=== PATIENT | female | born 1955 | race Caucasian/White ===

== ENCOUNTER → 2018-05-09 08:48 | Outpatient (BNVA) | payer MEDICARE, OTHER, SELFPAY | PROVIDERS: Visit Provider Orthopaedic Surgery | DX: Z47.1 Aftercare following joint replacement surgery (principal); Z96.653 Presence of artificial knee joint, bilateral | CPT/HCPCS: 99213 ==

== ENCOUNTER 2019-09-15 01:50 | Outpatient (CLI) | payer MEDICARE, SELFPAY ==
--- NOTE | 2019-09-15 09:13 | DI.RAD_ITS ---
EXAM: XR RIBS LT W PA LAT CHEST INDICATION: LT UPPER QUADRANT RIB PAIN, R10.12. COMPARISON: RIGHT RIBS TO INCLUDE CXR from 10/11/2015 RIGHT SHOULDER COMPLETE from 10/11/2015 TECHNIQUE: 2D digital imaging was performed. FINDINGS: Heart size is normal. There are old right rib fractures. Lungs are clear. No pneumothorax is seen. A marker was placed over the lower left ribs in the area of the patient's pain. No acute rib fract ure is identified. There is an old left 7th rib fracture. There has been a previous anterior abdomi nal wall repair. The left shoulder is unremarkable. IMPRESSION: No acute abnormality.
== END 2019-09-15 02:10 ==
PROVIDERS: PCP Nurse Practitioner; Visit Provider Internal Medicine Gastroenterology
DX: R07.81 Pleurodynia (principal); R10.12 Left upper quadrant pain; Z87.81 Personal history of (healed) traumatic fracture
CPT/HCPCS: 71046; 71100

== ENCOUNTER 2020-06-11 07:28 | Day surgery (SDC) | payer MEDICARE, SELFPAY ==
[2020-06-11 07:30] VITALS: BP 156/96; PULSE 80; RESP 16; TEMP 36.4; O2SAT 95
[2020-06-11] MEDS: Tropicam./Phenyleph. (1/2.5%) 5 ML BTL OS ×3 (07:50→08:00)
--- NOTE | 2020-06-11 08:58 | W.PM.DSUDISC ---
Discharge Plan Disposition Patient Disposition: HOME Condition: Good Discharge Details Attending Provider: Noble Aviles Primary Care Provider: Karley Thornton Home Meds and New Rx's Prescriptions: No Action amlodipine 2.5 mg Tablet 2.5 mg PO HS RF: 0 aspirin [Aspir-81] 81 mg Tablet,Delayed Release (Dr/Ec) 81 mg PO DAILY RF: 0 bupropion HCl 200 mg Tablet Sustained-Release 12 Hr 200 mg PO BID RF: 0 latanoprost 0.005 % Drops 1 drp ophthalmic (eye) HS RF: 0 olanzapine 5 mg Tablet 5 mg PO HS RF: 0 triamcinolone acetonide 0.1 % Cream 1 applic TOPICAL BID PRNRF: 0 famotidine 20 mg Tablet 20 mg PO BID RF: 0 omeprazole 20 mg Capsule,Delayed Release(Dr/Ec) 40 mg PO AC RF: 0 diclofenac sodium 75 mg Tablet,Delayed Release (Dr/Ec) 75 mg PO BID RF: 0 lisinopril 5 mg Tablet 5 mg PO DAILY RF: 0 ketoconazole 2 % Cream 1 applic TOPICAL DAILY RF: 0 fluoxetine [Prozac] 20 mg Capsule 20 mg PO DAILY RF: 0 rosuvastatin 10 mg Tablet 10 mg PO HS RF: 0 Women's Daily Multivitamin 18-0.4 mg Tablet 1 tab PO DAILY RF: 0 calcium carbonate-vitamin D3 [Calcium 500 With D] 500 mg(1,250mg) -400 unit Tablet 1 tab PO DAILY RF: 0 oxycodone 10 mg Tablet 5 mg PO BID RF: 0 Prolia 60 mg/mL Syringe 60 mg SUBCUT DIRECTED RF: 0 Discharge Instructions Stand Alone Forms: Post-op Topical Cataract, Liza Washington ([facility]) Discharge Orders Discharge Orders: Discharge Order (Routine); Ordered 06/11/20 Ordered By: Noble Aviles DS: Diagnosis Discharge Diagnosis (1) Nuclear sclerotic cataract of left eye: Status: Resolved (2) Cortical cataract of left eye: Status: Resolved
[2020-06-11] MEDS: Tetracaine 0.5% 4 ML BTL OS (09:12)
[2020-06-11] MEDS: Balanced Salt Soln.-PLUS 500 ML BAG (09:13)
[2020-06-11] MEDS: Lidocaine 2% Jelly 6 ML SYR (09:14)
[2020-06-11] MEDS: Lidocaine 1% Pres-Free 5 ML VIAL (09:14)
[2020-06-11] MEDS: Moxifloxacin-PF 1 MG/ML VIAL (09:15)
[2020-06-11] MEDS: Povidone-Iodine Ophth 30 ML BTL (09:16)
--- NOTE | 2020-06-11 09:33 | W.PM.OP ---
Date of service: 06/11/20 Time of Service: 09:33 Operative Note Operative Note DATE OF PROCEDURE: 06/11/20 PRE-OP DIAGNOSIS: Nuclear/cortical cataract, left eye POST-OP DIAGNOSIS: same PROCEDURE: Cataract extraction using phacoemulsification with intraocular lens implant, left eye SURGEON: Noble Aviles ANESTHESIA: MAC and local (sub-tenon's anesthetic infiltration) PATHOLOGY: none sent COMPLICATIONS: None Patient was transported to: same day Patient's condition: stable Implants: Alvaro and Alvaro Vision / [employer] Tecnis ZCB00 Indications: Progressive decreased vision due to cataract, left eye Procedure Description: CATARACT SURGERY OPERATIVE REPORT PREOPERATIVE DIAGNOSIS: Nuclear/cortical cataract, left eye POSTOPERATIVE DIAGNOSIS: Same OPERATION: Cataract extraction using phacoemulsification with posterior chamber intraocular lens implant, left eye. IOL: IOL Internet Sales Representative/Model: [employer] Vision / ROBERT Tecnis ZCB00 IOL Power: + 18.0 diopters IOL Serial Number: [id number] Optic Diameter: 6.0mm Haptic/Overall Diameter: 13.0mm PHACO INFO: Jere Rupeetalkurion Vision System with OZil and Active Fluidics Cumulative Dispersed Energy (CDE): 3.75 seconds SURGEON: Noble Aviles MD, CHUCK ANESTHESIA: Monitored Anesthesia Care (MAC), with local sub-tenon's anesthetic infiltration COMPLICATIONS: None SPECIMENS: None INDICATIONS FOR PROCEDURE: The patient is a 64-year-old lady with history of diminished visual acuity in her left eye secondary to the development of nuclear and cortical cataract. The option of cataract surgery was offered to the patient and she wished to proceed. PROCEDURE: The correct surgical eye was identified and marked as the left eye and the pupil was dilated in the preoperative area using mydriatics and cycloplegics. The dilated pupil size was 7.0 mm. Oral sedation was administered in the form of an Imprimis MKO Melt (midazolam 3mg/ketamine 25mg/ondansetron 2mg). The patient was brought to the operating room where cardiopulmonary monitoring was instituted and surgical time-out was performed, confirming the correct operative eye and IOL power. Topical anesthesia was administered and ophthalmic povidone-iodine 5% was instilled into the conjunctival fornices. Lidocaine gel was applied to the cornea and the isauro-ocular area was prepped with Betadine 10% solution and draped in the usual sterile fashion for intraocular surgery, including an aperture drape. A Tegaderm transparent film dressing was cut in half and used to cover the lashes and lid margins. Care was taken to sequester the lashes and lid margins under the Tegaderm dressing. A lid speculum was placed between the lids of the operative eye and the Rohith-Maria Ines operating microscope was maneuvered into position. Trisha scissors were then used to make a conjunctival buttonhole approximately 6mm posterior to the limbus in the inferonasal quadrant. Blunt dissection was carried out to expose bare sclera, and a blunt-tipped sub-tenon?s anesthesia cannula was introduced and passed posteriorly along the globe where non-preserved plain lidocaine was injected into posterior sub-Tenon?s space. A sideport knife was used to make a paracentesis port superior/superiortemporally. Intraocular phenylephrine/lidocaine was injected into the anterior chamber. The anterior chamber was then filled with Healon Pro. A 2.4mm keratome knife was used to create a half-thickness groove at the limbus and then to construct a three-plane near-clear corneal tunnel extending 2.0mm into clear cornea in the temporal position. . A flap was raised on the anterior capsule and capsulorhexis forceps were used to complete a continuous curvilinear capsulorhexis of 5.0 mm. Balanced salt solution was then used to perform cortical cleaving hydrodissection and nuclear hydrodelineation until the lens could be freely rotated within the capsular bag. The lens nucleus was then disassembled and removed within the capsular bag and iris plane using phacoemulsification. Residual cortical material was removed using the 45-degree angled silicone I/A tip with 0.3mm port. The posterior capsule was carefully polished to remove as much residual lens epithelial cells as safely possible. The capsular bag was then inflated and the anterior chamber deepened with viscoelastic. The lens implant described above was inserted into the capsular bag using the ROBERT [employer] Injector. A Kuglen hook was used to dial the IOL into position. Residual viscoelastic was then removed first from posterior to the IOL, then from the anterior chamber using the I/A handpiece. The lens implant was noted to center nicely within the capsular bag. The incisions were stromally hydrated, and the anterior chamber was reformed using BSS. Then 0.5cc of moxifloxacin 1.0mg/ml were injected into the capsular bag and anterior chamber. The incisions were checked with a Weck spear and found to be secure. Several drops of ophthalmic povidone-iodine 5% were then applied to the eye followed by two drops of Imprimis combination prednisolone/moxifloxacin/nepafenac solution. The drapes were removed and a clear plastic protective eye shield was placed over the eye. The patient was then returned to [facility] Day Surgery in stable condition.
[2020-06-11 09:50] VITALS: BP 147/92; PULSE 76; RESP 18; TEMP 36.1; O2SAT 97
== END 2020-06-11 10:10 | disposition home or self-care (01) ==
PROVIDERS: PCP Nurse Practitioner Family; Visit Provider Ophthalmology
PROC: (CPT 66984; principal; 2020-06-11 09:30)
DX: H25.12 Age-related nuclear cataract, left eye (principal); E11.9 Type 2 diabetes mellitus without complications
CPT/HCPCS: 66984; V2632

== ENCOUNTER 2020-06-25 08:21 | Day surgery (SDC) | payer MEDICARE, SELFPAY ==
[2020-06-25 08:30] VITALS: BP 128/90; PULSE 69; RESP 16; TEMP 36.6; O2SAT 98
[2020-06-25] MEDS: Tropicam./Phenyleph. (1/2.5%) 5 ML BTL OD ×3 (08:43→08:55)
[2020-06-25] MEDS: Moxifloxacin-PF 1 MG/ML VIAL (09:51)
[2020-06-25] MEDS: Lidocaine 1% Pres-Free 5 ML VIAL (09:51)
[2020-06-25] MEDS: Balanced Salt Soln.-PLUS 500 ML BAG (09:52)
[2020-06-25] MEDS: Lidocaine 2% Jelly 6 ML SYR (09:53)
[2020-06-25] MEDS: Tetracaine 0.5% 4 ML BTL OD (09:54)
[2020-06-25] MEDS: Povidone-Iodine Ophth 30 ML BTL (09:54)
--- NOTE | 2020-06-25 10:11 | W.PM.DSUDISC ---
Discharge Plan Disposition Patient Disposition: HOME Condition: Good Discharge Details Attending Provider: Noble Aviles Primary Care Provider: Karley Thornton Home Meds and New Rx's Prescriptions: No Action amlodipine 2.5 mg Tablet 2.5 mg PO HS RF: 0 aspirin [Aspir-81] 81 mg Tablet,Delayed Release (Dr/Ec) 81 mg PO DAILY RF: 0 bupropion HCl 200 mg Tablet Sustained-Release 12 Hr 200 mg PO BID RF: 0 latanoprost 0.005 % Drops 1 drp ophthalmic (eye) HS RF: 0 olanzapine 5 mg Tablet 5 mg PO HS RF: 0 triamcinolone acetonide 0.1 % Cream 1 applic TOPICAL BID PRNRF: 0 famotidine 20 mg Tablet 20 mg PO BID RF: 0 omeprazole 20 mg Capsule,Delayed Release(Dr/Ec) 40 mg PO AC RF: 0 diclofenac sodium 75 mg Tablet,Delayed Release (Dr/Ec) 75 mg PO BID RF: 0 lisinopril 5 mg Tablet 5 mg PO DAILY RF: 0 ketoconazole 2 % Cream 1 applic TOPICAL DAILY RF: 0 fluoxetine [Prozac] 20 mg Capsule 20 mg PO DAILY RF: 0 rosuvastatin 10 mg Tablet 10 mg PO HS RF: 0 Women's Daily Multivitamin 18-0.4 mg Tablet 1 tab PO DAILY RF: 0 calcium carbonate-vitamin D3 [Calcium 500 With D] 500 mg(1,250mg) -400 unit Tablet 1 tab PO DAILY RF: 0 oxycodone 10 mg Tablet 5 mg PO BID RF: 0 Prolia 60 mg/mL Syringe 60 mg SUBCUT DIRECTED RF: 0 cholecalciferol (vitamin D3) 1,250 mcg (50,000 unit) Capsule 1,250 mcg PO DIRECTED RF: 0 Discharge Instructions Stand Alone Forms: Post-op Topical Cataract, Liza Washington ([facility]) Discharge Orders Discharge Orders: Discharge Order (Routine); Ordered 06/25/20 Ordered By: Noble Aviles DS: Diagnosis Discharge Diagnosis (1) Nuclear sclerotic cataract of right eye: Status: Resolved (2) Cortical cataract of right eye: Status: Resolved
--- NOTE | 2020-06-25 10:13 | ROE_ITS ---
Date of service: 06/25/20 Time of Service: 10:13 Operative Note Operative Note DATE OF PROCEDURE: 06/25/20 PRE-OP DIAGNOSIS: Nuclear/cortical/posterior subcapsular cataract, right eye POST-OP DIAGNOSIS: same PROCEDURE: Cataract extraction using phacoemulsification with intraocular lens implant, right eye SURGEON: Noble Aviles ANESTHESIA: MAC and local (sub-tenon's anesthetic infiltration) ESTIMATED BLOOD LOSS: 0 PATHOLOGY: none sent COMPLICATIONS: None Patient was transported to: same day Patient's condition: stable Implants: Alvaro and Alvaro Vision / [employer] Tecnis ZCB00 intraocular lens Indications: Progressive decreased vision due to cataract, right eye Procedure Description: CATARACT SURGERY OPERATIVE REPORT PREOPERATIVE DIAGNOSIS: Nuclear/cortical/posterior subcapsular cataract, right eye POSTOPERATIVE DIAGNOSIS: Same OPERATION: Cataract extraction using phacoemulsification with posterior chamber intraocular lens implant, right eye. IOL: IOL Emergency Management Coordinator/Model: J[employer]J Vision / ROBERT Tecnis ZCB00 IOL Power: + 17.50 diopters IOL Serial Number: [id number] Optic Diameter: 6.0mm Haptic/Overall Diameter: 13.0mm PHACO INFO: Jere Raumfeldurion Vision System with OZil and Active Fluidics Cumulative Dispersed Energy (CDE): 10.67 seconds SURGEON: Noble Aviles MD, CHUCK ANESTHESIA: Monitored Anesthesia Care (MAC), with local sub-tenon's anesthetic infiltration COMPLICATIONS: None SPECIMENS: None INDICATIONS FOR PROCEDURE: The patient is a 64-year-old lady with history of diminished visual acuity in both eyes secondary to the development of bilateral nuclear and cortical cataracts. She is already undergone cataract surgery in her left eye and is doing well postoperatively. She now presents for cataract surgery in the right eye PROCEDURE: The correct surgical eye was identified and marked as the right eye and the pupil was dilated in the preoperative area using mydriatics and cycloplegics. The dilated pupil size was 6.0 mm. Oral sedation was administered in the form of an Imprimis MKO Melt (midazolam 3mg/ketamine 25mg/ondansetron 2mg). The patient was brought to the operating room where cardiopulmonary monitoring was instituted and surgical time-out was performed, confirming the correct operative eye and IOL power. Topical anesthesia was administered and ophthalmic povidone-iodine 5% was instilled into the conjunctival fornices. Lidocaine gel was applied to the corn ea and the isauro-ocular area was prepped with Betadine 10% solution and draped in the usual sterile fashion for intraocular surgery, including an aperture drape. A Tegaderm transparent film dressing was cut in half and used to cover the lashes and lid margins. Care was taken to sequester the lashes and lid margins under the Tegaderm dressing. A lid speculum was placed between the lids of the operative eye and the Rohith-Maria Ines operating microscope was maneuvered into position. Trisha scissors were then used to make a conjunctival buttonhole approximately 6mm posterior to the limbus in the inferonasal quadrant. Blunt dissection was carried out to expose bare sclera, and a blunt-tipped sub-tenon?s anesthesia cannula was introduced and passed posteriorly along the globe where non-preserve d plain lidocaine was injected into posterior sub-Tenon?s space. A sideport knife was used to make a paracentesis port inferiortemporally. Intraocular phenylephrine/lidocaine was injected into the anterior chamber. The anterior chamber was then filled with Healon Pro. A 2.4mm keratome knife was used to create a half-thickness groove at the limbus and then to construct a three-plane near-clear corneal tunnel extending 2.0mm into clear cornea in the superiortemporal position. . A flap was raised on the anterior capsule and capsulorhexis forceps were used to complete a continuous curvilinear c apsulorhexis of 5.0 mm noted to be quite loose with thin capsule.. Balanced salt solution was then used to perform cortical cleaving hydrodissection and nuclear hydrodelineation until the lens could be freely rotated within the capsular bag. The lens nucleus was then disassembled and removed within the capsular bag and iris plane using phacoemulsification. Residual cortical material was removed using the I/A handpiece. The posterior capsule was carefully polished to remove as much residual lens epithelial cells as safely possible. The capsular bag was then inflated and the anterior chamber deepened with viscoelastic. The lens implant described above was inserted into the capsular bag using the ROBERT [place] [employer] Injector. A Kuglen hook was used to dial the IOL into position. Residual viscoelastic was then removed first from posterior to the IOL, then from the anterior chamber using the I/A handpiece. The lens implant was noted to center nicely within the capsular bag. The incisions were stromally hydrated, and the anterior chamber was reformed using BSS. Then 0.5cc of moxifloxacin 1.0mg/ml were injected into the capsular bag and anterior chamber. The incisions were checked with a Weck spear and found to be secure. Several drops of ophthalmic povidone-iodine 5% were then applied to the eye followed by two drops of Imprimis combination prednisolone/moxifloxacin/nepafenac solution. The drapes were removed and a clear plastic protective eye shield was placed over the eye. The patient was then returned to Same Day Surgery in stable condition.
[2020-06-25 10:38] VITALS: BP 108/70; PULSE 78; RESP 18; TEMP 36.5; O2SAT 96
== END 2020-06-25 10:50 | disposition home or self-care (01) ==
PROVIDERS: PCP Nurse Practitioner Family; Visit Provider Ophthalmology
PROC: (CPT 66984; principal; 2020-06-25 11:30)
DX: H25.11 Age-related nuclear cataract, right eye (principal); E11.9 Type 2 diabetes mellitus without complications
CPT/HCPCS: 66984; V2632

== ENCOUNTER 2022-01-04 22:50 | Inpatient (IN) | payer MEDICARE, SELFPAY ==
[2022-01-04] VITALS (11 sets, daily range): BP systolic 88–105; BP diastolic 59–90; PULSE 87–112; RESP 18; TEMP 36.9; O2SAT 98–100
--- NOTE | 2022-01-04 23:00 | DI.RAD_ITS ---
Exam(s) XR PORTABLE CHEST AP EXAM: XR PORTABLE CHEST AP CLINICAL HISTORY: fatigue, weakness, left crackles, r/o pneumonia TECHNIQUE: 2D digital imaging was performed of the chest. One image was obtained. An AP view was ob tained. COMPARISON: CR XR RIBS LT W PA LAT CHEST from 09/15/2019 FINDINGS: MEDIASTINUM: Normal. HEART: Normal. PULMONARY VASCULATURE: Normal. LUNGS: Clear. PLEURAL SPACE: No pleural effusion or pneumothorax. BONE:Within normal limits for the patient's age. Old healed right rib fractures. OTHER FINDINGS:Normal. IMPRESSION: No acute pulmonary findings. DATA REPOSITORY: RADIATION DOSE DELIVERED:
--- NOTE | 2022-01-04 23:00 | DI.CT_ITS ---
Exam(s) CT HEAD WO EXAM: CT HEAD WO CLINICAL HISTORY: multiple recent falls, dizzy. TECHNIQUE: Imaging Protocol: Axial computed tomography images with coronal and sagittal reformatted images were created and reviewed COMPARISON: CT NECK WITH CONTRAST from 06/12/2014 FINDINGS: Ventricles and Extra axial spaces: Normal in size and morphology for the patient's age. Hemorrhage: None. Cerebral parenchyma: There are areas of decreased attenuation in the white matter likely reflecting s mall vessel ischemic disease. No evidence of an acute territorial infarct. Midline shift: None. Brainstem/Cerebellum: Normal. Calvarium: Normal. There is again seen incomplete fusion of the anterior and posterior arches of C1. This is unchanged compared to the CT scan of 06/12/2014. Visualized Paranasal sinuses/Mastoids: Clear. Soft Tissues: Unremarkable. IMPRESSION: No acute intracranial process. RADIATION DOSE DELIVERED: 651.48mGy.cm Total DLP DATA REPOSITORY: All CT scans at this facility are submitted to the National Radiology Data Registry (NRDR) Dose Index Registry (DIR) with the [employer] ([employer]). RADIATION OPTIMIZATION: All CT scans at this facility use at least one of these dose optimization te chniques: automated exposure control; mA and/or kV adjustment per patient size (includes targeted exa ms where dose is matched to clinical indication); or iterative reconstruction.
--- NOTE | 2022-01-04 23:00 | RT.EKG_ITS ---
APPROVED REPORT Exam: Resting ECG Reason for Exam: weakness Patient Location: E HR:87 bpm ECG Measurements Heart Rate 87 AXIS NC 186 P 74 QRSd 86 QRS 42 QT 389 T [id number] QTc 468 Conclusion Sinus rhythm...normal P axis, V-rate 60- 99 Low voltage, extremity and precordial leads...extremity<0.5mV, precordial<1.0mV Physician: Sinus rhythm, rate 87, intervals normal, inverted T waves present in V1 through V5. No ST depression. No evidence of STEMI. Review of prior EKG from 2010 demonstrates flattened T waves in V3, and inverted T waves in V1 and V2. While there are some acute changes on this EKG, it certainly appears to be otherwise similar to previous EKG.
--- NOTE | 2022-01-04 23:42 | ED.GENADUL_ITS ---
Discharge Plan Disposition Patient Disposition: [facility] INPATIENT Condition: Stable Discharge Details Chief Complaint: GenMedical Clinical Impression: Acute hypokalemia, Weakness, Adult failure to thrive, Multiple falls Primary Care Provider: Savannah Denise ED Provider: Eron Steele Home Meds and New Rx's Prescriptions: No Action bupropion HCl [Wellbutrin] 100 MG tablet 200 mg PO BID rosuvastatin [Crestor] 10 MG tablet 10 mg PO DAILY oxycodone 10 MG tablet 10 mg PO QID PRN PRN olanzapine [Zyprexa] 2.5 MG tablet 2.5 mg PO HS PRN multivitamin [Daily Multi-Vitamin] 1 EACH tablet 1 cap PO DAILY diclofenac sodium 100 MG tablet extended release 24 hr 1 tab PO HS lisinopril 10 MG tablet 5 mg PO DAILY albuterol sulfate 8.5 GM HFA aerosol inhaler 1 puff Inhalation Q4H PRN PRN Label Comments: pt unsure when she used this last 10/11/15 fluticasone propionate 16 GM spray,suspension 1 spray NS BID PRN cholecalciferol (vitamin D3) [Vitamin D3] 1,000 UNIT capsule 2 cap PO DAILY calcium carbonate-vitamin D3 [Calcium 500 + D] 1 EACH tablet,chewable 2 tab PO DAILY latanoprost 2.5 ML drops 1 drp OU HS amlodipine 2.5 mg Tablet 2.5 mg PO HS aspirin [Aspir-81] 81 mg Tablet,Delayed Release (Dr/Ec) 81 mg PO DAILY bupropion HCl 200 mg Tablet Sustained-Release 12 Hr 200 mg PO BID latanoprost 0.005 % Drops 1 drp ophthalmic (eye) HS olanzapine 5 mg Tablet 5 mg PO HS triamcinolone acetonide 0.1 % Cream 1 applic TOPICAL BID PRN famotidine 20 mg Tablet 20 mg PO BID omeprazole 20 mg Capsule,Delayed Release(Dr/Ec) 40 mg PO AC diclofenac sodium 75 mg Tablet,Delayed Release (Dr/Ec) 75 mg PO BID lisinopril 5 mg Tablet 5 mg PO DAILY ketoconazole 2 % Cream 1 applic TOPICAL DAILY fluoxetine [Prozac] 20 mg Capsule 20 mg PO DAILY rosuvastatin 10 mg Tablet 10 mg PO HS Women's Daily Multivitamin 18-0.4 mg Tablet 1 tab PO DAILY calcium carbonate-vitamin D3 [Calcium 500 With D] 500 mg(1,250mg) -400 unit Tablet 1 tab PO DAILY oxycodone 10 mg Tablet 5 mg PO BID Prolia 60 mg/mL Syringe 60 mg SUBCUT DIRECTED cholecalciferol (vitamin D3) 1,250 mcg (50,000 unit) Capsule 1,250 mcg PO DIRECTED Rx Instructions: every 2 weeks Medical Decision Making This is a 66-year-old female who lives alone, with a past medical history of reactive airway disease, high cholesterol, reflux, hypertension, previous neoplasm of the pancreas, obstructive sleep apnea, type 2 diabetes, bipolar disorder, who presents today for evaluation of weakness. The patient lives alone. Per EMS the patient's neighbors have noticed that she has been falling both times over the last few weeks, and has had repeat requirements for help with assistance at home. Tonight when they went to visit they noticed that she was significantly weak and could not get up. He was complaining of dizziness. She was brought into the ER for further evaluation. Currently aside for weakness the patient denies any chest pain, shortness of breath, fever, chills, abdominal pain, vomiting or diarrhea. She states that she just does not have enough strength to get up. She states that she normally drinks a fair bit of fluids throughout the day but did not drink much today. She does admit to some swelling in her lower extremities. She normally uses a walker to ambulate. No other complaints at this time. She denies any other modifying factors. She denies hitting her head recently with her falls Physical exam demonstrates dry mucous membranes, pitting edema of the lower extremities. Notable weakness of the lower extremities, barely able to lift legs off the stretcher. Upper extremities otherwise seem normal in strength, with no significant focal neurologic deficits aside for slight dysmetria with movements of the left upper extremity when doing [id number]. No other clear signs of focal deficit. No signs of significant trauma. Differential is broad but includes dehydration, CHF exacerbation, cardiac etiology, stroke, or electrolyte abnormality. We will evaluate for these concerning etiologies, monitor closely and reassess. 2:10 AM Laboratory work-up is returned, no significant white count bandemia or left shift. Hemoglobin is slightly low at 9.3, however this two-point drop is in comparison to her last lab value which was 7 years ago. She denies any melena. No complaints of bleeding. VBG is stable. Potassium is low at 2.5, this may be the cause of the inverted T waves, but on exam they do not appear to be U waves clinically. Troponin is normal. proBNP is stable. Ammonia level normal. Thyroid function normal. CT scan of the head and chest is negative for significant acute process. COVID/flu/RSV are all of the negative. On reassessment the patient continues to be profoundly weak in the lower extremities. There are hypokalemia may be because of this, or it may be secondary to gross deconditioning. Regardless patient does not appear to be capable of performing her ADLs, or functioning safely at home. We will admit for discussion on home health options, potential placement, and management of her hypokalemia. Discussed the case with the hospitalist Dr. Zambrano. He agrees with the assessment and plan. I have extensively reviewed the treatment plan with the patient. I have addressed all patient concerns at this time. I have also discussed the plan with the admitting physician and they agree with the current assessment and plan and have agreed to assume responsibility for the patient. All parties demonstrate verbal understanding and agreement with our assessment and plan at this time. The documentation in this chart was dictated using [employer] dictation software. Please excuse any dictation errors. EKG 23: 20 Sinus rhythm, rate 87, intervals normal, inverted T waves present in V1 through V5. No ST depression. No evidence of STEMI. Review of prior EKG from 2010 demonstrates flattened T waves in V3, and inverted T waves in V1 and V2. While there are some acute changes on this EKG, it certainly appears to be otherwise similar to previous EKG. FINDINGS: Lungs: Mild hyperinflation without airspace consolidation. Pleural spaces: No pleural effusion. No pneumothorax. Heart/Mediastinum: No cardiomegaly. Bones/joints: Chronic healed right rib deformities. IMPRESSION: Mild hyperinflation without airspace consolidation. Thank you for allowing us to participate in the care of your patient. Dictated and Authenticated by: Pattie Mcneal MD 01/04/2022 11:50 PM Eastern Time ([place] & [place] FINDINGS: Brain: No acute intracranial hemorrhage, mass-effect, midline shift, or extra- axial collection is seen. There is patchy white matter hypoattenuation, nonspecific but commonly seen as a chronic sequela of small vessel ischemic disease. The gordillo white matter differentiation appears preserved. There is symmetric parenchymal volume loss. Cerebral ventricles: The ventricular system and basilar cisterns appear appropriate in size and configuration given the degree of parenchymal volume loss. Paranasal sinuses: The paranasal sinuses appear well aerated. No air-fluid levels are seen. Mastoid air cells: The mastoid air cells appear well-aerated. Ears: The middle ear cavities appear clear. Orbital cavities: The globes and intraorbital structures appear grossly intact. Bones/joints: The bony calvarium appears intact. No depressed skull fracture is seen. Well corticated defects through the anterior and posterior arches of C1 have a developmental appearance. Soft tissues: No gross focal scalp hematoma is seen. IMPRESSION: No acute intracranial hemorrhage or depressed skull fracture. Thank you for allowing us to participate in the care of your patient. Dictated and Authenticated by: Travon Aguilar MD 01/05/2022 2:03 AM Eastern Time ([place] & [place]) HPI General Date/Time Provider Initiated Documentation: 01/04/22 22:53 . HPI Narrative: This is a 66-year-old female who lives alone, with a past medical history of reactive airway disease, high cholesterol, reflux, hypertension, previous neoplasm of the pancreas, obstructive sleep apnea, type 2 diabetes, bipolar disorder, who presents today for evaluation of weakness. The patient lives alone. Per EMS the patient's neighbors have noticed that she has been falling both times over the last few weeks, and has had repeat requirements for help with assistance at home. Tonight when they went to visit they noticed that she was significantly weak and could not get up. He was complaining of dizziness. She was brought into the ER for further evaluation. Currently aside for weakness the patient denies any chest pain, shortness of breath, fever, chi lls, abdominal pain, vomiting or diarrhea. She states that she just does not have enough strength to get up. She states that she normally drinks a fair bit of fluids throughout the day but did not drink much today. She does admit to some swelling in her lower extremities. She normally uses a walker to ambulate. No other complaints at this time. She denies any other modifying factors. She denies hitting her head recently with her falls Related Data Home Medications Medication Instructions Recorded Confirmed bupropion HCl 100 mg tablet 200 mg PO BID 02/25/13 05/09/18 (Wellbutrin) rosuvastatin 10 mg tablet (Crestor) 10 mg PO DAILY 02/25/13 05/09/18 olanzapine 2.5 mg tablet (Zyprexa) 2.5 mg PO HS PRN 12/10/14 05/09/18 oxycodone 10 mg tablet 10 mg PO QID PRN PRN 12/10/14 05/09/18 albuterol sulfate 90 mcg/actuation 1 puff inhalation Q4H PRN PRN 02/17/15 05/09/18 aerosol inhaler calcium carbonate 500 mg-vitamin 2 tab PO DAILY 02/17/15 05/09/18 D3 10 mcg (400 unit) chewable tablet (Calcium 500 + D) cholecalciferol (vitamin D3) 25 2 cap PO DAILY 02/17/15 05/09/18 mcg (1,000 unit) capsule (Vitamin D3) diclofenac sodium 100 mg 1 tab PO HS 02/17/15 05/09/18 tablet,extended release 24 hr fluticasone propionate 50 1 spray NS BID PRN 02/17/15 05/09/18 mcg/actuation nasal spray,suspension lisinopril 10 mg tablet 5 mg PO DAILY 02/17/15 05/09/18 multivitamin (Daily Multi-Vitamin 1 cap PO DAILY 02/17/15 05/09/18 tablet) latanoprost 0.005 % eye drops 1 drp OU HS 03/01/15 05/09/18 amlodipine 2.5 mg tablet 2.5 mg PO HS 06/08/20 06/25/20 aspirin 81 mg tablet,delayed 81 mg PO DAILY 06/08/20 06/25/20 release bupropion HCl 200 mg tablet,12 hr 200 mg PO BID 06/08/20 06/25/20 sustained-release calcium carbonate 500 mg-vitamin 1 tab PO DAILY 06/08/20 06/25/20 D3 10 mcg (400 unit) tablet (Calcium 500 With D) denosumab 60 mg/mL subcutaneous 60 mg subcut DIRECTED 06/08/20 06/25/20 syringe (Prolia) diclofenac sodium 75 mg 75 mg PO BID 06/08/20 06/25/20 tablet,delayed release famotidine 20 mg tablet 20 mg PO BID 06/08/20 06/25/20 fluoxetine 20 mg capsule (Prozac) 20 mg PO DAILY 06/08/20 06/25/20 ketoconazole 2 % topical cream 1 applic topical DAILY 06/08/20 06/23/20 latanoprost 0.005 % eye drops 1 drp ophthalmic (eye) HS 06/08/20 06/25/20 lisinopril 5 mg tablet 5 mg PO DAILY 06/08/20 06/25/20 cxsckeldcofe-Cx-evge-minerals 18 1 tab PO DAILY 06/08/20 06/25/20 mg-0.4 mg tablet olanzapine 5 mg tablet 5 mg PO HS 06/08/20 06/25/20 omeprazole 20 mg capsule,delayed 40 mg PO AC 06/08/20 06/25/20 release oxycodone 10 mg tablet 5 mg PO BID 06/08/20 06/25/20 rosuvastatin 10 mg tablet 10 mg PO HS 06/08/20 06/25/20 triamcinolone acetonide 0.1 % 1 applic topical BID PRN 06/08/20 06/23/20 topical cream cholecalciferol (vitamin D3) 1,250 1,250 mcg PO DIRECTED 06/24/20 06/25/20 mcg (50,000 unit) capsule Allergies Allergy/AdvReac Type Severity Reaction Status Date / Time propoxyphene napsylate Allergy Intermediate Verified 01/27/21 15:15 [From Darvocet-N 100] celecoxib [From Celebrex] Allergy Swelling/Ed Verified 01/27/21 15:15 ej acetaminophen AdvReac Intermediate Verified 01/27/21 15:15 [From Darvocet-N 100] citalopram hydrobromide AdvReac Intermediate Psychosis Verified 01/27/21 15:15 [From Celexa] lamotrigine AdvReac Intermediate Nausea Verified 01/27/21 15:15 lithium AdvReac Intermediate Nausea, Verified 01/27/21 15:15 vomiting misoprostol AdvReac Mild Nausea Unverified 01/27/21 15:15 [From Arthrotec 50] alprazolam [From Xanax] AdvReac Itching Unverified 01/27/21 15:15 naproxen AdvReac Nausea Unverified 01/27/21 15:15 General Stated Complaint: GenMedical SARAH BETH: 3 Review of Systems All systems reviewed & are unremarkable except as noted in HPI and below PFSH All Active Problems (Updated 01/05/22 @ 02:12 by Eron Steele DO) Acute hypokalemia (Acute) Weakness (Acute) Adult failure to thrive (Acute) Multiple falls (Acute) Medical History (Updated 01/05/22 @ 02:12 by Eron Steele DO) Allergic rhinitis Allergic rhinitis Arthritis Arthritis Back pain Backache bipolar disorder Bipolar disorder PTSO/abuse/syphilis 1969 tx, hospitalizations , 10/18, head MRI , EEG Chronic back pain Chronic pain (~07/13/15) Chronic sinusitis Diabetes mellitus Dyslipidemia Dyslipidemia Dyspnea Fatty liver disease, nonalcoholic Fracture of ankle GERD (gastroesophageal reflux disease) GERD (gastroesophageal reflux disease) Glaucoma Glaucoma History of malignant neoplasm of pancreas Hypertension Hypertensive disorder Knee pain Left sided abdominal pain 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 states she had a whipple procedure, and has been in remission since 2004 Obstruction of common bile duct On local [employer] drug therapy ineidaion chronic LBP associated with OA hx of compression fx. medications oxycodine 10 mg tablet SOAP sore 14. Yearly narcotic contract last signed 10/18/2018, 10/01/2019 [place] PDMP queried twice yearly for 5 states including [place] and [place] last dibe ib 03/01/18, 03/13/19, 01/09/20, [place] random urine drug screen being done at least 3-4 months GABBY (obstructive sleep apnea) GABBY (obstructive sleep apnea) Osteoporosis Steatosis, liver Type II diabetes mellitus Pt. states she was and is no longer taking medication Vertigo Surgical History (Updated 01/27/21 @ 15:15 by Jyoti Smith) Abdominal hysterectomy Fracture, Open Treatment ORIF Fibia H/O hernia repair Hernia Repair, Incisional x3 History of cataract surgery History of hysterectomy Hx of total knee replacement Pancreatic Duodenectomy(whipple procedure) Recurrent major depression in partial remission Replacement of total knee joint left S/P tonsillectomy and adenoidectomy Tonsillectomy and adenoidectomy Family History (System 01/27/21 @ 15:15 by Jyoti Smith) Brother Hearing loss ear problems, hearing loss and dizzy Social History (System 01/27/21 @ 15:15 by Jyoti Smith) Smoking/Tobacco Use Status: Former Tobacco Use Quit Date: 08/20/04 Smoking risk assessment performed?: Yes Alcohol Intake: former Drug use: Never Substance use type: does not use Do you feel safe at home: Yes Do you feel safe in your relationship?: Yes Exam Narrative Exam Narrative: 1.Const: Well-nourished, Well-developed, appearing stated age 2.Eyes: PERRL, no conjunctival injection, and symmetrical lids. 3.ENT: Atraumatic external nose and ears. Dry MM. Neck: Symmetric, trachea midline, No thyromegaly. There is no evidence of raccoon eyes, ty sign, CSF rhinorrhea, mastoid tenderness, cranial crepitus, hemotympanum, exophthalmos, or hyphema. Patient demonstrates intact dentition with no signs of tooth avulsion or fracture, no signs of jaw deformity, no evidence of a LeFort's fracture, with an intact palate, nose and orbital region. There is no evidence of a nasal septal hematoma. No proptosis. Jaw closes symmetrically. Airway is clear. 4.CVS: +S1/S2, No murmurs or gallops. Peripheral pulses 2+ and equal in all extremities. Brisk capillary refill in all extremities. 5.RESP: Unlabored respiratory effort. Clear to auscultation bilaterally. No wheezes rales or rhonchi 6.GI: Soft, Nontender/Nondistended, No hepatosplenomegaly. No guarding or rebound. 7.MSK: Normocephalic/Atraumatic, Extremities w/o deformity or ttp No cyanosis or clubbing, Normal movement of all extremities. No tenderness on palpation of the hip, cervical thoracic or lumbar spine. Patient has +1 pitting edema of the lower shins, and +2 pitting edema of the left foot +1 pitting edema on the right. Notable weakness for the lower extremities. She is barely able to lift the legs off the bed. Upper extremities demonstrate 5/5 strength. 8.Skin: Warm, Dry. No rashes or lesions. 9.Neuro: intelligence applications II-XII grossly intact. Sensation grossly intact, no focal neurologic deficits. No facial asymmetry. She is able to speak clearly but speaks very softly. No significant d patient does seem to have mild dysmetria with slight difficulty utilizing the left upper extremity for doing [id number]. 10.Psych: (AAO) x3. Appropriate mood and affect Course Vital Signs Vital signs: Vital Signs Temperature 36.9 C 01/04/22 22:52 Pulse 112 H 01/04/22 22:52 Respiratory Rate 18 01/04/22 22:52 Blood Pressure 105/90 01/04/22 22:52 Pulse Oximetry 100 01/04/22 22:52 Temperature 36.9 C 01/04/22 22:52 Temperature Source Skin 01/04/22 22:52 Pulse 112 H 01/04/22 22:52 Respiratory Rate 18 01/04/22 22:52 Respiratory Effort Non-Labored 01/04/22 23:02 Blood Pressure 105/90 01/04/22 22:52 Pulse Oximetry 100 01/04/22 22:52 Oxygen Delivery Method Room Air 01/04/22 22:52 Oxygen Flow Rate 0 01/04/22 22:52 Pain Level 0 01/04/22 22:52 Lab/Test Results Lab/Test Results: 01/04/22 23:13 Urine - Cath Straight Urine Culture - Pending
[2022-01-04 23:46] LABS: Bilirubin Small (Negative); Blood Negative (Negative); Clarity Sl Cloudy (Clear); Glucose Negative (Negative); Ketones 80 mg/dL (Negative); Leukocyte Esterase Negative (Negative); Nitrite Negative (Negative); Specific Gravity 1.025 (1.005-1.025)
--- NOTE | 2022-01-04 23:52 | DI.VRAD_ITS ---
PROCEDURE INFORMATION: Exam: XR Chest Exam date and time: 01/04/2022 22:59 Age: 66 years old Clinical indication: Other: Fatigue weakness, left crackles, R/O pnemonia TECHNIQUE: Imaging protocol: XR of the chest. Views: 1 view. COMPARISON: CR XR RIBS LT W PA LAT CHEST 09/15/2019 09:13 FINDINGS: Lungs: Mild hyperinflation without airspace consolidation. Pleural spaces: No pleural effusion. No pneumothorax. Heart/Mediastinum: No cardiomegaly. Bones/joints: Chronic healed right rib deformities. IMPRESSION: Mild hyperinflation without airspace consolidation. Dictated and Authenticated by: Pattie Mcneal MD. Ordering:CHRYSTAL Littlejohn MD
[2022-01-05] VITALS (28 sets, daily range): BP systolic 85–114; BP diastolic 55–79; PULSE 79–121; RESP 16–18; TEMP 36–36.7; O2SAT 96–100
--- NOTE | 2022-01-05 | DI.MRI_ITS ---
Exam(s) MR CERVICAL SPINE WO/W EXAM: MR CERVICAL SPINE WO/W CLINICAL HISTORY: progressive weakness TECHNIQUE: Multiplanar multisequence MRI of the cervical spine was performed. CONTRAST MATERIAL: IV Contrast: 9 ML of Dotarem contrast administered. COMPARISON: No exams were available for comparison FINDINGS: The examination is limited due to patient motion artifact. BONES: Vertebral body heights are maintained. Intervertebral disc spaces are normal. Alignment is nor mal. Bone marrow signal intensity is within normal limits. CERVICAL CORD: Craniovertebral junction is unremarkable. The cervical cord is normal size and signal intensity. No lesion is present. SOFT TISSUES: Unremarkable. ENHANCEMENT: No suspicious enhancement identified. C2-3: No disc herniation or bulge is identified. No significant central spinal canal or neural forami nal stenosis. C3-4: No disc herniation or bulge is identified. No significant central spinal canal or neural forami nal stenosis C4-5: There is prominence of the osteophyte disc complex. This causes mild narrowing of the central spinal canal. Degenerative changes of the uncovertebral joints is seen bilaterally causing moderatel y severe bilateral neural foraminal stenosis. C5-6: There is prominence of the osteophyte disc complex effacing the anterior subarachnoid space.. Hypertrophic changes of the left uncovertebral joint causes moderately severe left neural foraminal s tenosis. No significant right neural foraminal stenosis is seen. C6-7: There is prominence of the osteophyte disc complex effacing the anterior subarachnoid space.. Hypertrophic changes of the right uncovertebral joint cause moderate narrowing of the neural foramen. There is mild narrowing of the left neural foramen. C7-T1: No disc herniation or bulge is identified. No significant central spinal canal or neural adelita inal stenosis IMPRESSION: 1. The examination is limited due to patient motion artifact. 2. No evidence of spinal cord abnormality. No abnormal enhancement of the spinal cord. 3. Multilevel degenerative changes in the cervical spine causing central and neural foraminal stenosi s as described above. DATA REPOSITORY:
--- NOTE | 2022-01-05 | DI.MRI_ITS ---
Exam(s) MR BRAIN WO/W EXAM: MR BRAIN WO/W CLINICAL HISTORY: progressive weakness TECHNIQUE: Multiplanar multisequence MRI of the brain was performed. CONTRAST MATERIAL: IV Contrast: 9 mL of Dotarem contrast administered. COMPARISON: CT CT HEAD WO from 01/05/2022 FINDINGS: The examination is limited due to patient motion artifact. VENTRICLES AND EXTRA AXIAL SPACES: Normal in size and morphology for the patient's age. HEMORRHAGE: None. CEREBRAL PARENCHYMA: No focus of restricted diffusion to suggest acute infarct. No space-occupying le rafa identified. There are areas of hyperintense signal in the white matter on the FLAIR and T2 weigh catia images likely reflecting small vessel ischemic disease. MIDLINE SHIFT: None. BRAINSTEM/CEREBELLUM: Normal. CALVARIUM: Normal. ENHANCEMENT: No suspicious enhancement identified. VISUALIZED PARANASAL SINUSES/MASTOIDS: Clear. PLATINUM OF MCWILLIAMS: Normal flow void. PITUITARY GLAND: There is a partially empty sella. OTHER FINDINGS: IMPRESSION: 1. No acute intracranial process. No evidence of an acute infarct. 2. Cerebral atrophy and small vessel ischemic disease. DATA REPOSITORY:
--- NOTE | 2022-01-05 | DI.MRI_ITS ---
Exam(s) MR LUMBAR SPINE WO/W EXAM: MR LUMBAR SPINE WO/W CLINICAL HISTORY: progressive weakness. TECHNIQUE: Multiplanar multisequence MRI of the Lumbar Spine was performed. CONTRAST MATERIAL: IV Contrast: 9 mL of Dotarem contrast administered. COMPARISON: MR MR THORACIC SPINE WO/W from 01/05/2022 FINDINGS: The examination is limited due to patient motion artifact. Bones: The last intervertebral disc space is designated the L5/S1 level for the numbering purpose of this examination. The vertebral body heights are well maintained. Alignment is satisfactory. Mild en dplate degenerative signal changes are present. Cord: The conus tip ends at the L1 level. It is of normal size and signal intensity. T12-L1: No disc herniations or bulges are present. No central spinal canal or neural foraminal stenos is. L1-2: No disc herniations or bulges are present. No central spinal canal or neural foraminal stenosis . L2-3: There is a mild diffuse disc bulge. No significant central spinal canal stenosis is present. Moderate bilateral neural foraminal stenosis is present. L3-4: There is a mild diffuse disc bulge eccentric to the right. No significant central spinal canal stenosis is seen. Moderately severe right neural foraminal stenosis and moderate left neural forami nal stenosis is present. L4-5: There is a diffuse disc bulge eccentric to the right. Facet arthropathy is present. No signif icant central spinal canal stenosis is seen. Moderately severe right neural foraminal stenosis is se en no significant left neural foraminal stenosis is present. L5-S1: There is a mild diffuse disc bulge eccentric to the right. No significant central spinal etta l stenosis is present. Degenerative changes of the facets are seen. This contributes to the moderat e right neural foraminal stenosis in the mild left neural foraminal stenosis. Soft tissues: The visualized SI joints and sacrum are well maintained. The paraspinal soft tissues ar e unremarkable. There is no evidence of suspicious enhancement. IMPRESSION: 1. No spinal cord abnormality or abnormal enhancement. 2. Multilevel degenerative changes in the lumbar spine resulting in neural foraminal stenosis as desc ribed above. DATA REPOSITORY:
--- NOTE | 2022-01-05 | DI.US_ITS ---
Exam(s) US PELVIS RENAL EXAM: US PELVIS RENAL CLINICAL HISTORY: hx of cervical cancer; urinary retention. TECHNIQUE: Transabdominal renal and pelvic ultrasound was performed using standard protocol. The aristides olivas elected to forego the transvaginal portion of the pelvic examination. COMPARISON: No exams were available for comparison FINDINGS: KIDNEYS: Kidneys are symmetric in size. One 3mm echogenic focus is seen in each kidney. These are monreal spicious for nonobstructing renal stones. No evidence of hydronephrosis. No renal mass or cyst ident ified. The urinary bladder is not well visualized as it is empty with a Jonas catheter in place. UTERUS: Status post hysterectomy. OVARIES: The ovaries were not visualized transabdominally. No adnexal masses are seen sonographicall y. CUL-DE-SAC: Free fluid: None. Other: None. IMPRESSION: 1. Bilateral nephrolithiasis. No evidence of hydronephrosis. 2. Status post hysterectomy. 3. The ovaries were not visualized transabdominally. No adnexal masses are seen sonographically. DATA REPOSITORY:
--- NOTE | 2022-01-05 | DI.MRI_ITS ---
Exam(s) MR THORACIC SPINE WO/W EXAM: MR THORACIC SPINE WO/W CLINICAL HISTORY: progressive weakness. TECHNIQUE: Multiplanar multisequence MRI of the Thoracic spine was performed. CONTRAST MATERIAL: IV Contrast: 9 mL of Dotarem contrast administered. COMPARISON: CR,XR XR PORTABLE CHEST AP from 01/04/2022 FINDINGS: The examination is limited due to patient motion artifact. Bones: The vertebral body heights are well maintained. Alignment is satisfactory. The signal characte ristics are unremarkable. Cord: The thoracic cord is normal size and signal intensity. No intrinsic cord lesion is present. Discs: There is a small central disc bulge at the T8-T9 level but no significant central spinal canal or neural foraminal stenosis results. Right foraminal perineural cysts are seen at T9-T10 and T11-T 12. Soft tissues: Normal. There is no evidence of suspicious enhancement. IMPRESSION: 1. The examination is limited due to patient motion artifact. 2. No spinal cord lesion or abnormal enhancement. 3. No significant central spinal canal or neural foraminal stenosis. DATA REPOSITORY:
[2022-01-05 00:38] LABS: BE (Venous) 0 mmol/L (-2-3); HCO3 (Venous) 25 mmol/L (23-28); O2 Sat (Venous) 39 %; TCO2 (Venous) 23 mmol/L (24-29); pCO2 (Venous) 37 mmHg (41-51); pH (Venous) 7.44 (7.31-7.41); pO2 (Venous) 24 mmHg
[2022-01-05 00:50] LABS: Abs Immature Grans 0.04 10^3/uL (0.0-0.06); Absolute Basophil Count 0.03 10^3/uL (0.0-0.2); Absolute Lymphocyte Count 3.18 10^3/uL (1.2-3.4); Absolute Monocyte Count 1.06 10^3/uL (0.1-0.8); Absolute Neutrophil Count 2.85 10^3/uL (1.2-6.7); Basophils % 0.4; Eosinophils % 5.3; HCT 29.2 % (36.0-46.0); HGB 9.3 g/dL (11.2-15.7); Immature Grans % 0.5; Lymphocytes % 42.1; MCH 30.1 pg (27.0-33.0); MCHC 31.8 % (32.0-36.0); MCV 95 fL (80-95); MPV 7.9 fL (8.0-11.0); Neutrophils % 37.7; Platelet Count 470 10^3/uL (130-400); RBC 3.09 10^6/uL (3.93-5.22); RDW 19.1 % (11.7-14.6); RDW-SD 65.7 fL; WBC 7.56 10^3/uL (4.4-10.8)
[2022-01-05 00:52] LABS: Ammonia 29 umol/L (11-32)
[2022-01-05 01:13] LABS: ALT 14 U/L (14-59); AST 12 U/L (15-37); Albumin 1.4 g/dL (3.4-5.0); Alkaline Phosphatase 73 U/L (46-116); BUN 9 mg/dL (7-18); Bilirubin, Total 0.4 mg/dL (0.2-1.0); CREATININE 0.6 mg/dL (0.55-1.02); Calcium 7.2 mg/dL (8.5-10.1); Glucose 79 mg/dL (74-106); NT-proBNP 326 pg/mL (<300); TSH (W/Ref FT4) 3.51 uIU/mL (0.36-3.74); Total Protein 4.7 g/dL (6.4-8.2)
[2022-01-05 01:20] LABS: Anion Gap 11.3 mmol/L (3-11); CO2 24.7 mmol/L (21.0-32.0); Chloride 103 mmol/L (98-107); Sodium 139 mmol/L (136-145)
[2022-01-05 01:24] LABS: COVID-19 PCR Negative (Negative); Influenza A PCR Negative (Negative); Influenza B PCR Negative (Negative); RSV PCR Negative (Negative)
[2022-01-05 01:27] LABS: Potassium 2.5 mmol/L (3.5-5.1)
[2022-01-05 01:27] LABS: Source Nasopharynx
[2022-01-05] MEDS: Potassium Chloride 20 MEQ TABCR 40 MEQ PO ×2 (01:37→09:04)
[2022-01-05] MEDS: POTASSIUM CHLORIDE 20 MEQ/100 ML BAG 50 MEQ IVPB (01:46)
--- NOTE | 2022-01-05 02:04 | DI.VRAD_ITS ---
PROCEDURE INFORMATION: Exam: CT Head Without Contrast Exam date and time: 01/05/2022 1:07 AM Age: 66 years old Clinical indication: Dizziness; Additional info: Dizzy, recent falls TECHNIQUE: Imaging protocol: Computed tomography of the head without contrast. Radiation optimization: All CT scans at this facility use at least one of these dose optimization techniques: automated exposure control; mA and/or kV adjustment per patient size (includes targeted exams where dose is matched to clinical indication); or iterative reconstruction. COMPARISON: No relevant prior studies available. FINDINGS: Brain: No acute intracranial hemorrhage, mass-effect, midline shift, or extra-axial collection is seen. There is patchy white matter hypoattenuation, nonspecific but commonly seen as a chronic sequela of small vessel ischemic disease. The gordillo white matter differentiation appears preserved. There is symmetric parenchymal volume loss. Cerebral ventricles: The ventricular system and basilar cisterns appear appropriate in size and configuration given the degree of parenchymal volume loss. Paranasal sinuses: The paranasal sinuses appear well aerated. No air-fluid levels are seen. Mastoid air cells: The mastoid air cells appear well-aerated. Ears: The middle ear cavities appear clear. Orbital cavities: The globes and intraorbital structures appear grossly intact. Bones/joints: The bony calvarium appears intact. No depressed skull fracture is seen. Well corticated defects through the anterior and posterior arches of C1 have a developmental appearance. Soft tissues: No gross focal scalp hematoma is seen. IMPRESSION: No acute intracranial hemorrhage or depressed skull fracture. Dictated and Authenticated by: Travon Aguilar MD. Ordering:CHRYSTAL Littlejohn MD
[2022-01-05 02:37] LABS: Magnesium 1.9 mg/dL (1.8-2.4)
--- NOTE | 2022-01-05 04:50 | HPE_ITS ---
Date of service: 01/05/22 Time of Service: 04:00 Assessment and Plan Assessment and plan (1) Acute hypokalemia: Status: Acute Assessment and plan: This is very likely contributing to her weakness, but I don't think it is the only cause by any means, and it may be more of a sequela of her chronic maln utrition. Mg is not low. We are replacing IV, follow closely. Keep on tele while actively replacing IV, then can transition off. (2) Weakness: Status: Acute Assessment and plan: Her weakness is generalized, c/w hypokalemia. However if she does not improve with normalization of potassium, we may have to consider neuromuscular disorder. In that case I would consult neurology. Her weakness in more in the legs, but she does have reflexes, and I don't think this is c/w guillon barre. PT ordered to assess fall risk, function, safety. (3) Adult failure to thrive: Status: Acute Assessment and plan: This is likely partially social with isolation and her mental health condition playing a role. However she is at risk for medical causes. Her DM has been in remission, will confirm with A1c. She is at risk for exocrine pancreatic insufficiency. Will try to get records from GI/[facility], but I have ordered a stool for pancreatic elastase. She is also at risk for recurrence of malignancy both pancreatic and cervical. Consider imaging if not improving. Her buproprion may suppress appetite but she has been on this for years. I have asked nutrition and care management to help. (4) Decubitus ulcer: Status: Acute Assessment and plan: related to bedbound status, poor nutrition. Wound consult placed. (5) Chronic pain: Status: Chronic Assessment and plan: With her GI symtoms I did not write for the scheduled diclofenac. I did write for prn oxycodone but I want to confirm with PCP records and [facility] what she is actually getting chronically. (6) GERD (gastroesophageal reflux disease): Status: Chronic Assessment and plan: Continue PPI, get records from GI including endoscopy records. (7) Hypertension: Status: Chronic Assessment and plan: I am holding amlodipine as BP low. Continue low dose lisinopril for now. (8) Bipolar disorder: Status: Acute Assessment and plan: Appears stable during the interview. NO change in meds. (9) DVT prophylaxis: Status: Acute Assessment and plan: LMWH/enoxaparin (10) Discharge planning issues: Status: Acute Assessment and plan: she will need rehab to regain strength even if we are able to reverse the course of her illness. She may not be able to live alone again. care managment consulted. History of Present Illness History of Present Illness Chief Complaint: weakness Narrative: 66 yo F with history of bipolar disorder, remote pancreatic cancer s/p resection who presented with progressive weakness and falls over the past 3 months after the neighbors found her unable to stand or move around her house. She states this has progressed slowly over that time. She now cannot get out of bed, and has been using pads for urination/stooling. She feels weak all over, though especially in her legs, which she cannot lift. When the weakness started, she was getting a lot of loose yellow stools, but that has much improved and she stools less now, though still soft. She does admit she has lost 20lbs and isn't eating well during this time. She states she had a recent colonoscopy with Dr. Vo and has follow up with Dr. Perry from [facility]. She denies any change in medication. Her mood has been stable. Review of Systems Narrative: 13 point ROS reviewed, negative other than per HPI and below Constitutional Comments: No fever/chills, + weight loss ENT Comments: no sore throat, no dysphagia. +dry mouth. Has dentures (wearing uppers only) Cardiovascular Comments: no CP, palpitations, SOB Respiratory Comments: no cough/dyspnea Gastrointestinal Comments: no vomiting. no GI bleed/melena Integumentary/Breasts Comments: no rash, sore on bottom Neurologic Comments: weakness not focal. no tremors. +dizzy but no vertigo Hematologic/Lymphatic Comments: no bleeding or lymph nodes noted PFSH All Active Problems (Updated 01/05/22 @ 05:15 by Kuldeep Garcia) Discharge planning issues (Acute) DVT prophylaxis (Acute) Bipolar disorder (Acute) PTSO/abuse/syphilis 1968 tx, hospitalizations , 10/18, head MRI , EEG Chronic pain (Chronic ~07/13/15) GERD (gastroesophageal reflux disease) (Chronic) Hypertension (Chronic) Acute hypokalemia (Acute) Weakness (Acute) Adult failure to thrive (Acute) Multiple falls (Acute) Decubitus ulcer (Acute) Medical History (Updated 01/05/22 @ 05:15 by Kuldeep Garcia) Allergic rhinitis Allergic rhinitis Arthritis Arthritis Back pain Chronic back pain Chronic sinusitis Diabetes mellitus Dyslipidemia Dyslipidemia Dyspnea Fatty liver disease, nonalcoholic Fracture of ankle GERD (gastroesophageal reflux disease) Glaucoma Glaucoma History of malignant neoplasm of pancreas Hypertensive disorder Knee pain Left sided abdominal pain 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 states she had a whipple procedure, and has been in remission since 2004 Obstruction of common bile duct On residential drug therapy ineidaion chronic LBP associated with OA hx of compression fx. medications oxycodine 10 mg tablet SOAP sore 14. Yearly narcotic contract last signed 10/18/2018, 10/01/2019 [place] PDMP queried twice yearly for 5 states including [place] and [place] last dibe ib 03/01/18, 03/13/19, 01/09/20, [place] random urine drug screen being done at least 3-4 months GABBY (obstructive sleep apnea) GABBY (obstructive sleep apnea) Osteoporosis Steatosis, liver Type II diabetes mellitus Pt. states she was and is no longer taking medication Vertigo Surgical History (Updated 01/05/22 @ 05:15 by Kuldeep Garcia) Abdominal hysterectomy Fracture, Open Treatment ORIF Fibia H/O hernia repair Hernia Repair, Incisional x3 History of cataract surgery History of hysterectomy Hx of total knee replacement Pancreatic Duodenectomy(whipple procedure) Recurrent major depression in partial remission Replacement of total knee joint left S/P tonsillectomy and adenoidectomy Tonsillectomy and adenoidectomy Family History Brother Hearing loss ear problems, hearing loss and dizzy Social History (Updated 01/05/22 @ 05:04 by Kuldeep Garcia) Smoking/Tobacco Use Status: Former Tobacco Use Quit Date: 08/20/04 Smoking risk assessment performed?: Yes Alcohol Intake: former Drug use: Never Substance use type: does not use Do you feel safe at home: Yes Do you feel safe in your relationship?: Yes Additional Social history: Lives alone in her own home in [place]. Meds Allergies and Home Medications Allergies Allergy/AdvReac Type Severity Reaction Status Date / Time propoxyphene napsylate Allergy Intermediate Verified 01/05/22 05:15 [From Darvocet-N 100] celecoxib [From Celebrex] Allergy Swelling/Ed Verified 01/05/22 05:15 ej acetaminophen AdvReac Intermediate Verified 01/05/22 05:15 [From Darvocet-N 100] citalopram hydrobromide AdvReac Intermediate Psychosis Verified 01/05/22 05:15 [From Celexa] lamotrigine AdvReac Intermediate Nausea Verified 01/05/22 05:15 lithium AdvReac Intermediate Nausea, Verified 01/05/22 05:15 vomiting misoprostol AdvReac Mild Nausea Unverified 01/05/22 05:15 [From Arthrotec 50] alprazolam [From Xanax] AdvReac Itching Unverified 01/05/22 05:15 naproxen AdvReac Nausea Unverified 01/05/22 05:15 Home Medications Medication Instructions Recorded Confirmed Type rosuvastatin 10 mg tablet (Crestor) 10 mg PO DAILY 02/25/13 05/09/18 History olanzapine 2.5 mg tablet (Zyprexa) 2.5 mg PO HS PRN 12/10/14 05/09/18 History oxycodone 10 mg tablet 10 mg PO QID PRN PRN 12/10/14 05/09/18 History albuterol sulfate 90 mcg/actuation 1 puff inhalation Q4H PRN PRN 02/17/15 05/09/18 History aerosol inhaler calcium carbonate 500 mg-vitamin 2 tab PO DAILY 02/17/15 05/09/18 History D3 10 mcg (400 unit) chewable tablet (Calcium 500 + D) cholecalciferol (vitamin D3) 25 2 cap PO DAILY 02/17/15 05/09/18 History mcg (1,000 unit) capsule (Vitamin D3) diclofenac sodium 100 mg 1 tab PO HS 02/17/15 05/09/18 History tablet,extended release 24 hr fluticasone propionate 50 1 spray NS BID PRN 02/17/15 05/09/18 History mcg/actuation nasal spray,suspension lisinopril 10 mg tablet 5 mg PO DAILY 02/17/15 05/09/18 History multivitamin (Daily Multi-Vitamin 1 cap PO DAILY 02/17/15 05/09/18 History tablet) latanoprost 0.005 % eye drops 1 drp OU HS 03/01/15 05/09/18 History amlodipine 2.5 mg tablet 2.5 mg PO HS 06/08/20 06/25/20 History aspirin 81 mg tablet,delayed 81 mg PO DAILY 06/08/20 06/25/20 History release bupropion HCl 200 mg tablet,12 hr 200 mg PO BID 06/08/20 06/25/20 History sustained-release calcium carbonate 500 mg-vitamin 1 tab PO DAILY 06/08/20 06/25/20 History D3 10 mcg (400 unit) tablet (Calcium 500 With D) denosumab 60 mg/mL subcutaneous 60 mg subcut DIRECTED 06/08/20 06/25/20 History syringe (Prolia) diclofenac sodium 75 mg 75 mg PO BID 06/08/20 06/25/20 History tablet,delayed release famotidine 20 mg tablet 20 mg PO BID 06/08/20 06/25/20 History fluoxetine 20 mg capsule (Prozac) 20 mg PO DAILY 06/08/20 06/25/20 History ketoconazole 2 % topical cream 1 applic topical DAILY 06/08/20 06/23/20 History latanoprost 0.005 % eye drops 1 drp ophthalmic (eye) HS 06/08/20 06/25/20 History lisinopril 5 mg tablet 5 mg PO DAILY 06/08/20 06/25/20 History dctpodxwhfxa-Ru-dluz-minerals 18 1 tab PO DAILY 06/08/20 06/25/20 History mg-0.4 mg tablet olanzapine 5 mg tablet 5 mg PO HS 06/08/20 06/25/20 History omeprazole 20 mg capsule,delayed 40 mg PO AC 06/08/20 06/25/20 History release oxycodone 10 mg tablet 5 mg PO BID 06/08/20 06/25/20 History rosuvastatin 10 mg tablet 10 mg PO HS 06/08/20 06/25/20 History triamcinolone acetonide 0.1 % 1 applic topical BID PRN 06/08/20 06/23/20 History topical cream cholecalciferol (vitamin D3) 1,250 1,250 mcg PO DIRECTED 06/24/20 06/25/20 History mcg (50,000 unit) capsule Exam Narrative Exam Narrative: GEN: Alert and oriented, pleasent and cooperative, gives linear history. No acute distress at rest, but appears thin and voice is weak. HEENT: Head atraumatic. Conjunctiva clear, no icterus. PEERL, EOMI. no rhinorrhea. MMM, OP benign. Neck is supple with no masses or lymphadenopathy, trachea midline LUNGS: CTAB with normal effort CV: RRR with no murmurs, gallops, or rubs. ABD: +BS, soft, NT/ND EXT: no cyanosis, clubbing. 1-2+ soft pitting edema feet MSK: No joint redness or swelling NEURO: CN 2-12 grossly intact. 1-2/5 strength in sherly LE, 3/5 UE/neck. low tone diffusely. I was able to get DTRs in LE sherly perhaps a little easier on right. Sensation intact to light touch. Normal speech and coordination SKIN: No rashs or open wounds, large sacral decubitus with darkening in center PSYCH: normal mood and affect, normal thought process Results Imaging Chest x-ray: report reviewed (Mild hyperinflation without airspace consolidation.) Additional studies: CT head: No acute intracranial hemorrhage or depressed skull fracture. EKG: report reviewed (NSR, nl intervals, inverted Ts V1-V5) Labs Result diagrams: 01/05/22 00:35 01/05/22 00:35 Labs: Laboratory Results - last 24 hr 01/04/22 01/04/22 01/05/22 23:40 23:55 00:35 WBC RBC Hgb Hct MCV MCH MCHC RDW Plt Count MPV Immature Gran % Neutrophils % Lymphocytes % Monocytes % Eosinophils % Basophils % Nucleated RBC % Absolute Neutrophils Absolute Lymphocytes Absolute Monocytes Absolute Eosinophils Absolute Basophils VBG pH VBG pCO2 VBG pO2 VBG HCO3 VBG Total CO2 VBG O2 Saturation VBG Base Excess Sodium 139 Potassium 2.5 L* Chloride 103 Carbon Dioxide 24.7 Anion Gap 11.3 H BUN 9 Creatinine 0.6 Estimated GFR/1.73 m2 >= 60.00 Glucose 79 Calcium 7.2 L Magnesium Total Bilirubin 0.4 AST 12 L ALT 14 Alkaline Phosphatase 73 Ammonia NT-Pro-B Natriuret Pep 326 H Total Protein 4.7 L Albumin 1.4 L TSH 3.51 Urine Color Yellow Urine Clarity Sl Cloudy Urine pH 6.0 Ur Specific [place] 1.025 Urine Protein Negative Urine Ketones 80 H Urine Blood Negative Urine Nitrite Negative Urine Bilirubin Small H Urine Urobilinogen 1.0 H Ur Leukocyte Esterase Negative Urine Glucose Negative COVID-19 Source Nasopharynx SARS-CoV-2 (PCR) Negative Influenza Type A (PCR) Negative Influenza Type B (PCR) Negative RSV (PCR) Negative 01/05/22 01/05/22 01/05/22 00:35 00:35 00:35 WBC 7.56 RBC 3.09 L Hgb 9.3 L Hct 29.2 L MCV 95 MCH 30.1 MCHC 31.8 L RDW 19.1 H Plt Count 470 H MPV 7.9 L Immature Gran % 0.5 Neutrophils % 37.7 Lymphocytes % 42.1 Monocytes % 14.0 Eosinophils % 5.3 Basophils % 0.4 Nucleated RBC % 0.0 Absolute Neutrophils 2.85 Absolute Lymphocytes 3.18 Absolute Monocytes 1.06 H Absolute Eosinophils 0.40 Absolute Basophils 0.03 VBG pH 7.44 H VBG pCO2 37 L VBG pO2 24 VBG HCO3 25 VBG Total CO2 23 L VBG O2 Saturation 39 VBG Base Excess 0 Sodium Potassium Chloride Carbon Dioxide Anion Gap BUN Creatinine Estimated GFR/1.73 m2 Glucose Calcium Magnesium Total Bilirubin AST ALT Alkaline Phosphatase Ammonia 29 NT-Pro-B Natriuret Pep Total Protein Albumin TSH Urine Color Urine Clarity Urine pH Ur Specific [place] Urine Protein Urine Ketones Urine Blood Urine Nitrite Urine Bilirubin Urine Urobilinogen Ur Leukocyte Esterase Urine Glucose COVID-19 Source SARS-CoV-2 (PCR) Influenza Type A (PCR) Influenza Type B (PCR) RSV (PCR) 01/05/22 00:35 WBC RBC Hgb Hct MCV MCH MCHC RDW Plt Count MPV Immature Gran % Neutrophils % Lymphocytes % Monocytes % Eosinophils % Basophils % Nucleated RBC % Absolute Neutrophils Absolute Lymphocytes Absolute Monocytes Absolute Eosinophils Absolute Basophils VBG pH VBG pCO2 VBG pO2 VBG HCO3 VBG Total CO2 VBG O2 Saturation VBG Base Excess Sodium Potassium Chloride Carbon Dioxide Anion Gap BUN Creatinine Estimated GFR/1.73 m2 Glucose Calcium Magnesium 1.9 Total Bilirubin AST ALT Alkaline Phosphatase Ammonia NT-Pro-B Natriuret Pep Total Protein Albumin TSH Urine Color Urine Clarity Urine pH Ur Specific [place] Urine Protein Urine Ketones Urine Blood Urine Nitrite Urine Bilirubin Urine Urobilinogen Ur Leukocyte Esterase Urine Glucose COVID-19 Source SARS-CoV-2 (PCR) Influenza Type A (PCR) Influenza Type B (PCR) RSV (PCR) Last Vital Signs Temp 36.9 C 01/04/22 22:52 Pulse 80 01/05/22 01:00 Resp 18 01/04/22 22:52 BP 105/73 01/05/22 01:00 Pulse Ox 98 01/05/22 01:01
[2022-01-05 07:36] LABS: Bilirubin Small (Negative); Blood Negative (Negative); Clarity Sl Cloudy (Clear); Glucose Negative (Negative); Ketones 40 mg/dL (Negative); Leukocyte Esterase Negative (Negative); Nitrite Negative (Negative); Specific Gravity >= 1.030 (1.005-1.025); Urobilinogen 0.2 EU/dL (Up TO 0.2); pH 6.5 (5-8)
[2022-01-05 09:01] LABS: PHOSPHORUS 3.4 mg/dL (2.6-4.7)
[2022-01-05] MEDS: Aspirin E.C. 81 MG TABEC PO (09:03)
[2022-01-05] MEDS: Enoxaparin 40 MG/0.4 ML SYR SC (09:03)
[2022-01-05] MEDS: buPROPion-CR 100 MG TABCR 200 MG PO ×2 (09:03→20:06)
[2022-01-05] MEDS: Calcium 600mg/Vit D 200U TAB 1 TAB PO (09:03)
[2022-01-05] MEDS: FLUoxetine 20 MG CAP PO (09:03)
[2022-01-05] MEDS: Famotidine 20 MG TAB PO ×2 (09:03→20:06)
[2022-01-05] MEDS: Multivitamin TAB 1 TAB PO (09:04)
[2022-01-05] MEDS: Omeprazole 20 MG CAPCR 40 MG PO ×2 (09:04→12:45)
[2022-01-05] MEDS: Lisinopril 5 MG TAB PO (09:04)
[2022-01-05 09:07] LABS: Hemoglobin A1C < 4.5 % (<5.7)
[2022-01-05 09:40] LABS: Vitamin B12 1486 pg/mL (193-986)
--- NOTE | 2022-01-05 09:49 | PDOC.CMIN ---
- If Service Date Differs Date of service: 01/05/22 Time of Service: 09:49 Care Management Initial Assess REASON FOR HOSPITALIZATION:: Hypokalemia, failure to thrive PAST MEDICAL HISTORY/PAST SURGICAL HISTORY:: All Active Problems (Updated 01/05/22 @ 05:15 by Kuldeep Garcia). Discharge planning issues (Acute). DVT prophylaxis (Acute). Bipolar disorder (Acute). PTSO/abuse/syphilis 1969 tx, hospitalizations , 10/18, head MRI , EEG . Chronic pain (Chronic ~07/13/15). GERD (gastroesophageal reflux disease) (Chronic). Hypertension (Chronic). Acute hypokalemia (Acute). Weakness (Acute). Adult failure to thrive (Acute). Multiple falls (Acute). Decubitus ulcer (Acute). Medical History (Updated 01/05/22 @ 05:15 by Kuldeep Garcia). Allergic rhinitis. Allergic rhinitis. Arthritis. Arthritis. Back pain. Chronic back pain. Chronic sinusitis. Diabetes mellitus. Dyslipidemia. Dyslipidemia. Dyspnea. Fatty liver disease, nonalcoholic. Fracture of ankle. GERD (gastroesophageal reflux disease). Glaucoma. Glaucoma. History of malignant neoplasm of pancreas. Hypertensive disorder. Knee pain. Left sided abdominal pain. Malignant tumor of cervix. no xrt/chemo. Neoplasm of pancreas, malignant. onset 03/12/2005. Per pt. states she had a whipple procedure, and has been in remission since 2004. Obstruction of common bile duct. On tank terminal gauger drug therapy. ineidaion chronic LBP associated with OA hx of compression fx. medications oxycodine 10 mg tablet SOAP sore 14. Yearly narcotic contract last signed 10/18/2018, 10/01/2019 [place] PDMP queried twice yearly for 5 states including [place] and [place] last dibe ib 03/01/18, 03/13/19, 01/09/20, [place] random urine drug screen being done at least 3-4 months. GABBY (obstructive sleep apnea). GABBY (obstructive sleep apnea). Osteoporosis. Steatosis, liver. Type II diabetes mellitus. Pt. states she was and is no longer taking medication. Vertigo. Surgical History (Updated 01/05/22 @ 05:15 by Kuldeep Garcia). Abdominal hysterectomy. Fracture, Open Treatment. ORIF Fibia. H/O hernia repair. Hernia Repair, Incisional. x3. History of cataract surgery. History of hysterectomy. Hx of total knee replacement. Pancreatic Duodenectomy(whipple procedure). Recurrent major depression in partial remission. Replacement of total knee joint. left. S/P tonsillectomy and adenoidectomy. Tonsillectomy and adenoidectomy PREVIOUS FUNCTIONAL STATUS/SOCIAL/FAMILY SUPPORTS:: Loli [place] alone with her dog. Her neighbor Ynig is taking care him of in her absence. Her son Eddie lives in [place], [place] and provides her transportation, as she no longer drives. Loli shared with CM that over the last 3 months she has lost her strength to the point where she is unable to walk. Her son Eddie calls her daily, and they currently use a system where is if she doesn't answer when he calls, he will call her neighbor Ying who will then walk over and check on her. CURRENT FUNCTIONAL STATUS:: Loli was lying in bed when CM met with her. She is awake, alert and engages in convesation. Her voice is very soft, she appears frail and weak. She shared with CM that her health has been declining over the last 3 months. She is agreeable to SNF for STR, following discharge if needed. Loli would like to discuss her code status with a provider, she is currently a full code and may want to make changes. ADVANCE DIRECTIVES:: None on file, will offer forms. Has patient been provided with info about the portal/API?: Yes Did the patient sign up for the portal?: Yes (Prior to appointment) CODE STATUS:: Full Code (Loli would like to discuss her code status her provider.) INSURANCE COVERAGE / FINANCIAL ISSUES:: [place]. Medicaid. Medicare. [facility] CURRENT HOME/COMMUNITY SERVICES/EQUIPMENT:: Has a walker. MOW. Connected with [place] [facility] PRIMARY CARE PHYSICIAN:: Savannah Denise POTENTIAL DISCHARGE NEEDS:: Palliative care consult, SNF referral, follow up appointments. PATIENT/FAMILY EDUCATION NEEDS:: Review discharge instructions, limitations, medications and plan to follow up with community providers. ask me three. TRANSPORTATION:: via private vehicle with family. PLAN:: Loli requires further medical workup and hospitalization for weakness and malnutrition. Her labs are being closely monitored and she's receiving IV therapy. Anticipate, Loli will discharge to SNF for STR vs. home with [facility] services when medically ready. Transportation will be dependent on disposition and Judiths mobility level at time of discharge.
--- NOTE | 2022-01-05 11:18 | W.NUTCONSULT ---
Date of service: 01/05/22 Time of Service: 10:18 Nutritional Consult ASSESSMENT: 66 year old female admitted with weakness, hypokalemia, adult failure to thrive. BMI 18.6 with noted weight loss of 40 lbs in last 2 years. Pressure wound noted on buttocks. Hx of Dm2, now in remission, pancreatic CA, biploar, social isolation. Estimated Needs: [id number] kcal, 65-70 g protein, 1400 ml fluid NUTRITIONAL DIAGNOSIS: Severe malnutrition in view of low BMI, recent weight loss, cachexic appearance Increased nutrient needs as with pressure wound INTERVENTION: Regular meal plan Ensure clear TID 1 oz liquid protein TID MVI 500 mg Vit C BID 220 mg Zinc Sulfate x 14 days MONITORING AND EVALUATION: will monitor po intake, weight, labs Time Spent in Nutritional Counseling and Treatment: 10
--- NOTE | 2022-01-05 11:24 | W.PM.PROGNOT ---
Date of Service Date of service: 01/05/22 Time of Service: 10:24 Assessment and Plan Assessment and plan (1) Weakness: Status: Acute Assessment and plan: While she has generalized weakness which may be secondary to malnutrition in hypokalemia she seems to be having more focal weakness in her lower extremities and she has some long track signs and that she has positive bilateral Babinski. She had a noncontrast CT of her head last night that showed no acute intracranial process. I think she needs an MRI of the brain as well as MRI of her spine. I do not think that her poor nutrition and hypokalemia can adequately explain all of her progressive weakness particularly of her lower extremities. Differential diagnoses include, M.S., myasthenia gravis as well as a chronic demyelinating polyneuropathy, ALS as well as transverse myelitis as well as metastatic cancer. She does not exhibit Eaton Lambert syndrome. (2) Decubitus ulcer: Status: Acute (3) Acute hypokalemia: Status: Acute Assessment and plan: secondary to poor intake. she received oral and iv replacment. repeat labs orderd but not done. I have asked for repeat labs this afternoon. (4) Hypertension: Status: Chronic Assessment and plan: cont. lisinopril (5) GERD (gastroesophageal reflux disease): Status: Chronic Assessment and plan: continue omeprazole and pepcid (6) Bipolar disorder: Status: Acute Assessment and plan: stable. cont. wellbutrin and prozac (7) DVT prophylaxis: Status: Acute Assessment and plan: cont. enoxaparin (8) Weight loss, unintentional: Status: Acute Assessment and plan: suspect either new or recurrent cancer. I will call Dr. Vo and/or Dr. Perry to discuss whether or not she has had recent surveillance CT scans of abdome/pelvis or chest and if not then I will proceed w/ ordering the same to rule out metastatic pancreatic cancer (9) Discharge planning issues: Status: Acute Subjective Subjective Interval history since last seen: 66-year-old female with history of bipolar disorder, pancreatic cancer status post Whipple's resection, cervical cancer lives alone with her dog and her cat but has not been able to get out of bed and has been incontinent of urine and stool he has developed a decubitus ulcer on her sacrum which she has been putting Desenex on. She has been using incontinence pads. Says she has developed weakness over the last month that started on her legs and has progressed to the point that she can not get out of bed. She has had poor appetite. She reportedly had recent c-scope by Dr. Vo at [facility] and also is followed by Dr. Perry. She has had 20 pound weight loss over the last couple months. Exam Narrative Exam Narrative: Cachectic appearing female lying in bed she is alert and oriented person place time circumstance. Normal facial mimetic muscle movement. No dysarthric speech full extraocular motion intact. Neck she seems to exhibit some weakness with trouble lifting her head up off the bed yet she is able to shrug her shoulders is able to raise her arms up overhead and resist me to light resistance. She does seem to have some generalized weakness in her arms but is able to resist me. 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 Lower extremities she has weakness in her legs particularly with hip flexion extension as well as knee extension although she was able to dorsiflex and plantarflex in her ankles. Babinski's appear to be upgoing bilaterally. Sensory exam is grossly intact to light touch over her her face upper extremities and lower extremities. Lungs are clear to auscultation Heart regular rate and rhythm Abdomen soft scaphoid nondistended normal bowel sounds Skin she has an eschar over her sacrum that is blackened with some surrounding erythema around the gluteal folds. No purulent discharge is seen. Objective Last Vital Signs Temp 36 C L 01/05/22 10:02 Pulse 93 H 01/05/22 10:02 Resp 18 01/05/22 10:02 BP 102/70 01/05/22 10:02 Pulse Ox 100 01/05/22 10:02 Laboratory Results - last 24 hr 01/04/22 01/04/22 01/05/22 23:40 23:55 00:35 WBC RBC Hgb Hct MCV MCH MCHC RDW Plt Count MPV Immature Gran % Neutrophils % Lymphocytes % Monocytes % Eosinophils % Basophils % Nucleated RBC % Absolute Neutrophils Absolute Lymphocytes Absolute Monocytes Absolute Eosinophils Absolute Basophils VBG pH VBG pCO2 VBG pO2 VBG HCO3 VBG Total CO2 VBG O2 Saturation VBG Base Excess Sodium 139 Potassium 2.5 L* Chloride 103 Carbon Dioxide 24.7 Anion Gap 11.3 H BUN 9 Creatinine 0.6 Estimated GFR/1.73 m2 >= 60.00 Glucose 79 Hemoglobin A1c Calcium 7.2 L Phosphorus Magnesium Total Bilirubin 0.4 AST 12 L ALT 14 Alkaline Phosphatase 73 Ammonia NT-Pro-B Natriuret Pep 326 H Total Protein 4.7 L Albumin 1.4 L Vitamin B12 Folate TSH 3.51 Urine Color Yellow Urine Clarity Sl Cloudy Urine pH 6.0 Ur Specific [place] 1.025 Urine Protein Negative Urine Ketones 80 H Urine Blood Negative Urine Nitrite Negative Urine Bilirubin Small H Urine Urobilinogen 1.0 H Ur Leukocyte Esterase Negative Urine Glucose Negative COVID-19 Source Nasopharynx SARS-CoV-2 (PCR) Negative Influenza Type A (PCR) Negative Influenza Type B (PCR) Negative RSV (PCR) Negative 01/05/22 01/05/22 01/05/22 00:35 00:35 00:35 WBC 7.56 RBC 3.09 L Hgb 9.3 L Hct 29.2 L MCV 95 MCH 30.1 MCHC 31.8 L RDW 19.1 H Plt Count 470 H MPV 7.9 L Immature Gran % 0.5 Neutrophils % 37.7 Lymphocytes % 42.1 Monocytes % 14.0 Eosinophils % 5.3 Basophils % 0.4 Nucleated RBC % 0.0 Absolute Neutrophils 2.85 Absolute Lymphocytes 3.18 Absolute Monocytes 1.06 H Absolute Eosinophils 0.40 Absolute Basophils 0.03 VBG pH 7.44 H VBG pCO2 37 L VBG pO2 24 VBG HCO3 25 VBG Total CO2 23 L VBG O2 Saturation 39 VBG Base Excess 0 Sodium Potassium Chloride Carbon Dioxide Anion Gap BUN Creatinine Estimated GFR/1.73 m2 Glucose Hemoglobin A1c Calcium Phosphorus Magnesium Total Bilirubin AST ALT Alkaline Phosphatase Ammonia 29 NT-Pro-B Natriuret Pep Total Protein Albumin Vitamin B12 Folate TSH Urine Color Urine Clarity Urine pH Ur Specific [place] Urine Protein Urine Ketones Urine Blood Urine Nitrite Urine Bilirubin Urine Urobilinogen Ur Leukocyte Esterase Urine Glucose COVID-19 Source SARS-CoV-2 (PCR) Influenza Type A (PCR) Influenza Type B (PCR) RSV (PCR) 01/05/22 01/05/22 01/05/22 00:35 00:35 00:35 WBC RBC Hgb Hct MCV MCH MCHC RDW Plt Count MPV Immature Gran % Neutrophils % Lymphocytes % Monocytes % Eosinophils % Basophils % Nucleated RBC % Absolute Neutrophils Absolute Lymphocytes Absolute Monocytes Absolute Eosinophils Absolute Basophils VBG pH VBG pCO2 VBG pO2 VBG HCO3 VBG Total CO2 VBG O2 Saturation VBG Base Excess Sodium Potassium Chloride Carbon Dioxide Anion Gap BUN Creatinine Estimated GFR/1.73 m2 Glucose Hemoglobin A1c < 4.5 Calcium Phosphorus 3.4 Magnesium 1.9 Total Bilirubin AST ALT Alkaline Phosphatase Ammonia NT-Pro-B Natriuret Pep Total Protein Albumin Vitamin B12 1486 H Folate TSH Urine Color Urine Clarity Urine pH Ur Specific [place] Urine Protein Urine Ketones Urine Blood Urine Nitrite Urine Bilirubin Urine Urobilinogen Ur Leukocyte Esterase Urine Glucose COVID-19 Source SARS-CoV-2 (PCR) Influenza Type A (PCR) Influenza Type B (PCR) RSV (PCR) 01/05/22 01/05/22 01/05/22 07:00 07:29 08:47 WBC RBC Hgb Hct MCV MCH MCHC RDW Plt Count MPV Immature Gran % Neutrophils % Lymphocytes % Monocytes % Eosinophils % Basophils % Nucleated RBC % Absolute Neutrophils Absolute Lymphocytes Absolute Monocytes Absolute Eosinophils Absolute Basophils VBG pH VBG pCO2 VBG pO2 VBG HCO3 VBG Total CO2 VBG O2 Saturation VBG Base Excess Sodium Potassium Chloride Carbon Dioxide Anion Gap BUN Creatinine Estimated GFR/1.73 m2 Glucose Hemoglobin A1c Calcium Phosphorus Magnesium Total Bilirubin AST ALT Alkaline Phosphatase Ammonia NT-Pro-B Natriuret Pep Total Protein Albumin Vitamin B12 Folate Cancelled Cancelled TSH Urine Color Yellow Urine Clarity Sl Cloudy Urine pH 6.5 Ur Specific [place] >= 1.030 H Urine Protein Negative Urine Ketones 40 H Urine Blood Negative Urine Nitrite Negative Urine Bilirubin Small H Urine Urobilinogen 0.2 Ur Leukocyte Esterase Negative Urine Glucose Negative COVID-19 Source SARS-CoV-2 (PCR) Influenza Type A (PCR) Influenza Type B (PCR) RSV (PCR)
--- NOTE | 2022-01-05 15:10 | PT.INNT ---
Date of service: 01/05/22 Time of Service: 15:10 PT Notes Visit Reasons: Hypokalemia, Failure to Thrive January 05, 2022 Attempted PT evaluation this afternoon. Patient was getting further testing. PT consult on hold until tomorrow.
--- NOTE | 2022-01-05 16:02 | CHAPLAIN ---
Loli was sitting up in bed when I visited. She said she is tired. She look frail and weak. According to Care Management notes, Loli's son, Eddie, lives in [place] and calls Loli every day. She said she has been in touch with him but he knows she is here and she put him on he HIPPA list so he can call and get information. Loli said she hasn't slept in 24 hours. I will continue to visit.
[2022-01-05] MEDS: Gadoterate meglumine 20 ML VIAL 9 ML IVP (16:59)
[2022-01-05] MEDS: Normal Saline Flush 10 ML SYR IVP (16:59)
--- NOTE | 2022-01-05 17:55 | DI.VRAD_ITS ---
PROCEDURE INFORMATION: Exam: MR Lumbar Spine Without and With Contrast Exam date and time: 01/05/2022 3:53 PM Age: 66 years old Clinical indication: Weakness; Additional info: Technically limited study-motion artifact due to length of studies and patient tolerance TECHNIQUE: Imaging protocol: Multiplanar magnetic resonance images of the lumbar spine without and with intravenous contrast. Contrast material: DOTAREM; Contrast volume: 9 ml; Contrast route: INTRAVENOUS (IV); COMPARISON: CR LUMBAR SPINE AP, LAT 05/02/2016 10:02 AM FINDINGS: Vertebrae: Normal alignment of the lumbar spine. No compression deformities or bone marrow edema. Heterogeneous bone marrow. Spinal cord: Normal signal. No cord compression. L1-L2: No significant disc disease. No significant spinal canal stenosis. No neural foraminal stenosis. L2-L3: Moderate to advanced disc degeneration. Posterior disc protrusion and osteophyte formation. Indentation of the anterior sac. No central stenosis. Bilateral lateral recess and proximal foraminal stenosis secondary to disc space collapse and foraminal disc bulging. L3-L4: Moderate disc degeneration. Concentric disc bulge. Flattening of the anterior sac. Right paracentral and right lateral recess disc extrusion measuring 12 mm. There is severe narrowing of the right lateral recess. There is moderate to severe right foraminal narrowing. L4-L5: Moderate to advanced disc degeneration. Concentric disc protrusion indents the sac. Right greater than left lateral recess and proximal foraminal narrowing. Right foraminal stenosis secondary to foraminal herniation. L5-S1: Moderate to advanced disc degeneration. Flattening of the anterior sac. Bilateral lateral recess narrowing. Moderate to severe right foraminal narrowing. Soft tissues: Unremarkable. IMPRESSION: 1. Multilevel moderate to advanced disc degeneration. 2. No significant central spinal stenosis. 3. Right foraminal stenosis L3-L4, L4-L5 and L5-S1. Dictated and Authenticated by: Doe Archuleta MD. Ordering[facility] Jan Oviedo MD
--- NOTE | 2022-01-05 17:55 | DI.VRAD_ITS ---
PROCEDURE INFORMATION: Exam: MR Thoracic Spine Without and With Contrast Exam date and time: 01/05/2022 3:53 PM Age: 66 years old Clinical indication: Weakness and other: Progressive weakness; Additional info: Technically limited study-motion artifact due to length of studies and patient tolerance TECHNIQUE: Imaging protocol: Multiplanar magnetic resonance images of the thoracic spine without and with intravenous contrast. Contrast material: DOTAREM; Contrast volume: 9 ml; Contrast route: INTRAVENOUS (IV); COMPARISON: US PELVIS RENAL 01/05/2022 12:06 PM FINDINGS: Vertebrae: Thoracic kyphosis. No acute compression deformities. No bone marrow edema. Spinal cord: Normal signal. No cord compression. T1-T2: No significant disc disease. No significant spinal canal stenosis. T2-T3: No significant disc disease. No significant spinal canal stenosis. T3-T4: No significant disc disease. No significant spinal canal stenosis. T4-T5: No significant disc disease. No significant spinal canal stenosis. T5-T6: No significant disc disease. No significant spinal canal stenosis. T6-T7: No significant disc disease. No significant spinal canal stenosis. T7-T8: No significant disc disease. No significant spinal canal stenosis. T8-T9: Central disc bulge. No central stenosis. No foraminal stenosis. T9-T10: No disc herniations. Right foraminal perineural cyst measuring 9 mm. T10-T11: No significant disc disease. No significant spinal canal stenosis. T11-T12: No disc herniation. Right foraminal perineural cyst measuring 4 mm. Soft tissues: Unremarkable. IMPRESSION: 1. No central spinal stenosis. 2. Right foraminal perineural cysts T9-T10 and T11-T12. Dictated and Authenticated by: Doe Archuleta MD. Ordering:[facility] Jan Oviedo MD
--- NOTE | 2022-01-05 18:08 | DI.VRAD_ITS ---
PROCEDURE INFORMATION: Exam: MR Cervical Spine Without and With Contrast Exam date and time: 01/05/2022 3:53 PM Age: 66 years old Clinical indication: Weakness; Additional info: Technically limited study-motion artifact due to length of studies and patient tolerance TECHNIQUE: Imaging protocol: Multiplanar magnetic resonance images of the cervical spine without and with contrast. Contrast material: DOTAREM; Contrast volume: 9 ml; Contrast route: INTRAVENOUS (IV); COMPARISON: MR BRAIN WO/W 01/05/2022 3:32 PM FINDINGS: Vertebrae: Alignment of the cervical spine is normal. No compression deformities or bone marrow edema. Diffuse degenerative spondylosis changes. Spinal cord: No cord edema or syrinx. No myelopathy change. C2-C3: No significant disc disease. No significant spinal stenosis. C3-C4: Bilateral facet arthropathy. No central stenosis. C4-C5: Moderate to advanced disc degeneration. Posterior disc and osteophyte effaces the ventral surface of the cord. AP dimensions of the canal measures 7 mm. Bilateral lateral recess and proximal foraminal stenosis. C5-C6: Moderate to advanced disc degeneration. Posterior disc and osteophyte narrows the anterior subarachnoid space. AP dimensions of the canal measure 10 mm. Bilateral lateral recess narrowing. C6-C7: Advanced disc degeneration. Posterior disc and osteophyte narrows the anterior subarachnoid space. No central spinal stenosis. Bilateral lateral recess narrowing. C7-T1: Moderate to advanced disc degeneration. Small central disc bulge. No central spinal stenosis. Bilateral lateral recess narrowing. Soft tissues: Unremarkable. Vertebral arteries: Expected flow voids in the vertebral arteries. IMPRESSION: 1. Multilevel disc degeneration. 2. Mild/moderate central spinal stenosis C4-C5. 3. Multilevel lateral recess and proximal foraminal narrowing. 4. No cord edema. Dictated and Authenticated by: Doe Archuleta MD. Ordering:[facility] Jan Oviedo MD
--- NOTE | 2022-01-05 18:08 | DI.VRAD_ITS ---
PROCEDURE INFORMATION: Exam: MR Head Without and With Contrast Exam date and time: 01/05/2022 3:32 PM Age: 66 years old Clinical indication: Other: Progressive weakness; Additional info: Technically limited study-motion artifact due to length of studies and patient tolerance TECHNIQUE: Imaging protocol: MR of the head without and with intravenous contrast. Contrast material: DOTAREM; Contrast volume: 9 ml; Contrast route: INTRAVENOUS (IV); COMPARISON: CT HEAD WO 01/05/2022 1:07 AM FINDINGS: Brain: No restricted diffusion. No evidence of intracranial hemorrhage. Diffuse cerebral and cerebellar atrophy. Bilateral periventricular and subcortical chronic small vessel ischemic changes. No large vessel distribution infarction. No mass or midline shift. No enhancing intra-axial or extra-axial mass. Cerebral ventricles: Normal. No ventriculomegaly. Bones/joints: Unremarkable. Paranasal sinuses: Normal as visualized. No acute sinusitis. Mastoid air cells: Normal as visualized. No mastoid effusion. Orbital cavities: Unremarkable. Soft tissues: Unremarkable. IMPRESSION: 1. Diffuse brain atrophy. 2. Chronic bilateral periventricular and subcortical small vessel ischemic changes. No evidence of acute ischemic disease. Dictated and Authenticated by: Doe Archuleta MD. Ordering:[facility] Jan Oviedo MD
--- NOTE | 2022-01-05 18:08 | W.SURGCON ---
Date of service: 01/05/22 Time of Service: 17:08 Assessment and Plan Assessment and plan (1) Bipolar disorder: Status: Acute (2) GERD (gastroesophageal reflux disease): Status: Chronic Assessment and plan: Continue PPI (3) Decubitus ulcer: Status: Acute Assessment and plan: plan debridement in OR in am -pt has severe malnutrition albumin is ~1. poor likelihood that these will ever heal. Mostly it will be a matter of pain and infection control. Nutritional support Risks of debridement include but are not limited to: Bleeding, infection, pneumonia, blood clots, complications from anesthesia. If this turns out to be an extensive wound, then there will be most likely serial debridements and daily dressing changes. This would be a difficult area to keep clean and will be prone to them d 70 minutes was spent doing the consultation today infections and other breakdowns. 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 11/22 at [facility]. If it truly was a WHIPPLE- than she has endocrine as well as pancreatic insufficiency and should be on Creon. A1c < 4.5. Although from reading her op report, this was very limited disease as it was only microscopic disease. So I think they left a large portion of the tail of the pancreas. She says she does not take insulin or any medications for diabetes at home and she does not have to take Creon or pancreatic enzymes when she eats. Most likely her recent weight loss is related to recurrence of the pancreatic cancer. Will order MRI. hopefully will also be able to tell if there is an Osteo in sacrum. CA-125 pd -if this is a recurrence of pancreatic cancer, I would recommend hospice. (12) Hypoalbuminemia due to protein-calorie malnutrition: Status: Acute (13) Neoplasm of pancreas, malignant: History of Present Illness Narrative: Loli was admitted today on 01/05 with weakness and falling and failing to thrive. She has lost 20 pounds in the last month. She is not eating. She has significant weakness in her lower extremities and cannot stand or walk. Patient states she had a Whipple procedure at [facility] in 2004. I was able to find the notes. 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 Surgery was considered curative. She did follow-up with [facility] for the next 2 years. There were no changes on her CT scans. She has not had to take insulin. She is not having to take Creon. As I am talking with her tonight she is eating a small dinner she says she has had no pain or difficulty swallowing. She will sometimes feel full and bloated. But she just has no appetite. She also had a history of cervical cancer and a pelvic ultrasound was done which was essentially normal. Labs were reviewed as well. She also has stage II decub on her sacral region is it is irregularly shaped. But approximately 4 x 3 inches at its maximum. It has a dark leathery eschar on it there are some mild surrounding redness I am not sure if this is infection or just inflammation. She has high pain associated with this. And she wants to be put out to have any debridements done. Risks include bleeding, infection, scarring, prolonged healing, and complications from the anesthesia. I have a better idea of how we can get the wounds to heal once we can see in the full depth of the wound. On the MRI of the pelvis tomorrow we will be visualizing the sacrum and if there is any signs of sacral osteomyelitis they should be able to see this on the skin as well. She has quite evident malnutrition with extreme muscle wasting. Dr. Santillan is in the process of working up to see if she has any muscle or nerve conduction issues which could be causing her weakness. Review of Systems All systems reviewed & are unremarkable except as noted in HPI and below PFSH All Active Problems (Updated 01/05/22 @ 22:43 by Naomi Conti DO) Hypoalbuminemia due to protein-calorie malnutrition (Acute) Unexplained weight loss (Acute) Discharge planning issues (Acute) DVT prophylaxis (Acute) Bipolar disorder (Acute) PTSO/abuse/syphilis 1968 tx, hospitalizations , 10/18, head MRI , EEG Chronic pain (Chronic ~07/13/15) GERD (gastroesophageal reflux disease) (Chronic) Hypertension (Chronic) Acute hypokalemia (Acute) Weakness (Acute) Adult failure to thrive (Acute) Multiple falls (Acute) Decubitus ulcer (Acute) Medical History (Updated 01/05/22 @ 22:43 by Naomi Conti DO) Allergic rhinitis Allergic rhinitis Arthritis Arthritis Back pain Chronic back pain Chronic sinusitis Diabetes mellitus Dyslipidemia Dyslipidemia Dyspnea Fatty liver disease, nonalcoholic Fracture of ankle GERD (gastroesophageal reflux disease) Glaucoma Glaucoma History of malignant neoplasm of pancreas Hypertensive disorder Knee pain Left sided abdominal pain 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 She did not have overt malignancy. Surgery was curative. Per pt. states she had a whipple procedure, and has been in remission since 2004. Obstruction of common bile duct On long term acute care registered nurse drug therapy ineidaion chronic LBP associated with OA hx of compression fx. medications oxycodine 10 mg tablet SOAP sore 14. Yearly narcotic contract last signed 10/18/2018, 10/01/2019 [place] PDMP queried twice yearly for 5 states including [place] and [place] last dibe ib 03/01/18, 03/13/19, 01/09/20, [place] random urine drug screen being done at least 3-4 months GABBY (obstructive sleep apnea) GABBY (obstructive sleep apnea) Osteoporosis Steatosis, liver Type II diabetes mellitus Pt. states she was and is no longer taking medication Vertigo Surgical History (Updated 01/05/22 @ 05:15 by Kuldeep Garcia) Abdominal hysterectomy Fracture, Open Treatment ORIF Fibia H/O hernia repair Hernia Repair, Incisional x3 History of cataract surgery History of hysterectomy Hx of total knee replacement Pancreatic Duodenectomy(whipple procedure) Recurrent major depression in partial remission Replacement of total knee joint left S/P tonsillectomy and adenoidectomy Tonsillectomy and adenoidectomy Family History Brother Hearing loss ear problems, hearing loss and dizzy Social History (Updated 01/05/22 @ 05:04 by Kuldeep Garcia) Smoking/Tobacco Use Status: Former Tobacco Use Quit Date: 08/20/04 Smoking risk assessment performed?: Yes Alcohol Intake: former Drug use: Never Substance use type: does not use Do you feel safe at home: Yes Do you feel safe in your relationship?: Yes Additional Social history: Lives alone in her own home in [place] [place]. Exam Resp Effort & Inspection: normal respiratory effort and able to speak in complete sentences Auscultation: clear to auscultation bilaterally Other: History of smoking GI Other: Abdomen is soft and nontender. She did have hernia repair with mesh Skin Wounds: wounds noted (3 x 4 inches with the necrotic eschar. This is going to need to be debride) Other: There is redness around the edge of the wound but it is hard to say if this is just an done or if this is true infection. We will know differently about the depth of the wound and how better to take care of the it after debridement. Results Last Vital Signs Temp 36 C L 01/05/22 11:05 Pulse 105 H 01/05/22 14:45 Resp 18 01/05/22 11:05 BP 110/72 01/05/22 11:05 Pulse Ox 98 01/05/22 11:05 Labs Result diagrams: 01/05/22 00:35 01/05/22 19:05 Labs: Laboratory Results - last 24 hr 01/04/22 01/04/22 01/05/22 23:40 23:55 00:35 WBC RBC Hgb Hct MCV MCH MCHC RDW Plt Count MPV Immature Gran % Neutrophils % Lymphocytes % Monocytes % Eosinophils % Basophils % Nucleated RBC % Absolute Neutrophils Absolute Lymphocytes Absolute Monocytes Absolute Eosinophils Absolute Basophils VBG pH VBG pCO2 VBG pO2 VBG HCO3 VBG Total CO2 VBG O2 Saturation VBG Base Excess Sodium 139 Potassium 2.5 L* Chloride 103 Carbon Dioxide 24.7 Anion Gap 11.3 H BUN 9 Creatinine 0.6 Estimated GFR/1.73 m2 >= 60.00 Glucose 79 Hemoglobin A1c Calcium 7.2 L Phosphorus Magnesium Total Bilirubin 0.4 AST 12 L ALT 14 Alkaline Phosphatase 73 Ammonia NT-Pro-B Natriuret Pep 326 H Total Protein 4.7 L Albumin 1.4 L Vitamin B12 Folate TSH 3.51 Urine Color Yellow Urine Clarity Sl Cloudy Urine pH 6.0 Ur Specific Fulda 1.025 Urine Protein Negative Urine Ketones 80 H Urine Blood Negative Urine Nitrite Negative Urine Bilirubin Small H Urine Urobilinogen 1.0 H Ur Leukocyte Esterase Negative Urine Glucose Negative COVID-19 Source Nasopharynx SARS-CoV-2 (PCR) Negative Influenza Type A (PCR) Negative Influenza Type B (PCR) Negative RSV (PCR) Negative 01/05/22 01/05/22 01/05/22 00:35 00:35 00:35 WBC 7.56 RBC 3.09 L Hgb 9.3 L Hct 29.2 L MCV 95 MCH 30.1 MCHC 31.8 L RDW 19.1 H Plt Count 470 H MPV 7.9 L Immature Gran % 0.5 Neutrophils % 37.7 Lymphocytes % 42.1 Monocytes % 14.0 Eosinophils % 5.3 Basophils % 0.4 Nucleated RBC % 0.0 Absolute Neutrophils 2.85 Absolute Lymphocytes 3.18 Absolute Monocytes 1.06 H Absolute Eosinophils 0.40 Absolute Basophils 0.03 VBG pH 7.44 H VBG pCO2 37 L VBG pO2 24 VBG HCO3 25 VBG Total CO2 23 L VBG O2 Saturation 39 VBG Base Excess 0 Sodium Potassium Chloride Carbon Dioxide Anion Gap BUN Creatinine Estimated GFR/1.73 m2 Glucose Hemoglobin A1c Calcium Phosphorus Magnesium Total Bilirubin AST ALT Alkaline Phosphatase Ammonia 29 NT-Pro-B Natriuret Pep Total Protein Albumin Vitamin B12 Folate TSH Urine Color Urine Clarity Urine pH Ur Specific Fulda Urine Protein Urine Ketones Urine Blood Urine Nitrite Urine Bilirubin Urine Urobilinogen Ur Leukocyte Esterase Urine Glucose COVID-19 Source SARS-CoV-2 (PCR) Influenza Type A (PCR) Influenza Type B (PCR) RSV (PCR) 01/05/22 01/05/22 01/05/22 00:35 00:35 00:35 WBC RBC Hgb Hct MCV MCH MCHC RDW Plt Count MPV Immature Gran % Neutrophils % Lymphocytes % Monocytes % Eosinophils % Basophils % Nucleated RBC % Absolute Neutrophils Absolute Lymphocytes Absolute Monocytes Absolute Eosinophils Absolute Basophils VBG pH VBG pCO2 VBG pO2 VBG HCO3 VBG Total CO2 VBG O2 Saturation VBG Base Excess Sodium Potassium Chloride Carbon Dioxide Anion Gap BUN Creatinine Estimated GFR/1.73 m2 Glucose Hemoglobin A1c < 4.5 Calcium Phosphorus 3.4 Magnesium 1.9 Total Bilirubin AST ALT Alkaline Phosphatase Ammonia NT-Pro-B Natriuret Pep Total Protein Albumin Vitamin B12 1486 H Folate TSH Urine Color Urine Clarity Urine pH Ur Specific Fulda Urine Protein Urine Ketones Urine Blood Urine Nitrite Urine Bilirubin Urine Urobilinogen Ur Leukocyte Esterase Urine Glucose COVID-19 Source SARS-CoV-2 (PCR) Influenza Type A (PCR) Influenza Type B (PCR) RSV (PCR) 01/05/22 01/05/22 01/05/22 07:00 07:29 08:47 WBC RBC Hgb Hct MCV MCH MCHC RDW Plt Count MPV Immature Gran % Neutrophils % Lymphocytes % Monocytes % Eosinophils % Basophils % Nucleated RBC % Absolute Neutrophils Absolute Lymphocytes Absolute Monocytes Absolute Eosinophils Absolute Basophils VBG pH VBG pCO2 VBG pO2 VBG HCO3 VBG Total CO2 VBG O2 Saturation VBG Base Excess Sodium Potassium Chloride Carbon Dioxide Anion Gap BUN Creatinine Estimated GFR/1.73 m2 Glucose Hemoglobin A1c Calcium Phosphorus Magnesium Total Bilirubin AST ALT Alkaline Phosphatase Ammonia NT-Pro-B Natriuret Pep Total Protein Albumin Vitamin B12 Folate Cancelled Cancelled TSH Urine Color Yellow Urine Clarity Sl Cloudy Urine pH 6.5 Ur Specific Fulda >= 1.030 H Urine Protein Negative Urine Ketones 40 H Urine Blood Negative Urine Nitrite Negative Urine Bilirubin Small H Urine Urobilinogen 0.2 Ur Leukocyte Esterase Negative Urine Glucose Negative COVID-19 Source SARS-CoV-2 (PCR) Influenza Type A (PCR) Influenza Type B (PCR) RSV (PCR)
[2022-01-05 19:24] LABS: Anion Gap 8.1 mmol/L (3-11); BUN 9 mg/dL (7-18); CO2 21.9 mmol/L (21.0-32.0); CREATININE 0.5 mg/dL (0.55-1.02); Calcium 7.2 mg/dL (8.5-10.1); Chloride 106 mmol/L (98-107); Glucose 88 mg/dL (74-106); Potassium 4.1 mmol/L (3.5-5.1); Sodium 136 mmol/L (136-145)
[2022-01-05] MEDS: Protein Nutritional Supplement 16 GM 1 OUNCE PACKET PO (20:06)
[2022-01-05 20:47] LABS: Folate 10.1 ng/mL (See Note)
[2022-01-05] MEDS: Rosuvastatin 10 MG TAB PO (21:30)
[2022-01-05] MEDS: Lactated Ringers 1,000 ML 50 ML IV (21:31)
[2022-01-05] MEDS: OLANZapine 5 MG TAB PO (21:31)
[2022-01-05] MEDS: Latanoprost 0.005% 2.5 ML BTL OP (21:37)
[2022-01-06] VITALS (19 sets, daily range): BP systolic 86–135; BP diastolic 51–83; PULSE 82–110; RESP 14–21; TEMP 35.8–37.1; O2SAT 96–100; BMI 18.7
--- NOTE | 2022-01-06 | DI.MRI_ITS ---
Exam(s) MR ABDOMEN WO/W EXAM: MR ABDOMEN WO/W CLINICAL HISTORY: Hx panc CA Whipple/weight loss TECHNIQUE: Multiplanar multisequence MRA of the Abdomen was performed. CONTRAST MATERIAL: IV Contrast: 9 mL of Dotarem contrast administered. COMPARISON: No exams were available for comparison FINDINGS: The examination is limited due to patient motion artifact. Lung bases: Small bilateral pleural effusions. Liver: No enhancing hepatic lesions. There is a tiny cyst in the right lobe of the liver. Pancreas: The patient is status post Whipple's. The remaining distal pancreas is unremarkable. Gallbladder and Bile Ducts: Status post cholecystectomy. No biliary ductal dilatation. Adrenals: Unremarkable. Kidneys: Unremarkable. Spleen: Unremarkable. Bowel: No definite evidence of bowel obstruction or inflammation. Aorta: Unremarkable. Soft Tissues: Unremarkable. Bone: Unremarkable. Lymph Nodes: Unremarkable. IMPRESSION: 1. Status post Whipple's procedure. 2. No evidence of abdominal metastatic disease. 3. Small bilateral pleural effusions. DATA REPOSITORY:
--- NOTE | 2022-01-06 | DI.MRI_ITS ---
Exam(s) MR PELVIS WO/W EXAM: MR PELVIS WO/W CLINICAL HISTORY: Hx Panc CA Whipple/weight loss/sacral osteo TECHNIQUE: Multiplanar multisequence MRI of Pelvis was performed. CONTRAST MATERIAL: IV Contrast: 9 mL of Dotarem contrast administered. COMPARISON: No exams were available for comparison FINDINGS: The examination is limited due to patient motion artifact. Bones: There is no fracture or contusion pattern. There is an small area of increased signal seen i n the mid coccyx on the T2 weighted images best appreciated on the sagittal view. This area shows no significant enhancement following contrast administration. This may be reactive marrow response. N o evidence to suggest osteomyelitis. There is mild enhancement in the soft tissues around the distal coccyx but no focal fluid collection is seen to suggest an abscess. This may represent cellulitis. The SI joints are well maintained. Musculotendinous structures: Musculotendinous structures demonstrate no abnormality. Note is made of a Jonas catheter within the urinary bladder. IMPRESSION: No definite evidence of osteomyelitis of the sacrum or coccyx. No evidence of a soft tissue abscess. DATA REPOSITORY:
[2022-01-06 06:52] LABS: HCT 24.3 % (36.0-46.0); HGB 7.8 g/dL (11.2-15.7); MCH 30.2 pg (27.0-33.0); MCHC 32.1 % (32.0-36.0); MCV 94 fL (80-95); MPV 7.9 fL (8.0-11.0); Platelet Count 353 10^3/uL (130-400); RBC 2.58 10^6/uL (3.93-5.22); RDW 19.9 % (11.7-14.6); RDW-SD 69.3 fL; WBC 5.94 10^3/uL (4.4-10.8)
[2022-01-06 07:06] LABS: Anion Gap 7.1 mmol/L (3-11); BUN 11 mg/dL (7-18); CO2 22.9 mmol/L (21.0-32.0); CREATININE 0.5 mg/dL (0.55-1.02); Chloride 107 mmol/L (98-107); Glucose 81 mg/dL (74-106); Potassium 3.7 mmol/L (3.5-5.1); Sodium 137 mmol/L (136-145)
[2022-01-06 07:11] LABS: C-Reactive Protein 3.71 mg/dL (0.0-0.3)
--- NOTE | 2022-01-06 07:13 | CMPROGNOTE_ITS ---
- If Service Date Differs Date of service: 01/06/22 Time of Service: 07:13 Care Management Progress Note S/O: Loli was laying in bed when CM met with her, she is waiting to go to the OR. Loli requires further medical workup and hospitalization for weakness and malnutrition. Her labs are being closely monitored and she's receiving IV therapy. Loli had a surgical consult yesterday, and the plan is for Loli to go to the OR in the AM to debrid her decubitus ulcer. A MRI is also ordered. Loli shared with CM that shes had weakness in her legs X 3 months, which has limited her ability to stand or walk. She described how she's been having to lift her legs into bed at home. Loli is pleased with the care she is receiving at [facility] and also shared her appreciation of Dr. Montoya making an effort to find out the cause of her weakness. Per provider note: MD is in the process of working up to see if she has any muscle or nerve conduction issues which could be causing her weakness. Loli would like to discuss her code status. She may also benefit from a palliative consult. Loli is agreeable to SNF following discharge. SNF referral's are pending at [facility] and [facility]. Loli accepted a bed offer at [facility], when she is medically ready. A: 66 year old female admitted to [facility] on 01/05/22 for weakness, falls and failure to thrive. P: Loli requires further medical workup and hospitalization for weakness and malnutrition. Surgical intervention in the OR is scheduled for Sun (01/06/22). Anticipate, Loli will discharge to SNF for STR vs. home with New [facility] services when medically ready. SNF referral's are pending, [facility], offered her a bed. Transportation will be dependent on disposition and pts mobility level at time of discharge.
[2022-01-06 07:36] LABS: Ferritin 394 ng/mL (8-252)
[2022-01-06 07:38] LABS: Lipase 4 U/L (73-393)
[2022-01-06] MEDS: Famotidine 20 MG TAB PO ×2 (08:18→20:13)
[2022-01-06] MEDS: FLUoxetine 20 MG CAP PO (08:18)
[2022-01-06] MEDS: Omeprazole 20 MG CAPCR 40 MG PO ×2 (08:18→15:43)
[2022-01-06] MEDS: Protein Nutritional Supplement 16 GM 1 OUNCE PACKET PO ×3 (08:19→20:13)
[2022-01-06] MEDS: buPROPion-CR 100 MG TABCR 200 MG PO ×2 (08:19→20:20)
--- NOTE | 2022-01-06 08:22 | WOUNDCARE ---
Pt with wound consult for sacrum deep tissue unstageable wound. Pt seen at 1100 on 01/05/22. Area of necrosis over the coccyx with bone felt directly beneath the area. Bright red around the necrotic area. Due to the need for sharp debridement and evaluation for osteomyelitis, recommended to Dr. Montoya to cancel the wound consult and order for Surgical Consult at this time.
--- NOTE | 2022-01-06 09:55 | IN_ITS ---
Date of service: 01/06/22 Time of Service: 09:55 PT Notes Visit Reasons: Hypokalemia, Failure to Thrive Physical Therapy Inpatient Initial Evaluation Date: 01/06/2022 Referring Doctor: Kuldeep Garcia MD PT Orders: PT CONSULT: Eval for Assistive Device. Fall safety assessment. Limited ability. 66-year-old female with loss of function over months, general weakness, falls Precautions: Fall. Standard. Activity as tolerated. Stage III sacral decubiti. Patient Profile/Admitting Diagnosis: Loli is a 66-year-old female with reactive airway disease, pancreatic cancer, GABBY, type II DM, and bipolar disorder who presented to the ED on 01/04/2022 with chief complaints of generalized weakness and repeated falls. Patient is diagnosed with stage III sacral decubiti, acute hypokalemia, generalized weakness, adult failure to thrive, chronic pain, GERD, and hypertension. PMHX: All Active Problems?(Updated 01/05/22 @ 05:15 by Kuldeep Garcia) Discharge planning issues (Acute) DVT prophylaxis (Acute) Bipolar disorder (Acute) PTSO/abuse/syphilis 1969 tx, hospitalizations , 10/18, head MRI , EEG Chronic pain (Chronic ~07/13/15) GERD (gastroesophageal reflux disease) (Chronic) Hypertension (Chronic) Acute hypokalemia (Acute) Weakness (Acute) Adult failure to thrive (Acute) Multiple falls (Acute) Decubitus ulcer (Acute) Medical History?(Updated 01/05/22 @ 05:15 by Kuldeep Garcia) Allergic rhinitis Allergic rhinitis Arthritis Arthritis Back pain Chronic back pain Chronic sinusitis Diabetes mellitus Dyslipidemia Dyslipidemia Dyspnea Fatty liver disease, nonalcoholic Fracture of ankle GERD (gastroesophageal reflux disease) Glaucoma Glaucoma History of malignant neoplasm of pancreas Hypertensive disorder Knee pain Left sided abdominal pain Malignant tumor of cervix no xrt/chemoNeoplasm of pancreas, malignant onset 03/12/2005 Per pt. states she had a whipple procedure, and has been in remission since 2005Obstruction of common bile duct On senior care drug therapy Ineidaion chronic LBP associated with OA hx of compression fx. medications oxycodine 10 mg tablet SOAP sore 14. Yearly narcotic contract last signed 2018, 10/01/2019 [place] PDMP queried twice yearly for 5 states including [place] and [place] last dibe ib 03/01/18, 03/13/19, 01/09/20, [place] random urine drug screen being done at least 3- 4 months GABBY (obstructive sleep apnea) GABBY (obstructive sleep apnea) Osteoporosis Steatosis, liver Type II diabetes mellitus Pt. states she was and is no longer taking medication Vertigo Surgical History?(Updated 01/05/22 @ 05:15 by Kuldeep Garcia) Abdominal hysterectomy Fracture, Open Treatment ORIF Tibia H/O hernia repair Hernia Repair, Incisional x3 History of cataract surgery History of hysterectomy Hx of total knee replacement Pancreatic Duodenectomy(whipple procedure) Recurrent major depression in partial remission Replacement of total knee joint leftS/P tonsillectomy and adenoidectomy Tonsillectomy and adenoidectomy Social History/Home Situation: Lives alone in a private home with 4 steps to enter in [place]. She has a neighbro who has been a great help for he and is now taking care of her dogr. She has a son who helps with transportation as patient no longer drives. Equipment Owned/DME: [employer] Subjective: Complained about her tummy troubling her. Feels very nervous about what she cannot do. Feels very much exhausted and is only able to tolerate bed level exercises today. Complained about her Nurse SJ recommended holding off on out of bed activities as patient has had hypotensive episodes and is also scheduled for surgery this afternoon. Objective: General Observation: Supine in bed. Appears in mild discomfort and fatigue. Very weak. Mental Status: Alert and oriented as to person, place, time, and purpose. Able to pay attention, focus, and respond appropriately. Pain: Denies Vital Signs: Hypotensive with systolic BP in the low 60s early this mornining but 5 minutes ago measured in the low 90s per Nurse SJ ROM: Right Upper Extremity: Shoulder Flexion to 90 degrees only. Shoulder abduction WFL. Elbow flexion WFL. Wrist flexion WFL. Functional opening and closing of hand WFL. Left Upper Extremity: Shoulder Flexion to 90 degrees only. Shoulder abduction WFL. Elbow flexion WFL. Wrist flexion WFL. Functional opening and closing of hand WFL. Right Lower Extremity: Hip flexion allows about 30 degrees. Hip abduction unable. Knee flexion allows up to 20 degrees. Ankle dorsiflexion about 10 degrees. Ankle plantarflexion WFL. Left Lower Extremity: Hip flexion allows about 30 degrees. Hip abduction unable. Knee flexion allows up to 20 degrees. Ankle dorsiflexion about 10 degrees. Ankle plantarflexion WFL. Strength: Right Upper Extremity: Shoulder flexors 3-/5. Shoulder abductors 3-/5. Elbow flexors 4-/5. Elbow extensors 4-/5. Glassware Defect Repairer weak but functional. Left Upper Extremity: Shoulder flexors 3-/5. Shoulder abductors 3-/5. Elbow flexors 4-/5. Elbow extensors 4-/5. Glassware Defect Repairer weak but functional. Right Lower Extremity: Hip flexors 2-/5. Hip abductors 1-/5. Knee flexors 2-/5. Knee extensors 2-/5. Ankle dorsiflexors 2-/5. Ankle plantarflexors 5/5. Left Lower Extremity: Hip flexors 2-/5. Hip abductors 1-/5. Knee flexors 2-/5. Knee extensors 2-/5. Ankle dorsiflexors 2-/5. Ankle plantarflexors 5/5. Sensation: Denies tingling and numbness in B UE and LE Bed Mobility/Transfers: Rolling moderate assist Supine to sit moderate assist Sit to supine moderate assist Sit to stand deferred, unsafe at this time due to hypotensive episode and severe fatigue/weakness Bed to reclining chair deferred, unsafe at this time due to hypotensive episode and severe fatigue/weakness Reclining chair to bed deferred, unsafe at this time due to hypotensive episode and severe fatigue/weakness THERA EX: B UE (in supine) 1. Shoulder flexion with chest expansion exercises and deep breathing exercises x 5 2. Shoudler horizontal abduction/adduction with chest expansion exercises and deep breathing exercises x 5 3. Elbow flexion with wrist rotation x 10 B LE (in supine) 1. Heels slides x 10 2. Supine clam shell exercises x 10 3. Partial bridges x 10 4. Ankle DF/PF x 10 Gait: deferred, unsafe at this time due to hypotensive episode and severe fatigue/weakness Balance: Static Sitting: Fair Dynamic Sitting: Poor Static Standing: Unable Dynamic Standing: Unable Special Tests: Mobility Limitations Standardized Measure [facility] AM-PAC 6 clicks Basic Mobility Inpatient Short Form: Raw Score: 9 CMS Score: 81% deficit Informed Consent/Education: Patient was instructed in purpose of PT consult and plan of care. Agreeable to proceed with established PT POC to achieve personal goals. ASSESSMENT: With the extent of skin breakdown in patient's sacral area, it seems that syed ent has not been entirely mobile at home for quite a while. Mobility assessment was not completed due to patient's medical status,, level of fatigue, and significant weakness. Patient appears significantly weak, hypotensive, and is anxious about moving out of bed. She is scheduled to have surgery with Dr. Conti for wound debridement of her stage III decubitus ulcer. Patient did indicate that she only has to walk the farthest distance of 7 feet at home to reach all the important places at her house for her daily activities. OT evaluation is needed to identify self-care needs and address any or all ongoing ADL deficits. Patient presents with clinical signs and symptoms consistent with current/admitting diagnoses that have resulted to mobility limitations, gait instability, generalized weakness, and overall ADL decline as demonstrated by the following impairment level findings: 1. Decreased strength to B UE/LE major muscle groups 2. Impaired sitting/standing balance 3. Impaired activity tolerance 4. Limitation of joint range of motion in B LE joints and B shoudlers 5. Generalized fatigue 6. Swelling in B LE Impairments are contributing to the following functional limitations: 1. Decline in bed mobility skills 2. Decline in transfer skills 3. Difficulty with ambulation without assistive device and physical assistance 4. Increased completion time for mobility ADL performance 5. Increased risk for falls 6. Difficulty with managing steps alone safely Patient is assessed as a 33296 high complexity based on the following: History: 66-year-old female with past medical history as indicated above Examination: Demonstrable impairment in strength, balance, and mobility level with underlying impairments and functional limitations as exhibited above as well as deficit score of 73% utilizing the [facility] Mobility Inpatient Short Form Presentation: Evolving Decision Makin high complexity Goals: Goals X1 week 1. Supine-Sit contact-guard assist 2. Sit-Supine contact-guard assist 3. Sit-Stand contact-guard assist 4. Stand-Sit minimal assist with FWW 5. Bed-Chair minimal assist with FWW 6. Chair-Bed minimal assist with FWW 7. Minimal assist with gait on level surface with use of FWW for at least 30 feet without report of pain nor dyspnea Plan of Care/Treatment Plan: 1-2x/day, 7 days/week x 1 week. Plan of care has been reviewed with the COMMERCIAL REAL ESTATE UNDERWRITER providing the service under Physical Therapy direction. Initiate Physical Therapy intervention for pain management as needed, strengthening, bed mobility, transfers, gait, stairs, balance training, and use of assistive device. DISCHARGE RECOMMENDATIONS: [] Home with no services [] [] Home with services [specify] [] Home with outpatient PT [] [X] SNF for continued rehabilitation. Patient will benefit from intermediate facility placement for continued skilled physical therapy services in order to progress mobility level, strength, and balance in preparation for a safe discharge to home. [] Detention Care [] [] SNF versus LTC based on ability to participate and progress [] TREATMENT CODE/TIME: 9716 3 x 29 minutes beginning at 9:55 AM. Thank you for the opportunity to participate in the care of this patient. Shelly Powell PT, DPT, CLT [facility] [place], [place]
[2022-01-06] MEDS: diphenhydrAMINE 25 MG CAP 50 MG PO (10:49)
[2022-01-06] MEDS: oxyCODONE 10 MG TAB 5 MG PO (10:49)
--- NOTE | 2022-01-06 13:17 | ANES.PREOP_ITS ---
General Info Date of Service Date Performed: 01/06/22 Height: 5 ft 3 in Weight: 48 kg Body Mass Index (BMI): 18.7 Surgical Procedure: Operation Date: 01/06/22 14:25 Proposed Procedure Side Surgeon p Debridement of Sacrum Naomi Conti, Meds Allergies and Home Medications Allergies Allergy/AdvReac Type Severity Reaction Status Date / Time propoxyphene napsylate Allergy Intermediate Verified 01/05/22 05:15 [From Darvocet-N 100] celecoxib [From Celebrex] Allergy Swelling/Ed Verified 01/05/22 05:15 ej acetaminophen AdvReac Intermediate Verified 01/05/22 05:15 [From Darvocet-N 100] citalopram hydrobromide AdvReac Intermediate Psychosis Verified 01/05/22 05:15 [From Celexa] lamotrigine AdvReac Intermediate Nausea Verified 01/05/22 05:15 lithium AdvReac Intermediate Nausea, Verified 01/05/22 05:15 vomiting misoprostol AdvReac Mild Nausea Unverified 01/05/22 05:15 [From Arthrotec 50] alprazolam [From Xanax] AdvReac Itching Unverified 01/05/22 05:15 naproxen AdvReac Nausea Unverified 01/05/22 05:15 Home Medication Medication Instructions Recorded oxycodone 10 mg tablet 5 mg PO BID 12/10/14 albuterol sulfate 90 mcg/actuation 1 puff inhalation Q4H PRN PRN 02/17/15 aerosol inhaler calcium carbonate 500 mg-vitamin 2 tab PO DAILY 02/17/15 D3 10 mcg (400 unit) chewable tablet (Calcium 500 + D) fluticasone propionate 50 1 spray NS BID PRN 02/17/15 mcg/actuation nasal spray,suspension latanoprost 0.005 % eye drops 1 drp OU HS 03/01/15 amlodipine 2.5 mg tablet 2.5 mg PO HS 06/08/20 aspirin 81 mg tablet,delayed 81 mg PO DAILY 06/08/20 release bupropion HCl 200 mg tablet,12 hr 200 mg PO BID 06/08/20 sustained-release calcium carbonate 500 mg-vitamin 1 tab PO DAILY 06/08/20 D3 10 mcg (400 unit) tablet (Calcium 500 With D) denosumab 60 mg/mL subcutaneous 60 mg subcut DIRECTED 06/08/20 syringe (Prolia) diclofenac sodium 75 mg 75 mg PO BID 06/08/20 tablet,delayed release famotidine 20 mg tablet 20 mg PO BID 06/08/20 fluoxetine 20 mg capsule (Prozac) 20 mg PO DAILY 06/08/20 ketoconazole 2 % topical cream 1 applic topical DAILY 06/08/20 latanoprost 0.005 % eye drops 1 drp ophthalmic (eye) HS 06/08/20 lisinopril 5 mg tablet 5 mg PO DAILY 06/08/20 pljuwsqpspkj-Hk-sscd-minerals 18 1 tab PO DAILY 06/08/20 mg-0.4 mg tablet olanzapine 5 mg tablet 5 mg PO HS 06/08/20 omeprazole 20 mg capsule,delayed 40 mg PO AC 06/08/20 release rosuvastatin 10 mg tablet 10 mg PO HS 06/08/20 triamcinolone acetonide 0.1 % 1 applic topical BID PRN 06/08/20 topical cream cholecalciferol (vitamin D3) 1,250 1,250 mcg PO DIRECTED 06/24/20 mcg (50,000 unit) capsule Current Visit Medications: Current Medications Generic Name Dose Route Start Last Admin Trade Name Freq PRN Reason Stop Dose Admin Acetaminophen 0 mg 01/05/22 04:36 Acetaminophen 325 Mg Tab PO Q4H PRN PRN Aspirin 81 mg 01/05/22 08:30 01/05/22 09:03 Aspirin E.C. 81 Mg Tabec PO 81 mg DAILY KIKE Administration Bupropion HCl 200 mg 01/05/22 08:30 01/06/22 08:19 Bupropion-Cr 100 Mg Tabcr PO 200 mg BID KIKE Administration Calcium/Vitamin D 1 tab 01/05/22 08:30 01/05/22 09:03 Calcium 600mg/Vit D 200u Tab PO 1 tab DAILY KIKE Administration Dimethicone/Zinc Oxide 0 gm 01/05/22 04:36 Kamille Protect Cream 142 Gm Tube TP PRN PRN Famotidine 20 mg 01/05/22 08:30 01/06/22 08:18 Famotidine 20 Mg Tab PO 20 mg BID KIKE Administration Fluoxetine HCl 20 mg 01/05/22 08:30 01/06/22 08:18 Fluoxetine 20 Mg Cap PO 20 mg DAILY KIKE Administration Gadoterate Meglumine 9 ml 01/05/22 17:00 01/05/22 16:59 Gadoterate Meglumine 20 Ml Vial IVP 02/04/22 23:59 9 ml DIRECTED KIKE Administration Gadoterate Meglumine 9 ml 01/06/22 12:00 01/06/22 11:55 Gadoterate Meglumine 15 Ml Vial IVP 02/05/22 23:50 9 ml DIRECTED KIKE Administration Ringer's Solution 1,000 mls @ 100 mls/hr 01/05/22 21:30 01/06/22 09:00 IV 100 mls/hr INFUSION KIKE Infusion IV Miscellaneous Supplies 1 each 01/05/22 17:15 Iv Access IV DIRECTED KIKE Latanoprost 0 ml 01/05/22 22:00 01/05/22 21:37 Latanoprost 0.005% 2.5 Ml Btl OP 1 drp HS KIKE Administration Lisinopril 5 mg 01/05/22 08:30 01/05/22 09:04 Lisinopril 5 Mg Tab PO 5 mg DAILY KIKE Administration Multi-Ingredient Supplement 1 ounce 01/05/22 20:00 01/06/22 08:19 Protein Nutritional Supplement 16 Gm 1 Ounce Packet PO 1 ounce TID KIKE Administration Multivitamins 1 tab 01/05/22 08:30 01/05/22 09:04 Multivitamin Tab PO 1 tab DAILY KIKE Administration Olanzapine 5 mg 01/05/22 22:00 01/05/22 21:31 Olanzapine 5 Mg Tab PO 5 mg HS KIKE Administration Omeprazole 40 mg 01/05/22 07:30 01/06/22 08:18 Omeprazole 20 Mg Capcr PO 40 mg AC KIKE Administration Oxycodone HCl 5 mg 01/05/22 07:17 01/06/22 10:49 Oxycodone 10 Mg Tab PO 5 mg BID PRN PRN Administration Moderate to Severe Pain Potassium Chloride 20 meq 01/06/22 08:30 Potassium Chloride 20 Meq Tabcr PO DAILY KIKE Rosuvastatin Calcium 10 mg 01/05/22 22:00 01/05/22 21:30 Rosuvastatin 10 Mg Tab PO 10 mg HS KIKE Administration Sodium Chloride 10 ml 01/05/22 16:58 01/05/22 16:59 Normal Saline Flush 10 Ml Syr IVP 10 ml PRN PRN Administration Sodium Chloride 25 ml 01/06/22 12:00 01/06/22 11:54 Normal Saline 50 Ml Bag IV 25 ml DIRECTED KIKE Administration PFSH Active Problems Active Problems: Problem Status Onset Code Weight loss, unintentional R63.4 Hypoalbuminemia due to protein-calorie malnutrition E88.09, E46 Unexplained weight loss R63.4 Discharge planning issues Z02.9 DVT prophylaxis Z29.9 Bipolar disorder F31.9 Chronic pain ~07/13/15 G89.29 GERD (gastroesophageal reflux disease) K21.9 Hypertension Acute hypokalemia E87.6 Weakness R53.1 Adult failure to thrive R62.7 Multiple falls R29.6 Decubitus ulcer L89.90 Medical History Medical History (Updated 01/05/22 @ 23:22 by Preet Montoya) Allergic rhinitis Allergic rhinitis Arthritis Arthritis Back pain Chronic back pain Chronic sinusitis Diabetes mellitus Dyslipidemia Dyslipidemia Dyspnea Fatty liver disease, nonalcoholic Fracture of ankle GERD (gastroesophageal reflux disease) Glaucoma Glaucoma History of malignant neoplasm of pancreas Hypertensive disorder Knee pain Left sided abdominal pain 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 She did not have overt malignancy. Surgery was curative. Per pt. states she had a whipple procedure, and has been in remission since 2004. Obstruction of common bile duct On neurology professor drug therapy ineidaion chronic LBP associated with OA hx of compression fx. medications oxycodine 10 mg tablet SOAP sore 14. Yearly narcotic contract last signed 10/18/2018, 10/01/2019 [place] PDMP queried twice yearly for 5 states including [place] and [place] last dibe ib 03/01/18, 03/13/19, 01/09/20, [place] random urine drug screen being done at least 3-4 months GABBY (obstructive sleep apnea) GABBY (obstructive sleep apnea) Osteoporosis Steatosis, liver Type II diabetes mellitus Pt. states she was and is no longer taking medication Vertigo Surgical History Surgical History (Updated 01/05/22 @ 05:15 by Kuldeep Garcia) Abdominal hysterectomy Fracture, Open Treatment ORIF Fibia H/O hernia repair Hernia Repair, Incisional x3 History of cataract surgery History of hysterectomy Hx of total knee replacement Pancreatic Duodenectomy(whipple procedure) Recurrent major depression in partial remission Replacement of total knee joint left S/P tonsillectomy and adenoidectomy Tonsillectomy and adenoidectomy Tobacco Smoking/Tobacco Use Status: Former Tobacco Use Alcohol Alcohol Intake: former Substance Use Substance use: Never Substance use type: does not use Vital Signs and Lab Results Vital Signs Most Recent Vital Signs in EMR: Most Recent Vital Signs Temp Pulse Resp BP Pulse Ox 36.5 C 91 H 19 92/60 L 96 01/06/22 07:45 01/06/22 07:45 01/06/22 07:45 01/06/22 08:31 01/06/22 07:45 Point of Care Results Point of Care Results: Finger Stick Blood Glucose 95 01/06/22 07:40 Lab Results Result Diagrams: 01/06/22 06:40 01/06/22 06:40 Blood Type / Crossmatch: No Data to Display Complete Blood Count: White Blood Count 5.94 10^3/uL (4.4-10.8) 01/06/22 06:40 Red Blood Count 2.58 10^6/uL (3.93-5.22) L 01/06/22 06:40 Hemoglobin 7.8 g/dL (11.2-15.7) L 01/06/22 06:40 Hematocrit 24.3 % (36.0-46.0) L 01/06/22 06:40 Platelet Count 353 10^3/uL (130-400) 01/06/22 06:40 Complete Metabolic Panel: Sodium Level 137 mmol/L (136-145) 01/06/22 06:40 Potassium Level 3.7 mmol/L (3.5-5.1) 01/06/22 06:40 Chloride Level 107 mmol/L (98-107) 01/06/22 06:40 Carbon Dioxide Level 22.9 mmol/L (21.0-32.0) 01/06/22 06:40 Blood Urea Nitrogen 11 mg/dL (7-18) 01/06/22 06:40 Creatinine 0.5 mg/dL (0.55-1.02) L 01/06/22 06:40 Estimated GFR/1.73 m2 >= 60.00 (mL/min/1.73m2) 01/06/22 06:40 Magnesium Level 1.9 mg/dL (1.8-2.4) 01/05/22 00:35 Calcium Level 7.0 mg/dL (8.5-10.1) L 01/06/22 06:40 Albumin 1.4 g/dL (3.4-5.0) L 01/05/22 00:35 Glucose Level 81 mg/dL (74-106) 01/06/22 06:40 Hemoglobin A1c < 4.5 % (<5.7) 01/05/22 00:35 C-Reactive Protein 3.71 mg/dL (0.0-0.3) H 01/06/22 06:40 Liver Function Panel: Alanine Aminotransferase (ALT/SGPT) 14 U/L (14-59) 01/05/22 00: 35 Aspartate Amino Transf (AST/SGOT) 12 U/L (15-37) L 01/05/22 00: 35 Coagulation Panel: No Data to Display Cardiac Panel: WY-Sra-H-Type Natriuretic Peptide 326 pg/mL (<300) H Arterial Blood Gas: No Data to Display Venous Blood Gas: Venous Blood pH 7.44 (7.31-7.41) H 01/05/22 00:35 Venous Blood Partial Pressure O2 24 mmHg 01/05/22 00:35 Venous Blood Partial Pressure CO2 37 mmHg (41-51) L 01/05/22 00 :35 Venous Blood Oxygen Saturation 39 % 01/05/22 00:35 Venous Blood HCO3 25 mmol/L (23-28) 01/05/22 00:35 Venous Blood Base Excess 0 mmol/L (-2-3) 01/05/22 00:35 Venous Blood Total Carbon Dioxide 23 mmol/L (24-29) L 01/05/22 00:35 Pancreas Panel: Lipase 4 U/L (73-393) 01/06/22 06:40 Thyroid Panel: Thyroid Stimulating Hormone (TSH) 3.51 uIU/mL (0.36-3.74) 01/05 00:35 Infectious Disease: Coronavirus (COVID-19)(PCR) Negative (Negative) 01/04/22 23:55 Coronavirus 2019 Source Nasopharynx 01/04/22 23:55 Influenza Virus Type A (PCR) Negative (Negative) 01/04/22 23:5 5 Influenza Virus Type B (PCR) Negative (Negative) 01/04/22 23:5 5 Respiratory Syncytial Virus (PCR) Negative (Negative) 01/04/22 23:55 Blood Cultures: No Data to Display Toxicology Panel: No Data to Display Anesthesia Assessment and Plan Anesthesia History Personal History: No History of Anesthesia Complications Family History: No Family History of Anesthesia Complications Exercise Tolerance Exercise Tolerance: Metabolic Equivalents<4 Pertinent Negatives Pertinent Negatives: No Symptoms of GERD, No Major Cardiovascular Symptoms or Complaints and No Major Pulmonary Symptoms or Complaints Cardiac & Pulmonary Exam Cardiac Exam: Normal S1/S2 Heart Sounds Pulmonary Exam: Clear Bilateral Breath Sounds Implantable Cardiac Device Does patient have a Pacemaker or an ICD?: No Airway Exam Known Difficult Airway: No Mallampati Class: 2 Mouth Opening: Normal (> 3cm) Thyromental Distance: Less than 3 cm Neck Range of Motion: Full ROM Neck Circumference: Normal Teeth Condition: Edentulous ASA Classification ASA Score: ASA 3 Emergency Case?: No NPO Status NPO Status: NPO Clears >2 hours, Solids >8 hours Anesthesia Plan Resuscitation Status: Full Code Anesthesia Technique: General Anesthesia Airway Planned: Natural Airway Monitors Used: Standard Monitors
[2022-01-06 13:25] LABS: HCT 25.1 % (36.0-46.0); HGB 8.2 g/dL (11.2-15.7)
[2022-01-06] MEDS: Lactated Ringers 1,000 ML 30 ML IV (14:27)
[2022-01-06] MEDS: Cellulose,Oxidized 4X8 1 PACKET MC (14:45)
[2022-01-06] MEDS: Lidocaine 1% Pres-Free 30 ML VIAL (14:47)
--- NOTE | 2022-01-06 15:06 | ROE_ITS ---
Date of service: 01/06/22 Time of Service: 15:00 Operative Note Operative Note DATE OF PROCEDURE: 01/06/22 PRE-OP DIAGNOSIS: Decubitus ulcer stage III POST-OP DIAGNOSIS: same PROCEDURE: Debridement SURGEON: Naomi Conti ANESTHESIA TYPE: Local By Surgeon and General:No Airway Refer to Anesthesia Record ESTIMATED BLOOD LOSS: 5 PATHOLOGY: other COMPLICATIONS: None Patient was transported to: PACU Patient's condition: stable Procedure Description: Informed consent is obtained explaining risks and benefits of the procedure including not limited to bleeding, infection, pneumonia, blood clots, need for prolonged healing. Complications of anesthesia. Patient has stage II decubitus ulcers, by visual inspection, is here today for debridement. Patient is brought to the operating room suite and placed in the left lateral decubitus position, all bony surfaces are padded. She is prepped and draped in the usual sterile fashion using a Betadine scrub solution. Timeout is performed. 10 cc of 1% Marcaine plainwas used for local anesthetization. Anesthesia is provided per the department of anesthesia. A #10 blade is used to debride away all the necrotic tissue. Cultures are taken. The wound is down to the fat. However her fatty layer is only 1 to 2 mm in depth. The total wound is then 4 cm x 3 cm x 1 cm in its deepest portion. E lectrocautery is used to provide hemostasis. The wound is irrigated with a liter of saline. It is packed with Surgicel and dry dressing. Patient tolerated the procedure well without complication and transferred to recovery room in stable condition. The Wound care team will be consulted for dressing. Wound VAC is advisable.
--- NOTE | 2022-01-06 15:08 | W.ANESPOSTOP ---
Postoperative Evaluation Date, Time and Location Date Performed: 01/06/22 Time Performed: 15:08 Patient Location: PACU Vital Signs Most Recent Imported Vital Signs: Most Recent Vital Signs Temp Pulse Resp BP Pulse Ox 36.4 C L 98 H 21 116/76 97 01/06/22 15:00 01/06/22 15:00 01/06/22 15:00 01/06/22 15:00 01/06/22 15:00 Pain Score Most Recent Pain Score: Most Recent Pain Score Pain Level 0 01/06/22 15:00 Assessment Mental Status: Awake (Alert & Oriented to Patient Baseline) Airway and Respiratory Function: Patent airway with normal (patient baseline) respiratory exam Cardiovascular Function: Hemodynamically Stable Hydration Status: Adequately Hydrated Nausea & Vomiting: No Nausea or Vomiting Pain: Pt. Denies Any Pain Peripheral Nerve Block: Patient did not receive a nerve block
[2022-01-06] MEDS: Potassium Chloride 20 MEQ TABCR PO (15:43)
[2022-01-06] MEDS: Aspirin E.C. 81 MG TABEC PO (15:43)
[2022-01-06] MEDS: Lisinopril 5 MG TAB PO (15:43)
[2022-01-06] MEDS: Multivitamin TAB 1 TAB PO (15:43)
[2022-01-06] MEDS: Calcium 600mg/Vit D 200U TAB 1 TAB PO (15:43)
--- NOTE | 2022-01-06 17:09 | W.PM.PROGNOT ---
Date of Service Date of service: 01/06/22 Time of Service: 16:09 Assessment and Plan Assessment and plan (1) Weakness: Status: Acute Assessment and plan: Generalized weakness of undetermined etiology. Certainly she is malnourished. Concern has been raised as to whether or not she could have recurrent pancreatic cancer or cervical cancer however work-up this afternoon included MRI scan of her abdomen pelvis which showed no cancerous lesions. MRI scans of her cervical thoracic lumbar spine showed DJD with some cervical spinal stenosis without compromise of the cervical spinal cord. For now we will continue to work on her nutrition and provide nutritional support and provide physical therapy to try to get her more mobile and improve her strength. We will request consultation with Occupational Therapy. She will likely need [facility] while she rehabs. (2) Decubitus ulcer: Status: Acute Assessment and plan: Patient to have surgical debridement today of her sacral eschar. Dr. Conti is ordered an MRI scan of her sacrum and this is come back showing no evidence of osteomyelitis. (3) Acute hypokalemia: Status: Acute Assessment and plan: secondary to poor intake. she received oral and iv replacment. Follow up potassium last night was 3.7. (4) Hypertension: Status: Chronic Assessment and plan: cont. lisinopril (5) GERD (gastroesophageal reflux disease): Status: Chronic Assessment and plan: continue omeprazole and pepcid (6) Bipolar disorder: Status: Acute Assessment and plan: stable. cont. wellbutrin and prozac (7) DVT prophylaxis: Status: Acute Assessment and plan: cont. enoxaparin (8) Weight loss, unintentional: Status: Acute Assessment and plan: MRI scan of the abdomen did not show any recurrence of her pancreatic cancer. No imaging of her chest was done. I will get contrast enhanced CT scan of the chest tomorrow. (9) Discharge planning issues: Status: Acute Assessment and plan: she will likely need SNF placement Subjective Subjective Interval history since last seen: Patient has poor appetite nausea and emesis today. Patient is scheduled for surgical debridement of her decubitus eschar. Exam Narrative Exam Narrative: Thin elderly white female who appears to be cachectic and undernourished. She is alert and oriented otherwise. Lungs are clear to auscultation Heart is regular rate and rhythm. Abdomen is scaphoid soft nondistended with active bowel sounds. Extremities are emaciated with decreased muscle tone and generalized weakness worse weakness in her legs compared to her arms. Objective Last Vital Signs Temp 36.6 C 01/06/22 16:23 Pulse 103 H 01/06/22 16:23 Resp 14 01/06/22 16:23 BP 112/77 01/06/22 16:23 Pulse Ox 98 01/06/22 16:23 Laboratory Results - last 24 hr 01/05/22 01/05/22 01/05/22 00:35 07:26 19:05 WBC RBC Hgb Hct MCV MCH MCHC RDW Plt Count MPV Sodium Cancelled 136 Potassium Cancelled 4.1 D Chloride Cancelled 106 Carbon Dioxide Cancelled 21.9 Anion Gap Cancelled 8.1 BUN Cancelled 9 Creatinine Cancelled 0.5 L Estimated GFR/1.73 m2 Cancelled >= 60.00 Glucose Cancelled 88 Calcium Cancelled 7.2 L Ferritin C-Reactive Protein Lipase Folate 10.1 Patient ABO/Rh Antibody Screen 01/06/22 01/06/22 01/06/22 06:40 06:40 06:40 WBC 5.94 RBC 2.58 L Hgb 7.8 L Hct 24.3 L MCV 94 MCH 30.2 MCHC 32.1 RDW 19.9 H Plt Count 353 MPV 7.9 L Sodium 137 Potassium 3.7 Chloride 107 Carbon Dioxide 22.9 Anion Gap 7.1 BUN 11 Creatinine 0.5 L Estimated GFR/1.73 m2 >= 60.00 Glucose 81 Calcium 7.0 L Ferritin 394 H C-Reactive Protein 3.71 H Lipase 4 Folate Patient ABO/Rh Antibody Screen 01/06/22 01/06/22 13:20 13:20 WBC RBC Hgb 8.2 L Hct 25.1 L MCV MCH MCHC RDW Plt Count MPV Sodium Potassium Chloride Carbon Dioxide Anion Gap BUN Creatinine Estimated GFR/1.73 m2 Glucose Calcium Ferritin C-Reactive Protein Lipase Folate Patient ABO/Rh O Negative Antibody Screen NEGATIVE
[2022-01-06] MEDS: Trimethobenzamide 200 MG/2 ML VIAL IM (17:28)
[2022-01-06 17:56] LABS: Lab Add On Test DONE
[2022-01-06] MEDS: Bisacodyl 10 MG SUPP PR (18:48)
[2022-01-06 19:30] LABS: Total Iron Binding Capacity 54 ug/dL (250-450)
[2022-01-06] MEDS: Docusate Sodium 100 MG CAP PO (20:13)
[2022-01-06] MEDS: Rosuvastatin 10 MG TAB PO (23:07)
[2022-01-06] MEDS: Senna TAB 1 TAB PO (23:07)
[2022-01-06] MEDS: OLANZapine 5 MG TAB PO (23:07)
[2022-01-06] MEDS: Latanoprost 0.005% 2.5 ML BTL OP (23:07)
[2022-01-06] MEDS: Lactated Ringers 1,000 ML 100 ML IV (23:50)
[2022-01-07] VITALS (8 sets, daily range): BP systolic 80–120; BP diastolic 50–90; PULSE 86–108; RESP 18; TEMP 35.9–36.9; O2SAT 91–99
--- NOTE | 2022-01-07 | DI.RAD_ITS ---
Exam(s) XR ABDOMEN FLAT UPRIGHT EXAM: 2D digital imaging was performed. CLINICAL HISTORY: questionable free air on CT scan. COMPARISON: No exams were available for comparison TECHNIQUE: Supine and Lateral views of the abdomen was performed. Three images were obtained. FINDINGS: LUNG BASES: Clear. BOWEL GAS PATTERN: Nondistended. FREE AIR: None. CALCIFICATIONS: No radiopaque calcifications. OSSEOUS STRUCTURES: Normal for age. OTHER FINDINGS: There is contrast seen in the renal collecting system from the patient's recent CT sc an of the chest with contrast. Postsurgical changes in the abdomen. IMPRESSION: No definite evidence of free intraperitoneal air. DATA REPOSITORY: RADIATION DOSE DELIVERED:
--- NOTE | 2022-01-07 | DI.CT_ITS ---
Exam(s) CT CHEST W EXAM: CT CHEST W CLINICAL HISTORY: weight loss; hx of pancreatic cancer; r/o mets TECHNIQUE: Imaging Protocol: Axial computed tomography images with coronal and sagittal reformatted images were created and reviewed CONTRAST MATERIAL: Intravenous: Visipaque 320 contrast volume:50 mL. COMPARISON: No exams were available for comparison FINDINGS: Tracheobronchial tree: Patent where visualized. Pulmonary parenchyma: No consolidation or dominant measurable mass. Moderate centrilobular emphysemat ous changes are present. Mediastinum and Rhonda: No dominant adenopathy or fluid collection. The esophagus is unremarkable. Thyroid gland: Unremarkable. Pleura: There are small bilateral pleural effusions. No pneumothorax. Heart: The heart is not dilated. Artery calcifications are present. There is a mild pericardial effu rafa or pleural thickening. Aorta: Thoracic aorta non-dilated. Atherosclerosis. Pulmonary arteries: The peripheral pulmonary arteries are not well opacified for evaluation of pulmon venkat emboli. No central pulmonary embolus is present. Upper abdomen: The patient has had a prior Whipple procedure. There is pneumobilia. This may refle ct postsurgical change. There are few foci of extraluminal air in the abdomen anteriorly. Lymph nodes: Within normal limits. Bones: Within normal limits for the patient's age. Soft tissues: Unremarkable. IMPRESSION: 1. No evidence of thoracic metastatic disease. 2. Small pericardial effusion or pericardial thickening. 3. Question of a small amount of free air in the upper abdomen. Please correlate clinically. RADIATION DOSE DELIVERED: 354.2mGy.cm Total DLP DATA REPOSITORY: All CT scans at this facility are submitted to the National Radiology Data Registry (NRDR) Dose Index Registry (DIR) with the [employer] (ACR). RADIATION OPTIMIZATION: All CT scans at this facility use at least one of these dose optimization te chniques: automated exposure control; mA and/or kV adjustment per patient size (includes targeted exa ms where dose is matched to clinical indication); or iterative reconstruction.
[2022-01-07] MEDS: ceFAZolin 1 GM/50 ML BAG IVPB ×2 (00:42→11:36)
[2022-01-07] MEDS: Lactated Ringers 500 ML IV (04:27)
[2022-01-07] MEDS: Lactated Ringers 1,000 ML 100 ML IV (06:53)
[2022-01-07] MEDS: Normal Saline Flush 10 ML SYR IVP (07:41)
[2022-01-07] MEDS: Aspirin E.C. 81 MG TABEC PO (09:21)
[2022-01-07] MEDS: buPROPion-CR 100 MG TABCR 200 MG PO ×2 (09:21→21:10)
[2022-01-07] MEDS: Omeprazole 20 MG CAPCR 40 MG PO ×3 (09:21→16:35)
[2022-01-07] MEDS: Multivitamin TAB 1 TAB PO (09:22)
[2022-01-07] MEDS: Famotidine 20 MG TAB PO ×2 (09:22→21:10)
[2022-01-07] MEDS: Protein Nutritional Supplement 16 GM 1 OUNCE PACKET PO ×3 (09:22→21:10)
[2022-01-07] MEDS: FLUoxetine 20 MG CAP PO (09:22)
[2022-01-07] MEDS: Potassium Chloride 20 MEQ TABCR PO (09:22)
[2022-01-07] MEDS: Docusate Sodium 100 MG CAP PO ×2 (09:22→21:10)
[2022-01-07] MEDS: Calcium 600mg/Vit D 200U TAB 1 TAB PO (09:22)
--- NOTE | 2022-01-07 11:19 | W.ANESVAS ---
Midline Placement Date Performed: 01/07/22 Procedure Time: 11:10 Requesting Provider: Preet Montoya Procedure Location: Med/Surg Sedation Given (Indicate Dose Given): No Sedation given Patient Mental Status: Awake Sterility: Hand Hygiene, Surgical Cap, Surgical Mask, Sterile Gloves, Sterile Drape/Sheet and Chlorhexidine Laterality: Left Insertion Site: Basilic Midline Device: PowerGlide Pro 20G Catheter Length: 10 cm Midline Procedure Procedure: 1% Lidocaine to skin and subcutaneous tissue with 25g needle, Vessel accessed with catheter over needle and Guidewire placed with ease Dressing: Tegaderm Applied, Chlorhexidine Dressing and Statlock Applied Blood Return: Present Flushes: Easily Ultrasound: Sterile probe cover and gel used Ultrasound Image Saved?: Yes Number of Attempts (See previous attempts in note section): 1 Procedure Tolerated: No Complications and Patient tolerated well Procedure Outcome: Successful Performed By: Willie Dawkins
[2022-01-07] MEDS: Normal Saline 500 ML 30 ML IV (11:36)
--- NOTE | 2022-01-07 12:12 | PT.INTREAT ---
PT Notes Visit Reasons: Hypokalemia, Failure to Thrive Inpatient Physical Therapy Treatment Note [facility] Date: 01/07/22 SUBJECTIVE:Rama is agreeable to PT. Indicated that she has been nauseous this am. OBJECTIVE: [] BED MOBILITY/TRANSFERS Rolling L/R: min A THEREX: global U/LE strengthening ex while in bed. This included AP, QS, GS, hip abd and heel slides. GH flex and bicep curls. I assisted her to left sidelying with pillows placed at back and btwn knees. ASSESSMENT: tolerated session well. Concerned that mvmt was going to break her stitches in her bottom. I think she meant the wound vac? I did noted swelling in right UE of which she reported nursing was aware. PLAN: will continue to work on her strength and endurance to improve her mobility following PT POC. TREATMENT CODE/TIME: 15 min beginning at 1015. [id number]
--- NOTE | 2022-01-07 15:55 | W.PM.PROGNOT ---
Date of Service Date of service: 01/07/22 Time of Service: 14:55 Assessment and Plan Assessment and plan (1) Weakness: Status: Acute Assessment and plan: Generalized weakness of undetermined etiology. Certainly she is malnourished. Concern has been raised as to whether or not she could have recurrent pancreatic cancer or cervical cancer however work-up included MRI scan of her abdomen pelvis which showed no cancerous lesions. MRI scans of her cervical thoracic lumbar spine showed DJD with some cervical spinal stenosis without compromise of the cervical spinal cord. For now we will continue to work on her nutrition and provide nutritional support and provide physical therapy to try to get her more mobile and improve her strength. We will request consultation with Occupational Therapy. She will likely need long-term facility placement while she rehabs. She has significant tremors that raises suspicion for Parkinsonism possibly related to her olanzapine. I will give her a trial of sinemet. Also I will check her for anticholinesterase antibodies to rule out myesthenia gravis (2) Decubitus ulcer: Status: Acute Assessment and plan: patient had debridement yesterday of her sacral decubitus and now has been put on cefazolin. wound culture is growing rare gram positive and rare gram negative. I will dc the [facility] and treat w/ Rocephin. (3) Acute hypokalemia: Status: Acute Assessment and plan: secondary to poor intake. she received oral and iv replacment. Follow up potassium is 3.7. (4) Hypertension: Status: Chronic Assessment and plan: cont. lisinopril (5) GERD (gastroesophageal reflux disease): Status: Chronic Assessment and plan: continue omeprazole and pepcid (6) Bipolar disorder: Status: Acute Assessment and plan: stable. cont. wellbutrin and prozac (7) DVT prophylaxis: Status: Acute Assessment and plan: cont. enoxaparin (8) Weight loss, unintentional: Status: Acute Assessment and plan: MRI scan of the abdomen did not show any recurrence of her pancreatic cancer. No imaging of her chest was done. I will get contrast enhanced CT scan of the chest tomorrow. (9) Discharge planning issues: Status: Acute Assessment and plan: she will likely need SNF placement Subjective Subjective Interval history since last seen: Patient denies any pain. No dyspnea. No nausea or vomiting. 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
[2022-01-07] MEDS: cefTRIAXone 1,000 MG in Normal Saline 50 ML 100 MG IVPB (17:57)
--- NOTE | 2022-01-07 17:58 | DI.VRAD_ITS ---
Addendum created by Jose Greenfield MD on 01/07/2022 6:03:21 PM EDT: THIS REPORT CONTAINS FINDINGS THAT MAY BE CRITICAL TO PATIENT CARE. The findings were verbally communicated via telephone conference with Preet Montoya at 6:02 PM EDT on 01/07/2022. The findings were acknowledged and understood. Findings regarding possibility of anterior left upper quadrant abdominal free air. At this time, provider states that the patient has a benign belly and no symptoms of perforated hollow viscus or acute abdomen. Initial report created on 01/07/2022 5:57:57 PM EDT: PROCEDURE INFORMATION: Exam: CT Chest With Contrast; Diagnostic Exam date and time: 01/07/2022 5:09 PM Age: 66 years old Clinical indication: Other: Weight loss, HX of pancreatic cancer, R/O mets TECHNIQUE: Imaging protocol: Diagnostic computed tomography of the chest with contrast. 3D rendering (Not supervised by radiologist): MIP and/or 3D reconstructed images were created by the technologist. COMPARISON: XR PORTABLE CHEST AP 01/04/2022 10:59 PM FINDINGS: Lungs: Severe emphysema. Moderate bronchiectasis. No focal lung lesions to suggest metastatic disease. Pleural spaces: Minor bilateral pleural effusions. Heart: Normal heart size. Small pericardial effusion. Mild coronary artery atherosclerotic calcium. Lymph nodes: Unremarkable. No enlarged lymph nodes. Vasculature: Pulmonary artery is unremarkable in appearance. Study is not optimized to evaluate for PE. Thoracic aorta is normal in course and caliber. Gallbladder and bile ducts: Mild pneumobilia is noted. This could be related to previous biliary tract instrumentation. Recommend correlation. Pancreas: Suggestion of absence of the pancreatic head. Patient is reportedly status post Whipple procedure. Previous gastric surgery with gastrojejunal anastomosis. This is suboptimally evaluated by CT chest. Patient does have a history of pancreatic malignancy. Atrophy of the pancreatic body and tail. Adrenal glands: Bilateral adrenal gland fullness. This could represent adrenal hyperplasia. No distinct masslike or nodular fullness. Intraperitoneal space: Intraperitoneal space of the upper abdomen with concern for a few foci free air anteriorly. See axial series 3, images 576 through 596. Bones/joints: Degenerative thoracic spine disease.. Soft tissues: Previous upper abdominal hernia repair with mesh. IMPRESSION: 1. Moderate to severe emphysematous lung disease. No nodules or masses to suggest metastatic disease. 2. No hilar or mediastinal adenopathy. 3. Small pericardial effusion. 4. Degenerative thoracic spine disease. 5. Mild pneumobilia is suggested. Recommend clinical correlation. This could reflect previous instrumentation or surgical change. 6. Previous Whipple procedure. Atrophy of the pancreatic body and tail. 7. Nonspecific bilateral adrenal gland fullness. This could represent adrenal hyperplasia. No definitive masslike features. 8. Possible free air in the anterior upper abdomen. Dictated and Authenticated by: Jose Greenfield MD. Ordering:[facility] Jan Oviedo MD
--- NOTE | 2022-01-07 19:52 | DI.VRAD_ITS ---
PROCEDURE INFORMATION: Exam: XR Abdomen Exam date and time: 01/07/2022 7:40 PM Age: 66 years old Clinical indication: Abnormal findings; Abnormal radiologic finding of the abdomen; Radiologic exam and body structure: CT chest; Patient HX: Questionable free air on CT scan TECHNIQUE: Imaging protocol: XR of the abdomen. Views: 2 Views. Upright and supine views. COMPARISON: MR ABDOMEN WO/W 01/06/2022 11:51 AM FINDINGS: Tubes, catheters and devices: Previous ventral hernia repair with mesh. Gastrointestinal tract: Nonspecific bowel gas pattern. Scattered air in large and small bowel without obstructive changes. Intraperitoneal space: No free air is suggested within the abdomen on decubitus view. Earlier CT with some concern for free air in the anterior superior abdomen. It is possible that this was properitoneal in location. Bones/joints: Degenerative lumbar spine disease. IMPRESSION: 1. No free air within the peritoneal cavity on decubitus image. 2. Nonspecific bowel gas pattern. 3. Degenerative lumbar spine disease. 4. Large component of mesh overlying the abdomen consistent with an anterior hernia repair. Dictated and Authenticated by: Jose Greenfield MD. Ordering:[facility] Jan Oviedo MD
[2022-01-07] MEDS: Carbidopa 25/Levodopa 100 TAB PO (21:10)
[2022-01-07] MEDS: OLANZapine 5 MG TAB PO (21:10)
[2022-01-07] MEDS: Senna TAB 1 TAB PO (21:10)
[2022-01-07] MEDS: Rosuvastatin 10 MG TAB PO (21:10)
[2022-01-07] MEDS: Latanoprost 0.005% 2.5 ML BTL OP (21:11)
--- NOTE | 2022-01-08 | DI.CT_ITS ---
Exam(s) CT ABDOMEN PELVIS WO EXAM: CT ABDOMEN PELVIS WO CLINICAL HISTORY: Questionable pneumobilia, questionable free air. TECHNIQUE: Imaging Protocol: Axial computed tomography images with coronal and sagittal reformatted images were created and reviewed. Oral: Yes COMPARISON: CR,XR XR ABDOMEN FLAT UPRIGHT from 01/07/[address] CHEST W from 01/07/2022 FINDINGS: ABDOMEN: Lung Bases: Stable small pericardial effusion and small bilateral pleural effusions.. Emphysematous changes. Liver: Normal density. No measurable mass. Gallbladder and biliary tract: Status post cholecystectomy. Pneumobilia secondary to Whipple procedu re. Pancreas: Atrophic. Resection of head. Whipple procedure. No abnormal calcifications or inflammato ry process. Spleen: Normal. Kidneys: Normal size, contour and axis. No radiodense stones or obstructive uropathy. No masses seen. Adrenal glands: No masses seen. Lymph nodes: Within normal limits. Abdominal Aorta: Abdominal portion non-dilated. Soft tissues: Body wall edema, diffuse. Prior anterior abdominal wall hernia repair. PELVIS: Bladder: Jonas catheter. Residual contrast from prior chest CT. no gross wall thickening. Bowel: Whipple procedure. . No obstruction. Wall thickening the colon, greatest in the descending. Large quantity of stool. No pneumatosis. Peritoneal cavity: Small amount of ascites around the liver, spleen and pelvis. No evidence of free air. No abscess. Reproductive organs: Status post hysterectomy. Bones: Within normal limits. IMPRESSION: Wall thickening of the colon consistent with colitis. Large quantity of stool. Small amount of asci tavares. Body wall edema.Pneumobilia status post Whipple procedure. RADIATION DOSE DELIVERED: 669.66mGy.cm Total DLP DATA REPOSITORY: All CT scans at this facility are submitted to the National Radiology Data Registry (NRDR) Dose Index Registry (DIR) with the [employer] (ACR). RADIATION OPTIMIZATION: All CT scans at this facility use at least one of these dose optimization te chniques: automated exposure control; mA and/or kV adjustment per patient size (includes targeted exa ms where dose is matched to clinical indication); or iterative reconstruction.
[2022-01-08 01:00] VITALS: BP 109/70; PULSE 99; RESP 16; TEMP 36.6; O2SAT 97
[2022-01-08] MEDS: Lactated Ringers 1,000 ML 100 ML IV (03:00)
[2022-01-08 07:33] VITALS: BP 104/53; PULSE 101; RESP 14; TEMP 36.1; O2SAT 98
[2022-01-08] MEDS: Famotidine 20 MG TAB PO ×2 (08:44→20:32)
[2022-01-08] MEDS: buPROPion-CR 100 MG TABCR 200 MG PO ×2 (08:44→20:32)
[2022-01-08] MEDS: Calcium 600mg/Vit D 200U TAB 1 TAB PO (08:44)
[2022-01-08] MEDS: Aspirin E.C. 81 MG TABEC PO (08:44)
[2022-01-08] MEDS: Potassium Chloride 20 MEQ TABCR PO ×3 (08:44→20:32)
[2022-01-08] MEDS: Omeprazole 20 MG CAPCR 40 MG PO ×3 (08:44→16:26)
[2022-01-08] MEDS: Carbidopa 25/Levodopa 100 TAB PO ×3 (08:44→20:32)
[2022-01-08] MEDS: Multivitamin TAB 1 TAB PO (08:45)
[2022-01-08] MEDS: FLUoxetine 20 MG CAP PO (08:45)
--- NOTE | 2022-01-08 09:48 | PT.INTREAT ---
PT Notes Visit Reasons: Hypokalemia, Failure to Thrive Inpatient Physical Therapy Treatment Note [facility] Date: 01/07/22 SUBJECTIVE:Rama is confused this am. She is agreeable to PT including getting OOB. OBJECTIVE: [] BED MOBILITY/TRANSFERS Rolling L/R: min A Supine to sit: mod A of 2 Sit to supine: mod A of 2 Sit to stand: mod A of 2 Stand to sit: CGA Bed to chair: min/mod A of 2 Chair to bed: min/mod A of 2. GAIT Assistive device: FWW Weight bearing: FWB Assist: min/mod A of 2 Distance: 5' x2. Deviation: cues for use of hands on bed/ chair during sit to stand transfer. THEREX: global U/LE strengthening ex while in bed. This included AP, QS, GS, hip abd and heel slides. GH flex and bicep curls as wells as abdominal crunch. ASSESSMENT: tolerated session well fair. Was quite confused this am but pleasant. She was able to sit in recliner, however she was unable to get off her sacral wound and she was transferred back to bed. PLAN: will continue to work on her strength and endurance to improve her mobility following PT POC. TREATMENT CODE/TIME: 30 min. [id number].
[2022-01-08 10:22] LABS: Abs Immature Grans 0.03 10^3/uL (0.0-0.06); Absolute Basophil Count 0.04 10^3/uL (0.0-0.2); Absolute Eosinophil Count 0.26 10^3/uL (0.0-0.7); Absolute Lymphocyte Count 2.46 10^3/uL (1.2-3.4); Absolute Monocyte Count 1.51 10^3/uL (0.1-0.8); Absolute Neutrophil Count 3.67 10^3/uL (1.2-6.7); Basophils % 0.5; Eosinophils % 3.3; HCT 25.6 % (36.0-46.0); Immature Grans % 0.4; Lymphocytes % 30.9; MCH 30.3 pg (27.0-33.0); MCHC 31.3 % (32.0-36.0); MCV 97 fL (80-95); MPV 8.3 fL (8.0-11.0); Monocytes % 18.9; Platelet Count 386 10^3/uL (130-400); RBC 2.64 10^6/uL (3.93-5.22); RDW 19.7 % (11.7-14.6); RDW-SD 70.2 fL; WBC 7.97 10^3/uL (4.4-10.8)
[2022-01-08 10:24] LABS: Reticulocyte 4.7 % (0.5-2.4)
[2022-01-08 10:30] LABS: AST 18 U/L (15-37); Albumin 1.1 g/dL (3.4-5.0); Alkaline Phosphatase 72 U/L (46-116); BUN 16 mg/dL (7-18); Bilirubin, Total 0.3 mg/dL (0.2-1.0); CREATININE 0.6 mg/dL (0.55-1.02); Calcium 6.9 mg/dL (8.5-10.1); Chloride 113 mmol/L (98-107); Glucose 100 mg/dL (74-106); Potassium 3.4 mmol/L (3.5-5.1); Sodium 144 mmol/L (136-145); Total Protein 3.9 g/dL (6.4-8.2)
[2022-01-08 10:31] LABS: ALT < 6 U/L (14-59)
[2022-01-08 10:39] LABS: Basophilic Stippling Present; Diff Comment Manual Differential; Hypochromasia 2+; Polychromasia Present
[2022-01-08 10:40] LABS: Poikilocytes 1+
[2022-01-08 10:43] LABS: Iron 45 ug/dL (50-170)
--- NOTE | 2022-01-08 11:41 | WOUNDCONS_ITS ---
- If Service Date Differs Date of service: 01/08/22 Time of Service: 11:41 Wound Initial Evaluation Narrative: Pt seen at bedside, A&Ox3 at this time. agreeable to consult and photos @ this time. Wound consult placed on 01/06/[address] Conti also mentioned she wound like wound care to follow at the end of her operative note on 01/06/22. Pt's chart reviewed, H&P and pertinent labs. Complex current medical condition and complex medical Hx on this 66 year old woman. Prognosis for wound healing is poor according to MD Conti. Operative report on 01/06/[address] Conti: Patient has stage II decubitus ulcers, by visual inspection, is here today for debridement. Patient is brought to the operating room suite and placed in the left lateral decubitus position, all bony surfaces are padded. She is prepped and draped in the usual sterile fashion using a Betadine scrub solution. Timeout is performed. 10 cc of 1% Marcaine plainwas used for local anesthetization. Anesthesia is provided per the department of anesthesia. A #10 blade is used to debride away all the necrotic tissue. Cultures are taken. The wound is down to the fat. However her fatty layer is only 1 to 2 mm in depth. The total wound is then 4 cm x 3 cm x 1 cm in its deepest portion. Electrocautery is used to provide hemostasis. The wound is irrigated with a liter of saline. It is packed with Surgicel and dry dressing. Patient tolerated the procedure well without complication and transferred to recovery room in stable condition. The Wound care team will be consulted for dressing. Wound VAC is advisable. After surgery Vac was placed on 01/06/22. Pt has since developed large amount of incontinent stools and vac dressing was being changed overnight excessively. Wound asked by primary nurse to be evaluated by wound care, consult from 0 01/06/22 also not preformed so this scribe saw Pt to take photos and evaluate Pt. Upon inspection of wound LEFT buttocks/sacral wound has pale pink tissue, with scattered brown throughout, this is presumably left over surgicell, not concerning. Bone is palpable from 12-3 o'clock. slough is scattered throughout wound. This is a stage 4 PI post surgical debridement. Right Sacrum/buttocks is 100% white/yellow slough. Unstageable PI @ this time. Not appropriate for wound vac at this time due to more than 30% slough, Santly indicated to try and remove slough. Bright pink color around both wounds is blanchable. Nutrion consult on 01/05/2022 states: Estimated Needs: [id number] kcal, 65-70 g protein, 1400 ml fluid NUTRITIONAL DIAGNOSIS: Severe malnutrition in view of low BMI, recent weight loss, cachexic appearance Increased nutrient needs as with pressure wound INTERVENTION: Regular meal plan Ensure clear TID 1 oz liquid protein TID MVI 500 mg Vit C BID 220 mg Zinc Sulfate x 14 days MONITORING AND EVALUATION: will monitor po intake, weight, labs. MRI on 01/05/2022 (appears to have r/o osteomyelitis) Bones: There is no fracture or contusion pattern. There is an small area of increased signal seen in the mid coccyx on the T2 weighted images best appreciated on the sagittal view. This area shows no significant enhancement following contrast administration. This may be reactive marrow response. No evidence to suggest osteomyelitis. There is mild enhancement in the soft tissues around the distal coccyx but no focal fluid collection is seen to suggest an abscess. This may represent cellulitis. The SI joints are well maintained. Musculotendinous structures: Musculotendinous structures demonstrate no abnormality. Note is made of a Jonas catheter within the urinary bladder. IMPRESSION: No definite evidence of osteomyelitis of the sacrum or coccyx. No evidence of a soft tissue abscess. - Wound Right Buttocks/Lumbar/Sacral Wound Type: Pressure Ulcer Pressure Ulcer Stage: IV Wound General Appearance: Bone Visible (palpable) Wound Bed Greatest Portion: Pale [place], Blanched/Dull Wound Bed Lesser Portion: Yellow (Slough) Wound Surrounding Tissue Appearance: Bright Red (blanchable) Percent of Wound Bed Granulated/Red: 60 (pale pink non-granular tissue) Percent of Wound Bed Slough/Yellow: 40 Wound Length: 5.5 cm (measured Right side lying w/buttocks in nuetral position) Wound Width: 2.6 cm Wound Depth: 1.5 cm Wound Drainage Amount: Minimal Wound Debridement Method: Enzymatic (santly Rx) Left buttocks/Lumbar/Sacral Pressure Ulcer Stage: Eschar/Unstageable Wound General Appearance: Draining, Necrotic Wound Bed Greatest Portion: Yellow (Slough) Percent of Wound Bed Slough/Yellow: 100 Wound Length: 2.4 cm Wound Width: 1.2 cm Wound Depth: 0.6 cm Wound Drainage Amount: None Wound Debridement Method: Enzymatic - Pain Pain Scale Used: Visual Analog Scale 0-10 (4) Additional Other Comments: Pt seems uncomfortable and does verbalilze pain durring wound dressing change. she is visualized attempting to offload pressure from wounds. - Recomendation Recomendation:: Recommendations: Cleanse wound on sacrum/buttocks with NS and gauze. Pat dry thoroughly. Apply skin prep to isauro wound. Apply Santyl to both wounds, nickel thickness with tongue depressor to entire wound (Avoid putting on isauro wound skin). Cover santyl/wound w/saline moistened gauze (fluff over). Place dry 4x4 over NS gauze. secure with medipore tape. If needed, use large tegaderm to secure dressing by anus to avoid stool going into dressing. Change daily and PRN. Stop Santyl when wound margins are clean and slough is less then 30%. Would then consider revaluation, and perhaps reapplication of wound vac if appropriate @ that time. Wound she be revaluated by member of the wound team in one week if Pt is still here at the hospital. Turn Pt Q2H. Keep HOB less than 30 degrees. Use pillows to protect other matthew prominences. If Pt ends up having prolonged stay would consider alternating air mattress as part of treatment plan. Thank you for the consult. Physcian/Nurse Practioner Notified: Yes (Dr. Montoya)
[2022-01-08] MEDS: Lactobacillus Acidophilus CAP 1 CAP PO ×2 (11:42→20:32)
[2022-01-08] MEDS: Psyllium PKT 1 EACH PO ×2 (11:42→20:31)
--- NOTE | 2022-01-08 11:45 | PGE_ITS ---
Date of Service Date of service: 01/08/22 Time of Service: 11:03 Assessment and Plan Assessment and plan (1) Weakness: Status: Acute Assessment and plan: unclear etiology. antibody testing for MG pending. Trial of Sinemet given her tremors and use of antipsychotics raises the possible dx of Parkinsonism. continue P.T., add O.T. to her consults. Will consult w/ neurology in the a.m. to get their input on her weakness and tremors. Professional time spent interviewing and examining patient, discussion of goals of care with hospital team (care management, nursing and consulting professionals) was 30 minutes. (2) Decubitus ulcer: Status: Acute Assessment and plan: wound culture gram stain yesterday suggested rare gram positive and rare gram negative organisms but now her wound culture is showing no growth. Her urine culture however demonstrates gram positive anaerobic pina. Patient is currently on Rocephin. (3) Acute hypokalemia: Status: Acute Assessment and plan: secondary to poor intake. continue oral replacement particularly in light of her diarrhea (4) Hypertension: Status: Chronic Assessment and plan: cont. lisinopril (5) GERD (gastroesophageal reflux disease): Status: Chronic Assessment and plan: cont. current meds (pepcid and omeprazole) (6) Bipolar disorder: Status: Acute Assessment and plan: stable. cont. wellbutrin and prozac (7) DVT prophylaxis: Status: Acute Assessment and plan: cont. enoxaparin (8) Weight loss, unintentional: Status: Acute Assessment and plan: MRI scan of the abdomen did not show any recurrence of her pancreatic cancer. No imaging of her chest was done. CTA chest done yesterday, no metastatic disease but questionable free air in upper abdomen (vs some bowel trapped in the gall bladder fossa) KUB did not confirm any free air. clinically patient is not e xperiencing any abdominal pain and she is stooling. I will ask surgery to weigh in on the CT findings. (9) Discharge planning issues: Status: Acute Assessment and plan: she will likely need SNF placement Subjective Subjective Interval history since last seen: Patient is having liquid yellow stools. C. difficile study has been ordered. Wound care nurse showed me the patient's wound. There is still a fair amount of fibrinous material that needs debridement. We will asked surgery to reevaluate the wound prior to application of any wound vacuum. Wound care nurse is recommending Santyl ointment to help remove some of the slough from her wound. Patient denies any abdominal pain nausea or vomiting. Exam Narrative Exam Narrative: Patient is sacral decubitus was examined in the presence of the patient's wound care nurse. There is fibrinous material over the wound and you can palpate the sacral bone. The surrounding area of skin is pink but blanches well. Objective Last Vital Signs Temp 36.1 C L 01/08/22 07:33 Pulse 101 H 01/08/22 07:33 Resp 14 01/08/22 07:33 BP 104/53 L 01/08/22 07:33 Pulse Ox 98 01/08/22 07:33 Laboratory Results - last 24 hr 01/08/22 01/08/22 01/08/22 10:00 10:00 10:00 WBC 7.97 RBC 2.64 L Hgb 8.0 L Hct 25.6 L MCV 97 H MCH 30.3 MCHC 31.3 L D RDW 19.7 H Plt Count 386 MPV 8.3 Reticulocyte % (Auto) Immature Gran % 0.4 Neutrophils % 46.0 Lymphocytes % 30.9 Monocytes % 18.9 Eosinophils % 3.3 Basophils % 0.5 Nucleated RBC % 0.0 Absolute Neutrophils 3.67 Absolute Lymphocytes 2.46 Absolute Monocytes 1.51 H Absolute Eosinophils 0.26 Absolute Basophils 0.04 RBC Morphology See Below Polychromasia Present Hypochromasia 2+ Poikilocytosis 1+ Basophilic Stippling Present Sodium 144 Potassium 3.4 L Chloride 113 H Carbon Dioxide 24.0 Anion Gap 7.0 BUN 16 Creatinine 0.6 Estimated GFR/1.73 m2 >= 60.00 Glucose 100 Calcium 6.9 L Iron 45 L Total Bilirubin 0.3 AST 18 ALT < 6 L Alkaline Phosphatase 72 Total Protein 3.9 L Albumin 1.1 L 01/08/22 10:00 WBC RBC Hgb Hct MCV MCH MCHC RDW Plt Count MPV Reticulocyte % (Auto) 4.7 H Immature Gran % Neutrophils % Lymphocytes % Monocytes % Eosinophils % Basophils % Nucleated RBC % Absolute Neutrophils Absolute Lymphocytes Absolute Monocytes Absolute Eosinophils Absolute Basophils RBC Morphology Polychromasia Hypochromasia Poikilocytosis Basophilic Stippling Sodium Potassium Chloride Carbon Dioxide Anion Gap BUN Creatinine Estimated GFR/1.73 m2 Glucose Calcium Iron Total Bilirubin AST ALT Alkaline Phosphatase Total Protein Albumin
[2022-01-08 12:05] LABS: C Diff PCR Negative (Negative)
[2022-01-08] MEDS: Collagenase 30 GM TUBE TP (12:22)
[2022-01-08] MEDS: Vancomycin 125 MG CAP PO (12:33)
[2022-01-08] MEDS: Normal Saline Flush 10 ML SYR IVP (12:43)
[2022-01-08] MEDS: POTASSIUM CHLORIDE/0.45% NACL 1,000 ML 100 MEQ IV (12:43)
[2022-01-08] MEDS: Trimethobenzamide 200 MG/2 ML VIAL IM (13:24)
[2022-01-08] MEDS: Gastrografin 120 ML BTL 25 ML PO (16:15)
[2022-01-08] MEDS: Breeza Beverage 473 ML BTL 946 ML PO (16:17)
[2022-01-08 16:19] VITALS: BP 106/70; PULSE 110; RESP 16; TEMP 37.4; O2SAT 97
[2022-01-08] MEDS: cefTRIAXone 1 GM/50 ML BAG IVPB (16:26)
--- NOTE | 2022-01-08 16:41 | DI.VRAD_ITS ---
PROCEDURE INFORMATION: Exam: CT Abdomen And Pelvis Without Contrast Exam date and time: 01/08/2022 4:06 PM Age: 66 years old Clinical indication: Other: Questionable pneumbillia, questionable free air TECHNIQUE: Imaging protocol: Computed tomography of the abdomen and pelvis without contrast. Radiation optimization: All CT scans at this facility use at least one of these dose optimization techniques: automated exposure control; mA and/or kV adjustment per patient size (includes targeted exams where dose is matched to clinical indication); or iterative reconstruction. COMPARISON: MR ABDOMEN WO/W 01/06/2022 11:51 AM FINDINGS: Lungs: Mild bilateral pulmonary emphysema. Pleural spaces: Unchanged small bilateral pleural effusions. Heart: Small new pericardial effusion. Liver: Normal. Gallbladder and bile ducts: Mild central to left-sided pneumobilia. Absent gallbladder. In Pancreas: Atrophic. Proximal resection. Spleen: Normal. Adrenal glands: Normal. Kidneys and ureters: Normal. Stomach and bowel: Gastro jejunal surgical bypass changes and other surgical changes including apparent distal gastrectomy from Whipple procedure. The bowel is unobstructed. The colon is diffusely stool-filled and distended there is moderate diffuse colonic wall thickening. No pneumatosis intestinalis. Appendix: No evidence of appendicitis. Intraperitoneal space: Mild diffuse low-density ascites. Vasculature: Scattered atherosclerosis. The vessels have normal caliber. There is hypoattenuation of the blood pool indicating possible anemia. Lymph nodes: None enlarged or otherwise suspicious. Urinary bladder: A balloon tip bladder catheter is present and the bladder is decompressed. Reproductive: Absent uterus. Normal ovaries. Bones/joints: No acute fracture or suspicious osseous lesion. Soft tissues: Ventral herniorrhaphy with mesh. No recurrent hernia. Prominent bilateral flank soft tissue edema. IMPRESSION: 1. Negative for pneumoperitoneum. 2. New ascites and diffuse colon wall thickening suspicious for colitis. This is seen in the setting of diffuse constipation. No pneumatosis intestinalis. Negative for abscess. 3. New nonspecific pericardial effusion. 4. Mild pneumobilia is present. Dictated and Authenticated by: Christos Parikh MD. Ordering:[facility] Jan Oviedo MD
--- NOTE | 2022-01-08 19:09 | W.PM.PROGNOT ---
Date of Service Date of service: 01/08/22 Time of Service: 18:09 Assessment and Plan Assessment and plan (1) Pneumobilia: Status: Acute Assessment and plan: -CT of the abdomen and pelvis with PO contrast reviewed, no evidence of pneumoperitoneum -Continued presence of pneumobilia -Benign abdominal exam -Continue supportive care, bowel regimen to prevent stercoral ulcer given significant colonic stool burden (2) Adult failure to thrive: Status: Acute (3) Decubitus ulcer: Status: Acute (4) Multiple falls: Status: Acute (5) Bipolar disorder: Status: Acute (6) Unexplained weight loss: Status: Acute (7) Hypoalbuminemia due to protein-calorie malnutrition: Status: Acute Subjective Subjective Interval history since last seen: I was asked to see the patient again regarding possible pneumoperitoneum on chest CT, also noted was pneumobilia. I STAT requested CT of the abdomen with PO contrast. Patient denied any abdominal discomfort and has had no significant change in clinical status. Exam Const General: cooperative, comfortable, no acute distress and frail appearing Nutritional Appearance: thin Orientation: confused Resp Effort & Inspection: normal respiratory effort and no respiratory distress GI Inspection: non-distended Palpation: soft, not firm and nontender Objective Last Vital Signs Temp 99.3 F 01/08/22 16:19 Pulse 110 H 01/08/22 16:19 Resp 16 01/08/22 16:19 BP 106/70 01/08/22 16:19 Pulse Ox 97 01/08/22 16:19 Laboratory Results - last 24 hr 01/08/22 01/08/22 01/08/22 10:00 10:00 10:00 WBC 7.97 RBC 2.64 L Hgb 8.0 L Hct 25.6 L MCV 97 H MCH 30.3 MCHC 31.3 L D RDW 19.7 H Plt Count 386 MPV 8.3 Reticulocyte % (Auto) Immature Gran % 0.4 Neutrophils % 46.0 Lymphocytes % 30.9 Monocytes % 18.9 Eosinophils % 3.3 Basophils % 0.5 Nucleated RBC % 0.0 Absolute Neutrophils 3.67 Absolute Lymphocytes 2.46 Absolute Monocytes 1.51 H Absolute Eosinophils 0.26 Absolute Basophils 0.04 RBC Morphology See Below Polychromasia Present Hypochromasia 2+ Poikilocytosis 1+ Basophilic Stippling Present Sodium 144 Potassium 3.4 L Chloride 113 H Carbon Dioxide 24.0 Anion Gap 7.0 BUN 16 Creatinine 0.6 Estimated GFR/1.73 m2 >= 60.00 Glucose 100 Calcium 6.9 L Iron 45 L Total Bilirubin 0.3 AST 18 ALT < 6 L Alkaline Phosphatase 72 Total Protein 3.9 L Albumin 1.1 L Stl C.difficile Tox PCR 01/08/22 01/08/22 10:00 11:16 WBC RBC Hgb Hct MCV MCH MCHC RDW Plt Count MPV Reticulocyte % (Auto) 4.7 H Immature Gran % Neutrophils % Lymphocytes % Monocytes % Eosinophils % Basophils % Nucleated RBC % Absolute Neutrophils Absolute Lymphocytes Absolute Monocytes Absolute Eosinophils Absolute Basophils RBC Morphology Polychromasia Hypochromasia Poikilocytosis Basophilic Stippling Sodium Potassium Chloride Carbon Dioxide Anion Gap BUN Creatinine Estimated GFR/1.73 m2 Glucose Calcium Iron Total Bilirubin AST ALT Alkaline Phosphatase Total Protein Albumin Stl C.difficile Tox PCR Negative
[2022-01-08] MEDS: Protein Nutritional Supplement 16 GM 1 OUNCE PACKET PO (20:31)
[2022-01-08] MEDS: OLANZapine 5 MG TAB PO (21:03)
[2022-01-08] MEDS: Rosuvastatin 10 MG TAB PO (21:03)
[2022-01-08] MEDS: Latanoprost 0.005% 2.5 ML BTL OP (21:28)
[2022-01-08 23:36] LABS: Campylobacter PCR Negative (Negative); Salmonella PCR Negative (Negative); Shiga Toxin PCR Negative (Negative); Shigella/Enteroinvasive Ecoli Negative (Negative)
[2022-01-09 01:22] VITALS: BP 103/66; PULSE 71; RESP 14; TEMP 36.4; O2SAT 95
[2022-01-09 07:12] LABS: ALT 11 U/L (14-59); AST 20 U/L (15-37); Albumin 1.1 g/dL (3.4-5.0); Alkaline Phosphatase 70 U/L (46-116); Anion Gap 7.2 mmol/L (3-11); BUN 15 mg/dL (7-18); Bilirubin, Direct 0.1 mg/dL (0.0-0.2); Bilirubin, Total 0.3 mg/dL (0.2-1.0); CO2 21.8 mmol/L (21.0-32.0); CREATININE 0.4 mg/dL (0.55-1.02); Chloride 114 mmol/L (98-107); Glucose 66 mg/dL (74-106); Potassium 4.2 mmol/L (3.5-5.1); Sodium 143 mmol/L (136-145); Total Protein 3.7 g/dL (6.4-8.2)
[2022-01-09] MEDS: FLUoxetine 20 MG CAP PO (07:48)
[2022-01-09] MEDS: Lactobacillus Acidophilus CAP 1 CAP PO ×2 (07:48→19:55)
[2022-01-09] MEDS: Psyllium PKT 1 EACH PO ×2 (07:48→19:54)
[2022-01-09] MEDS: Calcium 600mg/Vit D 200U TAB 1 TAB PO (07:48)
[2022-01-09] MEDS: Protein Nutritional Supplement 16 GM 1 OUNCE PACKET PO ×3 (07:48→19:55)
[2022-01-09] MEDS: Famotidine 20 MG TAB PO (07:48)
[2022-01-09] MEDS: Multivitamin TAB 1 TAB PO (07:48)
[2022-01-09] MEDS: Carbidopa 25/Levodopa 100 TAB PO (07:48)
[2022-01-09] MEDS: Omeprazole 20 MG CAPCR 40 MG PO ×3 (07:49→16:29)
[2022-01-09] MEDS: Aspirin E.C. 81 MG TABEC PO (07:49)
[2022-01-09] MEDS: Potassium Chloride 20 MEQ TABCR PO ×3 (07:49→19:55)
[2022-01-09] MEDS: buPROPion-CR 100 MG TABCR 200 MG PO ×2 (07:49→19:55)
[2022-01-09 08:33] VITALS: BP 91/67; PULSE 107; RESP 20; TEMP 35.9; O2SAT 96
--- NOTE | 2022-01-09 08:40 | OT.INIE ---
Occupational Therapy Notes Inpatient Occupational Therapy Evaluation Date: 01/09/22 Referring Doctor:Preet Montoya MD OT Orders: evaluate and treat for decreased ADL performance Precautions: Fall, Standard, dull PATIENT PROFILE/ADMITTING DIAGNOSIS: Pt is a 66 year old female who was admitted through the ED with a dx of acute hypokalemia, weakness, adult failure to thrive, decubitus ulcer, chronic pain, GERD, HTN, Bipolar Disorder. Past Medical History: All Active Problems?(Updated 01/05/22 @ 05:15 by Kuldeep Garcia) Discharge planning issues (Acute) DVT prophylaxis (Acute) Bipolar disorder (Acute) PTSO/abuse/syphilis 1969 tx, hospitalizations , 10/18, head MRI , EEG Chronic pain (Chronic ~07/13/15) GERD (gastroesophageal reflux disease) (Chronic) Hypertension (Chronic) Acute hypokalemia (Acute) Weakness (Acute) Adult failure to thrive (Acute) Multiple falls (Acute) Decubitus ulcer (Acute) Medical History?(Updated 01/05/22 @ 05:15 by Kuldeep Garcia) Allergic rhinitis Allergic rhinitis Arthritis Arthritis Back pain Chronic back pain Chronic sinusitis Diabetes mellitus Dyslipidemia Dyslipidemia Dyspnea Fatty liver disease, nonalcoholic Fracture of ankle GERD (gastroesophageal reflux disease) Glaucoma Glaucoma History of malignant neoplasm of pancreas Hypertensive disorder Knee pain Left sided abdominal pain Malignant tumor of cervix no xrt/chemoNeoplasm of pancreas, malignant onset 03/12/2005 Per pt. states she had a whipple procedure, and has been in remission since 2004Obstruction of common bile duct On group home drug therapy ineidaion chronic LBP associated with OA hx of compression fx. medications oxycodine 10 mg tablet SOAP sore 14. Yearly narcotic contract last signed 10/18/2018, 10/01/2019 [place] PDMP queried twice yearly for 5 states including [place] and [place] last dibe ib 03/01/18, 03/13/19, 01/09/20, [place] random urine drug screen being done at least 3-4 monthsOSA (obstructive sleep apnea) GABBY (obstructive sleep apnea) Osteoporosis Steatosis, liver Type II diabetes mellitus Pt. states she was and is no longer taking medicationVertigo Surgical History?(Updated 01/05/22 @ 05:15 by Kuldeep Garcia) Abdominal hysterectomy Fracture, Open Treatment ORIF FibiaH/O hernia repair Hernia Repair, Incisional [id number] of cataract surgery History of hysterectomy Hx of total knee replacement Pancreatic Duodenectomy(whipple procedure) Recurrent major depression in partial remission Replacement of total knee joint leftS/P tonsillectomy and adenoidectomy Tonsillectomy and adenoidectomy Social History/Home Situation: Pt states that she lives alone but has people all around. She reports that her son lives next door to her. She is unable to provide OT with a good idea of her baseline level of function as she seems to stray her story at times. She does report that she had meals on wheels, she has a walk in shower and notes that she does not need help at her baseline. Per pts EMR it appears that pts neighbors had found her unable to perform her ADLs (I). They note that she was not able to perform her functional mobility. Equipment owned/DME: Unable to assess. SUBJECTIVE: Pt was sitting in bed when OT arrived. She continues to tell OT that she is returning home today and notes that she just wants to go home, she can't walk well but she is ready to go home. OBJECTIVE: General Observation: Pleasant, agreeable to OT consult, IV in (L) UE Mental Status: A&Ox3 Pain: no specific c/o pain. She reports that she needs max (A) lifting her leg into the bed and then reports some pain in her leg ROM: RUE AROM WFL L UE AROM WFL STRENGTH: RUE 3/5 throughout with weak sales and merchandising associate strength symmetrical to other side. LUE 3+/5 throughout with weak sales and merchandising associate strength symmetrical to other side. FUNCTIONAL MOBILITY/ADLS: Transfers- pt reports that this is difficult for her and she is unable to walk around her room. This was not assessed with OT. BATHING Pt denies performance of this at this time, she states that she would like to hold as she is too tired right now. She was able to perform AROM required for UE bathing, LE bathing ROM She required max (A). Pt states that when she is not tired she is able to perform this better. DRESSING Dressing UE NT Dressing LE Pt required max (A) for donning and doffing, she did not want to keep wearing once they were on. GROOMING (I) brushing her hair, oral hygiene NT EATING Pt had food on her tray but notes that she is not hungry. She then tells, OT that she had a thanksgiving dinner last June and continues on with talking about food going from the past to present. She states that she does not feel hungry at this time. She is able to bring her hand to her mouth and to her tray without any (A). She was able to (I) drink her liquids without needing any help. BALANCE: Static sitting Good Dynamic Sitting Fair-Good SPECIAL TESTS: Daily Activity Limitations Standardized Measure [facility] AM PAC ?6 clicks? Daily Activity Inpatient Short Form: Raw score: 17 Standardized score: 37.26 CMS score: 50.11% INFORMED CONSENT/EDUCATION: Pt instructed in purpose of OT Consult and plan of care. ASSESSMENT: Patient is a 66-year-old female referred to occupational therapy services with diagnosis of acute hyperkalemia, weakness, adult failure to thrive, decubitus ulcer, chronic pain, GERD, HTN, Bipolar Disorder. Patient presents with clinical signs and symptoms consistent with dx, as demonstrated by the following impairment level findings/functional limitations: Weakness and increased fatigue, pain in lower back/buttock at times per pt report, decreased functional activity tolerance required for ADL performance, decreased functional (I) in ADL/IADL and leisure activities, decreased gross and fine motor control, decreased functional (I) in her ADL/IADL routines, decreased safety awareness, high risk of re-admission. AMPAC score 17 Patient is assessed as a Moderate 46347 complexity based on the following: History: see above Examination: see functional limitations as noted above Presentation: evolving Decision Making:AMPAC score 17 GOALS Goals x1 week 1. Grooming- standing at sink (I) with oral hygiene 2. Dressing- sitting in chair (I) UE and LE 3. Bathing- sitting in chair (I) UE, LE 4. Toileting- on toilet (I) 5. Eating- (I) PLAN OF CARE/TREATMENT PLAN: 1x/day, 5 days/ week x 1week Initiate Occupational Therapy Services for bathing, dressing, grooming, toileting, eating, transfer training. DISCHARGE RECOMMENDATIONS OT recommends SNF when medically cleared per MD for increased level of rehabilitation, increased functional mobility required for ADLs and increased (I) in her ADL/IADL routines. TREATMENT TIME/MINUTES/CODES 94643, 15 minutes Amanda Barrow OTR/[facility]
--- NOTE | 2022-01-09 08:56 | PDOC.CMPRO ---
- If Service Date Differs Date of service: 01/09/22 Time of Service: 08:56 Care Management Progress Note S/O: Loli met with Bhakti from Palliative care today. A psych consult is pending, per provider there is some concern that [facility] may lack capacity. Loli continues to be agreeable to SNF following discharge. SNF referral's are pending at [facility] and [facility]. Loli accepted a bed offer at [facility], when she is medically ready. A: 66 year old female admitted to [facility] on 01/05/22 for weakness, falls and failure to thrive. P: Loli requires further medical workup and hospitalization for weakness and malnutrition. Surgical intervention in the OR is scheduled for Fri (01/06/22). Anticipate, Loli will discharge to SNF for STR vs. home with [facility] services when medically ready. SNF referral's are pending, [facility], offered her a bed. Transportation will be dependent on disposition and pts mobility level at time of discharge.
[2022-01-09 09:57] LABS: CA 125 103 U/mL (<30)
[2022-01-09 11:36] LABS: Prealbumin 4 mg/dL (20-40)
[2022-01-09 11:48] LABS: HCT 25.4 % (36.0-46.0); HGB 7.8 g/dL (11.2-15.7); MCH 30.4 pg (27.0-33.0); MCHC 30.7 % (32.0-36.0); MCV 99 fL (80-95); MPV 8.5 fL (8.0-11.0); Platelet Count 356 10^3/uL (130-400); RBC 2.57 10^6/uL (3.93-5.22); RDW 19.8 % (11.7-14.6); RDW-SD 72.6 fL; WBC 10.76 10^3/uL (4.4-10.8)
[2022-01-09] MEDS: Normal Saline Flush 10 ML SYR IVP ×4 (12:03→20:41)
--- NOTE | 2022-01-09 12:09 | W.NEUROCONSU ---
Date of service: 01/09/22 Time of Service: 11:09 Assessment and Plan Assessment and plan (1) Altered mental status: Status: Acute (2) Tremor: Status: Acute (3) Weakness: Status: Acute (4) Adult failure to thrive: Status: Acute Assessment and plan: #1. Weakness. I do not see any neurological explanation for her weakness at this time. She is obviously very malnourished and deconditioned. Agree with improved nutrition and PT. #2. Tremor. Complex tremor with postural and action components. Differential includes Essential tremor vs medication-induced tremor vs both. I do not see any significant Parkinsonism at this time, though she is at risk given history of anti-psychotic medication use. Exam may be affected by Sinemet use. I recommend stopping Sinemet at this time. I will re-evaluate off medications to see if there are any changes. Otherwise, tremor is quite severe but she notes that she is not bothered by it. This is surprising. I would recommend doing a thorough medication reconciliation. Given decline/FTT, I wonder if she has been taking her medications appropriately. If not, it is possible we are over-medicating her and this could be contributing to tremor. Agree with psychiatry consult as well to help with medications and assess mental status. #3. Altered mental status. Rama was able to answer some questions appropriately but at other times gave incorrect or very odd answers. Unclear if this is dementia vs psych vs delirium. She was unable to identify any reliable person in her life in order to get information on what is her baseline, etc... We need to find someone that can help with this. We also need to find out medications above and if she is taking these consistently and who is prescribing them. History of Present Illness History of Present Illness Chief Complaint: weakness Narrative: Handedness: right. Ms. Crawford is a 66 year-old woman with HTN, HLD, DM2, GABBY prior pancreatic cancer, Bipolar disorder, and chronic opioid dependence. She was admitted 01/04/22 after her neighbors called 911. They reported increasing falls and inability to care for herself. She was found to have a sacral decub s/p surgical debridment as well as severe nutritional deficiency. It appears she has lost about 40# in the last 2 years. She lives on her own. She is not able to give a reliable history, but this is what she has told me today. She tells me her PCP is Karley Schmidt in [place], [place]. I cannot find this person via a google search. Loli is unable to tell me if she has a psychaitrist or who prescribes her psychiatric medications. She was not able to tell me what pharmacy she uses. she does not know what medications she is on but tells me she has been on olanzapine for a long time. I asked if she had any close family or friends that she call for help/help with groceries, etc. She told me she has 2 sons, one living in [place] and then the other in [facility]. I clarified the question and she insisted that if she needed something from the grocery strore they could do it, but that it may take a few days considering their travel time.... later in the conversation she mentioned a son in [place].... She notes that she stopped driving 4 months ago as she was too tired and she found herself in shadow spots. I asked what this was and she told me it was spots in a shadow box. I asked what that was and she said a little box like a pill. She mentions that her dog is a missing person as of 4 days ago. She called her dog but he did not come home. She is not sure where her dog is or who is looking for her dog. She notes an intermittent tremor over the last 3 years. She is not bothered by her tremor. She was unable to tell me her age - stating 56 initially and then changing to 51. She knew she lived in [facility]. 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 She said her cancer diagnosis was in 2021 - but this appears wrong. She has otherwise gone the work-up as below. She has been tested for Myasthenia with ab pending. She was started on a Sinemet trial beginning 01/07/22 pm for possible PD - given 25/100mg TID at ~0800, 1300, and 2100. This has had no discernible change in her strength or tremors per notes. Work-up: -MRI brain (01/05/22): No acute findings. Mild chronic vascular changes. I reviewed these images personally and this is my personal interpretation. -MRI c-spine (01/05/22): No significant central canal narrowing. Multilevel degenerative changes with NF narrowing at all levels. I reviewed these images personally and this is my personal interpretation. -MRI t-spine (01/05/22): Scoliosis. I reviewed these images personally and this is my personal interpretation. -MRI l-spine (01/05/22): No significant central canal narrowing. Multilevel degenerative changes with NF narrowing L3-S1. R disc bulge at L2-3. I reviewed these images personally and this is my personal interpretation. -B12 1486 -Ca125 103 -Cr 0.5 -Albumin 1.1 -TSH 3.51 Review of Systems All systems reviewed & are unremarkable except as noted in HPI and below PFSH All Active Problems (Updated 01/09/22 @ 18:56 by Saima Gruber MD) Palliative care patient (Acute) Tremor (Acute) Altered mental status (Acute) Pneumobilia (Acute) Weight loss, unintentional (Acute) Hypoalbuminemia due to protein-calorie malnutrition (Acute) Unexplained weight loss (Acute) Discharge planning issues (Acute) DVT prophylaxis (Acute) Bipolar disorder (Acute) PTSO/abuse/syphilis 1968 tx, hospitalizations , 10/18, head MRI , EEG Chronic pain (Chronic ~07/13/15) GERD (gastroesophageal reflux disease) (Chronic) Hypertension (Chronic) Weakness (Acute) Adult failure to thrive (Acute) Multiple falls (Acute) Decubitus ulcer (Acute) Medical History Allergic rhinitis Allergic rhinitis Arthritis Arthritis Back pain Chronic back pain Chronic sinusitis Diabetes mellitus Dyslipidemia Dyslipidemia Dyspnea Fatty liver disease, nonalcoholic Fracture of ankle GERD (gastroesophageal reflux disease) Glaucoma Glaucoma History of malignant neoplasm of pancreas Hypertensive disorder Knee pain Left sided abdominal pain 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 She did not have overt malignancy. Surgery was curative. Per pt. states she had a whipple procedure, and has been in remission since 2004. Obstruction of common bile duct On joint terminal attack controller drug therapy ineidaion chronic LBP associated with OA hx of compression fx. medications oxycodine 10 mg tablet SOAP sore 14. Yearly narcotic contract last signed 10/18/2018, 10/01/2019 [place] PDMP queried twice yearly for 5 states including [place] and [place] last dibe ib 03/01/18, 03/13/19, 01/09/20, [place] random urine drug screen being done at least 3-4 months GABBY (obstructive sleep apnea) GABBY (obstructive sleep apnea) Osteoporosis Steatosis, liver Type II diabetes mellitus Pt. states she was and is no longer taking medication Vertigo Surgical History Abdominal hysterectomy Fracture, Open Treatment ORIF Fibia H/O hernia repair Hernia Repair, Incisional x3 History of cataract surgery History of hysterectomy Hx of total knee replacement Pancreatic Duodenectomy(whipple procedure) Recurrent major depression in partial remission Replacement of total knee joint left S/P tonsillectomy and adenoidectomy Tonsillectomy and adenoidectomy Family History Brother Hearing loss ear problems, hearing loss and dizzy Social History Smoking/Tobacco Use Status: Former Tobacco Use Quit Date: 08/20/04 Smoking risk assessment performed?: Yes Alcohol Intake: former Drug use: Never Substance use type: does not use Do you feel safe at home: Yes Do you feel safe in your relationship?: Yes Additional Social history: Lives alone in her own home in [facility]. Visit Medication and Allergies Active Medications Generic Name Dose Route Start Last Admin Trade Name Freq PRN Reason Stop Dose Admin Acetaminophen 0 mg 01/05/22 04:36 Acetaminophen 325 Mg Tab PO Q4H PRN PRN Acidophilus/Pectin 1 cap 01/08/22 10:25 01/09/22 07:48 Lactobacillus Acidophilus Cap PO 1 cap BID KIKE Administration Aspirin 81 mg 01/05/22 08:30 01/09/22 07:49 Aspirin E.C. 81 Mg Tabec PO 81 mg DAILY KIKE Administration Bisacodyl 10 mg 01/06/22 17:14 Bisacodyl 10 Mg Supp UT DAILY PRN PRN Bupropion HCl 200 mg 01/05/22 08:30 01/09/22 07:49 Bupropion-Cr 100 Mg Tabcr PO 200 mg BID KIKE Administration Calcium/Vitamin D 1 tab 01/05/22 08:30 01/09/22 07:48 Calcium 600mg/Vit D 200u Tab PO 1 tab DAILY KIKE Administration Carbidopa/Levodopa 1 tab 01/07/22 20:00 01/09/22 07:48 Carbidopa 25/Levodopa 100 Tab PO 1 tab TID KIKE Administration Collagenase 0 gm 01/08/22 12:00 01/08/22 12:22 Collagenase 30 Gm Tube TP 1 applic DIRECTED KIKE Administration Diatrizoate Meglum/Diatrizoate Sod 25 ml 01/08/22 16:30 01/08/22 16:15 Gastrografin 120 Ml Btl PO 25 ml DIRECTED KIKE Administration Dimethicone/Zinc Oxide 0 gm 01/05/22 04:36 Kamille Protect Cream 142 Gm Tube TP PRN PRN Docusate Sodium 100 mg 01/08/22 13:54 Docusate Sodium 100 Mg Cap PO BID PRN PRN Constipation Famotidine 20 mg 01/05/22 08:30 01/09/22 07:48 Famotidine 20 Mg Tab PO 20 mg BID KIKE Administration Fluoxetine HCl 20 mg 01/05/22 08:30 01/09/22 07:48 Fluoxetine 20 Mg Cap PO 20 mg DAILY KIKE Administration Gadoterate Meglumine 9 ml 01/05/22 17:00 01/05/22 16:59 Gadoterate Meglumine 20 Ml Vial IVP 02/04/22 23:59 9 ml DIRECTED KIKE Administration Gadoterate Meglumine 9 ml 01/06/22 12:00 01/06/22 11:55 Gadoterate Meglumine 15 Ml Vial IVP 02/05/22 23:50 9 ml DIRECTED KIKE Administration Sodium Chloride 500 mls @ 0 mls/hr 01/06/22 23:11 01/07/22 21:12 Saline 500ml Bag IV 0 mls/hr PRN PRN Infusion As Directed Ceftriaxone Sodium/Dextrose 1 gm in 50 mls @ 100 mls/hr 01/08/22 16:00 01/08/22 18:51 Rocephin IVPB Infused Q24H KIKE Infusion IV Miscellaneous Supplies 1 each 01/06/22 23:15 Iv Access IV DIRECTED KIKE Latanoprost 0 ml 01/05/22 22:00 01/08/22 21:28 Latanoprost 0.005% 2.5 Ml Btl OP 1 drp HS KIKE Administration Lisinopril 5 mg 01/05/22 08:30 01/06/22 15:43 Lisinopril 5 Mg Tab PO 5 mg DAILY KIKE Administration Miscellaneous Medication 946 ml 01/08/22 16:30 01/08/22 16:17 Breeza Beverage 473 Ml Btl PO 02/07/22 23:59 946 ml DIRECTED KIKE Administration Multi-Ingredient Supplement 1 ounce 01/05/22 20:00 01/09/22 07:48 Protein Nutritional Supplement 16 Gm 1 Ounce Packet PO 1 ounce TID [facility] Administration Multivitamins 1 tab 01/05/22 08:30 01/09/22 07:48 Multivitamin Tab PO 1 tab DAILY KIKE Administration Olanzapine 5 mg 01/05/22 22:00 01/08/22 21:03 Olanzapine 5 Mg Tab PO 5 mg HS KIKE Administration Omeprazole 40 mg 01/05/22 07:30 01/09/22 07:49 Omeprazole 20 Mg Capcr PO 40 mg AC KIKE Administration Oxycodone HCl 5 mg 01/05/22 07:17 01/06/22 10:49 Oxycodone 10 Mg Tab PO 5 mg BID PRN PRN Administration Moderate to Severe Pain Polyethylene Glycol 17 gm 01/06/22 17:14 Polyethylene Glycol 3350 17 Gm Packet PO DAILY PRN PRN Constipation Potassium Chloride 20 meq 01/08/22 14:00 01/09/22 07:49 Potassium Chloride 20 Meq Tabcr PO 20 meq TID KIKE Administration Prochlorperazine Edisylate 5 mg 01/06/22 23:13 Prochlorperazine 10 Mg/2 Ml Vial IVP Q4H PRN PRN Psyllium Hydrophilic Mucilloid 1 each 01/08/22 10:25 01/09/22 07:48 Psyllium Pkt PO 1 each BID KIKE Administration Rosuvastatin Calcium 10 mg 01/05/22 22:00 01/08/22 21:03 Rosuvastatin 10 Mg Tab PO 10 mg HS KIKE Administration Sennosides 1 tab 01/08/22 13:54 Senna Tab PO HS PRN PRN Constipation Sodium Chloride 0 ml 01/06/22 23:11 01/09/22 12:03 Normal Saline Flush 10 Ml Syr IVP 50 ml PRN PRN Administration Sodium Chloride 0 ml 01/09/22 20:00 Normal Saline Flush 10 Ml Syr IVP BID KIKE Trimethobenzamide HCl 200 mg 01/08/22 12:56 Trimethobenzamide 200 Mg/2 Ml Vial IM QID PRN PRN Allergies propoxyphene napsylate [From Darvocet-N 100] Allergy (Intermediate, Verified 01/05/22 05:15) celecoxib [From Celebrex] Allergy (Verified 01/05/22 05:15) Swelling/Edema acetaminophen [From Darvocet-N 100] Adverse Reaction (Intermediate, Verified 01/05/22 05:15) citalopram hydrobromide [From Celexa] Adverse Reaction (Intermediate, Verified 01/05/22 05:15) Psychosis lamotrigine Adverse Reaction (Intermediate, Verified 01/05/22 05:15) Nausea lithium Adverse Reaction (Intermediate, Verified 01/05/22 05:15) Nausea, vomiting misoprostol [From Arthrotec 50] Adverse Reaction (Mild, Unverified 01/05/22 05:15) Nausea alprazolam [From Xanax] Adverse Reaction (Unverified 01/05/22 05:15) Itching naproxen Adverse Reaction (Unverified 01/05/22 05:15) Nausea Exam Narrative Exam Narrative: Physical Exam: Constitutional: thin, arms covered in varying levels of healing wounds/sores Neck: Supple, no meningismus CV: RRR, S1, S2, no murmur Resp: CTAB Abd: Soft, nontender, nondistended Neuro: MS/Language/Speech: Alert, oriented to self and month/year - did not know she was in a hospital and thought she was in [place]; clear language (fluency and comprehension), mild dysarthria and hypophonia CN: PERRL, EOMI, visual garcia full, trigeminal sensation intact, no facial asymmetry, hearing intact , palate elevates symmetrically, tongue protrudes midline, SCM and trap strength intact Motor: Normal bulk and tone. FMM intact, no pronator drift. 3-4/5 strength throughout. No focal weakness. No resting tremor. Moderate bilateral UE postural tremor, slightly worse with activity. Sensation: Intact to light touch and PP throughout Reflexes: hyporeflexic throughout, downgoing toes Coordination: Finger to nose performed with moderate bilateral UE tremor Gait: unable to test safely at present Results Last Vital Signs Temp 96.6 F L 01/09/22 08:33 Pulse 107 H 01/09/22 08:33 Resp 20 01/09/22 08:33 BP 91/67 L 01/09/22 08:33 Pulse Ox 96 01/09/22 08:33 Labs Result diagrams: 01/09/22 11:15 01/09/22 06:10 Labs: Laboratory Results - last 24 hr 01/06/22 01/08/22 01/09/22 06:44 10:30 06:10 WBC RBC Hgb Hct MCV MCH MCHC RDW Plt Count MPV Immature Gran % Neutrophils % Band Neutrophils % Lymphocytes % Atypical Lymphs % Monocytes % Eosinophils % Basophils % Metamyelocytes % Myelocytes % Promyelocytes % Other Cells % Nucleated RBC % Absolute Neutrophils Absolute Lymphocytes Absolute Monocytes Absolute Eosinophils Absolute Basophils RBC Morphology Polychromasia Hypochromasia Poikilocytosis Basophilic Stippling Anisocytosis Microcytosis Macrocytosis Spherocytes Tear Drop Cells Ovalocytes Stomatocytes Ramirez-Gahanna Bodies Highwood Cells/Echinocytes Acanthocytes (Spur) Schistocytes Sodium Potassium Chloride Carbon Dioxide Anion Gap BUN Creatinine Estimated GFR/1.73 m2 Glucose Calcium Total Bilirubin Cancelled Conjugated Bilirubin Cancelled AST Cancelled ALT Cancelled Alkaline Phosphatase Cancelled Total Protein Cancelled Albumin Cancelled CA 125 Antigen 103 H Stool Campylobacter PCR Negative Stool Salmonella PCR Negative Stool Shigella PCR Negative Shiga Toxin (PCR) Negative 01/09/22 01/09/22 06:10 06:10 WBC Cancelled RBC Cancelled Hgb Cancelled Hct Cancelled MCV Cancelled MCH Cancelled MCHC Cancelled RDW Cancelled Plt Count Cancelled MPV Cancelled Immature Gran % Cancelled Neutrophils % Cancelled Band Neutrophils % Cancelled Lymphocytes % Cancelled Atypical Lymphs % Cancelled Monocytes % Cancelled Eosinophils % Cancelled Basophils % Cancelled Metamyelocytes % Cancelled Myelocytes % Cancelled Promyelocytes % Cancelled Other Cells % Cancelled Nucleated RBC % Cancelled Absolute Neutrophils Cancelled Absolute Lymphocytes Cancelled Absolute Monocytes Cancelled Absolute Eosinophils Cancelled Absolute Basophils Cancelled RBC Morphology Cancelled Polychromasia Cancelled Hypochromasia Cancelled Poikilocytosis Cancelled Basophilic Stippling Cancelled Anisocytosis Cancelled Microcytosis Cancelled Macrocytosis Cancelled Spherocytes Cancelled Tear Drop Cells Cancelled Ovalocytes Cancelled Stomatocytes Cancelled Ramirez-Gahanna Bodies Cancelled Highwood Cells/Echinocytes Cancelled Acanthocytes (Spur) Cancelled Schistocytes Cancelled Sodium 143 Potassium 4.2 Chloride 114 H Carbon Dioxide 21.8 Anion Gap 7.2 BUN 15 Creatinine 0.4 L Estimated GFR/1.73 m2 >= 60.00 Glucose 66 L Calcium 7.0 L Total Bilirubin 0.3 Conjugated Bilirubin 0.1 AST 20 ALT 11 L Alkaline Phosphatase 70 Total Protein 3.7 L Albumin 1.1 L CA 125 Antigen Stool Campylobacter PCR Stool Salmonella PCR Stool Shigella PCR Shiga Toxin (PCR)
[2022-01-09 12:10] LABS: Absolute Eosinophil Count 0.43 10^3/uL (0.0-0.7); Absolute Lymphocyte Count 3.23 10^3/uL (1.2-3.4); Absolute Monocyte Count 0.65 10^3/uL (0.1-0.8); Absolute Neutrophil Count 6.35 10^3/uL (1.2-6.7); Bands % 6
[2022-01-09 12:11] LABS: Diff Comment Manual Differential; Metamyelocytes % 1; RBC Morphology Normal
[2022-01-09] MEDS: ALBUMIN HUMAN 25 GM/100 ML BTL IV (12:12)
--- NOTE | 2022-01-09 13:41 | PT.INTREAT ---
Date of service: 01/09/22 Time of Service: 11:22 PT Notes Visit Reasons: Hypokalemia, Failure to Thrive Inpatient Physical Therapy Treatment Note [facility] Date: 01/09/2022 PRECAUTIONS: Activity as tolerated, Fall, confusion SUBJECTIVE: Rama is pleasant and agreeable to participating in PT. She states that she is very weak and wants to take it slow in regards to her getting stronger. OBJECTIVE: Patient demonstrating confusion and is oriented to self only today. PAIN: No c/o B knee pain and buttock pain at ulcer site BED MOBILITY/TRANSFERS Supine-sit: Mod A Sit-supine: Max A x2 due to confusion about task Sit-stand: Min A Stand-sit: Min A GAIT: Assistive Device: FWW Weight bearing: Full Assistance: CGA Distance: 5 steps F/B Deviation: Assist with FWW management, c/o weakness THEREX: Patient was instructed in an UE and LE strengthening and stabilization program, completed in a supine position, to include: ankle pumps, glute sets, quad sets, hip flexion, hip abduction, shoulder flexion and [id number]. She requires physical assist with most exercises as well as tactile, verbal and visual cueing for proper exercise performance. ASSESSMENT: Patient tolerated session with c/o B knee pain and buttock pain at ulcer site. She demonstrates significant global weakness, although does tolerate minimal gait training with FWW support and assist for FWW management. PLAN: Continue with gait and transfer training and global strengthening, as tolerated, for improved mobility and activity tolerance. TREATMENT CODE/TIME: Session 1: 27 minutes; 93932 x2 (11:22) Session 2: 11 minutes; [id number] (13:29)
--- NOTE | 2022-01-09 14:47 | W.PALLCONSUL ---
Date of service: 01/09/22 Time of Service: 14:00 History of Present Illness Narrative: Ms. Ontiveros is a 66 y/o F currently inpt at [facility] 2/2 weakness and FTT; PMHx sig for reactive airway dz, GABBY, HLD, HTN, GERD, T2DM, bipolar d/o and remote pancreatic cancer s/p resection ipple [facility] 2004; Pt awake and alert in bed, cooperative to palliative visit initially; pt reports in hospital 2/2 weakness and ?passing out 3 or 4 times?; reports lives alone in home in [facility], has two sons that doesn?t see much, son John Paul lives local, but doesn?t involve him much; reports neighbor Ying and son?s have system to ensure she is safe at home, she likes this system; reports lost dog (Rex) yesterday, is concerned that he won?t return; also has cat Judson; reports scratches and redness on arms are from the animals playing; reports aware of weight loss, does not have appetite, will ?sometimes? 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 or forgetful; denies pain; pt ends visit 2 wanting to get dressed and moved to chair Spoke to staff: pt confused, answers not consistent or unrelated to questions; pt remains BB w/frequent position changes d/t pressure sores; pt accepted at SNF, H/R, pending discharge status Attempted to call esteban Coker, REECE, left to call back PRN Hospital Course: presented to [facility] ED on 01/04/22 w/CC weakness and dizziness; transitioned inpt 2/2 unsafe to d/c r/t inability to perform ADLs and discussion for HH options/placement, mx of hypokalemia/FTT; surgical and nutrition consults, severe malnutrition, pressure sore likely non-healing/terminal; debridement of sacral decubitus 01/06/22; pending work up for metastasis; psych consult pending, Sinamet on hold Assessment and Plan Assessment and plan (1) Tremor: Status: Acute Assessment and plan: Sinamet on hold for re-eval by neuro (2) Altered mental status: Status: Acute Assessment and plan: lacks capacity at this time to complete HCA or COLST; attempted to call esteban Coker, DNA; unsafe to return home independently (3) Weight loss, unintentional: Status: Acute Assessment and plan: weight loss of 40lbs in 2 years; decreased appetite, presumed r/t medication compliance; (4) Weakness: Status: Acute Assessment and plan: unable to turn self, BB w/pressure sores SNF upon discharge, accepted at H/R (5) Adult failure to thrive: Status: Acute Assessment and plan: continue to follow through discharge; (6) Decubitus ulcer: Status: Acute Assessment and plan: wound care following; continue w/frequent repositioning, malnourishment contributing, nutrition following (7) Multiple falls: Status: Acute Assessment and plan: unsafe to return home (8) Palliative care patient: Status: Acute Assessment and plan: continue to follow through inpt, pending metastasis and psych work up work w/pt and family for POC; pt reports listed Karley Thornton as HCA, would like esteban Coker as second; lacks capacity to sign at this time, psych consult pending to follow-up inpatient PRN, f/u upon d/c to H/R Review of Systems Constitutional Constitutional: Reports as per HPI and Reports other (unable to obtain full ROS d/t mental condition) PFSH All Active Problems (Updated 01/09/22 @ 15:39 by Bhakti Garza NP) Palliative care patient (Acute) Tremor (Acute) Altered mental status (Acute) Pneumobilia (Acute) Weight loss, unintentional (Acute) Hypoalbuminemia due to protein-calorie malnutrition (Acute) Unexplained weight loss (Acute) Discharge planning issues (Acute) DVT prophylaxis (Acute) Bipolar disorder (Acute) PTSO/abuse/syphilis 1968 tx, hospitalizations , 10/18, head MRI , EEG Chronic pain (Chronic ~07/13/15) GERD (gastroesophageal reflux disease) (Chronic) Hypertension (Chronic) Acute hypokalemia (Acute) Weakness (Acute) Adult failure to thrive (Acute) Multiple falls (Acute) Decubitus ulcer (Acute) Medical History Allergic rhinitis Allergic rhinitis Arthritis Arthritis Back pain Chronic back pain Chronic sinusitis Diabetes mellitus Dyslipidemia Dyslipidemia Dyspnea Fatty liver disease, nonalcoholic Fracture of ankle GERD (gastroesophageal reflux disease) Glaucoma Glaucoma History of malignant neoplasm of pancreas Hypertensive disorder Knee pain Left sided abdominal pain 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 She did not have overt malignancy. Surgery was curative. Per pt. states she had a whipple procedure, and has been in remission since 2004. 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 medications oxycodine 10 mg tablet SOAP sore 14. Yearly narcotic contract last signed 10/18/2018, 10/01/2019 [place] quer[place] twice [place] for 5 states including [place] and [place] last dibe ib 03/01/18, 03/13/19, 01/09/20, [place] random urine drug screen being done at least 3-4 months GABBY (obstructive sleep apnea) GABBY (obstructive sleep apnea) Osteoporosis Steatosis, liver Type II diabetes mellitus Pt. states she was and is no longer taking medication Vertigo Surgical History Abdominal hysterectomy Fracture, Open Treatment ORIF Fibia H/O hernia repair Hernia Repair, Incisional x3 History of cataract surgery History of hysterectomy Hx of total knee replacement Pancreatic Duodenectomy(whipple procedure) Recurrent major depression in partial remission Replacement of total knee joint left S/P tonsillectomy and adenoidectomy Tonsillectomy and adenoidectomy Family History Brother Hearing loss ear problems, hearing loss and dizzy Social History Smoking/Tobacco Use Status: Former Tobacco Use Quit Date: 08/20/04 Smoking risk assessment performed?: Yes Alcohol Intake: former Drug use: Never Substance use type: does not use Do you feel safe at home: Yes Do you feel safe in your relationship?: Yes Additional Social history: Lives alone in her own home in [facility]. Exam Const General: cooperative, comfortable and no acute distress Nutritional Appearance: thin Orientation: alert, awake and confused (oriented to month and self; unaware of location) [facility] Head: normocephalic and atraumatic Ears: hearing grossly normal bilaterally Resp Effort & Inspection: normal respiratory effort, able to speak in complete sentences, no audible wheezes and no cough Skin Other: BUE scattered wounds/lesions in various phases of healing Neuro Cognition: abnormal cognition Speech: abnormal speech (slurred and hypophonia) Motor: tremor (BUE) Extrem Other: unable to roll self Psych Affect: blunted Attitude: guarded Thought Process: illogical, impoverished and loose association Insight: poor Judgment: poor Results Last Vital Signs Temp 96.6 F L 01/09/22 08:33 Pulse 107 H 01/09/22 08:33 Resp 20 01/09/22 08:33 BP 91/67 L 01/09/22 08:33 Pulse Ox 96 01/09/22 08:33 Labs Result diagrams: 01/09/22 11:15 01/09/22 06:10 Labs: Laboratory Results - last 24 hr 01/06/22 01/08/22 01/08/22 06:44 10:00 10:30 WBC RBC Hgb Hct MCV MCH MCHC RDW Plt Count MPV Immature Gran % Neutrophils % Band Neutrophils % Lymphocytes % Atypical Lymphs % Monocytes % Eosinophils % Basophils % Metamyelocytes % Myelocytes % Promyelocytes % Other Cells % Nucleated RBC % Absolute Neutrophils Absolute Lymphocytes Absolute Monocytes Absolute Eosinophils Absolute Basophils RBC Morphology Polychromasia Hypochromasia Poikilocytosis Basophilic Stippling Anisocytosis Microcytosis Macrocytosis Spherocytes Tear Drop Cells Ovalocytes Stomatocytes Ramirez-[place] Bodies Samantha Cells/Echinocytes Acanthocytes (Spur) Schistocytes Sodium Potassium Chloride Carbon Dioxide Anion Gap BUN Creatinine Estimated GFR/1.73 m2 Glucose Calcium Total Bilirubin Conjugated Bilirubin AST ALT Alkaline Phosphatase Total Protein Albumin Prealbumin 4 L CA 125 Antigen 103 H Stool Campylobacter PCR Negative Stool Salmonella PCR Negative Stool Shigella PCR Negative Shiga Toxin (PCR) Negative 01/09/22 01/09/22 01/09/22 06:10 06:10 06:10 WBC Cancelled RBC Cancelled Hgb Cancelled Hct Cancelled MCV Cancelled MCH Cancelled MCHC Cancelled RDW Cancelled Plt Count Cancelled MPV Cancelled Immature Gran % Cancelled Neutrophils % Cancelled Band Neutrophils % Cancelled Lymphocytes % Cancelled Atypical Lymphs % Cancelled Monocytes % Cancelled Eosinophils % Cancelled Basophils % Cancelled Metamyelocytes % Cancelled Myelocytes % Cancelled Promyelocytes % Cancelled Other Cells % Cancelled Nucleated RBC % Cancelled Absolute Neutrophils Cancelled Absolute Lymphocytes Cancelled Absolute Monocytes Cancelled Absolute Eosinophils Cancelled Absolute Basophils Cancelled RBC Morphology Cancelled Polychromasia Cancelled Hypochromasia Cancelled Poikilocytosis Cancelled Basophilic Stippling Cancelled Anisocytosis Cancelled Microcytosis Cancelled Macrocytosis Cancelled Spherocytes Cancelled Tear Drop Cells Cancelled Ovalocytes Cancelled Stomatocytes Cancelled Ramirez-[place] Bodies Cancelled [place] Cells/Echinocytes Cancelled Acanthocytes (Spur) Cancelled Schistocytes Cancelled Sodium 143 Potassium 4.2 Chloride 114 H Carbon Dioxide 21.8 Anion Gap 7.2 BUN 15 Creatinine 0.4 L Estimated GFR/1.73 m2 >= 60.00 Glucose 66 L Calcium 7.0 L Total Bilirubin Cancelled 0.3 Conjugated Bilirubin Cancelled 0.1 AST Cancelled 20 ALT Cancelled 11 L Alkaline Phosphatase Cancelled 70 Total Protein Cancelled 3.7 L Albumin Cancelled 1.1 L Prealbumin CA 125 Antigen Stool Campylobacter PCR Stool Salmonella PCR Stool Shigella PCR Shiga Toxin (PCR) 01/09/22 11:15 WBC 10.76 RBC 2.57 L Hgb 7.8 L Hct 25.4 L MCV 99 H MCH 30.4 MCHC 30.7 L RDW 19.8 H Plt Count 356 MPV 8.5 Immature Gran % 0.0 Neutrophils % 53.0 Band Neutrophils % 6 Lymphocytes % 30.0 Atypical Lymphs % Monocytes % 6.0 Eosinophils % 4.0 Basophils % 0.0 Metamyelocytes % 1 Myelocytes % Promyelocytes % Other Cells % Nucleated RBC % 0.0 Absolute Neutrophils 6.35 Absolute Lymphocytes 3.23 Absolute Monocytes 0.65 Absolute Eosinophils 0.43 Absolute Basophils 0.00 RBC Morphology Normal Polychromasia Hypochromasia Poikilocytosis Basophilic Stippling Anisocytosis Microcytosis Macrocytosis Spherocytes Tear Drop Cells Ovalocytes Stomatocytes Ramirez-Estancia Bodies Samantha Cells/Echinocytes Acanthocytes (Spur) Schistocytes Sodium Potassium Chloride Carbon Dioxide Anion Gap BUN Creatinine Estimated GFR/1.73 m2 Glucose Calcium Total Bilirubin Conjugated Bilirubin AST ALT Alkaline Phosphatase Total Protein Albumin Prealbumin CA 125 Antigen Stool Campylobacter PCR Stool Salmonella PCR Stool Shigella PCR Shiga Toxin (PCR)
[2022-01-09 15:00] VITALS: BP 113/77; PULSE 103; RESP 20; TEMP 36.4; O2SAT 96
--- NOTE | 2022-01-09 15:25 | W.PM.PROGNOT ---
Date of Service Date of service: 01/09/22 Time of Service: 14:25 Assessment and Plan Assessment and plan (1) Pneumobilia: Status: Acute Assessment and plan: -Benign abdominal exam -Continue supportive care, bowel regimen to prevent stercoral ulcer given significant colonic stool burden (2) Adult failure to thrive: Status: Acute (3) Decubitus ulcer: Status: Acute Assessment and plan: Wound care note reviewed as well as pictures with Dr. Conti. There is no need for more debridement at this time. (4) Multiple falls: Status: Acute (5) Bipolar disorder: Status: Acute (6) Unexplained weight loss: Status: Acute (7) Hypoalbuminemia due to protein-calorie malnutrition: Status: Acute Subjective Subjective Interval history since last seen: Ms Crawford is doing OK. There have been no changes since yesterday. Wound care note and pictures reviewed with Dr. Conti Exam Const General: cooperative, comfortable, no acute distress and frail appearing Nutritional Appearance: thin Orientation: confused Resp Effort & Inspection: normal respiratory effort and no respiratory distress GI Inspection: non-distended Palpation: soft, not firm and nontender Objective Last Vital Signs Temp 96.6 F L 01/09/22 08:33 Pulse 107 H 01/09/22 08:33 Resp 20 01/09/22 08:33 BP 91/67 L 01/09/22 08:33 Pulse Ox 96 01/09/22 08:33 Laboratory Results - last 24 hr 01/06/22 01/08/22 01/08/22 06:44 10:00 10:30 WBC RBC Hgb Hct MCV MCH MCHC RDW Plt Count MPV Immature Gran % Neutrophils % Band Neutrophils % Lymphocytes % Atypical Lymphs % Monocytes % Eosinophils % Basophils % Metamyelocytes % Myelocytes % Promyelocytes % Other Cells % Nucleated RBC % Absolute Neutrophils Absolute Lymphocytes Absolute Monocytes Absolute Eosinophils Absolute Basophils RBC Morphology Polychromasia Hypochromasia Poikilocytosis Basophilic Stippling Anisocytosis Microcytosis Macrocytosis Spherocytes Tear Drop Cells Ovalocytes Stomatocytes Ramirez[place] Bodies Samantha Cells/Echinocytes Acanthocytes (Spur) Schistocytes Sodium Potassium Chloride Carbon Dioxide Anion Gap BUN Creatinine Estimated GFR/1.73 m2 Glucose Calcium Total Bilirubin Conjugated Bilirubin AST ALT Alkaline Phosphatase Total Protein Albumin Prealbumin 4 L CA 125 Antigen 103 H Stool Campylobacter PCR Negative Stool Salmonella PCR Negative Stool Shigella PCR Negative Shiga Toxin (PCR) Negative 01/09/22 01/09/22 01/09/22 06:10 06:10 06:10 WBC Cancelled RBC Cancelled Hgb Cancelled Hct Cancelled MCV Cancelled MCH Cancelled MCHC Cancelled RDW Cancelled Plt Count Cancelled MPV Cancelled Immature Gran % Cancelled Neutrophils % Cancelled Band Neutrophils % Cancelled Lymphocytes % Cancelled Atypical Lymphs % Cancelled Monocytes % Cancelled Eosinophils % Cancelled Basophils % Cancelled Metamyelocytes % Cancelled Myelocytes % Cancelled Promyelocytes % Cancelled Other Cells % Cancelled Nucleated RBC % Cancelled Absolute Neutrophils Cancelled Absolute Lymphocytes Cancelled Absolute Monocytes Cancelled Absolute Eosinophils Cancelled Absolute Basophils Cancelled RBC Morphology Cancelled Polychromasia Cancelled Hypochromasia Cancelled Poikilocytosis Cancelled Basophilic Stippling Cancelled Anisocytosis Cancelled Microcytosis Cancelled Macrocytosis Cancelled Spherocytes Cancelled Tear Drop Cells Cancelled Ovalocytes Cancelled Stomatocytes Cancelled [place] Bodies Cancelled Samantha Cells/Echinocytes Cancelled Acanthocytes (Spur) Cancelled Schistocytes Cancelled Sodium 143 Potassium 4.2 Chloride 114 H Carbon Dioxide 21.8 Anion Gap 7.2 BUN 15 Creatinine 0.4 L Estimated GFR/1.73 m2 >= 60.00 Glucose 66 L Calcium 7.0 L Total Bilirubin Cancelled 0.3 Conjugated Bilirubin Cancelled 0.1 AST Cancelled 20 ALT Cancelled 11 L Alkaline Phosphatase Cancelled 70 Total Protein Cancelled 3.7 L Albumin Cancelled 1.1 L Prealbumin CA 125 Antigen Stool Campylobacter PCR Stool Salmonella PCR Stool Shigella PCR Shiga Toxin (PCR) 01/09/22 11:15 WBC 10.76 RBC 2.57 L Hgb 7.8 L Hct 25.4 L MCV 99 H MCH 30.4 MCHC 30.7 L RDW 19.8 H Plt Count 356 MPV 8.5 Immature Gran % 0.0 Neutrophils % 53.0 Band Neutrophils % 6 Lymphocytes % 30.0 Atypical Lymphs % Monocytes % 6.0 Eosinophils % 4.0 Basophils % 0.0 Metamyelocytes % 1 Myelocytes % Promyelocytes % Other Cells % Nucleated RBC % 0.0 Absolute Neutrophils 6.35 Absolute Lymphocytes 3.23 Absolute Monocytes 0.65 Absolute Eosinophils 0.43 Absolute Basophils 0.00 RBC Morphology Normal Polychromasia Hypochromasia Poikilocytosis Basophilic Stippling Anisocytosis Microcytosis Macrocytosis Spherocytes Tear Drop Cells Ovalocytes Stomatocytes Ramirez-[place] Bodies [place] Cells/Echinocytes Acanthocytes (Spur) Schistocytes Sodium Potassium Chloride Carbon Dioxide Anion Gap BUN Creatinine Estimated GFR/1.73 m2 Glucose Calcium Total Bilirubin Conjugated Bilirubin AST ALT Alkaline Phosphatase Total Protein Albumin Prealbumin CA 125 Antigen Stool Campylobacter PCR Stool Salmonella PCR Stool Shigella PCR Shiga Toxin (PCR)
[2022-01-09] MEDS: cefTRIAXone 1 GM/50 ML BAG IVPB (16:28)
--- NOTE | 2022-01-09 18:46 | W.PM.PROGNOT ---
Date of Service Date of service: 01/09/22 Time of Service: 17:47 Assessment and Plan Assessment and plan (1) Weakness: Status: Acute Assessment and plan: Evaluated by Dr Westfall who feels that the explanation for weakness has more to do with malnutrition and deconditioning rather than a neurologic etiology. D/c sinemet. Would benefit from SNF on discharge - cannot live independently. (2) Adult failure to thrive: Status: Acute Assessment and plan: Discussed with Dr Tamez and with Dr Westfall - it is unclear how compliant the patient has been as an outpatient and it is entirely possible that she was not taking her medications which led to psychiatric reasons for not caring for self. I am also concerned about her poor appetite, however. I do think that an EGD and colonoscopy might be indicated, but they do not necessarily need to be done as an in-patient. Additionally, the patient does not have capacity to make her medical decisions, as per my conversation with Dr Tamez today and will need a guardian. (3) Weight loss, unintentional: Status: Acute Assessment and plan: MRI scan of the abdomen did not show any recurrence of her pancreatic cancer. Pneumobilia is stable and likely not representing a pathologic process. Given low appetite, trialing mirtazapine and consider EGD/colonoscopy. (4) Decubitus ulcer: Status: Acute Assessment and plan: Continue empiric rocephin and wound care. (5) Acute hypokalemia: Status: Resolved Assessment and plan: Recheck in am. (6) Hypertension: Status: Chronic Assessment and plan: Hold BP meds as BP is actually low today. (7) GERD (gastroesophageal reflux disease): Status: Chronic Assessment and plan: Continue omperazole (I question AC dosing - await records from PCP) (8) Bipolar disorder: Status: Acute Assessment and plan: Continue wellbutrin, prozac, olanazapine, add mirtazapine. Evaluated by Dr Tamez today. (9) DVT prophylaxis: Status: Acute Assessment and plan: continue enoxaparin (10) Discharge planning issues: Status: Acute Assessment and plan: Full code Will need a guardian. Unsafe to live independently and will need SNF placement. Subjective Subjective Interval history since last seen: Ms Crawford reports no appetite and her PO intake has been poor. She just does not feel hungry. Denies abdominal pain. Endorses feeling dizzy when she stands up. Denies chest pain, shortness of breath, nausea. We discussed the importance of good nutrition for wound healing. Was evaluated by Dr Tamez who suggested adding mirtazapine 7.5 mg PO HS while we are trying to find out more information about her in the community and from her outpatient providers. Exam Narrative Exam Narrative: General: Pleasant female who is A&Ox2 and forgetful, I do observe some tremor HEENT: EOMI, dry MM Heart: RRR, no m/r/g Lungs: CTAB Abdomen: soft, nontender, nondistended Extremities: trace edema BLEs Objective Last Vital Signs Temp 36.4 C L 01/09/22 15:00 Pulse 103 H 01/09/22 15:00 Resp 20 01/09/22 15:00 BP 113/77 01/09/22 15:00 Pulse Ox 96 01/09/22 15:00 Laboratory Results - last 24 hr 01/06/22 01/08/22 01/08/22 06:44 10:00 10:30 WBC RBC Hgb Hct MCV MCH MCHC RDW Plt Count MPV Immature Gran % Neutrophils % Band Neutrophils % Lymphocytes % Atypical Lymphs % Monocytes % Eosinophils % Basophils % Metamyelocytes % Myelocytes % Promyelocytes % Other Cells % Nucleated RBC % Absolute Neutrophils Absolute Lymphocytes Absolute Monocytes Absolute Eosinophils Absolute Basophils RBC Morphology Polychromasia Hypochromasia Poikilocytosis Basophilic Stippling Anisocytosis Microcytosis Macrocytosis Spherocytes Tear Drop Cells Ovalocytes Stomatocytes Ramirez-[place] Bodies Samantha Cells/Echinocytes Acanthocytes (Spur) Schistocytes Sodium Potassium Chloride Carbon Dioxide Anion Gap BUN Creatinine Estimated GFR/1.73 m2 Glucose Calcium Total Bilirubin Conjugated Bilirubin AST ALT Alkaline Phosphatase Total Protein Albumin Prealbumin 4 L CA 125 Antigen 103 H Stool Campylobacter PCR Negative Stool Salmonella PCR Negative Stool Shigella PCR Negative Shiga Toxin (PCR) Negative 01/09/22 01/09/22 01/09/22 06:10 06:10 06:10 WBC Cancelled RBC Cancelled Hgb Cancelled Hct Cancelled MCV Cancelled MCH Cancelled MCHC Cancelled RDW Cancelled Plt Count Cancelled MPV Cancelled Immature Gran % Cancelled Neutrophils % Cancelled Band Neutrophils % Cancelled Lymphocytes % Cancelled Atypical Lymphs % Cancelled Monocytes % Cancelled Eosinophils % Cancelled Basophils % Cancelled Metamyelocytes % Cancelled Myelocytes % Cancelled Promyelocytes % Cancelled Other Cells % Cancelled Nucleated RBC % Cancelled Absolute Neutrophils Cancelled Absolute Lymphocytes Cancelled Absolute Monocytes Cancelled Absolute Eosinophils Cancelled Absolute Basophils Cancelled RBC Morphology Cancelled Polychromasia Cancelled Hypochromasia Cancelled Poikilocytosis Cancelled Basophilic Stippling Cancelled Anisocytosis Cancelled Microcytosis Cancelled Macrocytosis Cancelled Spherocytes Cancelled Tear Drop Cells Cancelled Ovalocytes Cancelled Stomatocytes Cancelled Ramirez-[place] Bodies Cancelled Samantha Cells/Echinocytes Cancelled Acanthocytes (Spur) Cancelled Schistocytes Cancelled Sodium 143 Potassium 4.2 Chloride 114 H Carbon Dioxide 21.8 Anion Gap 7.2 BUN 15 Creatinine 0.4 L Estimated GFR/1.73 m2 >= 60.00 Glucose 66 L Calcium 7.0 L Total Bilirubin Cancelled 0.3 Conjugated Bilirubin Cancelled 0.1 AST Cancelled 20 ALT Cancelled 11 L Alkaline Phosphatase Cancelled 70 Total Protein Cancelled 3.7 L Albumin Cancelled 1.1 L Prealbumin CA 125 Antigen Stool Campylobacter PCR Stool Salmonella PCR Stool Shigella PCR Shiga Toxin (PCR) 01/09/22 11:15 WBC 10.76 RBC 2.57 L Hgb 7.8 L Hct 25.4 L MCV 99 H MCH 30.4 MCHC 30.7 L RDW 19.8 H Plt Count 356 MPV 8.5 Immature Gran % 0.0 Neutrophils % 53.0 Band Neutrophils % 6 Lymphocytes % 30.0 Atypical Lymphs % Monocytes % 6.0 Eosinophils % 4.0 Basophils % 0.0 Metamyelocytes % 1 Myelocytes % Promyelocytes % Other Cells % Nucleated RBC % 0.0 Absolute Neutrophils 6.35 Absolute Lymphocytes 3.23 Absolute Monocytes 0.65 Absolute Eosinophils 0.43 Absolute Basophils 0.00 RBC Morphology Normal Polychromasia Hypochromasia Poikilocytosis Basophilic Stippling Anisocytosis Microcytosis Macrocytosis Spherocytes Tear Drop Cells Ovalocytes Stomatocytes Ramirez-[place]ath[place] Bodies [place] Cells/Echinocytes Acanthocytes (Spur) Schistocytes Sodium Potassium Chloride Carbon Dioxide Anion Gap BUN Creatinine Estimated GFR/1.73 m2 Glucose Calcium Total Bilirubin Conjugated Bilirubin AST ALT Alkaline Phosphatase Total Protein Albumin Prealbumin CA 125 Antigen Stool Campylobacter PCR Stool Salmonella PCR Stool Shigella PCR Shiga Toxin (PCR)
[2022-01-09] MEDS: Ascorbic Acid 500 MG TAB PO (19:55)
--- NOTE | 2022-01-09 20:55 | PSYCHFUP_ITS ---
Date of Service Date of service: 01/09/22 Time of Service: 14:00 Objective Medications: Active Inpatient Medications Report Generic Name Dose Route Start Last Admin Trade Name Freq PRN Reason Stop Dose Admin Acetaminophen 0 mg 01/05/22 04:36 Acetaminophen 325 Mg Tab PO Q4H PRN PRN Acidophilus/Pectin 1 cap 01/08/22 10:25 01/09/22 19:55 Lactobacillus Acidophilus Cap PO 1 cap BID KIKE Administration Ascorbic Acid 500 mg 01/09/22 20:00 01/09/22 19:55 Ascorbic Acid 500 Mg Tab PO 500 mg BID KIKE Administration Aspirin 81 mg 01/05/22 08:30 01/09/22 07:49 Aspirin E.C. 81 Mg Tabec PO 81 mg DAILY KIKE Administration Bisacodyl 10 mg 01/06/22 17:14 Bisacodyl 10 Mg Supp UT DAILY PRN PRN Bupropion HCl 200 mg 01/05/22 08:30 01/09/22 19:55 Bupropion-Cr 100 Mg Tabcr PO 200 mg BID KIKE Administration Calcium/Vitamin D 1 tab 01/05/22 08:30 01/09/22 07:48 Calcium 600mg/Vit D 200u Tab PO 1 tab DAILY KIKE Administration Collagenase 0 gm 01/08/22 12:00 01/08/22 12:22 Collagenase 30 Gm Tube TP 1 applic DIRECTED KIKE Administration Dimethicone/Zinc Oxide 0 gm 01/05/22 04:36 Kamille Protect Cream 142 Gm Tube TP PRN PRN Docusate Sodium 100 mg 01/08/22 13:54 Docusate Sodium 100 Mg Cap PO BID PRN PRN Constipation Fluoxetine HCl 20 mg 01/05/22 08:30 01/09/22 07:48 Fluoxetine 20 Mg Cap PO 20 mg DAILY KIKE Administration Sodium Chloride 500 mls @ 0 mls/hr 01/06/22 23:11 01/07/22 21:12 Saline 500ml Bag IV 0 mls/hr PRN PRN Infusion As Directed Ceftriaxone Sodium/Dextrose 1 gm in 50 mls @ 100 mls/hr 01/08/22 16:00 01/09/22 19:55 Rocephin IVPB Infused Q24H KIKE Infusion Dextrose/Lactated Ringer's 1,000 mls @ 75 mls/hr 01/09/22 19:00 Dextrose 5%-Lr IV INFUSION KIKE IV Miscellaneous Supplies 1 each 01/06/22 23:15 Iv Access IV DIRECTED KIKE Latanoprost 0 ml 01/05/22 22:00 01/08/22 21:28 Latanoprost 0.005% 2.5 Ml Btl OP 1 drp HS KIKE Administration Mirtazapine 7.5 mg 01/09/22 22:00 Mirtazapine 15 Mg Tab PO HS [facility] Multi-Ingredient Supplement 1 ounce 01/05/22 20:00 01/09/22 19:55 Protein Nutritional Supplement 16 Gm 1 Ounce Packet PO 1 ounce TID KIKE Administration Multivitamins 1 tab 01/05/22 08:30 01/09/22 07:48 Multivitamin Tab PO 1 tab DAILY KIKE Administration Olanzapine 5 mg 01/05/22 22:00 01/08/22 21:03 Olanzapine 5 Mg Tab PO 5 mg HS [facility] Administration Omeprazole 40 mg 01/05/22 07:30 01/09/22 16:29 Omeprazole 20 Mg Capcr PO 40 mg AC [facility] Administration Oxycodone HCl 5 mg 01/05/22 07:17 01/06/22 10:49 Oxycodone 10 Mg Tab PO 5 mg BID PRN PRN Administration Moderate to Severe Pain Polyethylene Glycol 17 gm 01/06/22 17:14 Polyethylene Glycol 3350 17 Gm Packet PO DAILY PRN PRN Constipation Potassium Chloride 20 meq 01/08/22 14:00 01/09/22 19:55 Potassium Chloride 20 Meq Tabcr PO 20 meq TID KIKE Administration Prochlorperazine Edisylate 5 mg 01/06/22 23:13 Prochlorperazine 10 Mg/2 Ml Vial IVP Q4H PRN PRN Psyllium Hydrophilic Mucilloid 1 each 01/08/22 10:25 01/09/22 19:54 Psyllium Pkt PO 1 each BID [facility] Administration Rosuvastatin Calcium 10 mg 01/05/22 22:00 01/08/22 21:03 Rosuvastatin 10 Mg Tab PO 10 mg HS [facility] Administration Sennosides 1 tab 01/08/22 13:54 Senna Tab PO HS PRN PRN Constipation Sodium Chloride 0 ml 01/06/22 23:11 01/09/22 16:28 Normal Saline Flush 10 Ml Syr IVP 10 ml PRN PRN Administration Sodium Chloride 0 ml 01/09/22 20:00 01/09/22 20:41 Normal Saline Flush 10 Ml Syr IVP 10 ml BID KIKE Administration Trimethobenzamide HCl 200 mg 01/08/22 12:56 Trimethobenzamide 200 Mg/2 Ml Vial IM QID PRN PRN Zinc Sulfate 220 mg 01/10/22 08:30 Zinc Sulfate 220 Mg Tab PO DAILY KIKE Discontinued Medications Generic Name Dose Route Start Last Admin Trade Name Freq PRN Reason Stop Dose Admin Bisacodyl 10 mg 01/06/22 17:14 01/06/22 18:48 Bisacodyl 10 Mg Supp UT 01/06/22 17:15 10 mg NOW ONE Administration Carbidopa/Levodopa 1 tab 01/07/22 20:00 01/09/22 07:48 Carbidopa 25/Levodopa 100 Tab PO 1 tab TID KIKE Administration Diatrizoate Meglum/Diatrizoate Sod 25 ml 01/08/22 16:30 01/08/22 16:15 Gastrografin 120 Ml Btl PO 25 ml DIRECTED KIKE Administration Diphenhydramine HCl 50 mg 01/06/22 08:05 01/06/22 10:49 Diphenhydramine 25 Mg Cap PO 01/06/22 08:06 50 mg NOW ONE Administration Docusate Sodium 100 mg 01/06/22 20:00 01/08/22 08:45 Docusate Sodium 100 Mg Cap PO Not Given BID KIKE Enoxaparin Sodium 40 mg 01/05/22 08:00 01/05/22 09:03 Enoxaparin 40 Mg/0.4 Ml Syr SC 40 mg Q24H KIKE Administration Ephedrine Sulfate 0 mg 01/06/22 14:59 Ephedrine 25 Mg/5 Ml Syringe IVP DIRECTED PRN Famotidine 20 mg 01/05/22 08:30 01/09/22 07:48 Famotidine 20 Mg Tab PO 20 mg BID KIKE Administration Gadoterate Meglumine 9 ml 01/05/22 17:00 01/05/22 16:59 Gadoterate Meglumine 20 Ml Vial IVP 02/04/22 23:59 9 ml DIRECTED KIKE Administration Gadoterate Meglumine 9 ml 01/06/22 12:00 01/06/22 11:55 Gadoterate Meglumine 15 Ml Vial IVP 02/05/22 23:50 9 ml DIRECTED KIKE Administration Potassium Chloride 20 meq in 100 mls @ 50 mls/hr 01/05/22 01:28 01/05/22 11:47 IVPB 01/05/22 03:27 Infused NOW ONE Infusion Ringer's Solution 1,000 mls @ 100 mls/hr 01/05/22 21:30 01/09/22 09:18 IV Infused INFUSION KIKE Infusion Ringer's Solution 1,000 mls @ 30 mls/hr 01/06/22 15:00 01/06/22 18:09 IV Infused INFUSION KIKE Infusion Cefazolin Sodium/Dextrose 1 gm in 50 mls @ 100 mls/hr 01/07/22 00:21 01/07/22 00:42 Ancef Duplex IVPB 01/07/22 00:50 100 mls/hr NOW ONE Administration Cefazolin Sodium/Dextrose 1 gm in 50 mls @ 100 mls/hr 01/07/22 08:00 01/07/22 14:51 Ancef Duplex IVPB Not Given Q8H KIKE Ringer's Solution 500 mls @ 500 mls/hr 01/07/22 04:16 01/07/22 15:27 IV 01/07/22 05:15 Infused BOLUS ONE Infusion Cefazolin Sodium/Dextrose 1 gm in 50 mls @ 100 mls/hr 01/07/22 12:00 01/07/22 12:15 Ancef Duplex IVPB Infused Q8H KIKE Infusion Ceftriaxone Sodium 1,000 mg/ 50 mls @ 100 mls/hr 01/07/22 16:30 01/07/22 21:27 Sodium Chloride IVPB Infused Q24H KIKE Infusion Potassium Chloride/Sodium Chloride 1,000 mls @ 100 mls/hr 01/08/22 12:00 01/09/22 03:22 Kcl 20meq/0.45% Nacl IV 01/08/22 21:59 Infused INFUSION KIKE Infusion Albumin Human 25 gm in 100 mls @ 200 mls/hr 01/09/22 10:00 01/09/22 13:01 Alburx-25 IV 01/09/22 10:29 Infused NOW ONE Infusion Iodixanol 50 ml 01/07/22 17:30 01/07/22 17:22 Visipaque 320 Mg/Ml 50 Ml Btl IJ 02/06/22 23:59 50 ml DIRECTED KIKE Administration Lisinopril 5 mg 01/05/22 08:30 01/06/22 15:43 Lisinopril 5 Mg Tab PO 5 mg DAILY KIKE Administration Miscellaneous Medication 946 ml 01/08/22 16:30 01/08/22 16:17 Breeza Beverage 473 Ml Btl PO 02/07/22 23:59 946 ml DIRECTED KIKE Administration Naloxone HCl 0 mg 01/06/22 14:59 Naloxone 0.4 Mg/Ml Vial IVP PRN PRN Non-Formulary Medication 60 mg 01/05/22 04:45 Denosumab [Prolia] SC DIRECTED KIKE Oxycodone HCl 5 mg 01/05/22 04:45 Oxycodone 10 Mg Tab PO BID PRN Moderate to Severe Pain Potassium Chloride 40 meq 01/05/22 01:28 01/05/22 01:37 Potassium Chloride 20 Meq Tabcr PO 01/05/22 01:29 40 meq NOW ONE Administration Potassium Chloride 40 meq 01/05/22 07:27 01/05/22 09:04 Potassium Chloride 20 Meq Tabcr PO 01/05/22 07:28 40 meq NOW ONE Administration Potassium Chloride 20 meq 01/06/22 08:30 01/08/22 08:44 Potassium Chloride 20 Meq Tabcr PO 20 meq DAILY KIKE Administration Sennosides 1 tab 01/06/22 22:00 01/07/22 21:10 Senna Tab PO 1 tab HS KIKE Administration Sodium Chloride 10 ml 01/05/22 16:58 01/05/22 16:59 Normal Saline Flush 10 Ml Syr IVP 10 ml PRN PRN Administration Sodium Chloride 25 ml 01/06/22 12:00 01/06/22 11:54 Normal Saline 50 Ml Bag IV 25 ml DIRECTED KIKE Administration Sodium Chloride 90 ml 01/07/22 17:30 01/07/22 17:21 Normal Saline 250 Ml Bag IJ 90 ml DIRECTED KIKE Administration Trimethobenzamide HCl 200 mg 01/06/22 17:10 01/06/22 17:28 Trimethobenzamide 200 Mg/2 Ml Vial IM 01/06/22 17:11 200 mg NOW ONE Administration Trimethobenzamide HCl 200 mg 01/08/22 12:56 01/08/22 13:24 Trimethobenzamide 200 Mg/2 Ml Vial IM 01/08/22 12:57 200 mg NOW ONE Administration Vancomycin HCl 125 mg 01/08/22 12:00 01/08/22 12:33 Vancomycin 125 Mg Cap PO 125 mg QID KIKE Administration Labs Last 24 Hours: Laboratory Results - last 24 hr 01/06/22 01/08/22 01/08/22 06:44 10:00 10:30 WBC RBC Hgb Hct MCV MCH MCHC RDW Plt Count MPV Immature Gran % Neutrophils % Band Neutrophils % Lymphocytes % Atypical Lymphs % Monocytes % Eosinophils % Basophils % Metamyelocytes % Myelocytes % Promyelocytes % Other Cells % Nucleated RBC % Absolute Neutrophils Absolute Lymphocytes Absolute Monocytes Absolute Eosinophils Absolute Basophils RBC Morphology Polychromasia Hypochromasia Poikilocytosis Basophilic Stippling Anisocytosis Microcytosis Macrocytosis Spherocytes Tear Drop Cells Ovalocytes Stomatocytes Ramirez-[place] Bodies Cameron Cells/Echinocytes Acanthocytes (Spur) Schistocytes Sodium Potassium Chloride Carbon Dioxide Anion Gap BUN Creatinine Estimated GFR/1.73 m2 Glucose Calcium Total Bilirubin Conjugated Bilirubin AST ALT Alkaline Phosphatase Total Protein Albumin Prealbumin 4 L CA 125 Antigen 103 H Stool Campylobacter PCR Negative Stool Salmonella PCR Negative Stool Shigella PCR Negative Shiga Toxin (PCR) Negative 01/09/22 01/09/22 01/09/22 06:10 06:10 06:10 WBC Cancelled RBC Cancelled Hgb Cancelled Hct Cancelled MCV Cancelled MCH Cancelled MCHC Cancelled RDW Cancelled Plt Count Cancelled MPV Cancelled Immature Gran % Cancelled Neutrophils % Cancelled Band Neutrophils % Cancelled Lymphocytes % Cancelled Atypical Lymphs % Cancelled Monocytes % Cancelled Eosinophils % Cancelled Basophils % Cancelled Metamyelocytes % Cancelled Myelocytes % Cancelled Promyelocytes % Cancelled Other Cells % Cancelled Nucleated RBC % Cancelled Absolute Neutrophils Cancelled Absolute Lymphocytes Cancelled Absolute Monocytes Cancelled Absolute Eosinophils Cancelled Absolute Basophils Cancelled RBC Morphology Cancelled Polychromasia Cancelled Hypochromasia Cancelled Poikilocytosis Cancelled Basophilic Stippling Cancelled Anisocytosis Cancelled Microcytosis Cancelled Macrocytosis Cancelled Spherocytes Cancelled Tear Drop Cells Cancelled Ovalocytes Cancelled Stomatocytes Cancelled Ramirez-[place] Bodies Cancelled Cameron Cells/Echinocytes Cancelled Acanthocytes (Spur) Cancelled Schistocytes Cancelled Sodium 143 Potassium 4.2 Chloride 114 H Carbon Dioxide 21.8 Anion Gap 7.2 BUN 15 Creatinine 0.4 L Estimated GFR/1.73 m2 >= 60.00 Glucose 66 L Calcium 7.0 L Total Bilirubin Cancelled 0.3 Conjugated Bilirubin Cancelled 0.1 AST Cancelled 20 ALT Cancelled 11 L Alkaline Phosphatase Cancelled 70 Total Protein Cancelled 3.7 L Albumin Cancelled 1.1 L Prealbumin CA 125 Antigen Stool Campylobacter PCR Stool Salmonella PCR Stool Shigella PCR Shiga Toxin (PCR) 01/09/22 11:15 WBC 10.76 RBC 2.57 L Hgb 7.8 L Hct 25.4 L MCV 99 H MCH 30.4 MCHC 30.7 L RDW 19.8 H Plt Count 356 MPV 8.5 Immature Gran % 0.0 Neutrophils % 53.0 Band Neutrophils % 6 Lymphocytes % 30.0 Atypical Lymphs % Monocytes % 6.0 Eosinophils % 4.0 Basophils % 0.0 Metamyelocytes % 1 Myelocytes % Promyelocytes % Other Cells % Nucleated RBC % 0.0 Absolute Neutrophils 6.35 Absolute Lymphocytes 3.23 Absolute Monocytes 0.65 Absolute Eosinophils 0.43 Absolute Basophils 0.00 RBC Morphology Normal Polychromasia Hypochromasia Poikilocytosis Basophilic Stippling Anisocytosis Microcytosis Macrocytosis Spherocytes Tear Drop Cells Ovalocytes Stomatocytes Ramirez-[place] Bodies Cameron Cells/Echinocytes Acanthocytes (Spur) Schistocytes Sodium Potassium Chloride Carbon Dioxide Anion Gap BUN Creatinine Estimated GFR/1.73 m2 Glucose Calcium Total Bilirubin Conjugated Bilirubin AST ALT Alkaline Phosphatase Total Protein Albumin Prealbumin CA 125 Antigen Stool Campylobacter PCR Stool Salmonella PCR Stool Shigella PCR Shiga Toxin (PCR) Vitals: Vital Signs - 24 hr 01/09/22 01:22 01/09/22 08:33 01/09/22 15:00 Temperature 36.4 C L 35.9 C L 36.4 C L Pulse 71 107 H 103 H Respiratory Rate 14 20 20 Blood Pressure 103/66 91/67 L 113/77 Pulse Oximetry 95 96 96 Review of Systems Neurologic Neurologic: Reports behavioral changes, Reports confusion and Reports memory loss Psychiatric Psychiatric: Reports abnormal sleep pattern, Reports behavioral changes, Reports change in appetite, Reports confusion, Reports depression, Reports difficulty concentrating and Reports memory loss
--- NOTE | 2022-01-09 20:56 | W.PSYCHCONSU ---
Date of service: 01/09/22 Time of Service: 14:00 History of Present Illness History of Present Illness Chief Complaint: I'm at a friend's house Narrative: 4 hour telepsychiatry consultation requested to evaluate mental status and recommend treatment. Patient admitted from community after well check found her down at home, She had been observed by neighbors to have multiple recent falls. She was brought to [facility] by EMS and found grossly malnourushed. She had a significant decubitus ulcer that has required surgical debrieding. She has also been notably week, particularly in lower extremities. She has a history of cancreatic and cervical cancer raising concerns for a metastatic process. She is unable to provide any context for her current presentation and indicates she believes she is currently at the neighbor's chatting with her friend Ying. She is unable to name her current medications or provide significant details of her medical history. When I ask about a history of mood disorders, she becomes guarded and reluctant to discuss it. She states her mood is low. She denies any acute psychotic symptoms. She denies any history of suicidality. Regarding treatment, she is unable to name her PCP or psych provider, but states it is at [facility] in [place], [place]. Phone contact with her providers was intiated, and call back is pending. Consults Consult date: 01/09/22 Requesting physician: Saima Gruber Review of Systems Neurologic Neurologic: Reports behavioral changes, Reports confusion and Reports memory loss Psychiatric Psychiatric: Reports abnormal sleep pattern, Reports behavioral changes, Reports change in appetite, Reports confusion, Reports depression, Reports difficulty concentrating and Reports memory loss PFSH All Active Problems Palliative care patient (Acute) Tremor (Acute) Altered mental status (Acute) Pneumobilia (Acute) Weight loss, unintentional (Acute) Hypoalbuminemia due to protein-calorie malnutrition (Acute) Unexplained weight loss (Acute) Discharge planning issues (Acute) DVT prophylaxis (Acute) Bipolar disorder (Acute) PTSO/abuse/syphilis 1968 tx, hospitalizations , 10/18, head MRI , EEG Chronic pain (Chronic ~07/13/15) GERD (gastroesophageal reflux disease) (Chronic) Hypertension (Chronic) Weakness (Acute) Adult failure to thrive (Acute) Multiple falls (Acute) Decubitus ulcer (Acute) Medical History Allergic rhinitis Allergic rhinitis Arthritis Arthritis Back pain Chronic back pain Chronic sinusitis Diabetes mellitus Dyslipidemia Dyslipidemia Dyspnea Fatty liver disease, nonalcoholic Fracture of ankle GERD (gastroesophageal reflux disease) Glaucoma Glaucoma History of malignant neoplasm of pancreas Hypertensive disorder Knee pain Left sided abdominal pain 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 She did not have overt malignancy. Surgery was curative. Per pt. states she had a whipple procedure, and has been in remission since 2004. Obstruction of common bile duct On lobsterman drug therapy ineidaion chronic LBP associated with OA hx of compression fx. medications oxycodine 10 mg tablet SOAP sore 14. Yearly narcotic contract last signed 10/18/2018, 10/01/2019 [place] PDMP queried twice yearly for 5 states including [place] and [place] last dibe ib 03/01/18, 03/13/19, 01/09/20, [place] random urine drug screen being done at least 3-4 months GABBY (obstructive sleep apnea) GABBY (obstructive sleep apnea) Osteoporosis Steatosis, liver Type II diabetes mellitus Pt. states she was and is no longer taking medication Vertigo Surgical History Abdominal hysterectomy Fracture, Open Treatment ORIF Fibia H/O hernia repair Hernia Repair, Incisional x3 History of cataract surgery History of hysterectomy Hx of total knee replacement Pancreatic Duodenectomy(whipple procedure) Recurrent major depression in partial remission Replacement of total knee joint left S/P tonsillectomy and adenoidectomy Tonsillectomy and adenoidectomy Family History Brother Hearing loss ear problems, hearing loss and dizzy Social History Smoking/Tobacco Use Status: Former Tobacco Use Quit Date: 08/20/04 Smoking risk assessment performed?: Yes Alcohol Intake: former Drug use: Never Substance use type: does not use Do you feel safe at home: Yes Do you feel safe in your relationship?: Yes Additional Social history: Lives alone in her own home in [facility]. Results Last Vital Signs Temp 36.4 C L 01/09/22 15:00 Pulse 103 H 01/09/22 15:00 Resp 20 01/09/22 15:00 BP 113/77 01/09/22 15:00 Pulse Ox 96 01/09/22 15:00 Labs Result diagrams: 01/09/22 11:15 01/09/22 06:10 Labs: Laboratory Results - last 24 hr 01/06/22 01/08/22 01/08/22 06:44 10:00 10:30 WBC RBC Hgb Hct MCV MCH MCHC RDW Plt Count MPV Immature Gran % Neutrophils % Band Neutrophils % Lymphocytes % Atypical Lymphs % Monocytes % Eosinophils % Basophils % Metamyelocytes % Myelocytes % Promyelocytes % Other Cells % Nucleated RBC % Absolute Neutrophils Absolute Lymphocytes Absolute Monocytes Absolute Eosinophils Absolute Basophils RBC Morphology Polychromasia Hypochromasia Poikilocytosis Basophilic Stippling Anisocytosis Microcytosis Macrocytosis Spherocytes Tear Drop Cells Ovalocytes Stomatocytes Ramirez[place] Bodies Samantha Cells/Echinocytes Acanthocytes (Spur) Schistocytes Sodium Potassium Chloride Carbon Dioxide Anion Gap BUN Creatinine Estimated GFR/1.73 m2 Glucose Calcium Total Bilirubin Conjugated Bilirubin AST ALT Alkaline Phosphatase Total Protein Albumin Prealbumin 4 L CA 125 Antigen 103 H Stool Campylobacter PCR Negative Stool Salmonella PCR Negative Stool Shigella PCR Negative Shiga Toxin (PCR) Negative 01/09/22 01/09/22 01/09/22 06:10 06:10 06:10 WBC Cancelled RBC Cancelled Hgb Cancelled Hct Cancelled MCV Cancelled MCH Cancelled MCHC Cancelled RDW Cancelled Plt Count Cancelled MPV Cancelled Immature Gran % Cancelled Neutrophils % Cancelled Band Neutrophils % Cancelled Lymphocytes % Cancelled Atypical Lymphs % Cancelled Monocytes % Cancelled Eosinophils % Cancelled Basophils % Cancelled Metamyelocytes % Cancelled Myelocytes % Cancelled Promyelocytes % Cancelled Other Cells % Cancelled Nucleated RBC % Cancelled Absolute Neutrophils Cancelled Absolute Lymphocytes Cancelled Absolute Monocytes Cancelled Absolute Eosinophils Cancelled Absolute Basophils Cancelled RBC Morphology Cancelled Polychromasia Cancelled Hypochromasia Cancelled Poikilocytosis Cancelled Basophilic Stippling Cancelled Anisocytosis Cancelled Microcytosis Cancelled Macrocytosis Cancelled Spherocytes Cancelled Tear Drop Cells Cancelled Ovalocytes Cancelled Stomatocytes Cancelled [place] Bodies Cancelled Samantha Cells/Echinocytes Cancelled Acanthocytes (Spur) Cancelled Schistocytes Cancelled Sodium 143 Potassium 4.2 Chloride 114 H Carbon Dioxide 21.8 Anion Gap 7.2 BUN 15 Creatinine 0.4 L Estimated GFR/1.73 m2 >= 60.00 Glucose 66 L Calcium 7.0 L Total Bilirubin Cancelled 0.3 Conjugated Bilirubin Cancelled 0.1 AST Cancelled 20 ALT Cancelled 11 L Alkaline Phosphatase Cancelled 70 Total Protein Cancelled 3.7 L Albumin Cancelled 1.1 L Prealbumin CA 125 Antigen Stool Campylobacter PCR Stool Salmonella PCR Stool Shigella PCR Shiga Toxin (PCR) 01/09/22 11:15 WBC 10.76 RBC 2.57 L Hgb 7.8 L Hct 25.4 L MCV 99 H MCH 30.4 MCHC 30.7 L RDW 19.8 H Plt Count 356 MPV 8.5 Immature Gran % 0.0 Neutrophils % 53.0 Band Neutrophils % 6 Lymphocytes % 30.0 Atypical Lymphs % Monocytes % 6.0 Eosinophils % 4.0 Basophils % 0.0 Metamyelocytes % 1 Myelocytes % Promyelocytes % Other Cells % Nucleated RBC % 0.0 Absolute Neutrophils 6.35 Absolute Lymphocytes 3.23 Absolute Monocytes 0.65 Absolute Eosinophils 0.43 Absolute Basophils 0.00 RBC Morphology Normal Polychromasia Hypochromasia Poikilocytosis Basophilic Stippling Anisocytosis Microcytosis Macrocytosis Spherocytes Tear Drop Cells Ovalocytes Stomatocytes [place] Bodies [place] Cells/Echinocytes Acanthocytes (Spur) Schistocytes Sodium Potassium Chloride Carbon Dioxide Anion Gap BUN Creatinine Estimated GFR/1.73 m2 Glucose Calcium Total Bilirubin Conjugated Bilirubin AST ALT Alkaline Phosphatase Total Protein Albumin Prealbumin CA 125 Antigen Stool Campylobacter PCR Stool Salmonella PCR Stool Shigella PCR Shiga Toxin (PCR) Consent/Time spent Consent/Time Spent The patient has consented to a virtual communication with the provider: Yes Visit performed via: Telehealth Time Spent (minutes): 90
[2022-01-09] MEDS: Rosuvastatin 10 MG TAB PO (21:40)
[2022-01-09] MEDS: Latanoprost 0.005% 2.5 ML BTL OP (21:40)
[2022-01-09] MEDS: OLANZapine 5 MG TAB PO (21:40)
[2022-01-09] MEDS: Mirtazapine 15 MG TAB 7.5 MG PO (21:43)
[2022-01-09 23:25] VITALS: BP 115/75; PULSE 98; RESP 20; TEMP 36.6; O2SAT 97
[2022-01-10 06:40] LABS: HCT 22.7 % (36.0-46.0); MCH 30.3 pg (27.0-33.0); MCHC 30.4 % (32.0-36.0); MCV 100 fL (80-95); MPV 8.5 fL (8.0-11.0); Platelet Count 269 10^3/uL (130-400); RBC 2.28 10^6/uL (3.93-5.22); RDW 19.9 % (11.7-14.6); WBC 7.76 10^3/uL (4.4-10.8)
[2022-01-10 06:57] LABS: Anion Gap 6.7 mmol/L (3-11); BUN 13 mg/dL (7-18); CO2 23.3 mmol/L (21.0-32.0); CREATININE 0.4 mg/dL (0.55-1.02); Calcium 7.1 mg/dL (8.5-10.1); Chloride 115 mmol/L (98-107); Glucose 73 mg/dL (74-106); Magnesium 1.6 mg/dL (1.8-2.4); Potassium 4.4 mmol/L (3.5-5.1); Sodium 145 mmol/L (136-145)
[2022-01-10 07:03] LABS: HGB 6.9 g/dL (11.2-15.7)
[2022-01-10 07:11] LABS: Absolute Basophil Count 0.08 10^3/uL (0.0-0.2); Absolute Eosinophil Count 0.16 10^3/uL (0.0-0.7); Absolute Lymphocyte Count 3.03 10^3/uL (1.2-3.4); Absolute Monocyte Count 0.54 10^3/uL (0.1-0.8); Absolute Neutrophil Count 3.96 10^3/uL (1.2-6.7)
[2022-01-10 07:12] LABS: Diff Comment Manual Differential; RBC Morphology Normal
[2022-01-10 07:34] VITALS: BP 109/76; PULSE 102; RESP 18; TEMP 36.8; O2SAT 94
--- NOTE | 2022-01-10 08:12 | PT.INTREAT ---
Date of service: 01/10/22 Time of Service: 07:27 PT Notes Visit Reasons: Hypokalemia, Failure to Thrive Inpatient Physical Therapy Treatment Note [facility] Date: 01/10/2022 PRECAUTIONS: Activity as tolerated, Fall, confusion SUBJECTIVE: Rama is pleasant and agreeable to participating in PT. OBJECTIVE: PAIN: No c/o pain BED MOBILITY/TRANSFERS: Held OOB activities in a.m. due to low Hgb (6.9) and limited activity tolerance. Will reassess appropriateness this afternoon. Rolling R: Mod A, with CGA to maintain position for wound care of sacral ulcer Supine-sit: Mod A Sit-stand: Mod A Stand-sit: Mod A x2 Bed-chair: Mod A x2 GAIT: Assistive Device: FWW Weight bearing: Full Assistance: Mod A x2 Distance: 6' Deviation: Narrow SOFIA, weakness, assist with FWW management THEREX: A.M.: Patient was instructed in an UE and LE strengthening and stabilization program, completed in a supine position, to include: ankle pumps, glute sets, quad sets, hip flexion, hip abduction, bridging, shoulder flexion and [id number], and modified sit-ups. She requires physical assist with most exercises as well as tactile, verbal and visual cueing for proper exercise performance. P.M.: Patient was instructed in several UE and LE strengthening exercises, completed in a seated position, to include: ankle pumps, LAQ, hip flexion, hip abduction, shoulder flexion and shoulder horizontal abduction. Patient requires assist with most exercises, as well as visual and verbal cueing for proper exercise performance. ASSESSMENT: Patient tolerated session with complaint of increased fatigue. She demonstrates global weakness and limited activity tolerance, which may be enhanced by confusion. Held OOB activities in a.m. due to low Hgb levels. She was able to tolerate gait training in p.m. and indicates sitting in chair provides pain relief from sacral ulcer. PLAN: Continue with global strengthening and general conditioning, as tolerated and indicated, for improved mobility and activity tolerance. TREATMENT CODE/TIME: Session 1: 25 minutes; 92547 x2 (07:27) Session 2: 26 minutes; [id number], [id number] (13:05)
[2022-01-10 08:34] LABS: HCT 24.7 % (36.0-46.0); HGB 7.7 g/dL (11.2-15.7)
[2022-01-10] MEDS: Aspirin E.C. 81 MG TABEC PO (08:42)
[2022-01-10] MEDS: Multivitamin TAB 1 TAB PO (08:42)
[2022-01-10] MEDS: Potassium Chloride 20 MEQ TABCR PO ×3 (08:42→20:16)
[2022-01-10] MEDS: buPROPion-CR 100 MG TABCR 200 MG PO ×2 (08:43→20:16)
[2022-01-10] MEDS: FLUoxetine 20 MG CAP PO (08:43)
[2022-01-10] MEDS: Ascorbic Acid 500 MG TAB PO ×2 (08:43→20:16)
[2022-01-10] MEDS: Zinc Sulfate 220 MG TAB PO (08:43)
[2022-01-10] MEDS: Calcium 600mg/Vit D 200U TAB 1 TAB PO (08:44)
[2022-01-10] MEDS: Lactobacillus Acidophilus CAP 1 CAP PO ×2 (08:45→20:16)
[2022-01-10] MEDS: Psyllium PKT 1 EACH PO ×2 (08:45→20:16)
[2022-01-10] MEDS: Omeprazole 20 MG CAPCR 40 MG PO ×3 (08:45→16:42)
[2022-01-10] MEDS: Protein Nutritional Supplement 16 GM 1 OUNCE PACKET PO ×3 (08:45→20:16)
[2022-01-10] MEDS: MAGNESIUM SULFATE 2 GM/50 ML BAG IVPB (08:45)
[2022-01-10] MEDS: Normal Saline Flush 10 ML SYR IVP ×4 (08:46→20:16)
[2022-01-10 08:48] LABS: Lab Add On Test DONE
--- NOTE | 2022-01-10 08:58 | CMPROGNOTE_ITS ---
- If Service Date Differs Date of service: 01/10/22 Time of Service: 08:58 Care Management Progress Note S/O: Loli was lying in bed with the HOB elevated. Loli is alert and able to answer question's appropriately. Loli stated that she is at [facility] and identified her correct date of . During conversation she mentioned to CM that a baby and it's mother just ran by her door. She identified her son Eddie, noting that he helps a lot and lives in [place], [place]. She shared that he's a former uniform patrol police officer and she doesn't like to bother him with little things. She also identified her other boy Kedar stating that he lives in [facility] and that is is a retired Marine. He teaches student's and travels to places like [place] and [place]. He sends her great pictures from the air, and teaches using simulators. Loli also shared with CM that her dog got lost when she came to the hospital and she found a nice picture and posted in the newspaper the day after she was admitted here. She also states that her son's and her neighbor Ying her were helping her find him. CM spoke with patient's son Eddie, who validated the above information, except for her dog being missing. However, he called CM back within 15 minutes, asking CM to reassure his mom that he just contacted her neighbor and her dog is perfectly fine and staying with Ying. Per Eddie, he check's on Loli daily via phone. If she doesn't answer, he calls her neighbor Ying who then goes out to check on her. He hasn't been able to go in her house for a few weeks stating that his family has been dealing with Covid, He has has left water, food and nutrition shakes on her door step. Eddie reports that he's had concerns about his mother's health for several months and he's needed to call the ambulance for her a few times and she was treated at [facility] (CM notified Dr. Gruber and requested her record's from [facility]). Eddie also mentioned that Loli has an appointment with Dr. Perry in [place] on 01/12/22 because she was having black diarrhea and back pain. CM notified Dr. Gruber, and also requested records from Dr. Orlando montiel. ASHWIN spoke with his RN Majo and is waiting to find out if he recommend's that she have the endoscopy during her admission. Per Eddie, he's noticed a change in his mother's mentation after she went to the OR for wound debridement. He suspects this is related to the anesthesia. However, he did mention to that Loli has a HX of delusions 15-20 years ago, which has been stable on her medications ever since. Eddie does not know what medications she takes and if she has been taking them. Loli is agreeable to SNF for STR prior to returning home. Eddie is agreeable to help his mother with watermelon inspector planning, and will reach out to Kedar to help with family planning. A: 66 year old female admitted to [facility] on 01/05/22 for weakness, falls and failure to thrive. P: Loli requires further medical workup and hospitalization for weakness and malnutrition. Surgical intervention in the OR is scheduled for Fri (01/06/22). Anticipate, Loli will discharge to SNF for STR vs. home with New [facility] services when medically ready. SNF referral's are pending, [facility], offered her a bed. Transportation will be dependent on disposition and pts mobility level at time of discharge. Son is John Paul Crawford
--- NOTE | 2022-01-10 09:45 | PGE_ITS ---
Date of Service Date of service: 01/10/22 Time of Service: 09:09 Assessment and Plan Assessment and plan (1) Altered mental status: Status: Acute (2) Tremor: Status: Acute (3) Weakness: Status: Acute (4) Adult failure to thrive: Status: Acute Assessment and plan: #1. Weakness. I do not see any neurological explanation for her weakness at this time. She is obviously very malnourished and deconditioned. Agree with improved nutrition and PT. #2. Tremor. Complex tremor with postural and action components. Differential includes Essential tremor vs medication-induced tremor vs both. I do not see any significant Parkinsonism at this time, though she is at risk given history of anti-psychotic medication use. Sinemet has been stopped and perhaps she has some subtle bradykinesia, but not enough findings to diagnose Parkinsonism at this time nor enough benefit to continue Sinemet. Again, I would recommend doing a thorough medication reconciliation as well as inquiring into fill records given concern for medication induced tremor. #3. Altered mental status. Rama was able to answer some questions appropriately but at other times gave incorrect or very odd answers. Unclear if this is dementia vs psych vs delirium. She was unable to identify any reliable person in her life in order to get information on what is her baseline, etc... We need to find someone that can help with this. We also need to find out medications above and if she is taking these consistently and who is prescribing them. Subjective Subjective Interval history since last seen: Sinemet stopped. She notes she is feeling better today. She can't tell me why. She is unsure if her tremor is better or worse. States today PCP is Karley Thornton NP in [place]. Does not know her pharmacy. Seen by telepsych Dr. Tamez yesterday who started her on mirtazapine and noted no-capacity. Exam Narrative Exam Narrative: Physical Exam: Constitutional: thin, arms covered in varying levels of healing wounds/sores Neuro: MS/Language/Speech: Alert, mild dysarthria and hypophonia Motor: Normal bulk and tone. No cogwheel rigidity. FMM intact, no pronator drift. ?subtle bilateral UE bradykinesia. 3-4/5 strength throughout. No focal weakness. No resting tremor. Moderate bilateral UE postural tremor, slightly worse with activity. Coordination: Finger to nose performed with mild-moderate bilateral UE tremor Objective Last Vital Signs Temp 98.2 F 01/10/22 07:34 Pulse 102 H 01/10/22 07:34 Resp 18 01/10/22 07:34 BP 109/76 01/10/22 07:34 Pulse Ox 94 01/10/22 07:34 Laboratory Results - last 24 hr 01/06/22 01/06/22 01/08/22 06:44 23:58 10:00 WBC RBC Hgb Hct MCV MCH MCHC RDW Plt Count MPV Immature Gran % Neutrophils % Band Neutrophils % Lymphocytes % Monocytes % Eosinophils % Basophils % Metamyelocytes % Nucleated RBC % Absolute Neutrophils Absolute Lymphocytes Absolute Monocytes Absolute Eosinophils Absolute Basophils RBC Morphology Sodium Potassium Chloride Carbon Dioxide Anion Gap BUN Creatinine Estimated GFR/1.73 m2 Glucose Calcium Magnesium Prealbumin 4 L CA 125 Antigen 103 H [facility] TNP Add-On Test Request 01/09/22 01/10/22 01/10/22 11:15 05:30 05:30 WBC 10.76 7.76 RBC 2.57 L 2.28 L Hgb 7.8 L 6.9 L* Hct 25.4 L 22.7 L MCV 99 H 100 H MCH 30.4 30.3 MCHC 30.7 L 30.4 L RDW 19.8 H 19.9 H Plt Count 356 269 MPV 8.5 8.5 Immature Gran % 0.0 0.0 Neutrophils % 53.0 51.0 Band Neutrophils % 6 Lymphocytes % 30.0 39.0 Monocytes % 6.0 7.0 Eosinophils % 4.0 2.0 Basophils % 0.0 1.0 Metamyelocytes % 1 Nucleated RBC % 0.0 0.0 Absolute Neutrophils 6.35 3.96 Absolute Lymphocytes 3.23 3.03 Absolute Monocytes 0.65 0.54 Absolute Eosinophils 0.43 0.16 Absolute Basophils 0.00 0.08 RBC Morphology Normal Normal Sodium 145 Potassium 4.4 Chloride 115 H Carbon Dioxide 23.3 Anion Gap 6.7 BUN 13 Creatinine 0.4 L Estimated GFR/1.73 m2 >= 60.00 Glucose 73 L Calcium 7.1 L Magnesium 1.6 L Prealbumin CA 125 Antigen [facility] Add-On Test Request 01/10/22 01/10/22 05:30 08:19 WBC RBC Hgb 7.7 L Hct 24.7 L MCV MCH MCHC RDW Plt Count MPV Immature Gran % Neutrophils % Band Neutrophils % Lymphocytes % Monocytes % Eosinophils % Basophils % Metamyelocytes % Nucleated RBC % Absolute Neutrophils Absolute Lymphocytes Absolute Monocytes Absolute Eosinophils Absolute Basophils RBC Morphology Sodium Potassium Chloride Carbon Dioxide Anion Gap BUN Creatinine Estimated GFR/1.73 m2 Glucose Calcium Magnesium Prealbumin CA 125 Ant[facility] Add-On Test Request DONE
[2022-01-10 09:57] LABS: Ferritin 319 ng/mL (8-252); Folate 11.4 ng/mL (8.6-20.0); Vitamin B12 1214 pg/mL (193-986)
[2022-01-10 11:07] LABS: Iron 34 ug/dL (50-170); Total Iron Binding Capacity < 36 ug/dL (250-450)
--- NOTE | 2022-01-10 12:36 | W.NUTRFU ---
Date of service: 01/10/22 Time of Service: 11:36 Nutrition Note NOTE: Loli has had very poor po intake since admission and meeting less than 30% of calorie/protein/fluid needs by mouth. With malnourished state at time of admission. Estimated Needs:? [id number] kcal, 65-70 g protein, 1400 ml fluid D5 started 01/09/22. Remeron started for depression and appetite stimulation. Following regular meal plan, supplemented with ensure clear at meals and ensure plus TID - however, often refuses. Also, supplemented with liquid protein (3 oz daily-180 kcal, 45 g protein), Vitamin C, Zinc, MVI to help optimize healing of sacral pressure wounds. Fluid needs met via IV hydration. If unable to meet at least 50% of estimated needs will need to consider nutrition support in view of FULL CODE status. Will continue to follow/support. Time Spent in Nutritional Counseling and Treatment: 5
[2022-01-10 15:22] VITALS: BP 109/72; PULSE 101; RESP 24; TEMP 36.2; O2SAT 96
[2022-01-10] MEDS: cefTRIAXone 1 GM/50 ML BAG IVPB (16:42)
--- NOTE | 2022-01-10 17:17 | W.PM.PROGNOT ---
Date of Service Date of service: 01/10/22 Time of Service: 16:17 Assessment and Plan Assessment and plan (1) Weakness: Status: Acute Assessment and plan: Evaluated by Dr Westfall who feels that the explanation for weakness has more to do with malnutrition and deconditioning rather than a neurologic etiology. D/c sinemet. Would benefit from SNF on discharge - cannot live independently. continue PT/OT (2) Adult failure to thrive: Status: Acute Assessment and plan: Discussed with Dr Tamez and with Dr Westfall - it is unclear how compliant the patient has been as an outpatient and it is entirely possible that she was not taking her medications which led to psychiatric reasons for not caring for self. Dr Gruber concerned about her poor appetite, and feels an EGD and colonoscopy might be indicated, but they do not necessarily need to be done as an in-patient. We are trying to get in touch with Dr Perry for outpatient plan vs scope her here. If so, will place surgical consult. Additionally, the patient does not have capacity to make her medical decisions, as per her conversation with Dr Tamez yesterday. (3) Hypomagnesemia: Status: Acute Assessment and plan: repleted, will recheck in am. (4) Iron (Fe) deficiency anemia: Status: Acute Assessment and plan: given IV venofer. add oral iron. B12, folate, normal (5) Weight loss, unintentional: Status: Acute Assessment and plan: MRI scan of the abdomen did not show any recurrence of her pancreatic cancer. Pneumobilia is stable and likely not representing a pathologic process. Given low appetite, trialing mirtazapine and consider EGD/colonoscopy. (6) Decubitus ulcer: Status: Acute Assessment and plan: Continue empiric rocephin and wound care. santyl and wet to dry BID nursing reports some improvement in wound appearance. (7) Acute hypokalemia: Status: Resolved Assessment and plan: normalized, continue to follow and replete as indicated (8) Hypertension: Status: Chronic Assessment and plan: amlodipine and lisinopril on hold, blood pressures controlled. (9) GERD (gastroesophageal reflux disease): Status: Chronic Assessment and plan: Continue omperazole (question AC dosing - await records from PCP) (10) Bipolar disorder: Status: Acute Assessment and plan: Continue wellbutrin, prozac, olanazapine, add mirtazapine. Evaluated by Dr Tamez yesterday. (11) DVT prophylaxis: Status: Acute Assessment and plan: continue enoxaparin (12) Discharge planning issues: Status: Acute Assessment and plan: Full code Will need a guardian. Unsafe to live independently and will need SNF placement. discussed with Dr Gruber Subjective Subjective Patient reports: no new complaints Interval history since last seen: continues to have poor po intake, only drinks little boost with encouragement and assistance. wound continues to have purulent drainage but nursing reports decreased slough in wound bed. continues to have indwelling walker catheter to keep wound clean and dry. no further stooling since 7 am today. patient has intermittently required re-orientation throughout the day, at one time thinking she was at a school per nursing. on my evaluation she is oriented to person and place, unable to tell me why she is here. unable to tell me where she lives but states she lives alone. I suspect this is baseline, possibly slightly worsened cognitive impairment now outside of her environment. continues to decline physically, now only a pivot to chair assist as she is having difficulty bearing her weight. Exam Const General: cooperative, comfortable, disheveled, frail appearing and ill appearing chronically Nutritional Appearance: average body habitus Orientation: alert and awake HENMS Head: normal to inspection and normocephalic Mouth: moist mucous membranes abnormal (dry) Resp Effort & Inspection: normal respiratory effort Auscultation: clear to auscultation bilaterally, diminished lung sounds (bases), no rhonchi and no wheezes Cardio Rate: regular rate Rhythm: regular rhythm GI Inspection: normal to inspection Palpation: soft Auscultation: normal bowel sounds Skin Lesions: lesion noted (coccyx, see nursing documentation, scabs on bilateral arms, ) Rashes: rashes noted (bilateral forearms, red) Neuro General: patient alert, patient awake, oriented Patient Orientation: Person, Place and Confused (at times, needs re-orientation) and no focal motor deficits Speech: speech normal Motor: tone not normal throughout and strength not 5/5 throughout (4/5 bilaterally) Extrem General: normal to inspection and no pedal edema Psych Affect: blunted Attitude: cooperative Insight: limited Judgment: limited Objective Last Vital Signs Temp 36.2 C L 01/10/22 15:22 Pulse 101 H 05/24/22 15:22 Resp 24 01/10/22 15:22 BP 109/72 01/10/22 15:22 Pulse Ox 96 01/10/22 15:22 Laboratory Results - last 24 hr 01/06/22 01/10/22 01/10/22 23:58 05:30 05:30 WBC 7.76 RBC 2.28 L Hgb 6.9 L* Hct 22.7 L MCV 100 H MCH 30.3 MCHC 30.4 L RDW 19.9 H Plt Count 269 MPV 8.5 Immature Gran % 0.0 Neutrophils % 51.0 Lymphocytes % 39.0 Monocytes % 7.0 Eosinophils % 2.0 Basophils % 1.0 Nucleated RBC % 0.0 Absolute Neutrophils 3.96 Absolute Lymphocytes 3.03 Absolute Monocytes 0.54 Absolute Eosinophils 0.16 Absolute Basophils 0.08 RBC Morphology Normal Sodium 145 Potassium 4.4 Chloride 115 H Carbon Dioxide 23.3 Anion Gap 6.7 BUN 13 Creatinine 0.4 L Estimated GFR/1.73 m2 >= 60.00 Glucose 73 L Calcium 7.1 L Magnesium 1.6 L Iron TIBC Transferrin % Sat Ferritin Vitamin B12 Folate [facility] TNP Add-On Test Request 01/10/22 01/10/22 01/10/22 05:30 05:30 05:30 WBC RBC Hgb Hct MCV MCH MCHC RDW Plt Count MPV Immature Gran % Neutrophils % Lymphocytes % Monocytes % Eosinophils % Basophils % Nucleated RBC % Absolute Neutrophils Absolute Lymphocytes Absolute Monocytes Absolute Eosinophils Absolute Basophils RBC Morphology Sodium Potassium Chloride Carbon Dioxide Anion Gap BUN Creatinine Estimated GFR/1.73 m2 Glucose Calcium Magnesium Iron 34 L TIBC < 36 L Transferrin % Sat Ferritin 319 H Vitamin B12 1214 H Folate 11.4 [facility] Add-On Test Request DONE 01/10/22 08:19 WBC RBC Hgb 7.7 L Hct 24.7 L MCV MCH MCHC RDW Plt Count MPV Immature Gran % Neutrophils % Lymphocytes % Monocytes % Eosinophils % Basophils % Nucleated RBC % Absolute Neutrophils Absolute Lymphocytes Absolute Monocytes Absolute Eosinophils Absolute Basophils RBC Morphology Sodium Potassium Chloride Carbon Dioxide Anion Gap BUN Creatinine Estimated GFR/1.73 m2 Glucose Calcium Magnesium Iron TIBC Transferrin % Sat Ferritin Vitamin B12 Folate [facility] Add-On Test Request
[2022-01-10] MEDS: IRON SUCROSE COMPLEX 200 MG in Normal Saline 100 ML 400 MG IVPB (18:53)
[2022-01-10] MEDS: Ferrous Sulfate 325 MG TAB PO (20:23)
[2022-01-10] MEDS: Mirtazapine 15 MG TAB 7.5 MG PO (21:56)
[2022-01-10] MEDS: oxyCODONE 10 MG TAB 5 MG PO (21:56)
[2022-01-10] MEDS: Rosuvastatin 10 MG TAB PO (21:56)
[2022-01-10] MEDS: OLANZapine 5 MG TAB PO (21:56)
[2022-01-10] MEDS: Latanoprost 0.005% 2.5 ML BTL OP (21:57)
[2022-01-10 22:58] VITALS: BP 84/56; PULSE 94; RESP 16; TEMP 36.8; O2SAT 96
[2022-01-11 05:27] VITALS: BP 87/57; PULSE 102; RESP 14; TEMP 36.4; O2SAT 94
[2022-01-11 05:50] LABS: Abs Immature Grans 0.03 10^3/uL (0.0-0.06); Absolute Basophil Count 0.03 10^3/uL (0.0-0.2); Absolute Eosinophil Count 0.28 10^3/uL (0.0-0.7); Absolute Monocyte Count 1.26 10^3/uL (0.1-0.8); Absolute Neutrophil Count 3.85 10^3/uL (1.2-6.7); Basophils % 0.4; Eosinophils % 3.7; HCT 23.3 % (36.0-46.0); HGB 7.2 g/dL (11.2-15.7); Immature Grans % 0.4; Lymphocytes % 27.8; MCH 30.5 pg (27.0-33.0); MCHC 30.9 % (32.0-36.0); MCV 99 fL (80-95); MPV 8.7 fL (8.0-11.0); Monocytes % 16.7; Platelet Count 224 10^3/uL (130-400); RBC 2.36 10^6/uL (3.93-5.22); RDW 19.7 % (11.7-14.6); RDW-SD 71.1 fL; WBC 7.55 10^3/uL (4.4-10.8)
[2022-01-11 06:06] LABS: Anion Gap 5.2 mmol/L (3-11); BUN 12 mg/dL (7-18); CO2 22.8 mmol/L (21.0-32.0); CREATININE 0.4 mg/dL (0.55-1.02); Calcium 7.1 mg/dL (8.5-10.1); Chloride 114 mmol/L (98-107); Glucose 77 mg/dL (74-106); Magnesium 2.1 mg/dL (1.8-2.4); Potassium 4.7 mmol/L (3.5-5.1); Sodium 142 mmol/L (136-145)
[2022-01-11 06:18] LABS: Diff Comment Agrees w/ Instrument; RBC Morphology Normal
[2022-01-11 07:18] VITALS: BP 100/61; PULSE 106; RESP 16; TEMP 36.7; O2SAT 95
[2022-01-11] MEDS: DEXTROSE 5%-LACTATED RINGERS 1,000 ML 75 ML IV ×2 (07:46→20:45)
[2022-01-11] MEDS: Zinc Sulfate 220 MG TAB PO (07:47)
[2022-01-11] MEDS: Multivitamin TAB 1 TAB PO (07:47)
[2022-01-11] MEDS: FLUoxetine 20 MG CAP PO (07:47)
[2022-01-11] MEDS: Calcium 600mg/Vit D 200U TAB 1 TAB PO (07:47)
[2022-01-11] MEDS: Protein Nutritional Supplement 16 GM 1 OUNCE PACKET PO ×3 (07:47→20:27)
[2022-01-11] MEDS: buPROPion-CR 100 MG TABCR 200 MG PO ×2 (07:47→20:27)
[2022-01-11] MEDS: Potassium Chloride 20 MEQ TABCR PO ×3 (07:47→20:26)
[2022-01-11] MEDS: Omeprazole 20 MG CAPCR 40 MG PO ×3 (07:47→17:15)
[2022-01-11] MEDS: Ascorbic Acid 500 MG TAB PO ×2 (07:48→20:27)
[2022-01-11] MEDS: Lactobacillus Acidophilus CAP 1 CAP PO ×2 (07:48→20:27)
[2022-01-11] MEDS: Normal Saline Flush 10 ML SYR IVP ×3 (07:49→20:28)
--- NOTE | 2022-01-11 08:57 | PDOC.CMPRO ---
- If Service Date Differs Date of service: 01/11/22 Time of Service: 08:57 Care Management Progress Note S/O: Loli was sitting up in her chair with her legs elevated. She was pleasant, cooperative and notably confused. She told this pattern chart writer that she was probably going to care home because she was too close to the school last night. She was unable to elaborate further, however she mentioned to this pattern chart writer that she had a psych problem several years and stopped taking her pills at home and she thinks it's happening again. Loli shared that she would like to get stronger, and wants to see how it goes and if it's not possible she would need to find someone to watch her dog and cat. CM received record from Dr. Perry office and [facility], and passed them along to Dr. Gruber. ASHWIN spoke with Majo at Dr. Perry office and patients son Eddie has been bringing her to their office, including her last visit on 12/23/21. Of note, Loli was able to hold a fairly concise conversation with this pattern chart writer yesterday, today was much different. Loli continues to be agreeable to SNF placement. A: 66 year old female admitted to [facility] on 01/05/22 for weakness, falls and failure to thrive. P: Loli requires further medical workup and hospitalization for weakness and malnutrition. Surgical intervention in the OR is scheduled for Sun (01/06/22). Anticipate, Loli will discharge to SNF for STR vs. home with [facility] services when medically ready. SNF referral's are pending, [facility], offered her a bed. Transportation will be dependent on disposition and pts mobility level at time of discharge.
[2022-01-11] MEDS: oxyCODONE 10 MG TAB 5 MG PO (09:06)
[2022-01-11] MEDS: Ferrous Sulfate 325 MG TAB PO (09:07)
--- NOTE | 2022-01-11 09:28 | OT.INNT ---
Occupational Therapy Notes 01/11/22 Pt denied performance of OT services today. OT will attempt again tomorrow. Amanda Barrow, OTR/L
--- NOTE | 2022-01-11 12:30 | PT.INTREAT ---
Date of service: 01/11/22 Time of Service: 10:02 PT Notes Visit Reasons: Hypokalemia, Failure to Thrive Inpatient Physical Therapy Treatment Note [facility] Date: 01/11/2022 PRECAUTIONS: Activity as tolerated, Fall, confusion SUBJECTIVE: Rama is pleasant and agreeable to participating in PT. She states that she is feeling weak. OBJECTIVE: Patient was positioned in her chair with pillow under left buttock to off-load sacral ulcer, as well as reclined in chair to less than 30 degrees. PAIN: No c/o pain BED MOBILITY/TRANSFERS: Rolling R: Max A in recliner chair and in bed for positioning Supine-sit: Mod A Sit-supine: Min A Sit-stand: Mod A Stand-sit: Mod A Bed-chair: CGA + Min A Chair-bed: Min A GAIT: Assistive Device: FWW Weight bearing: Full Assistance: Min A + CGA in a.m.; Min A Distance: 15' in a.m.; 6' in p.m. Deviation: Narrow SOFIA, weakness, assist with FWW management THEREX: Patient was instructed in a LE strengthening and stabilization program, completed in a supine position, to include: ankle pumps, glute sets, quad sets, hip flexion and hip abduction. She requires physical assist with most exercises as well as tactile, verbal and visual cueing for proper exercise performance. ASSESSMENT: Patient tolerated session with complaint of increased fatigue. She demonstrates global weakness and limited activity tolerance, which may be enhanced by confusion. She was able to tolerate a progression in gait distance with FWW support and CGA + Min A. PLAN: Continue with global strengthening and general conditioning, as tolerated and indicated, for improved mobility and activity tolerance. TREATMENT CODE/TIME: Session 1: 25 minutes; 67389 x2 (10:02) Session 2: 15 minutes; [id number] (14:27)
[2022-01-11 14:47] VITALS: BP 97/67; PULSE 105; RESP 16; TEMP 37; O2SAT 95
[2022-01-11 14:47] LABS: Pancreatic Elastase, F <40 mcg/g
--- NOTE | 2022-01-11 16:10 | PGE_ITS ---
Date of Service Date of service: 01/11/22 Time of Service: 15:11 Assessment and Plan Assessment and plan (1) Adult failure to thrive: Status: Acute Assessment and plan: Concern for an underlying malignancy given her unintentional weight loss, GI complaints. She also has an elevated CA 125. She refused a transvaginal US. She has a h/o cervical cancer. She had a sigmoidoscopy by Dr Vo in October of 2021 - we are obtaining pathology report. Needs an EGD. Will discuss with surgery if they feel comfortable doing it given her anatomy. Additionally, it is unclear how compliant the patient has been as an outpatient. We do know she has missed multiple appointments with her PCP. It is entirely possible that she was not taking her medications which led to psychiatric saleem sons for not caring for self. Additionally, the patient does not have capacity to make her medical decisions, as per my conversation with Dr Tamez today and will need a guardian. (2) Weakness: Status: Acute Assessment and plan: Evaluated by Dr Westfall who feels that the explanation for weakness has more to do with malnutrition and deconditioning rather than a neurologic etiology. Would benefit from SNF on discharge - cannot live independently. (3) Anemia of chronic disease: Status: Acute Assessment and plan: No role for further iron therapy. Dr Perry also had bloodwork confirming same. (4) Weight loss, unintentional: Status: Acute Assessment and plan: MRI scan of the abdomen did not show any recurrence of her pancreatic cancer. Pneumobilia is stable and likely not representing a pathologic process. Given low appetite, trialing mirtazapine and consider EGD. Obtain pathology reports from Dr Vo's sigmoidoscopy. Consider MICA MACHINE OPERATOR consult: h/o cervical cancer and elevated CA 125. (5) Decubitus ulcer: Status: Acute Assessment and plan: Continue empiric rocephin and wound care. (6) Acute hypokalemia: Status: Resolved Assessment and plan: Recheck in am. (7) Hypertension: Status: Chronic Assessment and plan: Not requiring BP meds here. (8) GERD (gastroesophageal reflux disease): Status: Chronic Assessment and plan: Continue omperazole (I question AC dosing - await records from PCP) (9) Bipolar disorder: Status: Acute Assessment and plan: Continue wellbutrin, prozac, olanazapine, add mirtazapine. Evaluated by Dr Tamez. (10) DVT prophylaxis: Status: Acute Assessment and plan: continue enoxaparin (11) Discharge planning issues: Status: Acute Assessment and plan: Full code Unsafe to live independently and will need SNF placement. Consider palliative care consult. Subjective Subjective Interval history since last seen: Rama states she is not feeling well today. She states she has had diarrhea and n/v today, though I don't see this documented in the chart. She feels better now. She denies abdominal pain. Denies dizziness, chest pain, shortness of breath. She cannot tell me about the diagnostic plan she had with Dr Perry (it appears she was supposed to have upper endoscopy with him today or tomorrow). She cannot explain to me why she is in the hospital. She is A&Ox2. Discussed the case with Dr Perry. He saw her on December 23 and was planning on doing an EGD on her tomorrow. He notes that she has a B2 anastomosis after her Whipple - if she were to have her EGD here, the surgeon would need to be comfortable with that. We discussed the fact that her Hgb today is 7.2 down from 10.9 in October, and that her weight is down 15 lbs in 2 months. Malignancy is strongly suspected, and an EGD is recommended. Exam Narrative Exam Narrative: General: Pleasant female who is A&Ox2 and forgetful, essential tremor noted, cannot sit up independently. HEENT: EOMI, MMM Heart: RRR, no m/r/g Lungs: CTAB, coughs once Abdomen: soft, nontender, nondistended Extremities: trace edema BLEs Objective Last Vital Signs Temp 37.0 C 01/11/22 14:47 Pulse 105 H 01/11/22 14:47 Resp 16 01/11/22 14:47 BP 97/67 L 01/11/22 14:47 Pulse Ox 95 01/11/22 14:47 Laboratory Results - last 24 hr 01/08/22 01/11/22 01/11/22 11:20 05:20 05:20 WBC 7.55 RBC 2.36 L Hgb 7.2 L Hct 23.3 L MCV 99 H MCH 30.5 MCHC 30.9 L RDW 19.7 H Plt Count 224 MPV 8.7 Immature Gran % 0.4 Neutrophils % 51.0 Lymphocytes % 27.8 Monocytes % 16.7 Eosinophils % 3.7 Basophils % 0.4 Nucleated RBC % 0.0 Absolute Neutrophils 3.85 Absolute Lymphocytes 2.10 Absolute Monocytes 1.26 H Absolute Eosinophils 0.28 Absolute Basophils 0.03 RBC Morphology Normal Sodium 142 Potassium 4.7 Chloride 114 H Carbon Dioxide 22.8 Anion Gap 5.2 BUN 12 Creatinine 0.4 L Estimated GFR/1.73 m2 >= 60.00 Glucose 77 Calcium 7.1 L Magnesium 2.1 Stool Pancreat Elastase <40 L
[2022-01-11] MEDS: cefTRIAXone 1 GM/50 ML BAG IVPB (17:27)
[2022-01-11 17:37] VITALS: BP 103/60; PULSE 105; RESP 24; TEMP 37; O2SAT 94
[2022-01-11] MEDS: Psyllium PKT 1 EACH PO (20:28)
[2022-01-11] MEDS: Mirtazapine 15 MG TAB 7.5 MG PO (22:19)
[2022-01-11] MEDS: Rosuvastatin 10 MG TAB PO (22:19)
[2022-01-11] MEDS: OLANZapine 5 MG TAB PO (22:20)
[2022-01-11] MEDS: Latanoprost 0.005% 2.5 ML BTL OP (22:20)
[2022-01-12] VITALS (9 sets, daily range): BP systolic 96–122; BP diastolic 64–84; PULSE 98–108; RESP 16–21; TEMP 36.1–37.3; O2SAT 94–98
[2022-01-12] MEDS: Normal Saline Flush 10 ML SYR IVP ×7 (06:03→20:42)
[2022-01-12 06:31] LABS: Abs Immature Grans 0.04 10^3/uL (0.0-0.06); Absolute Basophil Count 0.01 10^3/uL (0.0-0.2); Absolute Eosinophil Count 0.26 10^3/uL (0.0-0.7); Absolute Lymphocyte Count 2.13 10^3/uL (1.2-3.4); Absolute Monocyte Count 1.29 10^3/uL (0.1-0.8); Absolute Neutrophil Count 3.38 10^3/uL (1.2-6.7); Basophils % 0.1; Eosinophils % 3.7; HCT 21.8 % (36.0-46.0); Immature Grans % 0.6; MCH 29.7 pg (27.0-33.0); MCHC 30.3 % (32.0-36.0); MCV 98 fL (80-95); MPV 8.6 fL (8.0-11.0); Monocytes % 18.1; Neutrophils % 47.5; Nucleated RBC 0.3 % (0.0-0.3); Platelet Count 193 10^3/uL (130-400); RBC 2.22 10^6/uL (3.93-5.22); RDW 19.4 % (11.7-14.6); RDW-SD 70.3 fL; WBC 7.11 10^3/uL (4.4-10.8)
[2022-01-12 06:42] LABS: Anion Gap 5.7 mmol/L (3-11); BUN 8 mg/dL (7-18); CO2 24.3 mmol/L (21.0-32.0); CREATININE 0.5 mg/dL (0.55-1.02); Calcium 7.1 mg/dL (8.5-10.1); Chloride 112 mmol/L (98-107); Glucose 87 mg/dL (74-106); Magnesium 1.8 mg/dL (1.8-2.4); Potassium 4.5 mmol/L (3.5-5.1); Sodium 142 mmol/L (136-145)
[2022-01-12 07:04] LABS: HGB 6.6 g/dL (11.2-15.7)
[2022-01-12 07:05] LABS: Diff Comment RBC Morph Reviewed; Microcytosis 2+
[2022-01-12] MEDS: Psyllium PKT 1 EACH PO ×2 (08:19→20:42)
[2022-01-12] MEDS: Protein Nutritional Supplement 16 GM 1 OUNCE PACKET PO ×3 (08:19→20:42)
[2022-01-12] MEDS: Multivitamin TAB 1 TAB PO (08:21)
[2022-01-12] MEDS: buPROPion-CR 100 MG TABCR 200 MG PO ×2 (08:21→20:42)
[2022-01-12] MEDS: FLUoxetine 20 MG CAP PO (08:21)
[2022-01-12] MEDS: Lactobacillus Acidophilus CAP 1 CAP PO ×2 (08:21→20:42)
[2022-01-12] MEDS: Calcium 600mg/Vit D 200U TAB 1 TAB PO (08:21)
[2022-01-12] MEDS: Ascorbic Acid 500 MG TAB PO ×2 (08:21→20:42)
[2022-01-12] MEDS: Zinc Sulfate 220 MG TAB PO (08:21)
--- NOTE | 2022-01-12 08:21 | OT.INNT ---
Occupational Therapy Notes 01/12/22 Pt was sleeping when OT arrived. OT will resume services tomorrow. Amanda Barrow OTR/[facility]
--- NOTE | 2022-01-12 08:40 | W.PM.PROGNOT ---
Date of Service Date of service: 01/12/22 Time of Service: 07:40 Assessment and Plan Assessment and plan (1) Anemia of chronic disease: Status: Acute Assessment and plan: - Lifelong Carafate ACH S Probability of anastomotic ulcer EGD in a.m. Consent was obtained from dentist. Risks of the procedure include but not limited to: Bleeding, infection, perforation, aspiration and complications of anesthesia. Venofer Transfuse as needed Family is working through goals of care and what direction we want to take her care. Palliative care has been consulted. I did review with nursing the current wound regimen for her decubitus ulcer. There does not appear to be any interval healing. And the wounds have slightly defervesced. (2) Iron (Fe) deficiency anemia: Status: Acute (3) Palliative care patient: Status: Acute (4) Tremor: Status: Acute (5) Altered mental status: Status: Acute (6) Weight loss, unintentional: Status: Acute (7) Hypoalbuminemia due to protein-calorie malnutrition: Status: Acute (8) Unexplained weight loss: Status: Acute (9) Bipolar disorder: Status: Acute (10) Chronic pain: Status: Chronic (11) GERD (gastroesophageal reflux disease): Status: Chronic (12) Hypertension: Status: Chronic (13) Adult failure to thrive: Status: Acute (14) Multiple falls: Status: Acute (15) Decubitus ulcer: Status: Acute (16) Arthritis: (17) Dyslipidemia: (18) Fatty liver disease, nonalcoholic: (19) GABBY (obstructive sleep apnea): (20) GI bleeding: Status: Chronic (21) Acute on chronic blood loss anemia: Status: Acute Subjective Subjective Interval history since last seen: Patient has developed a GI bleed. Her hemoglobin then was down to 6.6 today. She did receive 2 units have a came up to 9.5. She still is not eating well. She has not been having any significant bleeding from her wounds. There is no sign of any healing in the wounds. She has had a Whipple she had no problems with anesthesia for her debridement. Hospitalist would like to have the EGD. There is no signs of varice on CT. Psychiatry did see the patient and deemed her and it unable to sign her own consents due to the understanding. I did discuss her care with her son Eddie. He does give consent for the EGD and understands risks versus benefits including bleeding infection and perforation and anesthesia. He is struggling with goals of care for his mom. Palliative is seeing her as well. I am concerned that depression plays a big part in her not wanting to eat or move. We will continue to have psychiatry and care management work with her in this avenue. Exam GI Other: Abdomen is soft and nontender. Postsurgical changes noted. I did not visualize her sacral wounds today Objective Last Vital Signs Temp 37.3 C 01/12/22 07:00 Pulse 105 H 01/12/22 07:00 Resp 18 01/12/22 07:00 BP 96/65 L 01/12/22 07:00 Pulse Ox 98 01/12/22 07:00 Laboratory Results - last 24 hr 01/08/22 01/12/22 01/12/22 11:20 06:15 06:15 WBC 7.11 RBC 2.22 L Hgb 6.6 L* Hct 21.8 L MCV 98 H MCH 29.7 MCHC 30.3 L RDW 19.4 H Plt Count 193 MPV 8.6 Immature Gran % 0.6 Neutrophils % 47.5 Lymphocytes % 30.0 Monocytes % 18.1 Eosinophils % 3.7 Basophils % 0.1 Nucleated RBC % 0.3 Absolute Neutrophils 3.38 Absolute Lymphocytes 2.13 Absolute Monocytes 1.29 H Absolute Eosinophils 0.26 Absolute Basophils 0.01 RBC Morphology See Below Microcytosis 2+ Sodium 142 Potassium 4.5 Chloride 112 H Carbon Dioxide 24.3 Anion Gap 5.7 BUN 8 Creatinine 0.5 L Estimated GFR/1.73 m2 >= 60.00 Glucose 87 Calcium 7.1 L Magnesium 1.8 Stool Pancreat Elastase <40 L Crossmatch 01/12/22 07:42 WBC RBC Hgb Hct MCV MCH MCHC RDW Plt Count MPV Immature Gran % Neutrophils % Lymphocytes % Monocytes % Eosinophils % Basophils % Nucleated RBC % Absolute Neutrophils Absolute Lymphocytes Absolute Monocytes Absolute Eosinophils Absolute Basophils RBC Morphology Microcytosis Sodium Potassium Chloride Carbon Dioxide Anion Gap BUN Creatinine Estimated GFR/1.73 m2 Glucose Calcium Magnesium Stool Pancreat Elastase Crossmatch See Detail
[2022-01-12] MEDS: Pantoprazole 40 MG VIAL 80 MG IVP ×2 (08:44→20:42)
[2022-01-12] MEDS: Creon, Lipase 6,000 CAPCR 1 CAP PO ×3 (09:23→16:52)
[2022-01-12] MEDS: diphenhydrAMINE 25 MG CAP PO (12:07)
[2022-01-12] MEDS: Sucralfate 1 GM TAB PO ×2 (12:08→16:52)
[2022-01-12] MEDS: DEXTROSE 5%-LACTATED RINGERS 1,000 ML 75 ML IV (12:08)
--- NOTE | 2022-01-12 12:21 | PT.INTREAT ---
Date of service: 01/12/22 Time of Service: 11:47 PT Notes Visit Reasons: Hypokalemia, Failure to Thrive Inpatient Physical Therapy Treatment Note [facility] Date: 01/12/2022 PRECAUTIONS: Activity as tolerated, Fall SUBJECTIVE: Rama is pleasant and agreeable to participating in PT. She states that she feels very tired today. She is asking about how she got to the hospital and requests that someone ask her son Eddie if her door to her home is locked and where her purse is. (Concerns relayed to care management.) OBJECTIVE: Patient was positioned in bedr with pillow under left buttock to off-load sacral ulcer, as well as trunk reclined to less than 30 degrees. PAIN: No c/o pain BED MOBILITY/TRANSFERS/GAIT: Held per Dr. Gruber, hospitalist, due to patient awaiting blood transfusion due to low Hgb (6.6). THEREX: Patient was instructed in a LE strengthening and stabilization program, completed in a supine position, to include: ankle pumps, glute sets, quad sets, hip flexion, hip abduction and bridging. She requires physical assist with most exercises as well as tactile, verbal and visual cueing for proper exercise performance. ASSESSMENT: Patient tolerated session without complaint. She was limited due to low Hgb levels to bed level exercises only today. PLAN: Continue with global strengthening and general conditioning, as tolerated and indicated, for improved mobility and activity tolerance. TREATMENT CODE/TIME: 14 minutes; 30193 (11:47)
--- NOTE | 2022-01-12 13:11 | CMPROGNOTE_ITS ---
- If Service Date Differs Date of service: 01/12/22 Time of Service: 13:11 Care Management Progress Note S/O: Loli remains inpatient, MD reports speaking with sonMariposa Morgan ([phone]) today. Anticipate Loli will discharge to [facility] when ready. CM continues to follow. Previous day record-MIGUEL Aguirre: CM received record from Dr. Perry office and [facility], and passed them along to Dr. Gruber. CM spoke with Majo at Dr. Perry office and patients son Eddie has been bringing her to their office, including her last visit on 12/23/21. Of note, Loli was able to hold a fairly concise conversation with this copywriter yesterday, today was much different. Loli continues to be agreeable to SNF placement. A: 66 year old female admitted to [facility] on 01/05/22 for weakness, falls and failure to thrive. P: Loli requires further medical workup and hospitalization for weakness and malnutrition. Surgical intervention in the OR is scheduled for Fri (01/06/22). Anticipate, Loli will discharge to SNF for STR vs. home with [facility] services when medically ready. SNF referral's are pending, [facility], offered her a bed. Transportation will be dependent on disposition and pts mobility level at time of discharge.
--- NOTE | 2022-01-12 15:09 | W.PALLCONSUL ---
Date of service: 01/12/22 Time of Service: 14:10 History of Present Illness Narrative: Loli was seen for palliative care follow up. She was seen by KENA Ya previously during this admission. She is able to state her name and . She is able to state that it is December 2021 and that she is in the hospital at [facility] in [facility]. She reports that she lives in [facility] at times and [facility] at times. She has not been out of bed today. She has a pressure ulcer that was noted at the time of presentation to the hospital. She has a poor appetite. She reports that she has lost about 20 pounds over the last 6 months. She denies pain. We discussed CODE status. She is clear that she does not want attempts at resuscitation and she would not want to be on a ventilator. She would name her sons, John Paul Crawford and Kedar Crawford to speak for her if she is unable to speak for herself. She reports that she has documentation at [facility] in [place]- phone call to [facility] reveals that they do not have this documentation on file. We talked about the possibility that she could have a recurrence of cancer and that testing was ordered to help determine that. She states she would need to know more information before she can decide if she would want treatment/chemo/radiation/surgery. She is agreeable to going to rehab to get stronger before returning home. Discussed with her son, John Paul via phone. He agrees that his mother would not want attempts at resuscitation or mechanical ventilation. He would like to discuss with his brother prior to making any changes. He reports that depending on the results of testing, he does not think he will want his mother to receive aggressive care. Assessment and Plan Assessment and plan (1) Altered mental status: Status: Acute (2) Bipolar disorder: Status: Acute (3) Anemia of chronic disease: Status: Acute (4) Weight loss, unintentional: Status: Acute (5) GERD (gastroesophageal reflux disease): Status: Chronic (6) Adult failure to thrive: Status: Acute (7) Multiple falls: Status: Acute (8) Decubitus ulcer: Status: Acute (9) Malignant tumor of cervix: (10) Neoplasm of pancreas, malignant: (11) Palliative care patient: Status: Acute Assessment and plan: Loli is a very pleasant 66 year old female with multiple comorbidities who presented to the ED due to weakness and falls as well as inability to care for herself at home. She was noted at the time of presentation to have a significant stage III pressure ulcer. She also has a Hx of cervical cancer and pancreatic cancer and has been experiencing unintended weight loss. She has received blood transfusions for low HGB, there is a plan for EGD during this hospitalization. There is concern for recurrence of cancer, MIS SPECIALIST consult pending. She has been noted to have altered mental status during the hospitalization, there have been questions regarding her ability to make decisions/capacity. She is oriented to person, place and time today. She gave inconsistent answers occasionally, such as stating she lives in [facility] at one point and in [facility] at another point. Palliative was consulted to discuss goals of care. She is listed as a FULL CODE. She is clear today that she is a DNR/DNI. She reports that she has always wanted to be a DNR/DNI. She would name her sons, John Paul and Kedar Crawford to be her healthcare agents. She reports that there should be documentation on file at [facility] stating that her sons can speak for her if she cannot speak for herself, however, [facility] was contacted and did not have this documentation. Due to the question of her capacity, this was discussed with her son, John Paul via phone. He agrees that his mother would not want attempts at resuscitation or mechanical ventilation. He would like to discuss with his brother prior to making any changes to her CODE status. He reports that depending on the results of testing, he does not think he will want his mother to receive aggressive care. Palliative will continue to follow in and outpatient. Review of Systems Constitutional Constitutional: Reports as per [facility] All Active Problems Anemia of chronic disease (Acute) Iron (Fe) deficiency anemia (Acute) Hypomagnesemia (Acute) Palliative care patient (Acute) Tremor (Acute) Altered mental status (Acute) Pneumobilia (Chronic) -This is normal after a Whipple procedure Weight loss, unintentional (Acute) Hypoalbuminemia due to protein-calorie malnutrition (Acute) Unexplained weight loss (Acute) Discharge planning issues (Acute) DVT prophylaxis (Acute) Bipolar disorder (Acute) PTSO/abuse/syphilis 1968 tx, hospitalizations , 10/18, head MRI , EEG Chronic pain (Chronic ~07/13/15) GERD (gastroesophageal reflux disease) (Chronic) Hypertension (Chronic) Weakness (Acute) Adult failure to thrive (Acute) Multiple falls (Acute) Decubitus ulcer (Acute) Medical History Allergic rhinitis Allergic rhinitis Arthritis Arthritis Back pain Chronic back pain Chronic sinusitis Diabetes mellitus Dyslipidemia Dyslipidemia Dyspnea Fatty liver disease, nonalcoholic Fracture of ankle GERD (gastroesophageal reflux disease) Glaucoma Glaucoma History of malignant neoplasm of pancreas Hypertensive disorder Knee pain Left sided abdominal pain 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 She did not have overt malignancy. Surgery was curative. Per pt. states she had a whipple procedure, and has been in remission since 2004. Obstruction of common bile duct On detention drug therapy ineidaion chronic LBP associated with OA hx of compression fx. medications oxycodine 10 mg tablet SOAP sore 14. Yearly narcotic contract last signed 10/18/2018, 10/01/2019 [place] PDMP queried twice yearly for 5 states including [place] and [place] last dibe ib 03/01/18, 03/13/19, 01/09/20, [place] random urine drug screen being done at least 3-4 months GABBY (obstructive sleep apnea) GABBY (obstructive sleep apnea) Osteoporosis Steatosis, liver Type II diabetes mellitus Pt. states she was and is no longer taking medication Vertigo Surgical History Abdominal hysterectomy Fracture, Open Treatment ORIF Fibia H/O hernia repair Hernia Repair, Incisional x3 History of cataract surgery History of hysterectomy Hx of total knee replacement Pancreatic Duodenectomy(whipple procedure) Recurrent major depression in partial remission Replacement of total knee joint left S/P tonsillectomy and adenoidectomy Tonsillectomy and adenoidectomy Family History Brother Hearing loss ear problems, hearing loss and dizzy Social History Smoking/Tobacco Use Status: Former Tobacco Use Quit Date: 08/20/04 Smoking risk assessment performed?: Yes Alcohol Intake: former Drug use: Never Substance use type: does not use Do you feel safe at home: Yes Do you feel safe in your relationship?: Yes Additional Social history: Lives alone in her own home in [facility]. Exam Narrative Exam Narrative: General: very pleasant female, appears older than stated age, skin is pale, laying on her right side in bed, blood transfusion finishing. She is oriented to person, place and time. She occasionally gives inconsistent answers. HEENT: normocephalic, atraumatic, EOMI, mucous membranes dry. Neck: supple. Cardiovascuar: tachycardic. Respiratory: respirations appear even and unlabored, lungs sound clear on limited anterior and lateral exam. GI: +BS, abdomen is soft, nondistended, nontender on gentle palpation. Extremities: +1 pitting edema to BLEs. Results Last Vital Signs Temp 36.5 C 01/12/22 14:43 Pulse 108 H 01/12/22 14:43 Resp 20 01/12/22 14:43 BP 122/84 01/12/22 14:43 Pulse Ox 96 01/12/22 14:43 Labs Result diagrams: 01/12/22 06:15 01/12/22 06:15 Labs: Laboratory Results - last 24 hr 01/08/22 01/08/22 01/12/22 10:00 11:20 06:15 WBC RBC Hgb Hct MCV MCH MCHC RDW Plt Count MPV Immature Gran % Neutrophils % Lymphocytes % Monocytes % Eosinophils % Basophils % Nucleated RBC % Absolute Neutrophils Absolute Lymphocytes Absolute Monocytes Absolute Eosinophils Absolute Basophils RBC Morphology Microcytosis Sodium 142 Potassium 4.5 Chloride 112 H Carbon Dioxide 24.3 Anion Gap 5.7 BUN 8 Creatinine 0.5 L Estimated GFR/1.73 m2 >= 60.00 Glucose 87 Calcium 7.1 L Magnesium 1.8 Stool Pancreat Elastase <40 L Anti-MuSK Ab 0.00 Patient ABO/Rh Antibody Screen Crossmatch 01/12/22 01/12/22 06:15 10:53 WBC 7.11 RBC 2.22 L Hgb 6.6 L* Hct 21.8 L MCV 98 H MCH 29.7 MCHC 30.3 L RDW 19.4 H Plt Count 193 MPV 8.6 Immature Gran % 0.6 Neutrophils % 47.5 Lymphocytes % 30.0 Monocytes % 18.1 Eosinophils % 3.7 Basophils % 0.1 Nucleated RBC % 0.3 Absolute Neutrophils 3.38 Absolute Lymphocytes 2.13 Absolute Monocytes 1.29 H Absolute Eosinophils 0.26 Absolute Basophils 0.01 RBC Morphology See Below Microcytosis 2+ Sodium Potassium Chloride Carbon Dioxide Anion Gap BUN Creatinine Estimated GFR/1.73 m2 Glucose Calcium Magnesium Stool Pancreat Elastase Anti-MuSK Ab Patient ABO/Rh O Negative Antibody Screen NEGATIVE Crossmatch See Detail
--- NOTE | 2022-01-12 16:11 | W.PM.PROGNOT ---
Date of Service Date of service: 01/12/22 Time of Service: 15:11 Assessment and Plan Assessment and plan (1) Altered mental status: Status: Acute (2) Tremor: Status: Acute (3) Weakness: Status: Acute (4) Adult failure to thrive: Status: Acute Assessment and plan: #1. Weakness. I do not see any neurological explanation for her weakness at this time. Myasthenia ab negative. Agree with improved nutrition and PT. #2. Tremor. Complex tremor with postural and action components. Differential includes Essential tremor vs medication-induced tremor vs both. I do not see any significant Parkinsonism at this time, though she is at risk given history of anti-psychotic medication use. Sinemet has been stopped and perhaps she has some subtle bradykinesia, but not enough findings to diagnose Parkinsonism at this time nor enough benefit to continue Sinemet. #3. Altered mental status. Dementia vs psych vs delirium. Will sign off at this time. She should f/up in neurology clinic as an outpatient for further evaluation of tremor and cognitive status. Subjective Subjective Interval history since last seen: Rama continues to have poor appetite. Anemic. Plan is for EGD tomorrow - concerns for ulcer. Med list obtained from PCP's office and updated on outpatient side. Fill records reviewed. Here are pertinents: olanzapine 5mg HS (90d) filled 05/16/21 and 11/07/21 bupropion 200mg BID (90d) filled 01/18/21, 06/18/21, and 10/27/21 lamotrigine 25mg BID (90d) filled 03/24/21 and 06/14/21 fluoxetine 20mg daily (90d) filled 04/28/21, 07/26/21, 10/18/21 lisinopril 5mg daily (90d) filled 04/29/21 and 08/31/21 amlodipine 2.5mg HS (90d) filled 08/08/21 and 11/09/21 rosuvastatin 10mg daily (90d) filled 01/29/21 and not since omeprazole 40mg daily (90d) filled 05/25/21(60d), 07/26/21, 09/26/21 oxycodone 5mg am and 15mg HS (28d) filled consistently each month Exam Narrative Exam Narrative: no exam. She was sleeping. Objective Last Vital Signs Temp 97.0 F L 01/12/22 15:43 Pulse 105 H 01/12/22 15:43 Resp 20 01/12/22 15:43 BP 110/75 01/12/22 15:43 Pulse Ox 97 01/12/22 15:43 Laboratory Results - last 24 hr 01/08/22 01/12/22 01/12/22 10:00 06:15 06:15 WBC 7.11 RBC 2.22 L Hgb 6.6 L* Hct 21.8 L MCV 98 H MCH 29.7 MCHC 30.3 L RDW 19.4 H Plt Count 193 MPV 8.6 Immature Gran % 0.6 Neutrophils % 47.5 Lymphocytes % 30.0 Monocytes % 18.1 Eosinophils % 3.7 Basophils % 0.1 Nucleated RBC % 0.3 Absolute Neutrophils 3.38 Absolute Lymphocytes 2.13 Absolute Monocytes 1.29 H Absolute Eosinophils 0.26 Absolute Basophils 0.01 RBC Morphology See Below Microcytosis 2+ Sodium 142 Potassium 4.5 Chloride 112 H Carbon Dioxide 24.3 Anion Gap 5.7 BUN 8 Creatinine 0.5 L Estimated GFR/1.73 m2 >= 60.00 Glucose 87 Calcium 7.1 L Magnesium 1.8 Anti-MuSK Ab 0.00 Patient ABO/Rh Antibody Screen Crossmatch 01/12/22 10:53 WBC RBC Hgb Hct MCV MCH MCHC RDW Plt Count MPV Immature Gran % Neutrophils % Lymphocytes % Monocytes % Eosinophils % Basophils % Nucleated RBC % Absolute Neutrophils Absolute Lymphocytes Absolute Monocytes Absolute Eosinophils Absolute Basophils RBC Morphology Microcytosis Sodium Potassium Chloride Carbon Dioxide Anion Gap BUN Creatinine Estimated GFR/1.73 m2 Glucose Calcium Magnesium Anti-MuSK Ab Patient ABO/Rh O Negative Antibody Screen NEGATIVE Crossmatch See Detail
[2022-01-12] MEDS: Normal Saline 500 ML 30 ML IV (16:51)
[2022-01-12] MEDS: cefTRIAXone 1 GM/50 ML BAG IVPB (16:52)
--- NOTE | 2022-01-12 19:28 | PGE_ITS ---
Date of Service Date of service: 01/12/22 Time of Service: 18:28 Assessment and Plan Assessment and plan (1) GI bleeding: Status: Chronic Assessment and plan: NPO after midnight for EGD tomorrow. (2) Acute on chronic blood loss anemia: Status: Acute Assessment and plan: As above. S/p transfusion of 1 unit pRBCs. For EGD tomorrow. (3) Adult failure to thrive: Status: Acute Assessment and plan: Concern for an underlying malignancy given her unintentional weight loss, GI complaints. She also has an elevated CA 125. She refused a transvaginal US. She has a h/o cervical cancer. General surgery will be performing an EGD. REGISTERED NURSE MATERNAL CHILD consulted. Additionally, it is unclear how compliant the patient has been as an outpatient. The son does not know. Reviewing her medications, it appears that she is not 100% on times with the refills. We do know she has missed multiple appointments with her PCP. It is entirely possible that she was not taking her medications which led to psychiatric reasons for not caring for self. Additionally, the patient does not have capacity to make her medical decisions, as per my conversation with Dr Tamez. I have made the son aware of this. (4) Weakness: Status: Acute Assessment and plan: Evaluated by Dr Westfall who feels that the explanation for weakness has more to do with malnutrition and deconditioning rather than a neurologic etiology. Would benefit from SNF on discharge - cannot live independently. (5) Weight loss, unintentional: Status: Acute Assessment and plan: Read failure to thrive above. MRI scan of the abdomen did not show any recurrence of her pancreatic cancer. Pneumobilia is stable and likely not representing a pathologic process. Await pathology reports from Dr Vo's sigmoidoscopy. REGISTERED NURSE MATERNAL CHILD and general surgery consulted. For EGD tomorrow. (6) Decubitus ulcer: Status: Acute Assessment and plan: Continue empiric rocephin and wound care. (7) Acute hypokalemia: Status: Resolved Assessment and plan: Recheck in am. (8) Hypertension: Status: Chronic Assessment and plan: Not requiring BP meds here. (9) GERD (gastroesophageal reflux disease): Status: Chronic Assessment and plan: Protonix 80 IV BID + carafate. (10) Bipolar disorder: Status: Acute Assessment and plan: Continue wellbutrin, prozac, olanazapine, add mirtazapine. Evaluated by Dr Tamez. (11) DVT prophylaxis: Status: Acute Assessment and plan: Hold chemical DVT ppx in light of heme + stools/anemia. (12) Discharge planning issues: Status: Acute Assessment and plan: Full code though the patient is verbalizing that this is not what she wants - her children are discussing officially changing code status. Unsafe to live independently and will need SNF placement. Palliative care consulted. Guardianship recommended by psychiatry. Subjective Subjective Interval history since last seen: Ms Crawford had a heme + stool today and required 1 unit of pRBCs in transfusion. She is planned for an EGD tomorrow. She denies dizziness, chest pain, shortness of breath, nausea. I just don't want to eat! She thinks she is in the hospital to have my medications adjusted. She does not know which hospital she is in. She thinks she might be at [facility]. She met with palliative care to whom she had stated that she would not want to be rescucitated or intubated. The patient's son John Paul is talking to his brother to see if this is a decision that they will stand by. I spoke with John Paul at length today. He states that he usually checks on his mom on the phone once a week and sees her in person every few weeks/every other week, but hadn't been able to see her in person lately because of his COVID-19. He did not know if his mom has been taking her medications or not or if she has been going to her doctors' appointments. He did call an ambulance for her when she had a bout of colitis in October and was treated at the [facility], but otherwise does not typically participate in her care. He does admit that sometimes his mom has episodes of memory lapses. He describes an episode 15 years ago when she was so forgetful he could not trust her to watch his kids because she could not find her own house in the car. He stated that that since had gotten better. We discussed that I really did not feel it was a good idea for his mom to live independently anymore, even after or if she is discharged from rehab. I discussed with him that his mom does not have an understanding of her current situation and that she cannot make her own medical decisions. He verbalized understanding. Exam Narrative Exam Narrative: General: Pleasant female who is A&Ox1, forgetful, does not recognize me, essential tremor, laying comfortably in bed HEENT: EOMI, MMM Heart: RRR, no m/r/g Lungs: CTAB Abdomen: soft, nontender, nondistended Extremities: trace edema BLEs Objective Last Vital Signs Temp 36.1 C L 01/12/22 15:43 Pulse 105 H 01/12/22 15:43 Resp 20 01/12/22 15:43 BP 110/75 01/12/22 15:43 Pulse Ox 97 01/12/22 15:43 Laboratory Results - last 24 hr 01/08/22 01/12/22 01/12/22 10:00 06:15 06:15 WBC 7.11 RBC 2.22 L Hgb 6.6 L* Hct 21.8 L MCV 98 H MCH 29.7 MCHC 30.3 L RDW 19.4 H Plt Count 193 MPV 8.6 Immature Gran % 0.6 Neutrophils % 47.5 Lymphocytes % 30.0 Monocytes % 18.1 Eosinophils % 3.7 Basophils % 0.1 Nucleated RBC % 0.3 Absolute Neutrophils 3.38 Absolute Lymphocytes 2.13 Absolute Monocytes 1.29 H Absolute Eosinophils 0.26 Absolute Basophils 0.01 RBC Morphology See Below Microcytosis 2+ Sodium 142 Potassium 4.5 Chloride 112 H Carbon Dioxide 24.3 Anion Gap 5.7 BUN 8 Creatinine 0.5 L Estimated GFR/1.73 m2 >= 60.00 Glucose 87 Calcium 7.1 L Magnesium 1.8 AChR Muscle Binding Ab 0.00 Anti-MuSK Ab 0.00 Patient ABO/Rh Antibody Screen Crossmatch 01/12/22 10:53 WBC RBC Hgb Hct MCV MCH MCHC RDW Plt Count MPV Immature Gran % Neutrophils % Lymphocytes % Monocytes % Eosinophils % Basophils % Nucleated RBC % Absolute Neutrophils Absolute Lymphocytes Absolute Monocytes Absolute Eosinophils Absolute Basophils RBC Morphology Microcytosis Sodium Potassium Chloride Carbon Dioxide Anion Gap BUN Creatinine Estimated GFR/1.73 m2 Glucose Calcium Magnesium AChR Muscle Binding Ab Anti-MuSK Ab Patient ABO/Rh O Negative Antibody Screen NEGATIVE Crossmatch See Detail
[2022-01-12 19:33] LABS: HCT 29.5 % (36.0-46.0); HGB 9.5 g/dL (11.2-15.7)
[2022-01-13] VITALS (65 sets, daily range): BP systolic 59–159; BP diastolic 37–93; PULSE 0–124; RESP 1–40; TEMP 33–37.1; O2SAT 79–98; BMI 20.1
[2022-01-13] MEDS: Mirtazapine 15 MG TAB 7.5 MG PO ×2 (00:17→21:15)
[2022-01-13] MEDS: Rosuvastatin 10 MG TAB PO ×2 (00:18→21:15)
[2022-01-13] MEDS: OLANZapine 5 MG TAB PO ×2 (00:18→21:15)
[2022-01-13] MEDS: Sucralfate 1 GM TAB PO ×2 (00:19→21:16)
[2022-01-13] MEDS: IRON SUCROSE COMPLEX 200 MG in Normal Saline 100 ML 400 MG IVPB (03:16)
[2022-01-13] MEDS: DEXTROSE 5%-LACTATED RINGERS 1,000 ML 75 ML IV (06:00)
[2022-01-13 06:51] LABS: HCT 30.3 % (36.0-46.0); MCH 31.3 pg (27.0-33.0); MCV 95 fL (80-95); MPV 8.9 fL (8.0-11.0); Platelet Count 167 10^3/uL (130-400); RDW-SD 62.1 fL; WBC 6.77 10^3/uL (4.4-10.8)
[2022-01-13 07:06] LABS: Anion Gap 6.9 mmol/L (3-11); BUN 8 mg/dL (7-18); CO2 25.1 mmol/L (21.0-32.0); CREATININE 0.4 mg/dL (0.55-1.02); Calcium 7.1 mg/dL (8.5-10.1); Chloride 110 mmol/L (98-107); Glucose 95 mg/dL (74-106); Magnesium 1.6 mg/dL (1.8-2.4); Potassium 3.8 mmol/L (3.5-5.1); Sodium 142 mmol/L (136-145)
[2022-01-13 07:15] LABS: Absolute Eosinophil Count 0.27 10^3/uL (0.0-0.7); Absolute Lymphocyte Count 2.44 10^3/uL (1.2-3.4); Absolute Monocyte Count 0.74 10^3/uL (0.1-0.8); Absolute Neutrophil Count 3.32 10^3/uL (1.2-6.7); Atypical Lymphocytes % 4; Bands % 2; Diff Comment Manual Differential; RBC Morphology Normal
[2022-01-13] MEDS: MAGNESIUM SULFATE 2 GM/50 ML BAG IVPB (09:01)
[2022-01-13] MEDS: Normal Saline Flush 10 ML SYR IVP ×3 (09:01→20:02)
[2022-01-13] MEDS: Pantoprazole 40 MG VIAL 80 MG IVP (09:01)
--- NOTE | 2022-01-13 09:06 | PDOC.CMPRO ---
- If Service Date Differs Date of service: 01/13/22 Time of Service: 09:06 Care Management Progress Note S/O: Loli was lying in bed when CM met with her. She is pleasant, awake, confused and engages in conversation. Loli requires hospitalization for IV ABX. Loli has failure to thrive at home and has a large decubitus ulcer which requires treatment and surgical debridement. Loli went down for a EGD this afternoon. Loli also needs a CHEMICAL OPERATIONS SPECIALIST consult. Per provider, Loli is no longer safe to live alone. CM placed a referral to [facility] for case management and help with [facility] planning. Loli remains agreeable for SNF for STR. Loli son's are Eddie and Kedar. Eddie lives in [place], [place] and Kedar lives in [place]. A: 66 year old female admitted to [facility] on 01/05/22 for weakness, falls and failure to thrive. P: Loli requires further medical workup and hospitalization for weakness and malnutrition. Surgical intervention in the OR is scheduled for Fri (01/06/22). Anticipate, Loli will discharge to SNF for STR vs. home with New [facility] services when medically ready. SNF referral's are pending, [facility], offered her a bed. Transportation will be dependent on disposition and pts mobility level at time of discharge.
--- NOTE | 2022-01-13 13:10 | INPN_ITS ---
Date of service: 01/13/22 Time of Service: 13:10 PT Notes Visit Reasons: Hypokalemia, Failure to Thrive Physical Therapy Inpatient Progress Note Date: 01/13/2022 Dates of Service: 01/06/2022 through 01/13/2022 Referring Doctor:? Kuldeep Garcia MD PT Orders: PT CONSULT: Eval for Assistive Device.? Fall safety assessment.? Limited ability.? 66-year-old female with loss of function over months, general weakness, falls Precautions: Fall. Standard. Activity as tolerated. Stage III sacral decubiti. Patient Profile/Admitting Diagnosis:? Loli is a 66-year-old female with reactive airway disease, pancreatic cancer, GABBY, type II DM, and bipolar disorder who presented to the ED on 01/04/2022 with chief complaints of generalized weakness and repeated falls.? Patient is diagnosed with stage III sacral decubiti, acute hypokalemia, generalized weakness, adult failure to thrive, chronic pain, GERD, and hypertension. Subjective: Continuous to report fatigue, weakness, and lack of sheer strength to do anything. Did agree to be assisted to edge of bed for this session. Objective: General Observation: Quarterturned to L. Mental Status: Awake and able to appropriately maintain conversation, responses appropriate. Pain: Pain in sacrum, reports generalized body pain ROM: Right Upper Extremity: ? Shoulder Flexion to 90 degrees only. Shoulder abduction WFL. Elbow flexion WFL. Wrist flexion WFL. Functional opening and closing of hand WFL. Left Upper Extremity:? Shoulder Flexion to 90 degrees only. Shoulder abduction WFL. Elbow flexion WFL. Wrist flexion WFL. Functional opening and closing of hand WFL. Right Lower Extremity: Hip flexion allows about 30 degrees. Hip abduction unable. Knee flexion allows up to 20 degrees. Ankle dorsiflexion about 10 degrees. Ankle plantarflexion WFL. Left Lower Extremity: Hip flexion allows about 30 degrees. Hip abduction unable. Knee flexion allows up to 20 degrees. Ankle dorsiflexion about 10 degrees. Ankle plantarflexion WFL. Strength: Right Upper Extremity: Shoulder flexors 3-/5. Shoulder abductors 3-/5. Elbow flexors 4-/5. Elbow extensors 4-/5. Advertising Coordinator weak but functional. Left Upper Extremity: Shoulder flexors 3-/5. Shoulder abductors 3-/5. Elbow flexors 4-/5. Elbow extensors 4-/5. Advertising Coordinator weak but functional. Right Lower Extremity: Hip flexors 2-/5. Hip abductors 1-/5. Knee flexors 2-/5. Knee extensors 2-/5. Ankle dorsiflexors 2-/5. Ankle plantarflexors 5/5. Left Lower Extremity: Hip flexors 2-/5. Hip abductors 1-/5. Knee flexors 2-/5. Knee extensors 2-/5. Ankle dorsiflexors 2-/5. Ankle plantarflexors 5/5. Sensation:? Denies tingling and numbness in B UE and LE Bed Mobility/Transfers: Rolling moderate assist Supine to sit moderate assist Sit to supine moderate assist THERA EX: B UE (in supine) 1. Shoulder flexion with chest expansion exercises and deep breathing exercises x 5 2. Shoudler horizontal abduction/adduction with chest expansion exercises and deep breathing exercises x 5 3.?Elbow flexion with wrist rotation x 10 B LE (in supine) 1.? Heels slides x 10 2.? Supine clam shell exercises x 10 3.? Partial bridges x 10 4.? Ankle DF/PF x 10 Edge of bed sitting (unable to complete as patient needed to go to testing) Gait: Not done Balance: Static Sitting: Fair Dynamic Sitting: Poor Static Standing: Unable Dynamic Standing: Unable Special Tests: Mobility Limitations Standardized Measure [facility] 6 clicks Basic Mobility Inpatient Short Form: Raw Score: 9? CMS Score: 81% deficit? ? ? Informed Consent/Education:? Patient was instructed in purpose of PT consult and plan of care.? Agreeable to continue with established PT POC to achieve personal goals. ASSESSMENT: No functional gains achieved for the past week. PT intervention has focused on slowly building up strength in B UE/LE which have been hindered by patient's medical status. Transfer and mobility status continues to be very limited and patient requires assist of 2 for safety for all stand pivot transfers. Has only been able to walk up to 7 steps requiring extensive assist of 2. Prognosis for goals below is fair due to lack of meaningful functional gains. Patient presents with clinical signs and symptoms consistent with current/admitting diagnoses that have resulted to mobility limitations, gait instability, generalized weakness, and overall ADL decline as demonstrated by the following impairment level findings: 1.? Decreased strength to B UE/LE major muscle groups 2.? Impaired sitting/standing balance 3.? Impaired activity tolerance 4.? Limitation of joint range of motion in B LE joints and B shoudlers 5.? Generalized fatigue 6.? Swelling in B LE Impairments are contributing to the following functional limitations: 1.? Decline in bed mobility skills 2.? Decline in transfer skills 3.? Difficulty with ambulation without assistive device and physical assistance 4.? Increased completion time for mobility ADL performance 5.? Increased risk for falls 6.? Difficulty with managing steps alone safely Patient is assessed as a [id number] high complexity based on the following: History: 66-year-old female with past medical history as indicated above Examination: Demonstrable impairment in strength, balance, and mobility level with underlying impairments and functional limitations as exhibited above as well as deficit score of 73% utilizing the [facility] Mobility Inpatient Short Form Presentation: Evolving Decision Makin high complexity Goals: Goals X1 week 1. Supine-Sit contact-guard assist 2. Sit-Supine contact-guard assist 3. Sit-Stand contact-guard assist 4. Stand-Sit minimal assist with FWW 5. Bed-Chair minimal assist with FWW 6. Chair-Bed minimal assist with FWW 7.? Minimal assist with gait on level surface with use of FWW for at least 30? feet without report of pain nor dyspnea Plan of Care/Treatment Plan: 1-2x/day, 7 days/week x 1 week. Plan of care has been reviewed with the [facility] providing the service under Physical Therapy direction. Cotninue with progressive strengthening, sitting and standing balance/tolerance skilling while improving transfer and ambulation task performance. DISCHARGE RECOMMENDATIONS: [] ? Home with no services [] [] ? Home with services [specify] [] ? Home with outpatient PT [] [X] ? SNF for continued rehabilitation.? Patient will benefit from ch[facility] facility placement for continued skilled physical therapy services in order to progress mobility level, strength, and balance in preparation for a safe discharge to home. [] ? [facility] [] [] ? SNF versus LTC based on ability to participate and progress [] TREATMENT CODE/TIME: 96534 x 16 minutes beginning at 13:10 PM. Thank you for the opportunity to participate in the care of this patient. Shelly Powell PT, DPT, CLT [facility], [place]
--- NOTE | 2022-01-13 13:49 | W.ANESPRE ---
General Info Date of Service Date Performed: 01/13/22 Height: 5 ft 3 in Weight: 51.6 kg Body Mass Index (BMI): 20.1 Surgical Procedure: Operation Date: 01/06/22 14:25 Proposed Procedure Side Surgeon p Debridement of Sacrum Naomi Conti DO Actual Procedure Side Surgeon p Debridement of Sacrum Naomi Conti DO Pre-Op Diagnosis Post-Op Diagnosis infected decubitus ulcer infected sacral decubitus ulcer Operation Date: 01/13/22 13:20 Proposed Procedure Side Surgeon p Gastroscopy Naomi Conti DO Meds Allergies and Home Medications Allergies Allergy/AdvReac Type Severity Reaction Status Date / Time propoxyphene napsylate Allergy Intermediate Verified 01/05/22 05:15 [From Darvocet-N 100] celecoxib [From Celebrex] Allergy Swelling/Ed Verified 01/05/22 05:15 ej acetaminophen AdvReac Intermediate Verified 01/05/22 05:15 [From Darvocet-N 100] citalopram hydrobromide AdvReac Intermediate Psychosis Verified 01/05/22 05:15 [From Celexa] lamotrigine AdvReac Intermediate Nausea Verified 01/05/22 05:15 lithium AdvReac Intermediate Nausea, Verified 01/05/22 05:15 vomiting misoprostol AdvReac Mild Nausea Unverified 01/05/22 05:15 [From Arthrotec 50] alprazolam [From Xanax] AdvReac Itching Unverified 01/05/22 05:15 naproxen AdvReac Nausea Unverified 01/05/22 05:15 Home Medication Medication Instructions Recorded albuterol sulfate 90 mcg/actuation 1 puff inhalation Q4H PRN PRN 02/17/15 aerosol inhaler calcium carbonate 500 mg-vitamin 2 tab PO DAILY 02/17/15 D3 10 mcg (400 unit) chewable tablet (Calcium 500 + D) fluticasone propionate 50 1 spray NS BID PRN 02/17/15 mcg/actuation nasal spray,suspension amlodipine 2.5 mg tablet 2.5 mg PO HS 06/08/20 aspirin 81 mg tablet,delayed 81 mg PO DAILY 06/08/20 release bupropion HCl 200 mg tablet,12 hr 200 mg PO BID 06/08/20 sustained-release denosumab 60 mg/mL subcutaneous 60 mg subcut DIRECTED 06/08/20 syringe (Prolia) diclofenac sodium 75 mg 75 mg PO BID 06/08/20 tablet,delayed release famotidine 20 mg tablet 20 mg PO BID 06/08/20 fluoxetine 20 mg capsule (Prozac) 20 mg PO DAILY 06/08/20 ketoconazole 2 % topical cream 1 applic topical DAILY 06/08/20 latanoprost 0.005 % eye drops 1 drp ophthalmic (eye) HS 06/08/20 lisinopril 5 mg tablet 5 mg PO DAILY 06/08/20 nbaklhgacejv-Nk-ejwl-minerals 18 1 tab PO DAILY 06/08/20 mg-0.4 mg tablet olanzapine 5 mg tablet 5 mg PO HS 06/08/20 omeprazole 20 mg capsule,delayed 40 mg PO AC 06/08/20 release rosuvastatin 10 mg tablet 10 mg PO HS 06/08/20 triamcinolone acetonide 0.1 % 1 applic topical BID PRN 06/08/20 topical cream cholecalciferol (vitamin D3) 1,250 1,250 mcg PO DIRECTED 06/24/20 mcg (50,000 unit) capsule diclofenac sodium 1 % topical gel 2 g topical BID 01/12/22 ergocalciferol (vitamin D2) 1,250 1,250 mcg PO Q2W 01/12/22 mcg (50,000 unit) capsule lamotrigine 25 mg tablet 25 mg PO BID 01/12/22 oxycodone 10 mg tablet 10 mg PO .COMPLEX 01/12/22 Current Visit Medications: Current Medications Generic Name Dose Route Start Last Admin Trade Name Freq PRN Reason Stop Dose Admin Acetaminophen 0 mg 01/05/22 04:36 Acetaminophen 325 Mg Tab PO Q4H PRN PRN Acidophilus/Pectin 1 cap 01/08/22 10:25 01/13/22 12:05 Lactobacillus Acidophilus Cap PO Not Given BID KIKE Lipase/Protease/Amylase 1 cap 01/12/22 08:00 01/13/22 12:03 Creon, Lipase 6,000 Capcr PO Not Given QMEALS KIKE Ascorbic Acid 500 mg 01/09/22 20:00 01/13/22 12:03 Ascorbic Acid 500 Mg Tab PO Not Given BID KIEK Aspirin 81 mg 01/05/22 08:30 01/10/22 08:42 Aspirin E.C. 81 Mg Tabec PO 81 mg DAILY KIKE Administration Bisacodyl 10 mg 01/06/22 17:14 Bisacodyl 10 Mg Supp [place] DAILY PRN PRN Bupropion HCl 200 mg 01/05/22 08:30 01/13/22 12:04 Bupropion-Cr 100 Mg Tabcr PO Not Given BID KIKE Calcium/Vitamin D 1 tab 01/05/22 08:30 01/13/22 12:04 Calcium 600mg/Vit D 200u Tab PO Not Given DAILY KIKE Collagenase 0 gm 01/08/22 12:00 01/08/22 12:22 Collagenase 30 Gm Tube TP 1 applic DIRECTED KIKE Administration Dimethicone/Zinc Oxide 0 gm 01/05/22 04:36 Kamille Protect Cream 142 Gm Tube TP PRN PRN Docusate Sodium 100 mg 01/08/22 13:54 Docusate Sodium 100 Mg Cap PO BID PRN PRN Constipation Fluoxetine HCl 20 mg 01/05/22 08:30 01/13/22 12:04 Fluoxetine 20 Mg Cap PO Not Given DAILY KIKE Sodium Chloride 500 mls @ 0 mls/hr 01/06/22 23:11 01/12/22 17:57 Saline 500ml Bag IV 0 mls/hr PRN PRN Infusion As Directed Ceftriaxone Sodium/Dextrose 1 gm in 50 mls @ 100 mls/hr 01/08/22 16:00 01/12/22 17:56 Rocephin IVPB Infused Q24H KIKE Infusion Dextrose/Lactated Ringer's 1,000 mls @ 75 mls/hr 01/09/22 19:00 01/13/22 06:00 Dextrose 5%-Lr IV 75 mls/hr INFUSION KIKE Administration IV Miscellaneous Supplies 1 each 01/06/22 23:15 Iv Access IV DIRECTED KIKE Latanoprost 0 ml 01/05/22 22:00 01/13/22 00:19 Latanoprost 0.005% 2.5 Ml Btl OP Not Given HS KIKE Mirtazapine 7.5 mg 01/09/22 22:00 01/13/22 00:17 Mirtazapine 15 Mg Tab PO 7.5 mg HS KIKE Administration Multi-Ingredient Supplement 1 ounce 01/05/22 20:00 01/13/22 12:05 Protein Nutritional Supplement 16 Gm 1 Ounce Packet PO Not Given TID KIKE Multivitamins 1 tab 01/05/22 08:30 01/13/22 12:05 Multivitamin Tab PO Not Given DAILY KIKE Olanzapine 5 mg 01/05/22 22:00 01/13/22 00:18 Olanzapine 5 Mg Tab PO 5 mg HS KIKE Administration Oxycodone HCl 5 mg 01/05/22 07:17 01/11/22 09:06 Oxycodone 10 Mg Tab PO 5 mg BID PRN PRN Administration Moderate to Severe Pain Pantoprazole Sodium 80 mg 01/12/22 08:00 01/13/22 09:01 Pantoprazole 40 Mg Vial IVP 80 mg Q12H KIKE Administration Polyethylene Glycol 17 gm 01/06/22 17:14 Polyethylene Glycol 3350 17 Gm Packet PO DAILY PRN PRN Constipation Potassium Chloride 20 meq 01/08/22 14:00 01/11/22 20:26 Potassium Chloride 20 Meq Tabcr PO 20 meq TID KIKE Administration Prochlorperazine Edisylate 5 mg 01/06/22 23:13 Prochlorperazine 10 Mg/2 Ml Vial IVP Q4H PRN PRN Psyllium Hydrophilic Mucilloid 1 each 01/08/22 10:25 01/13/22 12:05 Psyllium Pkt PO Not Given BID [facility] Rosuvastatin Calcium 10 mg 01/05/22 22:00 01/13/22 00:18 Rosuvastatin 10 Mg Tab PO 10 mg HS KIKE Administration Sennosides 1 tab 01/08/22 13:54 Senna Tab PO HS PRN PRN Constipation Sodium Chloride 0 ml 01/06/22 23:11 01/13/22 09:01 Normal Saline Flush 10 Ml Syr IVP 10 ml PRN PRN Administration Sodium Chloride 0 ml 01/09/22 20:00 01/13/22 10:21 Normal Saline Flush 10 Ml Syr IVP 30 ml BID KIKE Administration Sucralfate 1 gm 01/12/22 11:30 01/13/22 12:05 Sucralfate 1 Gm Tab PO Not Given AC & HS KIKE Trimethobenzamide HCl 200 mg 01/08/22 12:56 Trimethobenzamide 200 Mg/2 Ml Vial IM QID PRN PRN Zinc Sulfate 220 mg 01/10/22 08:30 01/13/22 12:05 Zinc Sulfate 220 Mg Tab PO Not Given DAILY KIKE PFSH Active Problems Active Problems: Problem Status Onset Code GI bleeding K92.2 Acute on chronic blood loss anemia D62 Anemia of chronic disease D63.8 Iron (Fe) deficiency anemia D50.9 Hypomagnesemia E83.42 Palliative care patient Z51.5 Tremor R25.1 Altered mental status R41.82 Pneumobilia K83.8 Weight loss, unintentional R63.4 Hypoalbuminemia due to protein-calorie malnutrition E88.09, E46 Unexplained weight loss R63.4 Discharge planning issues Z02.9 DVT prophylaxis Z29.9 Bipolar disorder F31.9 Chronic pain ~07/13/15 G89.29 GERD (gastroesophageal reflux disease) K21.9 Hypertension Acute hypokalemia E87.6 Weakness R53.1 Adult failure to thrive R62.7 Multiple falls R29.6 Decubitus ulcer L89.90 Medical History Medical History Allergic rhinitis Allergic rhinitis Arthritis Arthritis Back pain Chronic back pain Chronic sinusitis Diabetes mellitus Dyslipidemia Dyslipidemia Dyspnea Fatty liver disease, nonalcoholic Fracture of ankle GERD (gastroesophageal reflux disease) Glaucoma Glaucoma History of malignant neoplasm of pancreas Hypertensive disorder Knee pain Left sided abdominal pain 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 She did not have overt malignancy. Surgery was curative. Per pt. states she had a whipple procedure, and has been in remission since 2004. Obstruction of common bile duct On watermaster drug therapy ineidaion chronic LBP associated with OA hx of compression fx. medications oxycodine 10 mg tablet SOAP sore 14. Yearly narcotic contract last signed 10/18/2018, 10/01/2019 [place] PDMP queried twice yearly for 5 states including [place] and [place] last dibe ib 03/01/18, 03/13/19, 01/09/20, [place] random urine drug screen being done at least 3-4 months GABBY (obstructive sleep apnea) GABBY (obstructive sleep apnea) Osteoporosis Steatosis, liver Type II diabetes mellitus Pt. states she was and is no longer taking medication Vertigo Surgical History Surgical History Abdominal hysterectomy Fracture, Open Treatment ORIF Fibia H/O hernia repair Hernia Repair, Incisional x3 History of cataract surgery History of hysterectomy Hx of total knee replacement Pancreatic Duodenectomy(whipple procedure) Recurrent major depression in partial remission Replacement of total knee joint left S/P tonsillectomy and adenoidectomy Tonsillectomy and adenoidectomy Tobacco Smoking/Tobacco Use Status: Former Tobacco Use Alcohol Alcohol Intake: former Substance Use Substance use: Never Substance use type: does not use Vital Signs and Lab Results Vital Signs Most Recent Vital Signs in EMR: Most Recent Vital Signs Temp Pulse Resp BP Pulse Ox 36.4 C L 110 H 20 112/77 92 01/13/22 07:00 01/13/22 07:00 01/13/22 07:00 01/13/22 07:00 01/13/22 07:00 Point of Care Results Point of Care Results: Finger Stick Blood Glucose 98 01/07/22 04:05 Lab Results Result Diagrams: 01/13/22 06:30 01/13/22 06:30 Blood Type / Crossmatch: Patient ABO/Rh O Negative 01/12/22 Antibody Screen NEGATIVE 01/12/22 Crossmatch See Detail 01/12/22 Complete Blood Count: White Blood Count 6.77 10^3/uL (4.4-10.8) 01/13/22 06:30 Red Blood Count 3.20 10^6/uL (3.93-5.22) L 01/13/22 06:30 Hemoglobin 10.0 g/dL (11.2-15.7) L 01/13/22 06:30 Hematocrit 30.3 % (36.0-46.0) L 01/13/22 06:30 Platelet Count 167 10^3/uL (130-400) 01/13/22 06:30 Complete Metabolic Panel: Sodium Level 142 mmol/L (136-145) 01/13/22 06:30 Potassium Level 3.8 mmol/L (3.5-5.1) 01/13/22 06:30 Chloride Level 110 mmol/L (98-107) H 01/13/22 06:30 Carbon Dioxide Level 25.1 mmol/L (21.0-32.0) 01/13/22 06:30 Blood Urea Nitrogen 8 mg/dL (7-18) 01/13/22 06:30 Creatinine 0.4 mg/dL (0.55-1.02) L 01/13/22 06:30 Estimated GFR/1.73 m2 >= 60.00 (mL/min/1.73m2) 01/13/22 06:30 Magnesium Level 1.6 mg/dL (1.8-2.4) L 01/13/22 06:30 Calcium Level 7.1 mg/dL (8.5-10.1) L 01/13/22 06:30 Albumin 1.1 g/dL (3.4-5.0) L 01/09/22 06:10 Glucose Level 95 mg/dL (74-106) 01/13/22 06:30 Hemoglobin A1c < 4.5 % (<5.7) 01/05/22 00:35 C-Reactive Protein 3.71 mg/dL (0.0-0.3) H 01/06/22 06:40 Liver Function Panel: Alanine Aminotransferase (ALT/SGPT) 11 U/L (14-59) L 01/09/22 06:10 Aspartate Amino Transf (AST/SGOT) 20 U/L (15-37) 01/09/22 06:10 Coagulation Panel: No Data to Display Cardiac Panel: XO-Dgm-P-Type Natriuretic Peptide 326 pg/mL (<300) H 01/05/22 Arterial Blood Gas: No Data to Display Venous Blood Gas: Venous Blood pH 7.44 (7.31-7.41) H 01/05/22 00:35 Venous Blood Partial Pressure O2 24 mmHg 01/05/22 00:35 Venous Blood Partial Pressure CO2 37 mmHg (41-51) L 01/05/22 00:35 Venous Blood Oxygen Saturation 39 % 01/05/22 00:35 Venous Blood HCO3 25 mmol/L (23-28) 01/05/22 00:35 Venous Blood Base Excess 0 mmol/L (-2-3) 01/05/22 00:35 Venous Blood Total Carbon Dioxide 23 mmol/L (24-29) L 01/05/22 00:35 Pancreas Panel: Lipase 4 U/L (73-393) 01/06/22 06:40 Thyroid Panel: Thyroid Stimulating Hormone (TSH) 3.51 uIU/mL (0.36-3.74) 01/05/22 00:35 Infectious Disease: Coronavirus (COVID-19)(PCR) Negative (Negative) 01/04/22 23:55 Coronavirus 2019 Source Nasopharynx 01/04/22 23:55 Influenza Virus Type A (PCR) Negative (Negative) 01/04/22 23:55 Influenza Virus Type B (PCR) Negative (Negative) 01/04/22 23:55 Respiratory Syncytial Virus (PCR) Negative (Negative) 01/04/22 23:55 Blood Cultures: No Data to Display Toxicology Panel: No Data to Display Anesthesia Assessment and Plan Anesthesia History Personal History: No History of Anesthesia Complications Family History: No Family History of Anesthesia Complications Exercise Tolerance Exercise Tolerance: Metabolic Equivalents<4 Pertinent Negatives Pertinent Negatives: No Symptoms of GERD Cardiac & Pulmonary Exam Cardiac Exam: Normal S1/S2 Heart Sounds Pulmonary Exam: Clear Bilateral Breath Sounds Implantable Cardiac Device Does patient have a Pacemaker or an ICD?: No Airway Exam Known Difficult Airway: No Mallampati Class: 2 Mouth Opening: Normal (> 3cm) Thyromental Distance: Less than 3 cm Neck Range of Motion: Full ROM Neck Circumference: Normal Teeth Condition: Edentulous ASA Classification ASA Score: ASA 3 Emergency Case?: No NPO Status NPO Status: NPO Clears >2 hours, Solids >8 hours Anesthesia Plan Resuscitation Status: DNR Modified During Perioperative Period Resuscitation Modifications: Pt. Requests for Clinical Judgement to be Used (per son) Anesthesia Technique: General Anesthesia Airway Planned: Natural Airway Monitors Used: Standard Monitors Preoperative Comments:: Pt. pleasant, conversive. Discussed anesthesia with son as well as code status.
[2022-01-13] MEDS: Lactated Ringers 1,000 ML 30 ML IV (14:10)
--- NOTE | 2022-01-13 14:22 | STOM_PTH ---
PATIENT: Loli Crawford LOC: U#:[id number] AGE/SX: 66/F ROOM: [id number] RE01/05/[address]: Kuldeep Garcia : 1955 BED: A DIS: 01/22/2022 SPEC #: [id number] RECD: 01/13/22 16:00 STATUS: STEPHEN REQ #: [id number] SANTIAGO: 01/13/22 14:[address]: Kuldeep Garcia DEPT: Surgical Specimen RECD BY: Sharla Cox ENTERED: 01/13/22 16:02 SP TYPE: STOMACH OTHR DR: Jose Robertson,Lissa Barrow,Amanda Dawkins,Willie Schafer,oJhnson Isbell,Marcos Sanchez,Johnson Baum,Fredis Gruber,MD Madalyn Sheikh, MORENO Cazares,Naomi Fuller MD Vojtko, Farrukh CERRATO InPatient Jose Blandon Tissues: 1 - STOMACH BIOPSY 2 - STOMACH BIOPSY 3 - ESOPHAGUS BIOPSY 4 - ESOPHAGUS BIOPSY Procedures: GROSS AND MICRO LEVEL 4 Comments: [id number]
--- NOTE | 2022-01-13 15:10 | W.ANESPOSTOP ---
Postoperative Evaluation Date, Time and Location Date Performed: 01/13/22 Time Performed: 15:10 Patient Location: PACU Vital Signs Most Recent Imported Vital Signs: Most Recent Vital Signs Temp Pulse Resp BP Pulse Ox 36.6 C 119 H 9 L 80/60 L 88 L 01/13/22 14:32 01/13/22 14:32 01/13/22 14:32 01/13/22 14:32 01/13/22 14:32 Most Recent Vital Signs Temp Pulse Resp BP Pulse Ox 36.4 C L 98 H 21 116/76 97 01/06/22 15:00 01/06/22 15:00 01/06/22 15:00 01/06/22 15:00 01/06/22 15:00 Pain Score Most Recent Pain Score: Most Recent Pain Score Pain Level 0 01/12/22 23:45 Assessment Mental Status: Awake (Alert & Oriented to Patient Baseline) Airway and Respiratory Function: Abnormal Respiratory exam (See explanation) (Likely aspiration event during procedure. Higher oxygen requirement, may go to ICU. Surgeon aware.) Cardiovascular Function: Hemodynamically Stable Hydration Status: Adequately Hydrated Nausea & Vomiting: No Nausea or Vomiting Pain: Pt. Denies Any Pain Peripheral Nerve Block: Patient did not receive a nerve block
[2022-01-13] MEDS: Albuterol/Ipratropium 3 ML UPD VIAL UPD ×2 (15:42→21:16)
--- NOTE | 2022-01-13 16:03 | DI.RAD_ITS ---
Exam(s) XR PORTABLE CHEST AP EXAM: XR PORTABLE CHEST AP CLINICAL HISTORY: aspiration event TECHNIQUE: 2D digital imaging was performed. COMPARISON: CR,XR XR ABDOMEN FLAT UPRIGHT from 01/07/[address] CHEST W from 01/07/[address] ABDOMEN PELVIS WO from 01/08/2022 FINDINGS: LUNGS: Low lung volumes. Tiny bilateral pleural effusions. Increased interstitial densities bilater ally are, not seen on prior exam. Findings could indicate pulmonary edema. Retrocardiac infiltrate not excluded. HEART: Normal size.. AORTA: Normal. BONES: Old right rib fractures. Soft tissues: Unremarkable. Catheter and right arm extending to junction of lower SVC and right atrium. IMPRESSION: Exam limited by poor pulmonary inflation. Tiny bilateral pleural effusions. Increased interstitial markings could indicate pulmonary edema. Question of left basilar infiltrate. DATA REPOSITORY: RADIATION DOSE DELIVERED:
--- NOTE | 2022-01-13 16:06 | PGE_ITS ---
Date of Service Date of service: 01/13/22 Time of Service: 15:45 Assessment and Plan Assessment and plan (1) Acute respiratory failure with hypoxia: Status: Acute Assessment and plan: Due to an aspiration event on retraction of the scope during EGD. Chemical pneumonitis likely. Given high oxygen requirement, will transfer to the ICU and trial on humidified heated O2 NC. Prn nebs. XR without an infiltrate at this time. Check procalcitonin tomorrow. No abx or steroids at this time. (2) GI bleeding: Status: Chronic Assessment and plan: EGD with severe gastritis, large hiatal hernia and no evidence of tumor, ulcer, or anastamotic bleeding. Discussed with general surgery: given the size of the gastric pouch, benefit from PPI is likely to be minimal - lifelong carafate AC and HS recommended. (3) Acute on chronic blood loss anemia: Status: Acute Assessment and plan: As above. S/p transfusion of 1 unit pRBCs yesterday. H/H up to 10.0/30.3. Recheck in am. No evidence of active bleeding on EGD. (4) Adult failure to thrive: Status: Acute Assessment and plan: Concern for an underlying malignancy given her unintentional weight loss, GI complaints. EGD without evidence of malignancy today. LOGISTICS TEAM LEAD consulted and, given the patient's current deterioration, will either see the patient over the weekend or early next week.(H/o cervical cancer in the past as well as an elevated CA 125 on this admission). She refused a transvaginal US. We are looking for the pathology report from Dr Vo's flex sig on her in 10/2021 at [facility] (the patient's chart traveled with her to the OR). Additionally, it is unclear how compliant the patient has been as an outpatient. The son does not know. Reviewing her medications, it appears that she is not 100% on times with the refills. We do know she has missed multiple appointments with her PCP. It is entirely possible that she was not taking her medications which led to psychiatric reasons for not caring for self. The patient does not have capacity to make her medical decisions, as per my c onversation with Dr Tamez. I have made the son aware of this. The son, John Paul, has been the consenting alliance party. (5) Weakness: Status: Acute Assessment and plan: Evaluated by Dr Westfall who feels that the explanation for weakness has more to do with malnutrition and deconditioning rather than a neurologic etiology. Would benefit from SNF on discharge - cannot live independently. (6) Weight loss, unintentional: Status: Acute Assessment and plan: Read failure to thrive above. MRI scan of the abdomen did not show any recurrence of her pancreatic cancer. Pneumobilia is stable and likely not representing a pathologic process. Await pathology reports from Dr Vo's sigmoidoscopy. LOGISTICS TEAM LEAD consulted. EGD today w/o active bleeding or evidence of malignancy. (7) Decubitus ulcer: Status: Acute Assessment and plan: Continue empiric rocephin and wound care. (8) Acute hypokalemia: Status: Resolved Assessment and plan: Recheck in am. (9) Hypertension: Status: Chronic Assessment and plan: Not requiring BP meds here. (10) GERD (gastroesophageal reflux disease): Status: Chronic Assessment and plan: Protonix IV + carafate. (11) Bipolar disorder: Status: Acute Assessment and plan: Continue wellbutrin, prozac, olanazapine, mirtazapine. Evaluated by Dr Tamez. (12) DVT prophylaxis: Status: Acute Assessment and plan: Hold chemical DVT ppx in light of heme + stools/anemia. (13) Discharge planning issues: Status: Acute Assessment and plan: Transfer to the ICU for management of acute hypoxic respiratory failure. Full code though the patient is verbalizing that this is not what she wants - her children are discussing officially changing code status. Unsafe to live independently and will need SNF placement. Palliative care consulted. Guardianship recommended by psychiatry. Discussed with Dr Conti and Marcos Isbell (anesthesia). Total Critical Care Time 35 minutes. Subjective Subjective Interval history since last seen: The patient had an aspiration event during EGD since which she has had hypoxia requiring 100% FiO2 on NRB. I came to evaluate the patient in PACU. She was arousable, A&Ox1, reporting shortness of breath and no pain. She was still somnolent recovering from anesthesia and not answering other questions. Exam Narrative Exam Narrative: General: Frail elderly female who is seen in a bed in the PACU, on 100% FiO2 via HFNC and NRB mask, not visibly dyspneic, coughing, arousable but somnolent while recovering from anesthesia HEENT: EOMI, MMM Heart: RRR, mildly tachycardic Lungs: mildly rhonchorous on expiration Abdomen: soft, nontender, nondistended Extremities: trace edema BLEs Objective Last Vital Signs Temp 36.6 C 01/13/22 14:42 Pulse 120 H 01/13/22 14:42 Resp 25 H 01/13/22 14:42 BP 84/59 L 01/13/22 14:42 Pulse Ox 93 01/13/22 14:42 Laboratory Results - last 24 hr 01/08/22 01/12/22 01/12/22 10:00 10:53 19:00 WBC RBC Hgb 9.5 L D Hct 29.5 L MCV MCH MCHC RDW Plt Count MPV Immature Gran % Neutrophils % Band Neutrophils % Lymphocytes % Atypical Lymphs % Monocytes % Eosinophils % Basophils % Nucleated RBC % Absolute Neutrophils Absolute Lymphocytes Absolute Monocytes Absolute Eosinophils Absolute Basophils RBC Morphology Sodium Potassium Chloride Carbon Dioxide Anion Gap BUN Creatinine Estimated GFR/1.73 m2 Glucose Calcium Magnesium AChR Muscle Binding Ab 0.00 Crossmatch See Detail 01/13/22 01/13/22 06:30 06:30 WBC 6.77 RBC 3.20 L Hgb 10.0 L Hct 30.3 L MCV 95 MCH 31.3 MCHC 33.0 D RDW 18.0 H Plt Count 167 MPV 8.9 Immature Gran % 0.0 Neutrophils % 47.0 Band Neutrophils % 2 Lymphocytes % 32.0 Atypical Lymphs % 4 Monocytes % 11.0 Eosinophils % 4.0 Basophils % 0.0 Nucleated RBC % 0.0 Absolute Neutrophils 3.32 Absolute Lymphocytes 2.44 Absolute Monocytes 0.74 Absolute Eosinophils 0.27 Absolute Basophils 0.00 RBC Morphology Normal Sodium 142 Potassium 3.8 Chloride 110 H Carbon Dioxide 25.1 Anion Gap 6.9 BUN 8 Creatinine 0.4 L Estimated GFR/1.73 m2 >= 60.00 Glucose 95 Calcium 7.1 L Magnesium 1.6 L AChR Muscle Binding Ab Crossmatch Objective Narrative Objective Narrative: CXR: official read pending. Per my read, slight cephalization. No infiltrate.
[2022-01-13] MEDS: cefTRIAXone 1 GM/50 ML BAG IVPB (17:25)
--- NOTE | 2022-01-13 19:34 | W.PM.ENDDOP ---
Date of service: 01/13/22 Time of Service: 18:35 Endoscopy Report DATE OF PROCEDURE: 01/13/22 PRE-OP DIAGNOSIS: anemia POST-OP DIAGNOSIS: other (gastritis in gastric remanent/hiatal hernia/esophagitis/bile reflux) SURGEON: Naomi Conti ANESTHESIA TYPE: General:No Airway ESTIMATED BLOOD LOSS: 1 PATHOLOGY: other COMPLICATIONS: Other (pt aspirated gen during procedure) DISPOSITION: ICU PROCEDURE DESCRIPTION: After informed consent was obtained the patient was take to the procedure room and placed in a supine position. Monitors were applied and a time out was done. The patients name, date of , procedure type, allergies to medications and metal in their body was reviewed. A bite block was placed and the patient was sedated. Once sedated and comfortable the gastroscope was advanced through the oropharynx which was grossly normal into the esophagus. She has moderate esophagitis throughout the entirety of the esophagus. There is no esophageal ulcers, varices, diverticula or stricture visualized. She does have a moderate sized hiatal hernia; type I a sliding-type hernia, approximately 3cm. The diaphragmatic aperture is quite patulent. There is active reflux of bile into the esophagus. She has had a Whipple procedure. She has severe gastritis in the gastric remnant- which is quite small, maybe only 75cc. There is no signs of active or old bleeding. The gastrojejunal anastomosis is widely patent. There is no signs of tumor recurrence. There are no ulcerations. The jejunal limb that is going to the bile ducts/afferent limb is pink and healthy. It does have good bile flow. The efferent limb is also pink and healthy. The scope was advanced about 30 cm through the efferent limb. There does not appear to be any signs of obstruction. There is no sign of ulceration. Biopsies are taken of the gastrojejunal anastomosis, The body of the stomach, the GE junction which is at 36 cm, and the distal esophagus which is at 35 cm. All specimens are retrieved and no bleeding is noted. She does have diffuse esophagitis throughout the entirety of the esophagus. There are no signs of a bleeding. There are no ulcerations. Is moderate in nature. The entirety of the esophagus is quite friable. At the upper esophageal sphincter she does changes that may be associated with Obrien's at the upper esophageal sphincter. It does appear that she has been having significant bile reflux throughout the entire esophagus for some time. The scope was then withdrawn. Unfortunately upon withdrawing the scope, there is an accumulation of bile with around vocal cords. And she was not able to clear this and she did aspirate. Patient was immediately suctioned and taken to PACU for further evaluation. _pt did require high flow O2 in PACU. I did d/w the case w/ Dr. Gruber. Her oxygenation is fluctuating, and I don't think she is safe to go back to med surg. We will put her in the ICU overnight for obs. I did call and talk to her son about findings on the endoscopy.
[2022-01-13] MEDS: oxyCODONE 10 MG TAB 5 MG PO (20:00)
[2022-01-13] MEDS: Lactobacillus Acidophilus CAP 1 CAP PO (20:00)
[2022-01-13] MEDS: Ascorbic Acid 500 MG TAB PO (20:00)
[2022-01-13] MEDS: buPROPion-CR 100 MG TABCR 200 MG PO (20:00)
[2022-01-13] MEDS: Psyllium PKT 1 EACH PO (20:01)
[2022-01-13] MEDS: Protein Nutritional Supplement 16 GM 1 OUNCE PACKET PO (20:01)
[2022-01-13] MEDS: Normal Saline 500 ML 250 ML IV (21:12)
[2022-01-14] VITALS (72 sets, daily range): BP systolic 71–120; BP diastolic 35–78; PULSE 0–115; RESP 1–34; TEMP 36.6–37.2; O2SAT 86–100
--- NOTE | 2022-01-14 | DI.RAD_ITS ---
Exam(s) XR PORTABLE CHEST AP EXAM: XR PORTABLE CHEST AP CLINICAL HISTORY: cough, aspiration event. TECHNIQUE: 2D digital imaging was performed of the chest. One image was obtained. An AP view was ob tained. COMPARISON: CR,XR XR PORTABLE CHEST AP from 01/04/2022 CR XR PORTABLE CHEST AP from 01/13/2022 FINDINGS: MEDIASTINUM: Normal. HEART: Normal. PULMONARY VASCULATURE: Normal. LUNGS: There are ill-defined infiltrates in the lungs predominantly in the bases. PLEURAL SPACE: No pleural effusion or pneumothorax. BONE:Within normal limits for the patient's age. OTHER FINDINGS:The tip of the left-sided PICC is seen at the cavoatrial junction. IMPRESSION: Bilateral pulmonary infiltrates concerning for pneumonia. DATA REPOSITORY: RADIATION DOSE DELIVERED:
[2022-01-14] MEDS: oxyCODONE 10 MG TAB 5 MG PO ×2 (01:09→05:02)
[2022-01-14] MEDS: Albuterol/Ipratropium 3 ML UPD VIAL UPD ×4 (04:25→21:30)
[2022-01-14] MEDS: DEXTROSE 5%-LACTATED RINGERS 1,000 ML 75 ML IV ×2 (06:01→17:21)
[2022-01-14 07:05] LABS: HCT 27.6 % (36.0-46.0); MCH 31.3 pg (27.0-33.0); MCHC 32.6 % (32.0-36.0); MCV 96 fL (80-95); MPV 9.5 fL (8.0-11.0); Platelet Count 146 10^3/uL (130-400); RBC 2.88 10^6/uL (3.93-5.22); RDW 17.7 % (11.7-14.6); WBC 9.92 10^3/uL (4.4-10.8)
[2022-01-14 07:16] LABS: BUN 7 mg/dL (7-18); CREATININE 0.5 mg/dL (0.55-1.02); Calcium 7.1 mg/dL (8.5-10.1); Chloride 113 mmol/L (98-107); Glucose 313 mg/dL (74-106); Magnesium 1.7 mg/dL (1.8-2.4); Potassium 3.3 mmol/L (3.5-5.1); Sodium 144 mmol/L (136-145)
[2022-01-14 07:28] LABS: Bilirubin Negative (Negative); Blood Negative (Negative); Clarity Clear (Clear); Glucose Negative (Negative); Ketones Negative (Negative); Leukocyte Esterase Negative (Negative); Nitrite Negative (Negative); Specific Gravity 1.015 (1.005-1.025); Urobilinogen 0.2 EU/dL (Up TO 0.2)
[2022-01-14 07:31] LABS: Absolute Lymphocyte Count 3.67 10^3/uL (1.2-3.4); Absolute Monocyte Count 0.79 10^3/uL (0.1-0.8); Absolute Neutrophil Count 5.26 10^3/uL (1.2-6.7); Bands % 1; Diff Comment Manual Differential; RBC Morphology Normal
[2022-01-14] MEDS: Zinc Sulfate 220 MG TAB PO (07:33)
[2022-01-14] MEDS: Normal Saline Flush 10 ML SYR IVP ×2 (07:34→19:59)
[2022-01-14] MEDS: buPROPion-CR 100 MG TABCR 200 MG PO ×2 (07:34→19:57)
[2022-01-14] MEDS: FLUoxetine 20 MG CAP PO (07:34)
[2022-01-14] MEDS: Sucralfate 1 GM TAB PO ×4 (07:34→21:29)
[2022-01-14] MEDS: Multivitamin TAB 1 TAB PO (07:34)
[2022-01-14] MEDS: Calcium 600mg/Vit D 200U TAB 1 TAB PO (07:34)
[2022-01-14] MEDS: Creon, Lipase 6,000 CAPCR 1 CAP PO ×3 (07:34→16:32)
[2022-01-14] MEDS: Protein Nutritional Supplement 16 GM 1 OUNCE PACKET PO ×3 (07:34→19:59)
[2022-01-14] MEDS: Lactobacillus Acidophilus CAP 1 CAP PO ×2 (07:34→19:57)
[2022-01-14] MEDS: Psyllium PKT 1 EACH PO (07:34)
[2022-01-14 07:53] LABS: Procalcitonin 0.3 ng/mL
[2022-01-14] MEDS: Magnesium Oxide 400 MG TAB PO ×2 (08:46→19:57)
[2022-01-14] MEDS: POTASSIUM CHLORIDE 10 MEQ/100 ML BAG 100 MEQ IVPB ×2 (08:46→09:51)
--- NOTE | 2022-01-14 10:27 | DI.VRAD_ITS ---
PROCEDURE INFORMATION: Exam: XR Chest Exam date and time: 01/14/2022 9:59 AM Age: 66 years old Clinical indication: Other: Confusion, fever TECHNIQUE: Imaging protocol: XR of the chest. Views: 1 view. COMPARISON: CR XR PORTABLE CHEST AP 01/13/2022 3:39 PM FINDINGS: Tubes, catheters and devices: Left-sided approach PICC terminates over the cavoatrial junction. Lungs: Increased ill-defined bilateral lung opacities particularly at the right lung base. Pleural spaces: No pneumothorax. Possible trace bilateral pleural effusions. Heart/Mediastinum: Cardiomediastinal silhouette within normal limits allowing for rotation. Bones/joints: No acute displaced fracture or dislocation. Old rib fractures. IMPRESSION: Increased ill-defined bilateral lung opacities concerning multifocal pneumonia/infection. Dictated and Authenticated by: Denzel Michaud MD. Ordering:RAQUEL Dickey MD
--- NOTE | 2022-01-14 15:11 | PGE_ITS ---
Date of Service Date of service: 01/14/22 Time of Service: 14:14 Assessment and Plan Assessment and plan (1) Acute respiratory failure with hypoxia: Status: Acute Assessment and plan: Due to an aspiration event on retraction of the scope during EGD. Chemical pneumonitis likely. Is on Rocephin for UTI. Given high oxygen requirement, was transferred to the ICU and trial on hu midified heated O2 NC. Now on 1L O2 per NC. Transfer back to med-surg status. Prn nebs. XR now with increased ill-defined bilateral lung opacities concerning multifocal pneumonia/infection. Procal is 0.3. WBC is normal. Afebrile. (2) GI bleeding: Status: Chronic Assessment and plan: EGD with severe gastritis, large hiatal hernia and no evidence of tumor, ulcer, or anastamotic bleeding. Discussed with general surgery: given the size of the gastric pouch, benefit from PPI is likely to be minimal - lifelong carafate AC and HS recommended. (3) Acute on chronic blood loss anemia: Status: Acute Assessment and plan: As above. S/p transfusion of 1 unit pRBCs. H/H up to 10.0 but now down to 9.0. Recheck in am. No evidence of active bleeding on EGD. (4) Adult failure to thrive: Status: Acute Assessment and plan: Concern for an underlying malignancy given her unintentional weight loss, GI complaints. EGD without evidence of malignancy today. QUARRY PLUG AND FEATHER DRILLER consulted and, given the patient's current deterioration, will either see the patient over the weekend or early next week.(H/o cervical cancer in the past as well as an elevated CA 125 on this admission). She refused a transvaginal US. We are looking for the pathology report from Dr Vo's flex sig on her in 10/2021 at [facility] (the patient's chart traveled with her to the OR). Additionally, it is unclear how compliant the patient has been as an outpatient. The son does not know. Reviewing her medications, it appears that she is not 100% on times with the refills. We do know she has missed multiple appointments with her PCP. It is entirely possible that she was not taking her medications which led to psychiatric reasons for not caring for self. The patient does not have capacity to make her medical decisions, as per my conversation with Dr Tamez. I have made the son aware of this. The son, John Paul, has been the consenting libertarian. (5) Weakness: Status: Acute Assessment and plan: Evaluated by Dr Westfall who feels that the explanation for weakness has more to do with malnutrition and deconditioning rather than a neurologic etiology. Would benefit from SNF on discharge - cannot live independently. (6) Weight loss, unintentional: Status: Acute Assessment and plan: Read failure to thrive above. MRI scan of the abdomen did not show any recurrence of her pancreatic cancer. Pneumobilia is stable and likely not representing a pathologic process. Await pathology reports from Dr Vo's sigmoidoscopy. QUARRY PLUG AND FEATHER DRILLER consulted. EGD w/o active bleeding or evidence of malignancy. (7) Decubitus ulcer: Status: Acute Assessment and plan: Continue empiric rocephin and wound care. (8) Acute hypokalemia: Status: Resolved Assessment and plan: Replace and monitor. (9) Hypertension: Status: Chronic Assessment and plan: Not requiring BP meds here. (10) GERD (gastroesophageal reflux disease): Status: Chronic Assessment and plan: Protonix IV + carafate. (11) Bipolar disorder: Status: Acute Assessment and plan: Continue wellbutrin, prozac, olanazapine, mirtazapine. Evaluated by Dr Tamez. (12) DVT prophylaxis: Status: Acute Assessment and plan: Hold chemical DVT ppx in light of heme + stools/anemia. (13) Discharge planning issues: Status: Acute Assessment and plan: She was transferred to the ICU for management of acute hypoxic respiratory failure. Now stabilized and improving. Return to med-surg status. Per her discussion with palliative recently; she and her family agreed that she would not want CPR or intubation. Unsafe to live independently and will need SNF placement. Guardianship recommended by psychiatry. Discussed with Dr Conti and Marcos Isbell (anesthesia). Subjective Subjective Patient reports: no new complaints, tolerating a regular diet (low appetite) and afebrile; denies diarrhea, nausea or vomiting Exam Narrative Exam Narrative: General: Frail elderly female who is seen in a bed in the PACU. NC in place with 1L supplemental O2. Conversant and pleasant. HEENT: sclera clear. MMM Heart: RRR, mildly tachycardic Lungs: Bilateral rhonchi. Abdomen: soft, nontender, nondistended Extremities: trace edema BLEs Objective Last Vital Signs Temp 36.6 C 01/14/22 07:46 Pulse 105 H 01/14/22 11:01 Resp 30 H 01/14/22 11:01 BP 112/73 01/14/22 11:01 Pulse Ox 100 01/14/22 11:01 Laboratory Results - last 24 hr 01/14/22 01/14/22 01/14/22 06:10 06:10 06:10 WBC 9.92 RBC 2.88 L Hgb 9.0 L Hct 27.6 L MCV 96 H MCH 31.3 MCHC 32.6 RDW 17.7 H Plt Count 146 MPV 9.5 Immature Gran % 0.0 Neutrophils % 52.0 Band Neutrophils % 1 Lymphocytes % 37.0 Monocytes % 8.0 Eosinophils % 2.0 Basophils % 0.0 Nucleated RBC % 0.0 Absolute Neutrophils 5.26 Absolute Lymphocytes 3.67 H Absolute Monocytes 0.79 Absolute Eosinophils 0.20 Absolute Basophils 0.00 RBC Morphology Normal Sodium 144 Potassium 3.3 L Chloride 113 H Carbon Dioxide 23.0 Anion Gap 8.0 BUN 7 Creatinine 0.5 L Estimated GFR/1.73 m2 >= 60.00 Glucose 313 H Calcium 7.1 L Magnesium 1.7 L Procalcitonin 0.3 Urine Color Urine Clarity Urine pH Ur Specific [place] Urine Protein Urine Ketones Urine Blood Urine Nitrite Urine Bilirubin Urine Urobilinogen Ur Leukocyte Esterase Urine Glucose 01/14/22 06:15 WBC RBC Hgb Hct MCV MCH MCHC RDW Plt Count MPV Immature Gran % Neutrophils % Band Neutrophils % Lymphocytes % Monocytes % Eosinophils % Basophils % Nucleated RBC % Absolute Neutrophils Absolute Lymphocytes Absolute Monocytes Absolute Eosinophils Absolute Basophils RBC Morphology Sodium Potassium Chloride Carbon Dioxide Anion Gap BUN Creatinine Estimated GFR/1.73 m2 Glucose Calcium Magnesium Procalcitonin Urine Color Yellow Urine Clarity Clear Urine pH 6.0 Ur Specific [place] 1.015 Urine Protein Negative Urine Ketones Negative Urine Blood Negative Urine Nitrite Negative Urine Bilirubin Negative Urine Urobilinogen 0.2 Ur Leukocyte Esterase Negative Urine Glucose Negative
[2022-01-14] MEDS: cefTRIAXone 1 GM/50 ML BAG IVPB (15:39)
[2022-01-14] MEDS: Mirtazapine 15 MG TAB 7.5 MG PO (21:28)
[2022-01-14] MEDS: Rosuvastatin 10 MG TAB PO (21:28)
[2022-01-14] MEDS: OLANZapine 5 MG TAB PO (21:29)
[2022-01-15] VITALS (8 sets, daily range): BP systolic 90–117; BP diastolic 56–81; PULSE 105–118; RESP 1–36; TEMP 35.5–37.1; O2SAT 87–95
--- NOTE | 2022-01-15 | DI.RAD_ITS ---
Exam(s) XR PORTABLE CHEST AP EXAM: XR PORTABLE CHEST AP CLINICAL HISTORY: ?CHF, ?PNA TECHNIQUE: 2D digital imaging was performed of the chest. One images were obtained. AP views were obtained. COMPARISON: CR,XR XR PORTABLE CHEST AP from 01/14/2022 FINDINGS: MEDIASTINUM: Normal. HEART: Normal. PULMONARY VASCULATURE: Normal. LUNGS: There are stable bilateral pulmonary infiltrates. No new infiltrates are seen. PLEURAL SPACE: No pneumothorax. BONE:Within normal limits for the patient's age. Old right rib fracture deformities. OTHER FINDINGS:The tip of the left PICC line is in good position in the superior vena cava. IMPRESSION: No change in appearance of the chest compared to 01/14/2022. DATA REPOSITORY: RADIATION DOSE DELIVERED:
[2022-01-15] MEDS: Albuterol/Ipratropium 3 ML UPD VIAL UPD ×4 (04:52→21:19)
[2022-01-15 07:01] LABS: Abs Immature Grans 0.07 10^3/uL (0.0-0.06); Absolute Basophil Count 0.05 10^3/uL (0.0-0.2); Absolute Eosinophil Count 0.29 10^3/uL (0.0-0.7); Absolute Lymphocyte Count 2.36 10^3/uL (1.2-3.4); Absolute Neutrophil Count 6.54 10^3/uL (1.2-6.7); Basophils % 0.5; Eosinophils % 2.8; HCT 27.7 % (36.0-46.0); HGB 9.3 g/dL (11.2-15.7); Immature Grans % 0.7; Lymphocytes % 22.7; MCHC 33.6 % (32.0-36.0); MCV 95 fL (80-95); MPV 9.5 fL (8.0-11.0); Monocytes % 10.6; Neutrophils % 62.7; Platelet Count 129 10^3/uL (130-400); RBC 2.91 10^6/uL (3.93-5.22); RDW 17.6 % (11.7-14.6); WBC 10.41 10^3/uL (4.4-10.8)
[2022-01-15 07:25] LABS: Anisocytosis 1+; Diff Comment Agrees w/ Instrument; Microcytosis 1+
--- NOTE | 2022-01-15 07:43 | DI.VRAD_ITS ---
) PROCEDURE INFORMATION: Exam: XR Chest Exam date and time: 01/15/2022 6:39 AM Age: 66 years old Clinical indication: Other: ? Chf, ? pna TECHNIQUE: Imaging protocol: XR of the chest. Views: 1 view. COMPARISON: 1. XR PORTABLE CHEST AP 01/14/2022 9:59 AM 2. CR XR PORTABLE CHEST AP 01/13/2022 3:39 PM FINDINGS: Limitations: The patient is rotated to the right. Tubes, catheters and devices: There is a left upper extremity PICC in place with its tip projecting over the central superior vena cava. Lungs: There are persistent patchy bibasilar airspace opacities, right greater than left, overall not significantly changed within the limits of differences in positioning and projection. There is no new consolidation. There is no overt pulmonary edema or significant vascular congestion. Pleural spaces: Possible very small bilateral pleural effusions, not significantly changed. No pneumothorax. Heart/Mediastinum: Heart size is normal. Cardiomediastinal contours are stable and satisfactory. Bones/joints: No acute osseous abnormality. Diffuse osseous demineralization. Degenerative changes. Multiple old healed right rib fractures. IMPRESSION: 1. Persistent patchy bibasilar airspace opacities (right greater than left), not significantly changed since 01/14/2022, suspicious for pneumonia. 2. Additional stable chronic findings as described above. Dictated and Authenticated by: Ruba Arambula MD. Ordering:BANDAR Landaverde MD
[2022-01-15] MEDS: Protein Nutritional Supplement 16 GM 1 OUNCE PACKET PO ×3 (08:33→20:03)
[2022-01-15] MEDS: Normal Saline Flush 10 ML SYR IVP ×2 (08:33→20:03)
[2022-01-15] MEDS: Psyllium PKT 1 EACH PO ×2 (08:33→20:03)
[2022-01-15] MEDS: Furosemide 40 MG/4 ML VIAL IVP (08:33)
[2022-01-15] MEDS: Zinc Sulfate 220 MG TAB PO (08:34)
[2022-01-15] MEDS: Calcium 600mg/Vit D 200U TAB 1 TAB PO (08:34)
[2022-01-15] MEDS: buPROPion-CR 100 MG TABCR 200 MG PO ×2 (08:34→20:02)
[2022-01-15] MEDS: FLUoxetine 20 MG CAP PO (08:34)
[2022-01-15] MEDS: Sucralfate 1 GM TAB PO ×4 (08:34→21:18)
[2022-01-15] MEDS: Lactobacillus Acidophilus CAP 1 CAP PO ×2 (08:34→20:02)
[2022-01-15] MEDS: Magnesium Oxide 400 MG TAB PO ×2 (08:34→20:03)
[2022-01-15] MEDS: Multivitamin TAB 1 TAB PO (08:34)
[2022-01-15] MEDS: Creon, Lipase 6,000 CAPCR 1 CAP PO ×3 (08:38→17:01)
[2022-01-15 09:02] LABS: Bilirubin Negative (Negative); Blood Trace-intact (Negative); Clarity Clear (Clear); Glucose Negative (Negative); Ketones Negative (Negative); Leukocyte Esterase Negative (Negative); Nitrite Negative (Negative); Urobilinogen 0.2 EU/dL (Up TO 0.2); pH 6.5 (5-8)
[2022-01-15 09:09] LABS: Epithelial Cells Rare HPF (Negative)
[2022-01-15 09:10] LABS: Bacteria Rare HPF (Negative); C & S Indicated? No; Casts Negative LPF (Negative); Crystals Negative HPF (Negative); Mucus Moderate (Negative)
--- NOTE | 2022-01-15 11:26 | WOUNDCONS ---
- If Service Date Differs Date of service: 01/15/22 Time of Service: 11:27 Wound Initial Evaluation Narrative: Follow up to the wound consult of last Sunday. Over the course of the last week Patient was transferred to the ICU after aspirating after having an EGD. Patient is very weak, she is a 2 max to transfer and ambulate. She was treated for fluid overload this morning as she developed shortness of breath and confusion. Lasix was given and she is diuresing, though she is rather edenemous. Labs and current progress notes were reviewed. - Wound Lumbar/Sacral Wound Type: Pressure Ulcer Pressure Ulcer Stage: IV Wound General Appearance: Reddened, Draining, Bleeding, Necrotic, Unapproximated Wound Bed Greatest Portion: Red (Granulation) Wound Bed Lesser Portion: Yellow (Slough) Wound Surrounding Tissue Appearance: [place] Percent of Wound Bed Granulated/Red: 50 Percent of Wound Bed Slough/Yellow: 50 Percent of Wound Bed Eschar/Black: 0 Wound Length: 3.6 cm Wound Width: 7.4 cm Wound Depth: 2.5 cm Wound Drainage Amount: Minimal Wound Drainage Odor: None/Absent Wound Drainage Description: Bloody Wound Topical Solution/Irrigant: Saline Irrigant Wound Debridement Method: Gauze, Mechanical Wound Debridement Result: Healthy Tissue Revealed Wound Debridement Amount of Tissue Removed: Minimal - Circulation, Sensation, Motion Edema Degree: 3+ Peripheral Pulse Strength: Normal Capillary Refill: Less than 3 seconds Sensation Description: Within Normal Limits Skin Temperature: Warm Skin Color: Normal - Pain Pain Level: 8 Pain Scale Used: Visual Analog Scale 0-10 Pain Description: Sharp Pain Duration (Hours): 0 (during debridement) Pain Duration/Frequency: With Palpation The amount of slough in the wound bed has decreased considerably over the last week, should consider changing dressing to a hydrocolloid to faciltate a better seal over the wound. Once the wound bed has reached the point of NPWT consideration. I would reccomend a MRI to rule out osteomylitis prior to starting the therapy - Photo Photo: - Treatment/Dressing Change Topicals/Ointments: Santyl Cleanse With: Cleanser with Surfactant Dressing Types: Gauze, Hydrocollid (Duoderm), Saline Moistened Gauze - Recomendation Recomendation:: Coccyx. Cleanse wound with wound cleanser and debride with gauze. Apply Santyl to the wound bed, using care to the avoid the isauro wound skin. Fluff saline moistened gauze in the wound to fill the voids. Apply skin prep to the isauro wound skin. Cover with a Duoderm. Change daily. Physcian/Nurse Practioner Notified: Yes (Dr. Pope) Treatment Time - Time Total Time Spent with Patient: 1 hour - Patient Will be Seen Weekly Treatment: daily - For: For:: 1 week
[2022-01-15] MEDS: Collagenase 30 GM TUBE TP (11:46)
--- NOTE | 2022-01-15 14:43 | PGE_ITS ---
Date of Service Date of service: 01/15/22 Time of Service: 13:43 Assessment and Plan Assessment and plan (1) Acute respiratory failure with hypoxia: Status: Acute Assessment and plan: on retraction of the scope during EGD. Chemical pneumonitis was initially considered most likely but her procal was mildly elevated at 0.3 and CXR showed increased ill-defined bilateral lung o pacities. She remains afebrile. WBC count normal. Was on Rocephin for UTI when aspiration event occurred. Cont Rocephin tomorrow and if no fever, elevated WBC count, will likely d/c. Given Lasix 40mg IV and IV fluids stopped today. Prn nebs. (2) GI bleeding: Status: Chronic Assessment and plan: EGD with severe gastritis, large hiatal hernia and no evidence of tumor, ulcer, or anastamotic bleeding. Discussed with general surgery: given the size of the gastric pouch, benefit from PPI is likely to be minimal - lifelong carafate AC and HS recommended. (3) Acute on chronic blood loss anemia: Status: Acute Assessment and plan: As above. S/p transfusion of 1 unit pRBCs. H/H up to 10.0 but now down to 9.0 > 9.3 Recheck in am. No evidence of active bleeding on EGD. (4) Adult failure to thrive: Status: Acute Assessment and plan: Concern for an underlying malignancy given her unintentional weight loss, GI complaints. EGD without evidence of malignancy today. LONGWALL HEADGATE OPERATOR consulted and, given the patient's current deterioration, will either see the patient over the weekend or early next week.(H/o cervical cancer in the past as well as an elevated CA 125 on this admission). She refused a transvaginal US. We are looking for the pathology report from Dr Vo's flex sig on her in 10/2021 at [facility] (the patient's chart traveled with her to the OR). Additionally, it is unclear how compliant the patient has been as an outpatient. Her son from [place] flew in and I spoke with him today. He states that he believes that for appx 1.5 months she has been very sedentary, not eating or taking care of her home and likely not compliant with meds. Reviewing her medications, it appears that she is not 100% on times with the refills. We do know she has missed multiple appointments with her PCP. It is entirely possible that she was not taking her medications which led to psychiatric reasons for not caring for self. The patient does not have capacity to make her medical decisions, as per my conversation with Dr Tamez. I have made the son aware of this. The son, John Paul, has been the consenting green party. (5) Weakness: Status: Acute Assessment and plan: Evaluated by Dr Westfall who feels that the explanation for weakness has more to do with malnutrition and deconditioning rather than a neurologic etiology. Would benefit from SNF on discharge - cannot live independently. (6) Weight loss, unintentional: Status: Acute Assessment and plan: Read failure to thrive above. MRI scan of the abdomen did not show any recurrence of her pancreatic cancer. Pneumobilia is stable and likely not representing a pathologic process. Await pathology reports from Dr Vo's sigmoidoscopy. LONGWALL HEADGATE OPERATOR consulted. EGD w/o active bleeding or evidence of malignancy. (7) Decubitus ulcer: Status: Acute Assessment and plan: Continue empiric rocephin and wound care. MRI of pelvis on 01/06/22 w/o evidence of osteomyelitis. Less slough noted today in wound bed. Planning on wound vac when wound bed adequately cleared of slough and if no exposed bone is found. (8) Acute hypokalemia: Status: Resolved Assessment and plan: Replace and monitor. (9) Hypertension: Status: Chronic Assessment and plan: Not requiring BP meds here. (10) GERD (gastroesophageal reflux disease): Status: Chronic Assessment and plan: Protonix IV + carafate. (11) Bipolar disorder: Status: Acute Assessment and plan: Continue wellbutrin, prozac, olanazapine, mirtazapine. Evaluated by Dr Tamez. (12) DVT prophylaxis: Status: Acute Assessment and plan: Hold chemical DVT ppx in light of heme + stools/anemia. (13) Discharge planning issues: Status: Acute Assessment and plan: She was transferred to the ICU for management of acute hypoxic respiratory failure. Now stabilized and improving. Returned to med-surg status. Per her discussion with palliative recently; she and her family agreed that she would not want CPR or intubation. Unsafe to live independently and will need SNF placement. Guardianship recommended by psychiatry. Discussed with Dr Conti and Marcos Isbell (anesthesia). Subjective Subjective Patient reports: no new complaints, tolerating liquids well and shortness of breath; denies nausea or vomiting Exam Narrative Exam Narrative: General: Frail elderly female who is seen in a bed in the PACU. NC in place with 1L supplemental O2. Conversant and pleasant. HEENT: sclera clear. MMM Heart: RRR, mildly tachycardic Lungs: Bilateral rhonchi. Abdomen: soft, nontender, nondistended Extremities: trace edema BLEs Skin: Forearms with ecchymoses, abrasions and excoriations. Lacy, reticular rash on abd and R breast. Objective Last Vital Signs Temp 36.6 C 01/15/22 07:24 Pulse 118 H 01/15/22 10:19 Resp 36 H 01/15/22 10:19 BP 109/72 01/15/22 07:24 Pulse Ox 94 01/15/22 10:19 Laboratory Results - last 24 hr 01/15/22 01/15/22 06:20 08:55 WBC 10.41 RBC 2.91 L Hgb 9.3 L Hct 27.7 L MCV 95 MCH 32.0 MCHC 33.6 D RDW 17.6 H Plt Count 129 L MPV 9.5 Immature Gran % 0.7 Neutrophils % 62.7 Lymphocytes % 22.7 Monocytes % 10.6 Eosinophils % 2.8 Basophils % 0.5 Nucleated RBC % 0.0 Absolute Neutrophils 6.54 Absolute Lymphocytes 2.36 Absolute Monocytes 1.10 H Absolute Eosinophils 0.29 Absolute Basophils 0.05 RBC Morphology See Below Anisocytosis 1+ Microcytosis 1+ Urine Color Yellow Urine Clarity Clear Urine pH 6.5 Ur Specific [place] 1.020 Urine Protein Negative Urine Ketones Negative Urine Blood Trace-intact H Urine Nitrite Negative Urine Bilirubin Negative Urine Urobilinogen 0.2 Ur Leukocyte Esterase Negative Urine RBC 3-5 H Urine WBC 3-5 Ur Epithelial Cells Rare Urine Crystals Negative Urine Bacteria Rare Urine Casts Negative Urine Mucus Moderate Ur Culture Indicated? No Urine Glucose Negative
[2022-01-15] MEDS: cefTRIAXone 1 GM/50 ML BAG IVPB (15:53)
[2022-01-15] MEDS: Rosuvastatin 10 MG TAB PO (21:18)
[2022-01-15] MEDS: OLANZapine 5 MG TAB PO (21:18)
[2022-01-15] MEDS: Mirtazapine 15 MG TAB 7.5 MG PO (21:18)
[2022-01-15] MEDS: Latanoprost 0.005% 2.5 ML BTL OP (22:00)
[2022-01-16] VITALS (12 sets, daily range): BP systolic 98–124; BP diastolic 58–78; PULSE 96–111; RESP 2–30; TEMP 36–36.9; O2SAT 84–99
[2022-01-16] MEDS: Albuterol/Ipratropium 3 ML UPD VIAL UPD ×4 (04:28→20:57)
[2022-01-16 07:41] LABS: Anion Gap 5.8 mmol/L (3-11); BUN 12 mg/dL (7-18); CO2 28.2 mmol/L (21.0-32.0); CREATININE 0.4 mg/dL (0.55-1.02); Calcium 7.2 mg/dL (8.5-10.1); Chloride 112 mmol/L (98-107); Glucose 77 mg/dL (74-106); Magnesium 1.8 mg/dL (1.8-2.4); Sodium 146 mmol/L (136-145)
[2022-01-16 07:44] LABS: Potassium 2.9 mmol/L (3.5-5.1)
[2022-01-16] MEDS: Normal Saline Flush 10 ML SYR IVP ×3 (11:13→22:14)
[2022-01-16] MEDS: POTASSIUM CHLORIDE 10 MEQ/100 ML BAG 100 MEQ IVPB ×3 (11:18→14:31)
[2022-01-16] MEDS: Lactobacillus Acidophilus CAP 1 CAP PO ×2 (11:26→20:54)
[2022-01-16] MEDS: Protein Nutritional Supplement 16 GM 1 OUNCE PACKET PO ×3 (11:26→20:55)
[2022-01-16] MEDS: buPROPion-CR 100 MG TABCR 200 MG PO ×2 (11:26→20:54)
[2022-01-16] MEDS: Magnesium Oxide 400 MG TAB PO ×2 (11:28→20:54)
[2022-01-16] MEDS: Multivitamin TAB 1 TAB PO (11:28)
[2022-01-16] MEDS: Calcium 600mg/Vit D 200U TAB 1 TAB PO (11:29)
[2022-01-16] MEDS: Zinc Sulfate 220 MG TAB PO (11:29)
[2022-01-16] MEDS: FLUoxetine 20 MG CAP PO (11:29)
[2022-01-16] MEDS: Sucralfate 1 GM TAB PO ×3 (11:30→20:54)
[2022-01-16] MEDS: Psyllium PKT 1 EACH PO ×2 (11:32→20:54)
[2022-01-16] MEDS: Creon, Lipase 6,000 CAPCR 1 CAP PO ×2 (11:34→18:03)
[2022-01-16 13:26] LABS: HCT 29.2 % (36.0-46.0); HGB 9.5 g/dL (11.2-15.7); MCH 31.8 pg (27.0-33.0); MCHC 32.5 % (32.0-36.0); MCV 98 fL (80-95); MPV 10.3 fL (8.0-11.0); Platelet Count 107 10^3/uL (130-400); RBC 2.99 10^6/uL (3.93-5.22); RDW 17.6 % (11.7-14.6); RDW-SD 62.5 fL; WBC 9.85 10^3/uL (4.4-10.8)
[2022-01-16] MEDS: methylPREDNISolone SUCC 40 MG VIAL IVP (13:40)
[2022-01-16 13:46] LABS: Absolute Eosinophil Count 0.49 10^3/uL (0.0-0.7); Absolute Lymphocyte Count 1.58 10^3/uL (1.2-3.4); Absolute Monocyte Count 0.49 10^3/uL (0.1-0.8); Absolute Neutrophil Count 7.29 10^3/uL (1.2-6.7); Atypical Lymphocytes % 1; Diff Comment Manual Differential; RBC Morphology Normal
[2022-01-16] MEDS: IRON SUCROSE COMPLEX 200 MG in Normal Saline 100 ML 400 MG IVPB (15:41)
[2022-01-16] MEDS: cefTRIAXone 1 GM/50 ML BAG IVPB (15:47)
--- NOTE | 2022-01-16 17:23 | W.PM.PROGNOT ---
Date of Service Date of service: 01/16/22 Time of Service: 16:23 Assessment and Plan Assessment and plan (1) Acute respiratory failure with hypoxia: Status: Acute Assessment and plan: Aspiration on retraction of the scope during EGD. Chemical pneumonitis was initially considered most likely but her procal was mildly elevated at 0.3 and CXR showed increased ill-defined bilateral lung opacities. Likely combo of chemical pneumonitis and bacterial PNA. She remains afebrile. WBC count normal. Was on Rocephin for UTI when aspiration event occurred. Cont Rocephin. IV methylprednisolone 40mg IV x 1. After this and a neb treatment her resp rate improved and she felt better. Prn nebs. (2) GI bleeding: Status: Chronic Assessment and plan: EGD with severe gastritis, large hiatal hernia and no evidence of tumor, ulcer, or anastamotic bleeding. Discussed with general surgery: given the size of the gastric pouch, benefit from PPI is likely to be minimal - lifelong carafate AC and HS recommended. (3) Acute on chronic blood loss anemia: Status: Acute Assessment and plan: As above. S/p transfusion of 1 unit pRBCs. H/H up to 10.0 but then down and trending back up: 9.0 > 9.3>9.5 No evidence of active bleeding on EGD. (4) Adult failure to thrive: Status: Acute Assessment and plan: Concern for an underlying malignancy given her unintentional weight loss, GI complaints. EGD without evidence of malignancy today. BUILDING PRESSURE WASHER consulted and, given the patient's current deterioration, will either see the patient over the weekend or early next week.(H/o cervical cancer in the past as well as an elevated CA 125 on this admission). She refused a transvaginal US. We are looking for the pathology report from Dr Vo's flex sig on her in 10/2021 at [facility] (the patient's chart traveled with her to the OR). Additionally, it is unclear how compliant the patient has been as an outpatient. Her son from [place] flew in and I spoke with him. He states that he believes that for appx 1.5 months she has been very sedentary, not eating or taking care of her home and likely not compliant with meds. Reviewing her medications, it appears that she is not 100% on times with the refills. We do know she has missed multiple appointments with her PCP. It is entirely possible that she was not taking her medications which led to psychiatric reasons for not caring for self. The patient does not have capacity to make her medical decisions, as per my conversation with Dr Tamez. I have made the son aware of this. The son, John Paul, has been the consenting republican. Palliative involved. (5) Weakness: Status: Acute Assessment and plan: Evaluated by Dr Westfall who feels that the explanation for weakness has more to do with malnutrition and deconditioning rather than a neurologic etiology. Would benefit from SNF on discharge - cannot live independently. (6) Weight loss, unintentional: Status: Acute Assessment and plan: Read failure to thrive above. MRI scan of the abdomen did not show any recurrence of her pancreatic cancer. Pneumobilia is stable and likely not representing a pathologic process. Await pathology reports from Dr Vo's sigmoidoscopy. BUILDING PRESSURE WASHER consulted. EGD w/o active bleeding or evidence of malignancy. (7) Decubitus ulcer: Status: Acute Assessment and plan: Continue empiric rocephin and wound care. MRI of pelvis on 01/06/22 w/o evidence of osteomyelitis. Less slough is being observed in wound bed. Planning on wound vac when wound bed adequately cleared of slough and if no exposed bone is found. Encourage nutritional intake. (8) Acute hypokalemia: Status: Resolved Assessment and plan: Replace and monitor. (9) Hypertension: Status: Chronic Assessment and plan: Not requiring BP meds here. (10) GERD (gastroesophageal reflux disease): Status: Chronic Assessment and plan: Cont carafate. (11) Bipolar disorder: Status: Acute Assessment and plan: Continue wellbutrin, prozac, olanazapine, mirtazapine. Stable mood. Evaluated by Dr Tamez. (12) DVT prophylaxis: Status: Acute Assessment and plan: Hold chemical DVT ppx in light of heme + stools/anemia. (13) Discharge planning issues: Status: Acute Assessment and plan: She was transferred to the ICU for management of acute hypoxic respiratory failure. Now stabilized and improving. Returned to med-surg status. Per her discussion with palliative recently; she and her family agreed that she would not want CPR or intubation. Unsafe to live independently and will need SNF placement. Guardianship recommended by psychiatry. Discussed with Dr Conti and Marcos Isbell (anesthesia). Subjective Subjective Patient reports: no new complaints, tolerating a regular diet (Poor appetite), shortness of breath (mild tachypnea this AM) and afebrile; denies nausea or vomiting Exam Narrative Exam Narrative: General: Frail elderly female who is seen in a bed in the PACU. NC in place with 1L supplemental O2. Conversant and pleasant. HEENT: sclera clear. MMM Heart: RRR, mildly tachycardic Lungs: Clear. Mild increase work of breathing. Abdomen: soft, nontender, nondistended Extremities: trace edema BLEs Skin: Forearms with ecchymoses, abrasions and excoriations. Lacy, reticular rash on abd and R breast. Objective Last Vital Signs Temp 36.9 C 01/16/22 14:55 Pulse 103 H 01/16/22 14:55 Resp 16 01/16/22 15:08 BP 108/70 01/16/22 14:55 Pulse Ox 94 01/16/22 14:55 Laboratory Results - last 24 hr 01/16/22 01/16/22 05:45 05:45 WBC 9.85 RBC 2.99 L Hgb 9.5 L Hct 29.2 L MCV 98 H MCH 31.8 MCHC 32.5 D RDW 17.6 H Plt Count 107 L MPV 10.3 Immature Gran % 0.0 Neutrophils % 74.0 Lymphocytes % 15.0 Atypical Lymphs % 1 Monocytes % 5.0 Eosinophils % 5.0 Basophils % 0.0 Nucleated RBC % 0.0 Absolute Neutrophils 7.29 H Absolute Lymphocytes 1.58 Absolute Monocytes 0.49 Absolute Eosinophils 0.49 Absolute Basophils 0.00 RBC Morphology Normal Sodium 146 H Potassium 2.9 L Chloride 112 H Carbon Dioxide 28.2 Anion Gap 5.8 BUN 12 Creatinine 0.4 L Estimated GFR/1.73 m2 >= 60.00 Glucose 77 Calcium 7.2 L Magnesium 1.8
[2022-01-16] MEDS: Rosuvastatin 10 MG TAB PO (20:54)
[2022-01-16] MEDS: OLANZapine 5 MG TAB PO (20:55)
[2022-01-16] MEDS: Mirtazapine 15 MG TAB 7.5 MG PO (20:55)
[2022-01-16] MEDS: Normal Saline 1,000 ML 100 ML IV (22:12)
[2022-01-16] MEDS: Latanoprost 0.005% 2.5 ML BTL OP (22:13)
--- NOTE | 2022-01-17 | DI.US_ITS ---
Exam(s) US UPPER EXTREMITY VENOUS LT EXAM: US UPPER EXTREMITY VENOUS LT CLINICAL HISTORY: arm swelling. PICC in place TECHNIQUE: GRAYSCALE, COLOR, DOPPLER IMAGING OF THE VENOUS SYSTEM OF THE UPPER EXTREMITY-BILATERAL COMPARISON: Chest x-ray 01/15/2022 FINDINGS: Recent chest x-ray reveals a left PICC line with its distal tip in the lower SVC. This is an abnormal study. There is intraluminal thrombus evident within the left cephalic vein and extending into the axillary vein. Also appears to extend into the subclavian vein. Length of this i ntraluminal thrombus is approximately 8-9 cm. The ipsilateral basal again brachial veins are patent, exhibiting normal compression and augmentation properties. The ipsilateral PICC line is visualized. IMPRESSION: 1. Positive study for intraluminal thrombus in the left upper extremity involving the left cephalic vein and continuing into the left axillary vein and left subclavian vein. Intraluminal length of the clot is approximately 8-9 cm. This finding places this patient at risk for pulmonary embolus DATA REPOSITORY:
[2022-01-17 03:35] VITALS: BP 106/71; PULSE 62; RESP 18; TEMP 36.1; O2SAT 83
[2022-01-17 04:43] VITALS: RESP 2
[2022-01-17] MEDS: Albuterol/Ipratropium 3 ML UPD VIAL UPD ×4 (04:43→21:45)
[2022-01-17 06:41] LABS: ALT 21 U/L (14-59); AST 23 U/L (15-37); Albumin 1.2 g/dL (3.4-5.0); Alkaline Phosphatase 95 U/L (46-116); Anion Gap 5.8 mmol/L (3-11); BUN 13 mg/dL (7-18); Bilirubin, Total 0.3 mg/dL (0.2-1.0); CO2 27.2 mmol/L (21.0-32.0); CREATININE 0.4 mg/dL (0.55-1.02); Chloride 113 mmol/L (98-107); Glucose 77 mg/dL (74-106); Potassium 3.4 mmol/L (3.5-5.1); Sodium 146 mmol/L (136-145); Total Protein 3.9 g/dL (6.4-8.2)
[2022-01-17 07:42] LABS: Lab Add On Test DONE
[2022-01-17 08:00] LABS: C-Reactive Protein 8.48 mg/dL (0.0-0.3)
[2022-01-17] MEDS: Normal Saline Flush 10 ML SYR IVP (09:05)
[2022-01-17] MEDS: Normal Saline 1,000 ML 100 ML IV (09:05)
[2022-01-17] MEDS: Magnesium Oxide 400 MG TAB PO ×2 (09:08→20:40)
[2022-01-17] MEDS: FLUoxetine 20 MG CAP PO (09:08)
[2022-01-17] MEDS: Protein Nutritional Supplement 16 GM 1 OUNCE PACKET PO ×3 (09:08→20:40)
[2022-01-17] MEDS: Lactobacillus Acidophilus CAP 1 CAP PO ×2 (09:08→20:39)
[2022-01-17] MEDS: Psyllium PKT 1 EACH PO ×2 (09:08→20:40)
[2022-01-17] MEDS: Creon, Lipase 6,000 CAPCR 1 CAP PO ×3 (09:08→16:49)
[2022-01-17] MEDS: buPROPion-CR 100 MG TABCR 200 MG PO ×2 (09:08→20:40)
[2022-01-17] MEDS: Zinc Sulfate 220 MG TAB PO (09:08)
[2022-01-17] MEDS: Multivitamin TAB 1 TAB PO (09:09)
[2022-01-17] MEDS: Sucralfate 1 GM TAB PO ×4 (09:09→20:40)
[2022-01-17] MEDS: Calcium 600mg/Vit D 200U TAB 1 TAB PO (09:09)
--- NOTE | 2022-01-17 09:13 | CMPROGNOTE_ITS ---
- If Service Date Differs Date of service: 01/17/22 Time of Service: 09:13 Care Management Progress Note S/O: Loli was lying in bed with the TV on when CM met with her. She is becoming increasingly weak, thin and confused. Loli is being followed by nutrition. Loli has failure to thrive at home, and a stage 4 ulcer. She is unsafe to discharge home. Her son Kedar who lives in [place] came to [place] at the end of last week and will be here until . Palliative provider will be here at 3pm tomorrow to discuss goals of care with patient and her son's Eddie and Kedar. Per provider, Loli is no longer safe to live alone. CM placed a referral to [facility] for case management and help with retirement planning. Loli remains agreeable for SNF for STR. Loli son's are Eddie and Kedar. Eddie lives in [place], [place] and Kedar lives in [place]. A: 66 year old female admitted to [facility] on 01/05/22 for weakness, falls and failure to thrive. P: Loli requires further medical workup and hospitalization for weakness and malnutrition. Surgical intervention in the OR is scheduled for Sun (01/06/22). Anticipate, Loli will discharge to SNF for STR vs. home with [facility] services when medically ready. SNF referral's are pending, [facility], offered her a bed. Transportation will be dependent on disposition and pts mobility level at time of discharge.
[2022-01-17 09:45] VITALS: RESP 5
[2022-01-17 11:59] LABS: Lab Add On Test DONE
[2022-01-17] MEDS: predniSONE 20 MG TAB 30 MG PO (11:59)
--- NOTE | 2022-01-17 12:16 | DI.RAD_ITS ---
Exam(s) XR PORTABLE CHEST AP EXAM: XR PORTABLE CHEST AP CLINICAL HISTORY: cough, dyspnea, aspiration.. TECHNIQUE: 2D digital imaging was performed. COMPARISON: CR,XR XR PORTABLE CHEST AP from 01/15/2022 FINDINGS: Single AP portable view. Patient is rotated towards the left Heart size upper normal. Mediastinum not widened Left PICC line again noted. Its distal tip is now cyst seen in the right atrium. Please note that u pper extremity ultrasound today revealed intraluminal thrombus extending from the left axillary vein continuous into the left subclavian vein for a distance of 8.6 cm. Patient is therefore risk for pul monary emboli Lung garcia exhibit increasing interstitial disease in the mid-upper lung garcia. There also appears to be some infiltrate in the left lower lobe just above the hemidiaphragm. No large pleural effusio ns evident. Multiple healed right-sided rib fractures are noted. IMPRESSION: Increasing bilateral interstitial disease. No obvious pleural effusions. Please note this patient had a Doppler ultrasound study of the left upper extremity today which revea led intraluminal thrombus along the course of the PICC line in the left axillary and subclavian veins , this placing this patient at risk for developing pulmonary emboli. The distal tip of the PICC line is in the right atrium. DATA REPOSITORY: RADIATION DOSE DELIVERED: All CT scans at this facility use at least one of these dose optimization techniques: automated exposure control; mA and/or kV adjustment per patient size (includes targeted e xams where dose is matched to clinical indication); or iterative reconstruction.
[2022-01-17] MEDS: Apixaban 5 MG TAB PO ×2 (12:22→20:40)
[2022-01-17 12:28] LABS: Procalcitonin 0.1 ng/mL
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
--- NOTE | 2022-01-17 13:30 | W.NUTRFU ---
Date of service: 01/17/22 Time of Service: 12:31 Nutrition Note NOTE: Loli is no longer full code. She continues to have poor intake and averaging about 500 kcal per day and meeting approx. 40% of caloric needs despite supplementation with ensure clear TID, remeron for appetite stimulation. Will be unable to heal stage 4 pressure wound without sufficient caloric intake. Marinol may be better appetite stimulant for her. Will continue to follow and encourage. Time Spent in Nutritional Counseling and Treatment: 0
--- NOTE | 2022-01-17 13:47 | W.PM.PROGNOT ---
Date of Service Date of service: 01/17/22 Time of Service: 13:38 Assessment and Plan Assessment and plan (1) Deep venous thrombosis of arm: Status: Acute Assessment and plan: Left arm DVT PICC in left arm; remove and initiate Eliquis 5mg po BID. Watch for GI bleeding now that she is on anticoagulant. Elevate arm. (2) Acute respiratory failure with hypoxia: Status: Acute Assessment and plan: Aspiration on retraction of the scope during EGD. Chemical pneumonitis was initially considered most likely but her procal was mildly elevated at 0.3 and CXR showed increased ill-defined bilateral lung opacities. Likely combo of chemical pneumonitis and bacterial PNA. Procal down to 0.1 Increased WOB and decreased O2 saturations today. Now on 5L O2 per NC CXR with increased interstitial markings. Lasix 40mg IV x 1. Prednisone 40mg now. She remains afebrile. WBC count normal. Was on Rocephin for UTI when aspiration event occurred. Cont Rocephin. . Prn nebs. (3) GI bleeding: Status: Chronic Assessment and plan: EGD with severe gastritis, large hiatal hernia and no evidence of tumor, ulcer, or anastamotic bleeding. Discussed with general surgery: given the size of the gastric pouch, benefit from PPI is likely to be minimal - lifelong carafate AC and HS recommended. Unfortunately now has LUE DVT and will need AC; Eliquis initiated. (4) Acute on chronic blood loss anemia: Status: Acute Assessment and plan: As above. S/p transfusion of 1 unit pRBCs. H/H up to 10.0 but then down and trending back up: 9.0 > 9.3>9.5 No evidence of active bleeding on EGD. (5) Adult failure to thrive: Status: Acute Assessment and plan: Concern for an underlying malignancy given her unintentional weight loss, GI complaints. EGD without evidence of malignancy today. END FINDER FORMING DEPARTMENT consulted and, given the patient's current deterioration, will either see the patient over the weekend or early next week.(H/o cervical cancer in the past as well as an elevated CA 125 on this admission). She refused a transvaginal US. We are looking for the pathology report from Dr Vo's flex sig on her in 10/2021 at [facility] (the patient's chart traveled with her to the OR). Additionally, it is unclear how compliant the patient has been as an outpatient. Her son from [place] flew in and I spoke with him. He states that he believes that for appx 1.5 months she has been very sedentary, not eating or taking care of her home and likely not compliant with meds. Reviewing her medications, it appears that she is not 100% on times with the refills. We do know she has missed multiple appointments with her PCP. It is entirely possible that she was not taking her medications which led to psychiatric reasons for not caring for self. The patient does not have capacity to make her medical decisions, as per my conversation with Dr Tamez. I have made the son aware of this. The son, John Paul, has been the consenting alliance party. Palliative involved. (6) Weakness: Status: Acute Assessment and plan: Evaluated by Dr Westfall who feels that the explanation for weakness has more to do with malnutrition and deconditioning rather than a neurologic etiology. Would benefit from SNF on discharge - cannot live independently. (7) Weight loss, unintentional: Status: Acute Assessment and plan: Read failure to thrive above. MRI scan of the abdomen did not show any recurrence of her pancreatic cancer. Pneumobilia is stable and likely not representing a pathologic process. Await pathology reports from Dr Vo's sigmoidoscopy. END FINDER FORMING DEPARTMENT consulted. EGD w/o active bleeding or evidence of malignancy. (8) Decubitus ulcer: Status: Acute Assessment and plan: Continue empiric rocephin and wound care. MRI of pelvis on 01/06/22 w/o evidence of osteomyelitis. Less slough is being observed in wound bed. Planning on wound vac when wound bed adequately cleared of slough and if no exposed bone is found. Encourage nutritional intake. (9) Acute hypokalemia: Status: Resolved Assessment and plan: Replace and monitor. (10) Hypertension: Status: Chronic Assessment and plan: Not requiring BP meds here. (11) GERD (gastroesophageal reflux disease): Status: Chronic Assessment and plan: Cont carafate. (12) Bipolar disorder: Status: Acute Assessment and plan: Continue wellbutrin, prozac, olanazapine, mirtazapine. Stable mood. Evaluated by Dr Tamez. (13) DVT prophylaxis: Status: Acute Assessment and plan: Hold chemical DVT ppx in light of heme + stools/anemia. (14) Discharge planning issues: Status: Acute Assessment and plan: She was transferred to the ICU for management of acute hypoxic respiratory failure. Now stabilized and improving. Returned to med-surg status. Per her discussion with palliative recently; she and her family agreed that she would not want CPR or intubation. Unsafe to live independently and will need SNF placement. Guardianship recommended by psychiatry. Discussed with Dr Conti and Marcos Isbell (anesthesia). Subjective Subjective Patient reports: no new complaints, tolerating a regular diet (Poor intake), shortness of breath and afebrile; denies nausea or vomiting Exam Narrative Exam Narrative: General: Lying in bed. NC in place with 5L supplemental O2. HEENT: sclera clear. MMM Heart: RRR, mildly tachycardic Lungs: Faint crackls. Diminished breath sounds. Increased WOB Abdomen: soft, nontender, nondistended Extremities: trace edema BLEs. RUE with swelling into dorsum of hand. Skin: Forearms with ecchymoses, abrasions and excoriations. Lacy, reticular rash on abd and R breast. Objective Last Vital Signs Temp 36.1 C L 01/17/22 03:35 Pulse 62 01/17/22 03:35 Resp 18 01/17/22 03:35 BP 106/71 01/17/22 03:35 Pulse Ox 83 L 01/17/22 03:35 Laboratory Results - last 24 hr 01/17/22 01/17/22 01/17/22 05:20 05:20 05:20 Sodium 146 H Potassium 3.4 L Chloride 113 H Carbon Dioxide 27.2 Anion Gap 5.8 BUN 13 Creatinine 0.4 L Estimated GFR/1.73 m2 >= 60.00 Glucose 77 Calcium 7.0 L Total Bilirubin 0.3 AST 23 ALT 21 Alkaline Phosphatase 95 C-Reactive Protein 8.48 H Total Protein 3.9 L Albumin 1.2 L Procalcitonin Add-On Test Request DONE 01/17/22 01/17/22 05:20 05:20 Sodium Potassium Chloride Carbon Dioxide Anion Gap BUN Creatinine Estimated GFR/1.73 m2 Glucose Calcium Total Bilirubin AST ALT Alkaline Phosphatase C-Reactive Protein Total Protein Albumin Procalcitonin 0.1 Add-On Test Request DONE
--- NOTE | 2022-01-17 13:57 | NT_ITS ---
Date of service: 01/17/22 Time of Service: 12:57 PT Notes Visit Reasons: Hypokalemia, Failure to Thrive Patient now with DVT to L UE. Consultation with Dr. Pope was made regarding the utility of physical therapy services at this time considering patient's current overall medical status. Dr. Pope is in agreement to hold off on PT evalution at this time. Will plan to wait on palliative care consult to revisit patient and family goals as far as physical therapy is concerned. Thank you for the opportunity to participate in the care of this patient. Shelly Powell PT, DPT, CLT [facility] [place], [place]
[2022-01-17] MEDS: Bacitracin 1 PACKET (15:26)
--- NOTE | 2022-01-17 15:49 | CHAPLAIN ---
Loli was in bed when I visited. The tv was on but she didn't seem to be watching it. Loli has seemed confused in the last two conversations I've had with her. She didn't know why she still had to stay here, and asked me if a barbeque was going on outside in the hallway. From her questions, it was clear she didn't realize she was in a hospital. Loli said her son was into visit recently. Tomorrow (01/18) is scheduled for PC meeting with her two sons. The one who lives in [place] is here visiting. Her other [facility] [place] [facility]. I will continue to visit.
[2022-01-17 16:08] VITALS: BP 116/82; PULSE 103; RESP 20; TEMP 36.6; O2SAT 91
[2022-01-17] MEDS: Furosemide 40 MG TAB PO (16:49)
[2022-01-17] MEDS: Mirtazapine 15 MG TAB 7.5 MG PO (20:39)
[2022-01-17] MEDS: OLANZapine 5 MG TAB PO (20:40)
[2022-01-17] MEDS: Rosuvastatin 10 MG TAB PO (20:40)
[2022-01-17 21:45] VITALS: RESP 2
[2022-01-17] MEDS: Latanoprost 0.005% 2.5 ML BTL OP (21:45)
[2022-01-17 22:15] VITALS: RESP 2
[2022-01-18] VITALS (8 sets, daily range): BP systolic 101–106; BP diastolic 50–70; PULSE 66–108; RESP 2–24; TEMP 36.1–36.6; O2SAT 78–89
[2022-01-18] MEDS: Albuterol/Ipratropium 3 ML UPD VIAL UPD ×4 (04:31→22:08)
[2022-01-18] MEDS: Sucralfate 1 GM TAB PO ×3 (09:30→22:10)
[2022-01-18] MEDS: Furosemide 20 MG TAB PO (09:31)
[2022-01-18] MEDS: Apixaban 5 MG TAB PO ×2 (09:31→20:16)
[2022-01-18] MEDS: Calcium 600mg/Vit D 200U TAB 1 TAB PO (10:10)
[2022-01-18] MEDS: Zinc Sulfate 220 MG TAB PO (10:11)
[2022-01-18] MEDS: FLUoxetine 20 MG CAP PO (10:12)
[2022-01-18] MEDS: buPROPion-CR 100 MG TABCR 200 MG PO ×2 (10:12→20:15)
[2022-01-18] MEDS: Multivitamin TAB 1 TAB PO (10:15)
[2022-01-18] MEDS: Magnesium Oxide 400 MG TAB PO ×2 (10:15→20:15)
--- NOTE | 2022-01-18 10:33 | NUR.NOTE ---
Priority medications given per charge nurse shane Ellison and erik, due to swallowing concerns. Patient tolerated medications well crushed with applesauce. Other medications given, crushed with applesauce, patient tolerated well. Jessa, Student Nurse
[2022-01-18] MEDS: Creon, Lipase 6,000 CAPCR 1 CAP PO (12:41)
--- NOTE | 2022-01-18 17:16 | CMPROGNOTE_ITS ---
- If Service Date Differs Date of service: 01/18/22 Time of Service: 17:17 Care Management Progress Note S/O: Loli was lying in bed with the TV on when CM met with her. She is becoming increasingly weak, thin and confused. Loli is being followed by nutrition. Loli has failure to thrive at home, and a stage 4 ulcer. She is unsafe to discharge home. Her son Kedar who lives in [place] came to [place] at the end of last week and will be here until . Loli's son's came to visit today, and met with Oxana in Palliative care. Of discussion was Loli's code status which was changed to a DNR/DNI. Palliative care will continue to follow Loli and her goals of care. Patient's son Eddie will be assuming the role of HCA, per Palliative provider. CM will follow. Per provider, Loli is no longer safe to live alone. CM placed a referral to [facility] for case management and help with nursing home planning. Loli remains agreeable for SNF for STR. Loli son's are Eddie and Kedar. Eddie lives in [place], [place] and Kedar lives in [place]. A: 66 year old female admitted to [facility] on 01/05/22 for weakness, falls and failure to thrive. P: Loli requires further medical workup and hospitalization for weakness and malnutrition. Surgical intervention in the OR is scheduled for Fri (01/06/22). Anticipate, Loli will discharge to SNF for STR vs. home with New [facility] services when medically ready. SNF referral's are pending, [facility], offered her a bed. Transportation will be dependent on disposition and pts mobility level at time of discharge.
[2022-01-18] MEDS: Furosemide 40 MG TAB PO (17:50)
--- NOTE | 2022-01-18 17:56 | PGE_ITS ---
Date of Service Date of service: 01/18/22 Time of Service: 16:56 Assessment and Plan Assessment and plan (1) Deep venous thrombosis of arm: Status: Acute Assessment and plan: Left arm DVT PICC in left arm; remove and initiate Eliquis 5mg po BID. Watch for GI bleeding now that she is on anticoagulant. Elevate arm. (2) Acute respiratory failure with hypoxia: Status: Acute Assessment and plan: Aspiration on retraction of the scope during EGD. Chemical pneumonitis was initially considered most likely but her procal was mildly elevated at 0.3 and CXR showed increased ill-defined bilateral lung opacities. Likely combo of chemical pneumonitis and bacterial PNA. Procal down to 0.1 Increased WOB and decreased O2 saturations today. Now on 4L O2 per NC CXR with increased interstitial marking Lasix 20mg po x 1 this am, then 40 in PM. Has lost IV access and difficulty encountered with establishing another peripheral line. Prednisone 30mg now. She remains afebrile. WBC count normal. Was on Rocephin for UTI when aspiration event occurred. Stopped Rocephin. Prn nebs. (3) GI bleeding: Status: Chronic Assessment and plan: EGD with severe gastritis, large hiatal hernia and no evidence of tumor, ulcer, or anastamotic bleeding. Discussed with general surgery: given the size of the gastric pouch, benefit from PPI is likely to be minimal - lifelong carafate AC and HS recommended. Unfortunately now has LUE DVT and will need AC; Eliquis initiated. (4) Acute on chronic blood loss anemia: Status: Acute Assessment and plan: As above. S/p transfusion of 1 unit pRBCs. H/H up to 10.0 but then down and trending back up: 9.0 > 9.3>9.5 No evidence of active bleeding on EGD. (5) Adult failure to thrive: Status: Acute Assessment and plan: Concern for an underlying malignancy given her unintentional weight loss, GI complaints. EGD without evidence of malignancy today. SHAKE TABLE OPERATOR consulted and, given the patient's current deterioration, will either see the patient over the weekend or early next week.(H/o cervical cancer in the past as well as an elevated CA 125 on this admission). She refused a transvaginal US. We are looking for the pathology report from Dr Vo's flex sig on her in 10/2021 at [facility] (the patient's chart traveled with her to the OR). Additionally, it is unclear how compliant the patient has been as an outpatient. Her son from [place] flew in and I spoke with him. He states that he believes that for appx 1.5 months she has been very sedentary, not eating or taking care of her home and likely not compliant with meds. Reviewing her medications, it appears that she is not 100% on times with the refills. We do know she has missed multiple appointments with her PCP. It is entirely possible that she was not taking her medications which led to psychiatric reasons for not caring for self. The patient does not have capacity to make her medical decisions, as per my conversation with Dr Tamez. I have made the son aware of this. The son, John Paul, has been the consenting democrat. Son Kedar is now in town from [place]. Palliative involved and met with sons. They would like to see if we can improve her respiratory status and continue attempts to heal her decubitus ulcer but they are realistic and know this is not likely to occur. They are OK with transitioning to comfort measures when she is found to be not making any further progress. She also mentions not wanting invasive interventions but she, again, does not show capacity to make informed medical decisions. (6) Weakness: Status: Acute Assessment and plan: Evaluated by Dr Westfall who feels that the explanation for weakness has more to do with malnutrition and deconditioning rather than a neurologic etiology. Would benefit from SNF on discharge - cannot live independently. (7) Weight loss, unintentional: Status: Acute Assessment and plan: FTT. Conts to have very poor oral intake. Now on Megace 800mg daily. (8) Decubitus ulcer: Status: Acute Assessment and plan: Continue empiric rocephin and wound care. MRI of pelvis on 01/06/22 w/o evidence of osteomyelitis. Less slough is being observed in wound bed. Planning on wound vac when wound bed adequately cleared of slough and if no exposed bone is found. Encourage nutritional intake. Unlikely to heal unless nutritional status improves significantly. (9) Acute hypokalemia: Status: Resolved Assessment and plan: Replace and monitor. (10) Hypertension: Status: Chronic Assessment and plan: Not requiring BP meds here. (11) GERD (gastroesophageal reflux disease): Status: Chronic Assessment and plan: Cont carafate. (12) Bipolar disorder: Status: Acute Assessment and plan: Continue wellbutrin, prozac, olanazapine, mirtazapine. Stable mood. Evaluated by Dr Tamez. (13) DVT prophylaxis: Status: Acute Assessment and plan: Now on Eliquis for LUE DVT. (14) Discharge planning issues: Status: Acute Assessment and plan: She was transferred to the ICU for management of acute hypoxic respiratory failure. Now stabilized and improving. Returned to med-surg status. Per her discussion with palliative recently; she and her family agreed that she would not want CPR or intubation. Unsafe to live independently and will need SNF placement if she becomes medically stable. See above discussion of palliative care and issue of SERVICE DIRECTOR Subjective Subjective Patient reports: shortness of breath and afebrile; denies diarrhea or vomiting Interval history since last seen: Pt is more confused today. Continues to have very minimal oral intake. Exam Narrative Exam Narrative: General: Lying in bed. NC in place with 4L supplemental O2. HEENT: sclera clear. MMM Heart: RRR, mildly tachycardic Lungs: Faint crackls. Diminished breath sounds. Increased WOB Abdomen: soft, nontender, nondistended Extremities: trace edema BLEs. RUE with swelling into dorsum of hand. Skin: Forearms with ecchymoses, abrasions and excoriations. Lacy, reticular rash on abd and R breast. Psych: Awake. Confused. Believes she is in [place]. Objective Last Vital Signs Temp 36.1 C L 01/18/22 15:44 Pulse 108 H 01/18/22 15:44 Resp 16 01/18/22 15:48 BP 102/50 L 01/18/22 15:44 Pulse Ox 78 L 01/18/22 15:44
[2022-01-18] MEDS: Protein Nutritional Supplement 16 GM 1 OUNCE PACKET PO (20:15)
[2022-01-18] MEDS: Lactobacillus Acidophilus CAP 1 CAP PO (20:15)
[2022-01-18] MEDS: Psyllium PKT 1 EACH PO (20:15)
--- NOTE | 2022-01-18 21:22 | W.PALLCONSUL ---
Date of service: 01/18/22 Time of Service: 15:00 History of Present Illness Narrative: Ms. Ontiveros is a 66 y/o F currently inpt at [facility] initially 2/2 weakness and FTT, currently w/acute hypoxemia suspected r/t aspiration; PMHx sig for reactive airway dz, GABBY, HLD, HTN, GERD, T2DM, bipolar d/o and remote pancreatic cancer s/p resection [facility] 2004; Hospital Course: presented to [facility] ED on 01/04/22 w/CC weakness and dizziness; transitioned inpt 2/2 unsafe to d/c r/t inability to perform ADLs and discussion for HH options/placement, mx of hypokalemia/FTT; surgical and nutrition consults, severe malnutrition, pressure sore likely non-healing/terminal; acute respiratory hypoxemia suspected r/t aspiration w/EGD removal; GI bleed resolved, H/H trending appropriately EGD with severe gastritis, large hiatal hernia and no evidence of tumor, ulcer, or anastamotic bleeding. CXR showed increased ill-defined bilateral lung opacities. Likely combo of chemical pneumonitis and bacterial PNA. Currently on 4L O2 per NC, RT following; PO Lasix 20mg PO QAM and 40mg QPM, no IV access d/t difficulty w/peripheral line; DVT LUE started Eliquis BID; remains afebrile, WBC WNL Palliative consults x3 during hospital stay, last visit w/K. KENA Boykin pt and son John Paul confirm pt confirmed CODE status as DNR/I, designated to speak for her as esteban Crawford and son Kedar Crawford if unable to speak for self; if cancer recurrence and would want more information to determine POC; agreeable to rehab prior to returning home; psych consult, pt lacks capacity to make decision Present at today?s visit pt, son John Paul and son Kedar; pt confirms preference for DNR/I, would want to determine treatment course based on work-up; sons? both agree for DNR/I, if problems were able to be fixed, non-invasive and doesn't involve suffering, otherwise preference for MEMORY CARE PROGRAM DIRECTOR w/reduced suffering, and slow medicine; no feeding tube, limited/trial abx and IVF; all parties agree discharge to rehab, John Paul as primary contact Assessment and Plan Assessment and plan (1) Adult failure to thrive: Status: Acute Assessment and plan: malnutrition, weakness, inability to care for self applications to rehab to be sent, preference for H/R MEMORY CARE PROGRAM DIRECTOR status pending work-up w/no tx options Concern for an underlying malignancy given her unintentional weight loss, GI complaints. EGD without evidence of malignancy today. FACTORY WORKER consulted and, given the patient's current deterioration, will either see the patient over the weekend or early next week (2) Acute respiratory failure with hypoxia: Status: Acute Assessment and plan: continue w/Lasix trial; continue w/5L NC (3) Altered mental status: Status: Acute (4) Decubitus ulcer: Status: Acute Assessment and plan: Stage 4, wound care following, likely terminal Review of Systems Narrative: unable to obtain d/t mental condition PFSH All Active Problems Deep venous thrombosis of arm (Acute) Acute respiratory failure with hypoxia (Acute) Anesthesia complication (Acute) High aspiration risk, recommend GETA for future procedures. GI bleeding (Chronic) B2 anastomosis. Status post Whipple. Acute on chronic blood loss anemia (Acute) Anemia of chronic disease (Acute) Iron (Fe) deficiency anemia (Acute) Hypomagnesemia (Acute) Palliative care patient (Acute) Tremor (Acute) Altered mental status (Acute) Pneumobilia (Chronic) -This is normal after a Whipple procedure Weight loss, unintentional (Acute) Hypoalbuminemia due to protein-calorie malnutrition (Acute) Unexplained weight loss (Acute) Discharge planning issues (Acute) DVT prophylaxis (Acute) Bipolar disorder (Acute) PTSO/abuse/syphilis 1968 tx, hospitalizations , 10/18, head MRI , EEG Chronic pain (Chronic ~07/13/15) GERD (gastroesophageal reflux disease) (Chronic) Hypertension (Chronic) Weakness (Acute) Adult failure to thrive (Acute) Multiple falls (Acute) Decubitus ulcer (Acute) Medical History Allergic rhinitis Allergic rhinitis Arthritis Arthritis Back pain Chronic back pain Chronic sinusitis Diabetes mellitus Dyslipidemia Dyslipidemia Dyspnea Fatty liver disease, nonalcoholic Fracture of ankle GERD (gastroesophageal reflux disease) Glaucoma Glaucoma History of malignant neoplasm of pancreas Hypertensive disorder Knee pain Left sided abdominal pain 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 She did not have overt malignancy. Surgery was curative. Per pt. states she had a whipple procedure, and has been in remission since 2004. Obstruction of common bile duct On snf drug therapy ineidaion chronic LBP associated with OA hx of compression fx. medications oxycodine 10 mg tablet SOAP sore 14. Yearly narcotic contract last signed 10/18/2018, 10/01/2019 [place] PDMP queried twice yearly for 5 states including [place] and [place] last dibe ib 03/01/18, 03/13/19, 01/09/20, [place] random urine drug screen being done at least 3-4 months GABBY (obstructive sleep apnea) GABBY (obstructive sleep apnea) Osteoporosis Steatosis, liver Type II diabetes mellitus Pt. states she was and is no longer taking medication Vertigo Surgical History Abdominal hysterectomy Fracture, Open Treatment ORIF Fibia H/O hernia repair Hernia Repair, Incisional x3 History of cataract surgery History of hysterectomy Hx of total knee replacement Pancreatic Duodenectomy(whipple procedure) Recurrent major depression in partial remission Replacement of total knee joint left S/P tonsillectomy and adenoidectomy Tonsillectomy and adenoidectomy Family History Brother Hearing loss ear problems, hearing loss and dizzy Social History Smoking/Tobacco Use Status: Former Tobacco Use Quit Date: 08/20/04 Smoking risk assessment performed?: Yes Alcohol Intake: former Drug use: Never Substance use type: does not use Do you feel safe at home: Yes Do you feel safe in your relationship?: Yes Additional Social history: Lives alone in her own home in [facility]. Exam Const General: comfortable and no acute distress Nutritional Appearance: malnourished Orientation: alert, awake and obtunded [facility] Head: normal to inspection, normocephalic and atraumatic Ears: hearing grossly normal bilaterally Resp Effort & Inspection: cough Quality of cough: wet Other: neb in place working w/RT on arrival; able to speak full sentences, normal resp effort s/p neb tx, 5L NC reported from nurse, increase from 4L Skin Other: scattered BUE bruising Extrem Other: BUE edema, LUE greater, w/hematoma Psych Insight: poor Judgment: poor Other: awake and alert, oriented to sons; confused Results Last Vital Signs Temp 97.9 F 01/18/22 20:40 Pulse 66 01/18/22 20:40 Resp 16 01/18/22 20:40 BP 106/70 01/18/22 20:40 Pulse Ox 89 L 01/18/22 20:40 Labs Result diagrams: 01/16/22 05:45 01/17/22 05:20
[2022-01-18] MEDS: Latanoprost 0.005% 2.5 ML BTL OP (22:07)
[2022-01-18] MEDS: Mirtazapine 15 MG TAB 7.5 MG PO (22:09)
[2022-01-18] MEDS: OLANZapine 5 MG TAB PO (22:09)
[2022-01-18] MEDS: Rosuvastatin 10 MG TAB PO (22:10)
[2022-01-19] VITALS (13 sets, daily range): BP systolic 76–98; BP diastolic 47–66; PULSE 90–105; RESP 2–38; TEMP 32–36.7; O2SAT 70–92
[2022-01-19] MEDS: Albuterol/Ipratropium 3 ML UPD VIAL UPD ×2 (05:21→09:42)
[2022-01-19 07:07] LABS: Abs Immature Grans 0.17 10^3/uL (0.0-0.06); Absolute Eosinophil Count 0.14 10^3/uL (0.0-0.7); Absolute Lymphocyte Count 2.57 10^3/uL (1.2-3.4); Absolute Monocyte Count 0.89 10^3/uL (0.1-0.8); Absolute Neutrophil Count 7.25 10^3/uL (1.2-6.7); Basophils % 0.5; Eosinophils % 1.3; HCT 31.2 % (36.0-46.0); HGB 10.1 g/dL (11.2-15.7); Immature Grans % 1.5; Lymphocytes % 23.2; MCH 31.7 pg (27.0-33.0); MCHC 32.4 % (32.0-36.0); MCV 98 fL (80-95); MPV 10.3 fL (8.0-11.0); Neutrophils % 65.5; Nucleated RBC 0.2 % (0.0-0.3); Platelet Count 145 10^3/uL (130-400); RBC 3.19 10^6/uL (3.93-5.22); RDW 17.3 % (11.7-14.6); RDW-SD 60.6 fL; WBC 11.07 10^3/uL (4.4-10.8)
[2022-01-19 07:13] LABS: Absolute Basophil Count 0.06 10^3/uL (0.0-0.2)
[2022-01-19 07:16] LABS: Anion Gap 8.3 mmol/L (3-11); BUN 19 mg/dL (7-18); CO2 28.7 mmol/L (21.0-32.0); CREATININE 0.6 mg/dL (0.55-1.02); Calcium 7.7 mg/dL (8.5-10.1); Chloride 109 mmol/L (98-107); Glucose 55 mg/dL (74-106); Potassium 3.2 mmol/L (3.5-5.1); Sodium 146 mmol/L (136-145)
[2022-01-19 07:24] LABS: Diff Comment Agrees w/ Instrument; RBC Morphology Normal
[2022-01-19] MEDS: Psyllium PKT 1 EACH PO (07:56)
[2022-01-19] MEDS: Protein Nutritional Supplement 16 GM 1 OUNCE PACKET PO (07:57)
[2022-01-19] MEDS: Creon, Lipase 6,000 CAPCR 1 CAP PO ×2 (07:58→12:00)
[2022-01-19] MEDS: Sucralfate 1 GM TAB PO ×2 (07:58→11:59)
[2022-01-19] MEDS: Calcium 600mg/Vit D 200U TAB 1 TAB PO (07:58)
[2022-01-19] MEDS: Multivitamin TAB 1 TAB PO (07:58)
[2022-01-19] MEDS: Magnesium Oxide 400 MG TAB PO (07:58)
[2022-01-19] MEDS: buPROPion-CR 100 MG TABCR 200 MG PO (07:58)
[2022-01-19] MEDS: Zinc Sulfate 220 MG TAB PO (07:58)
[2022-01-19] MEDS: Lactobacillus Acidophilus CAP 1 CAP PO (07:59)
[2022-01-19] MEDS: FLUoxetine 20 MG CAP PO (07:59)
[2022-01-19] MEDS: Apixaban 5 MG TAB PO (07:59)
[2022-01-19] MEDS: Potassium Chloride 20 MEQ TABCR 40 MEQ PO (08:22)
--- NOTE | 2022-01-19 08:37 | PDOC.STREC ---
Date of service: 01/19/22 Time of Service: 07:37 Speech Therapy Recommendations Report ST Recommendations: CHILD CARE PROVIDER Communication / Non-Treatment Note Per discussion with Nursing staff this AM, patient being provided with medications crushed in puree texture, is on 4.5L 02 via NC w 02 sats fluctuating between 84-90%; continues to have very poor oral intake; currently on pureed solids/thin liquids diet per previous patient request. Reviewed oral care and reflux precautions with RN via phone this morning. Interval History: Palliative Meeting 01/18 - code status changed to a DNR/DNI. Palliative care, Nutrition will continue to follow Loli and her goals of care. Patient's son Eddie will be assuming the role of HCA, per Palliative provider. Plan: CHILD CARE PROVIDER to re-assess patient on PRN basis, provide patient/caregiver/family support for dysphagia risk management if patient demonstrates desire for increased po intake. Will plan to check in this afternoon re: patient status and appropriateness for CHILD CARE PROVIDER intervention. Dayanara Danielson MA CCC-CHILD CARE PROVIDER Speech-Language Pathologist MO#[phone] Coding
[2022-01-19 09:16] LABS: Magnesium 2.2 mg/dL (1.8-2.4); NT-proBNP 793 pg/mL (<300)
--- NOTE | 2022-01-19 09:28 | PDOC.CMPRO ---
- If Service Date Differs Date of service: 01/19/22 Time of Service: 09:28 Care Management Progress Note S/O: Loli's oxygen requirements increased significantly and she is now in acute respiratory failure with hypoxia. CM notified Eddie and Kedar. Eddie came came to the hospital and discussed Loli's medical work up and prognosis with Dr. Montoya. Comfort orders were placed following the discussion. 01/18/22 Loli's son's came to visit yesterday, and met with Oxana in Palliative care. Of discussion was Loli's code status which was changed to a DNR/DNI. Palliative care will continue to follow Loli and her goals of care. Patient's son Eddie will be assuming the role of HCA, per Palliative provider. 01/13/22 Per provider, Loli is no longer safe to live alone. CM placed a referral to [facility] for case management and help with penitentiary planning. Loli remains agreeable for SNF for STR. Loli son's are Eddie and Kedar. Eddie lives in [place], [place] and Kedar lives in [place]. A: 66 year old female admitted to [facility] on 01/05/22 for weakness, falls and failure to thrive. P: Loli transitioned to comfort care after developing acute respiratory failure this afternoon (01/19/22). CM will continue to support Loli and her family during this difficult time.
[2022-01-19] MEDS: Amoxicillin 875/Clav. 125 TAB PO (09:39)
[2022-01-19] MEDS: predniSONE 20 MG TAB 40 MG PO (09:39)
--- NOTE | 2022-01-19 09:52 | NUR.NOTE ---
Nursing Note: pt. oxygen saturation 70's NC 4.5 LPM up t o %LPM tach 103 pulse. ear and finger probe on. RT applied high flow oxygen sat 89-90% pt keeps pulling off NC morphine oral given with good affect. duo neb going now.
--- NOTE | 2022-01-19 10:45 | DI.CT_ITS ---
Exam(s) CT CHEST PE CTA EXAM: CT CHEST PE CTA CLINICAL HISTORY: dyspnea, hypoxia, large DVT left subclavian vein. TECHNIQUE: Imaging Protocol: CT angiography of the chest was performed using pulmonary embolus mariann col. Multi planar reconstructions were performed. CONTRAST MATERIAL: Intravenous: visipaque-320 Contrast volume: 60 cc COMPARISON: CT CT ABDOMEN PELVIS WO from 01/08/2022 CR,XR XR PORTABLE CHEST AP from 01/15/2022 CR XR PORTABLE CHEST AP from 01/17/2022 FINDINGS: CHEST: PULMONARY ARTERIES: There are no obvious intraluminal filling defects to suggest acute pulmonary embo li. LUNGS: There are extensive bilateral interstitial infiltrates throughout all lobes of both lungs, mor e so than previous. There moderate size bilateral pleural effusions, larger than previous. MEDIASTINUM: There is no hilar adenopathy. Subcarinal adenopathy is noted. Visualized thyroid unrem arkable. CARDIAC: Heart size is normal. There is a pericardial effusion moderate size noted with uniform thic kness of 5 millimeters.Caliber of the thoracic aorta is within normal limits. No evidence of aortic d issection. No prominent shift of the interventricular septum. PARTIALLY VISUALIZED UPPERMOST ABDOMEN: No obvious findings OSSEOUS: No significant osseous lesions.. IMPRESSION: 1. Less than optimal study but no obvious acute pulmonary emboli..However, there is significant deter ioration in both lung garcia with extensive bilateral symmetrical interstitial infiltrates throughout both lung garcia and approximately equal bilateral moderate size pleural effusions. 2. Subcarinal adenopathy noted, most probably related to the extensive lung disease. 3. There is a pericardial effusion noted with 5 millimeter thickness. This has not increased in size when compared to 01/08/2022. RADIATION DOSE DELIVERED: 394.16mGy.cm Total DLP DATA REPOSITORY: All CT scans at this facility are submitted to the National Radiology Data Registry (NRDR) Dose Index Registry (DIR) with the [employer] (A[employer]). RADIATION OPTIMIZATION: All CT scans at this facility use at least one of these dose optimization te chniques: automated exposure control; mA and/or kV adjustment per patient size (includes targeted exa ms where dose is matched to clinical indication); or iterative reconstruction.
--- NOTE | 2022-01-19 10:53 | PGE_ITS ---
Date of Service Date of service: 01/19/22 Time of Service: 09:53 Assessment and Plan Assessment and plan (1) Acute respiratory failure with hypoxia: Status: Acute Assessment and plan: Augmentin 875 mg po bid, cont. DuoNeb aerosols and prn albuterol aerosols, encourage cough and deep breathing/I.S./acapella; attempt sputum culture; supportive care w/ HFNC may use BIPAP but patient is DNR/DNI therefore no plans for intubation and mechanical ventilation. will get CTA chest to rule out PE from her large left subclavian/axillary DVT I doubt she has CHF (POCUS exam demonstrated normal LV systolic function) CT scan was negative for P.E. but demonstrates progressive interstitial pneumonitis diffusely. I spoke w/ her son, Eddie, in person and showed him her CT scan. He indicated to me that she would not heroic measures such as intubation and mechanical ventilation and she has been fighting keeping the HFNC in place therefore she likely would not tolerate NIPPV w/ BIPAP. Eddie indicated that priority would be to keep her comfortable. As such I have written for PRINTED CIRCUIT BOARD PANELS PLATER status and written for low dose morphine infusion and prn lorazepam and prn anti-sialogogue. (2) Aspiration pneumonitis: Status: Acute Assessment and plan: as above. once iv is established we will get CTA of her chest to rule out P.E. vs pneumonia as cause of her progressive decline in her oxygen status. continue treatment as above. Once iv established then can resume parenteral antibiotics thereby removing any question of GI absorption from her gastritis and prior Whipple procedure. TORPEDO MAN following patient. Patient has difficulty swallowing her pills. (3) Deep venous thrombosis of arm: Status: Acute Assessment and plan: I would increase her apixaban to 10 mg bid x 7 days then reduce to 5 mg bid; however, in light of her dysphagia, I will change her to enoxaparin 60 mg q12h. (4) Acute on chronic blood loss anemia: Status: Acute Assessment and plan: monitor and transfuse prn Hb less than 8 gm (5) GERD (gastroesophageal reflux disease): Status: Chronic Assessment and plan: per surgery there is no role for PPI given she has little stomach left. cont. carafate (6) Gastritis, bile acid reflux: Status: Acute Assessment and plan: as above (7) Decubitus ulcer: Status: Acute Assessment and plan: wound management per surgery and wound care nurse, plan for wound vacuum, MRI negative for osetomyelitis of sacrum (8) Acute hypokalemia: Status: Resolved Assessment and plan: replete and monitor (9) Hypomagnesemia: Status: Acute Assessment and plan: replete and monitor (10) Weight loss, unintentional: Status: Acute Assessment and plan: nutritional consult obtained. patient on protein shakes and zinc (11) Hypoalbuminemia due to protein-calorie malnutrition: Status: Acute Assessment and plan: protein shakes tid along w/ regular diet (12) Palliative care patient: Status: Acute Assessment and plan: patient has DNR/DNI order. See Oxana Garza note from 01/18 regarding her discussion w/ patient and her sons. Patient wants medical treatment of her acute medical issues but does not want to suffer and if her current medical issues are not able to be resolved then she would consider PRINTED CIRCUIT BOARD PANELS PLATER status. (13) Bipolar disorder: Status: Acute Assessment and plan: on Wellbutrin and Prozac (14) Adult failure to thrive: Status: Acute (15) History of malignant neoplasm of pancreas: Assessment and plan: no evidence of recurrence on her current radiologic imaging (16) DVT prophylaxis: Status: Acute Assessment and plan: on apixaban for DVT (17) Discharge planning issues: Status: Acute Assessment and plan: patient likely will needs SNF Subjective Subjective Interval history since last seen: 66-year-old female with a history of bipolar disorder, GERD, hypertension, prior pancreatic cancer status post Whipple procedure who presented to hospital with generalized weakness and sacral decubitus ulcer and malnutrition developing over the last 3 months. This hospital course has been complicated by an upper GI bleed for which he underwent an EGD on 01/13/2022 in which she was found to have bile reflux esophagitis and gastritis and hiatal hernia. She had a periprocedural aspiration event of bile and developed a chemical pneumonitis which then was felt to have developed into a bacterial pneumonitis. She was initially treated with ceftriaxone for a UTI of an anaerobic gram-positive pina but also was on antibiotic coverage for potential pneumobilia/pneumoperitoneum. CT scan of her abdomen pelvis had been performed on 01/08/2022 showed wall thickening of the colon consistent with colitis small amount of ascites and pneumobilia status post Whipple procedure. No pneumoperitoneum was seen. Post EGD her chest x-rays have showed increased interstitial markings consistent with a pneumonitis. Rocephin was continued until she lost IV access. She had a PICC line in her left axillary and subclavian veins which was removed because of complication of a long intraluminal thrombus along the course of the PICC line. Patient has since been put on apixaban and her PICC line was removed on 01/18/2022. Patient has developed progressive hypoxemic respiratory failure requiring increased FiO2 requirements. She is now on high flow nasal cannula at 40 L/min to maintain her oxygen saturation at 89 to 90%. She has a moist cough but denies subjective feelings of shortness of breath or chest pain. Yesterday she was given a trial of Lasix x2 doses 20 mg orally in the morning and 40 mg in the afternoon out of concern for potential CHF based on her increased interstitial markings on chest x-ray. With the loss of her PICC line Rocephin was discontin ued. She was given a dose of prednisone 30 mg. For her bile reflux gastritis and esophagitis she has been put on Carafate. For acute on chronic anemia she was transfused 1 unit packed red blood cells and her hemoglobin is trending upward at 10.1 this morning. Her white blood cell count has gone up overnight to 11,000 however she is afebrile. She is having increased work of breathing this morning with accessory respiratory muscle use as well as increased FiO2 requirements. Exam Narrative Exam Narrative: Thin cachectic appearing white female lying in bed in semi-Conway position wearing high flow nasal cannula with increased work of breathing and collating accessory respiratory muscles. Lungs with diffuse expiratory wheezes and rales Heart is tachycardic but regular Abdomen soft nondistended scaphoid and nontender with normal bowel sounds Extremities left arm is discolored from her upper humerus down to below her elbow with ecchymosis and edema Objective Last Vital Signs Temp 36.2 C L 01/19/22 08:00 Pulse 104 H 01/19/22 09:20 Resp 28 H 01/19/22 08:00 BP 96/66 L 01/19/22 08:00 Pulse Ox 89 L 01/19/22 10:00 Laboratory Results - last 24 hr 01/18/22 01/18/22 01/19/22 05:35 05:35 06:55 WBC Cancelled RBC Cancelled Hgb Cancelled Hct Cancelled MCV Cancelled MCH Cancelled MCHC Cancelled RDW Cancelled Plt Count Cancelled MPV Cancelled Immature Gran % Cancelled Neutrophils % Cancelled Band Neutrophils % Cancelled Lymphocytes % Cancelled Atypical Lymphs % Cancelled Monocytes % Cancelled Eosinophils % Cancelled Basophils % Cancelled Metamyelocytes % Cancelled Myelocytes % Cancelled Promyelocytes % Cancelled Other Cells % Cancelled Nucleated RBC % Cancelled Absolute Neutrophils Cancelled Absolute Lymphocytes Cancelled Absolute Monocytes Cancelled Absolute Eosinophils Cancelled Absolute Basophils Cancelled RBC Morphology Cancelled Polychromasia Cancelled Hypochromasia Cancelled Poikilocytosis Cancelled Basophilic Stippling Cancelled Anisocytosis Cancelled Microcytosis Cancelled Macrocytosis Cancelled Spherocytes Cancelled Tear Drop Cells Cancelled Ovalocytes Cancelled Stomatocytes Cancelled Ramirez[place] Bodies Cancelled [place] Cells/Echinocytes Cancelled Acanthocytes (Spur) Cancelled Schistocytes Cancelled Sodium Cancelled 146 H Potassium Cancelled 3.2 L Chloride Cancelled 109 H Carbon Dioxide Cancelled 28.7 Anion Gap Cancelled 8.3 BUN Cancelled 19 H Creatinine Cancelled 0.6 Estimated GFR/1.73 m2 Cancelled >= 60.00 Glucose Cancelled 55 L Calcium Cancelled 7.7 L Magnesium C-Reactive Protein Cancelled NT-Pro-B Natriuret Pep Add-On Test Request 01/19/22 01/19/22 01/19/22 06:55 06:55 06:55 WBC 11.07 H RBC 3.19 L Hgb 10.1 L Hct 31.2 L MCV 98 H MCH 31.7 MCHC 32.4 RDW 17.3 H Plt Count 145 MPV 10.3 Immature Gran % 1.5 Neutrophils % 65.5 Band Neutrophils % Lymphocytes % 23.2 Atypical Lymphs % Monocytes % 8.0 Eosinophils % 1.3 Basophils % 0.5 Metamyelocytes % Myelocytes % Promyelocytes % Other Cells % Nucleated RBC % 0.2 Absolute Neutrophils 7.25 H Absolute Lymphocytes 2.57 Absolute Monocytes 0.89 H Absolute Eosinophils 0.14 Absolute Basophils 0.06 RBC Morphology Normal Polychromasia Hypochromasia Poikilocytosis Basophilic Stippling Anisocytosis Microcytosis Macrocytosis Spherocytes Tear Drop Cells Ovalocytes Stomatocytes Ramirez-[place] Bodies Samantha Cells/Echinocytes Acanthocytes (Spur) Schistocytes Sodium Potassium Chloride Carbon Dioxide Anion Gap BUN Creatinine Estimated GFR/1.73 m2 Glucose Calcium Magnesium 2.2 C-Reactive Protein NT-Pro-B Natriuret Pep 793 H Add-On Test Request SEE COMMENT
[2022-01-19] MEDS: Potassium Chloride 20 MEQ TABCR PO (11:59)
[2022-01-19] MEDS: Normal Saline Flush 10 ML SYR IVP (12:02)
--- NOTE | 2022-01-19 12:30 | NUR.NOTE ---
pt refusing medications and taking off oxygen multiple times. encouraged pt to keep oxygen on and take medications . pt took 1 bite of lunch and refused rest. Morphine given for pt breathing and to relax pt to keep oxygen on. oxi mask back in place.pt tolerating mask well. Nursing Note:
[2022-01-19] MEDS: LORazepam 2 MG/ML VIAL (13:41)
[2022-01-19] MEDS: Normal Saline 500 ML 999 ML IV (13:45)
[2022-01-19] MEDS: AMPICILLIN/SULBACTAM 3 GM in Normal Saline 100 ML IVPB (14:39)
[2022-01-19] MEDS: Normal Saline 500 ML IV (15:00)
[2022-01-19] MEDS: LORazepam 2 MG/ML VIAL IV/SC ×3 (16:01→23:42)
--- NOTE | 2022-01-19 16:46 | CHAPLAIN ---
Rama's son Eddie requested a machine sweeper brush maker visit through Dr. Montoya. Eddie, a retired [employer], lives in [place], [place] and was in touch with his mom a few times a week and until recently she was independent. Since being admitted to the hospital, she is clear she can't live alone. Eddie' brother Kedar, from [place], was here for a few days, and flew home this afternoon. Yesterday Kedar and Eddie met with Bhakti Garza NP, from Palliative Care. Rama's code status was changed to DNR/DNI. There was a conversation about comfort measures, but according to Bhakti's notes a decision wasn't made at that time. Today Rama's oxygen level and blood pressure dropped significantly and Eddie was called. Kedar was just getting ready to board his flight home. Eddie has been teary sitting with his mom, and also very supportive and loving toward her. She has moments of restlessness and it's difficult to tell what she is saying as she mumbles. Her nurse, Shanell, brought in IV adivan and told Eddie she would be adding a morphine pump soon. Rama does not appear to be in pain, but is still restless at times. Eddie shared some personal history about Rama and their family. He is waiting for his to arrive this afternoon. I will continue to visit.
[2022-01-19] MEDS: Scopolamine 1 MG/3 DAYS PATCH TD (17:10)
[2022-01-20] MEDS: LORazepam 2 MG/ML VIAL IV/SC ×5 (05:20→16:08)
[2022-01-20] MEDS: Normal Saline Flush 10 ML SYR IVP ×5 (07:57→16:09)
--- NOTE | 2022-01-20 08:57 | PDOC.CMPRO ---
- If Service Date Differs Date of service: 01/20/22 Time of Service: 08:57 Care Management Progress Note S/O: Loli was lying in bed when CM met with her. She appears to be resting comfortably. Her son Eddie and his are at her bedside. There is a comfort cart in her room, and a music tablet. Loli has a donor card, and wanted her body donated to [facility]. RN coordinator, Terra has a copy of the card and phone number to call after she passes. Per Terra, the family is planning on using [facility] home, if needed. 01/19/22: Loli's oxygen requirements increased significantly and she is now in acute respiratory failure with hypoxia. CM notified Eddie and Kedar. Eddie came came to the hospital and discussed Loli's medical work up and prognosis with Dr. Montoya. Comfort orders were placed following the discussion. 01/18/22: Loli's son's came to visit yesterday, and met with Oxana in Palliative care. Of discussion was Loli's code status which was changed to a DNR/DNI. Palliative care will continue to follow Loli and her goals of care. Patient's son Eddie will be assuming the role of HCA, per Palliative provider. 01/13/22: Per provider, Loli is no longer safe to live alone. CM placed a referral to [facility] for case management and help with halfway planning. Loli remains agreeable for SNF for STR. Loli son's are Eddie and Kedar. Eddie lives in [place], [place] and Kedar lives in [place]. A: 66 year old female admitted to [facility] on 01/05/22 for weakness, falls and failure to thrive. P: Loli transitioned to comfort care after developing acute respiratory failure this afternoon (01/19/22). CM will continue to support Loli and her family during this difficult time.
[2022-01-20] MEDS: Refresh PLUS Eye Drops 0.4ml OU (13:21)
--- NOTE | 2022-01-20 13:55 | W.PM.PROGNOT ---
Date of Service Date of service: 01/20/22 Time of Service: 12:55 Assessment and Plan Assessment and plan (1) Acute respiratory failure with hypoxia: Status: Acute Assessment and plan: Severe interstial pneumonitis. Patient now on comfort measures only. She seems comfortable on her current meds of morphine and prn ativan along w/ anti-sialogogues. All of her other maintenance meds were dc'ed yesterday. (2) Aspiration pneumonitis: Status: Acute Assessment and plan: as above. (3) Deep venous thrombosis of arm: Status: Acute Assessment and plan: apixaban has been stopped. No longer monitoring (4) Gastritis, bile acid reflux: Status: Acute Assessment and plan: probable cause of her aspiration events (5) Decubitus ulcer: Status: Acute Assessment and plan: local wound care prn for comfort (6) Palliative care patient: Status: Acute Assessment and plan: patient has DNR/DNI order and now is on comort measures as noted above (7) Discharge planning issues: Status: Acute Assessment and plan: patient likely will in the next 12 to 24hr Subjective Subjective Interval history since last seen: Patient now on morphine drip and prn ativan for comfort measures. I met nickie/ Eddie and his . They indicated that the nursing staff have been taking care of them. Although they are sad at losing Rama they have taken comfort that she seems to be comfortable. Rama was more restless this morning until nursing increased her morphine basal rate to 2 mg/hr. Exam Narrative Exam Narrative: Patient w/ slow sonorous respirations. No secretions Lungs: rhonchi diffusely Heart: tones obscured by her rhonchi Abdomen: scaphoid Extremities; some edema in her right hand, left arm still very edematous from left subclavian DVT Objective Last Vital Signs Temp 35.8 C L 01/19/22 13:15 Pulse 100 H 01/19/22 14:25 Resp 38 H 01/19/22 16:45 BP 76/58 L 01/19/22 14:25 Pulse Ox 92 01/19/22 14:25 Laboratory Results - last 24 hr 01/20/22 05:35 Sodium Cancelled Potassium Cancelled Chloride Cancelled Carbon Dioxide Cancelled Anion Gap Cancelled BUN Cancelled Creatinine Cancelled Estimated GFR/1.73 m2 Cancelled Glucose Cancelled Calcium Cancelled
[2022-01-20] MEDS: Glycopyrrolate 0.2 MG/1 ML VIAL IVP (15:59)
[2022-01-20] MEDS: MORPHine 1,000 MG in CADD PUMP CASSETTE 1 EACH, Normal Saline 80 ML 0.2 MG SC INF (18:19)
[2022-01-20] MEDS: Bacitracin 1 PACKET (18:37)
--- NOTE | 2022-01-21 10:31 | W.PM.PROGNOT ---
Date of Service Date of service: 01/21/22 Time of Service: 09:32 Assessment and Plan Assessment and plan (1) Comfort measures only status: Status: Acute Assessment and plan: continue current analgesic control. She seems comfortable and does not seem to need any titration. Anti-sialogogue seems to be working. (2) Acute respiratory failure with hypoxia: Status: Acute Assessment and plan: no further intervention (3) Aspiration pneumonitis: Status: Acute Subjective Subjective Interval history since last seen: Rama is moribund. Her breathing is shallow but non-labored. I met w/ her son, Eddie, who indicated that his brother is flying in from [place] and will arrive in [place] @ 1 pm. He is arranging for a fellow harbor police lieutenant to bring him here. He hopes that his mother holds on until his brother can see her. Exam Narrative Exam Narrative: Patient is moribund, slow, shallow breathing, non-labored Objective Last Vital Signs Temp 35.8 C L 01/19/22 13:15 Pulse 100 H 01/19/22 14:25 Resp 38 H 01/19/22 16:45 BP 76/58 L 01/19/22 14:25 Pulse Ox 92 01/19/22 14:25
[2022-01-21 12:22] VITALS: PULSE 102; RESP 12
[2022-01-21 16:12] VITALS: PULSE 99; RESP 12
--- NOTE | 2022-01-22 10:25 | EXPE_ITS ---
Discharge Sum: Prov Provider Consults: 01/05/22 04:42 Care Management Consult [CONS] Routine Consultation Status:: Follow-up needed Clarification:: Manage/follow per spec. Reason for consult:: Patient lives alone, eating little, loosing weight, unable to care for herself, profound weakness over past 3 months. 01/06/22 10:04 CONS Palliative Care [Palliative Care Consult] [CONS] Routine Consultation Status:: Follow-up needed Clarification:: Manage/follow per spec. Reason for consult:: 66 yo F with history of bipolar disorder, remote pancreatic cancer s/p resection who presented with progressive weakness and falls over the past 3 months after the neighbors found her unable to stand or move around her house. She states this has progressed slowly over that time. She now cannot get out of bed, and has been using pads for urination/stooling. She feels weak all over, though especially in her legs, which she cannot lift. She states she had a recent colonoscopy with Dr. Vo and has follow up with Dr. Perry from [facility]. She denies any change in medication. Her mood has been stable. 01/07/22 10:10 Anesthesia Consult [CONS] Routine Consulting Provider: [facility] Consultation Status:: Follow-up needed Clarification:: Manage/follow per spec. Reason for consult:: placement of midline 01/19/22 15:38 Pipeline Controller Consult [CONS] Routine Consultation Status:: Follow-up needed Clarification:: Manage/follow per spec. Reason for consult:: assist family w/ any spiritual needs Discharge Sum: Diag Contributing Factors (1) Comfort measures only status: Contributing factors: Recurrent aspiration (2) Acute respiratory failure with hypoxia: Contributing factors: Not associated with recurrent aspiration (3) Aspiration pneumonitis: Contributing factors: Dysphagia with aspiration Discharge Sum: Summary Date and Time Admission Date: 01/05/2205/19/22 04:36 Date of : 01/22/22 Time of : 05:00 Summary Details: See above discharge summary
== END 2022-01-22 05:05 | disposition expired | DRG 622 ==
LOC: ER 01-05 05:18 → MS 01-05 05:58 → ICU 01-13 16:36 → MS 01-17 10:10
PROVIDERS: Family Medicine; Internal Medicine; Surgery; Admitting Provider Family Medicine; Emergency Provider Student in an Organized Health Care Education/Training Program; PCP Nurse Practitioner Primary Care; Visit Provider Family Medicine
PROC: 0JB70ZZ Excision of Back Subcutaneous Tissue and Fascia, Open Approach (ICD-10-PCS; CPT 11042; principal; 2022-01-06 14:15)
PROC: 0DJ68ZZ Inspection of Stomach, Via Natural or Artificial Opening Endoscopic (ICD-10-PCS; CPT 43235; principal; 2022-01-13 13:15)
DX: E87.6 Hypokalemia (principal); L89.153 Pressure ulcer of sacral region, stage 3; L89.154 Pressure ulcer of sacral region, stage 4; E43 Unspecified severe protein-calorie malnutrition; K29.01 Acute gastritis with bleeding; J96.01 Acute respiratory failure with hypoxia; J15.9 Unspecified bacterial pneumonia; Z68.1 Body mass index [BMI] 19.9 or less, adult; D62 Acute posthemorrhagic anemia; J95.4 Chemical pneumonitis due to anesthesia; N39.0 Urinary tract infection, site not specified; I82.B12 Acute embolism and thrombosis of left subclavian vein; I82.A12 Acute embolism and thrombosis of left axillary vein; T82.868A Thrombosis due to vascular prosthetic devices, implants and grafts, initial encounter; R64 Cachexia; R53.1 Weakness; L89.320 Pressure ulcer of left buttock, unstageable; R62.7 Adult failure to thrive; G89.29 Other chronic pain; I10 Essential (primary) hypertension; K21.9 Gastro-esophageal reflux disease without esophagitis; F31.9 Bipolar disorder, unspecified; K76.0 Fatty (change of) liver, not elsewhere classified; E78.5 Hyperlipidemia, unspecified; R42 Dizziness and giddiness; E11.9 Type 2 diabetes mellitus without complications; H40.9 Unspecified glaucoma; G47.33 Obstructive sleep apnea (adult) (pediatric); M81.0 Age-related osteoporosis without current pathological fracture; Z96.652 Presence of left artificial knee joint; Z90.49 Acquired absence of other specified parts of digestive tract; R29.6 Repeated falls; Z90.411 Acquired partial absence of pancreas; Z91.81 History of falling; Z85.41 Personal history of malignant neoplasm of cervix uteri; Z87.891 Personal history of nicotine dependence; Z85.07 Personal history of malignant neoplasm of pancreas; R41.82 Altered mental status, unspecified; G25.2 Other specified forms of tremor; K83.8 Other specified diseases of biliary tract; D50.9 Iron deficiency anemia, unspecified; Z66 Do not resuscitate; K44.9 Diaphragmatic hernia without obstruction or gangrene; Z91.19 Patient's noncompliance with other medical treatment and regimen; K20.90 Esophagitis, unspecified without bleeding; Z98.0 Intestinal bypass and anastomosis status; Z90.3 Acquired absence of stomach [part of]; E87.79 Other fluid overload; Z51.5 Encounter for palliative care; R13.10 Dysphagia, unspecified; W19.XXXA Unspecified fall, initial encounter
CPT/HCPCS: 11042; 43239; 36410; 36415; 36569; 70553; 71275; 72158; 72197; 74183; 76942; 80048; 80053; 80076; 82805; 83690; 84145; 85027; 86304; 86850; 86900; 86901; 86920; 87077; 87493; 87505; 87637; 88305; 92610; 93005; 96365; 96366; 97110; 97163; 97166; 97530; 99223; 99232; 99233; 99285; J1650; Q3014; 70450; 71045; 71260; 72156; 72157; 74019; 74176; 76770; 76856; 81003; 81015; 82140; 82607; 82656; 82728; 82746; 83036; 83519; 83540; 83550; 83630; 83735; 83880; 84100; 84134; 84443; 85014; 85018; 85025; 85045; 86140; 87070; 87075; 87086; 87205; 93010; 93971; 94640; 94667; 94760; 99231; 99238; 99291; J0295; J0690; J0696; J1756; J1940; J2060; J2270; J3480; J3490; J7512; J7620; J9999; P9016